=== PATIENT | male | born 1960 | race African-American/Black ===

== ENCOUNTER 2019-10-28 18:16 | Inpatient (IN) | payer OTHER ==
--- NOTE | 2019-10-28 18:24 | PDOC ---
History of Present Illness - General Stated Complaint: UNABLE TO URINATE Time Seen by Provider: 10/28/19 18:24 History Source: Patient Exam Limitations: No Limitations - History of Present Illness Initial Comments: 10/28/19 18:24 PCP: Dr. Elgin Tsai HPI: 59yo M PMH HIV, enlarged prostate presenting with 1.5 weeks reduced/ blocked aggarwal catheter. Patient found with SBP in 80s, tachycardic, meeting sepsis criteria. Patient only complains of prolonged leg bag blockage and a sensation of abdominal pressure that has cause him to reduce his fluid intake. Denies any fevers, chills, weakness, cough, nausea, vomiting, chest pain, shortness of breath, palpitations. All: Cipro --> "Fire: Meds: Per chart PMH: As above PSH: Denies Past History - Travel Traveled outside of the country in the last 30 days: No Close contact w/someone who was outside of country & ill: No - Past Medical History Allergies/Adverse Reactions: Allergies Allergy/AdvReac Type Severity Reaction Status Date / Time ciprofloxacin [From Cipro] Allergy Verified 10/28/19 19:03 Home Medications: Ambulatory Orders Bicalutamide 50 mg PO DAILY 10/28/19 Doxepin HCl 100 mg PO DAILY 10/28/19 Lactulose 10 mg PO DAILY 10/28/19 Tamsulosin HCl 0.4 mg PO DAILY 10/28/19 Review of Systems - Review of Systems Able to Perform ROS?: Yes Is the patient limited Kazakh proficient: Yes Constitutional: No: Chills, Diaphoresis, Fever, Weakness HEENTM: No: Recent change in vision, Nose Congestion, Throat Pain Respiratory: No: Cough, Shortness of Breath Cardiac (ROS): No: Chest Pain, Irregular Heart Rate, Lightheadedness, Palpitations, Chest Tightness ABD/GI: Yes: Poor Fluid Intake. No: Constipated, Diarrhea, Nausea, Vomiting : Yes: See HPI, Other (abdominal pressure) Musculoskeletal: No: Muscle Pain, Muscle Weakness Integumentary: No: Pallor, Rash Neurological: No: Headache, Numbness, Tingling, Weakness Psychiatric: No: Stressors, Change in Appetite Endocrine: No: Increased Thirst, Increased Urine, Change in Weight Hematologic/Lymphatic: No: Anemia, Blood Clots, Easy Bleeding All Other Systems: Reviewed and Negative *Physical Exam - Physical Exam 10/28/19 19:06 Vitals reviewed, Hypotensive, Tachycardic GEN: Emaciated, cachectic, smells strongly of urine, appears stated age, NAD, comfortable. AAOx3. HEENT: NCAT, EOMI, PERRL. Sclera anicteric, noninjected. No facial asymmetry. Moist mucous membranes. Normal voice. Trachea midline. CV: RRR, S1/S2, no murmurs / rubs / gallops appreciated. LUNG: CTAB, normal work of breathing. No wheezes, rales, rhonchi. No cough. Speaking full sentences. GI: Soft, non-distended, mildly tender suprapubically, no appreciable fullness, +BS, no guarding, no rebound. No masses. Neg CVAT b/l. EXTREMITIES: 2+ distal pulses. No LE edema. No obvious deformities of all extremities. SKIN: Warm, dry, no rashes appreciated, non-jaundiced. PSYCH: Normal mood and affect. Cooperative and appropriate. NEURO: CN grossly intact. Moving all extremities well. Normal strength and sensation grossly. ED Treatment Course - LABORATORY CBC & Chemistry Diagram: 10/28/19 20:31 10/28/19 20:31 Medical Decision Making - Medical Decision Making 10/28/19 19:08 59yo M PMH HIV, enlarged prostate presenting with 1.5 weeks reduced/blocked aggarwal catheter. Smells strongly of a UTI, pus in aggarwal bag, vitals meet sepsis criteria, concerning for urosepsis. - Full sepsis workup - Change Aggarwal 10/28/19 21:20 - Pt with tachycardia - Zosyn ordered - Severe pain with aggarwal change - Anemic 10/28/19 21:50 - Lactate 3.0 - EKbpm, irregularly irregular, normal axis, no ischemic changes - CXR: read per radiology Dispo: Admit Med/Surg Urosepsis Discharge - Discharge Information Problems reviewed: Yes Clinical Impression/Diagnosis: Sepsis Qualifiers: Sepsis type: sepsis due to unspecified organism Sepsis acute organ dysfunction status: unspecified Qualified Code(s): A41.9 - Sepsis, unspecified organism Condition: Guarded - Follow up/Referral - Patient Discharge Instructions - Post Discharge Activity
[2019-10-28] MEDS ORDERED: SODIUM CHLORIDE 1,796 ML IV ONE (18:55)
[2019-10-28] MEDS ORDERED: FOLIC ACID INJECTION - 1 MG, THIAMINE HCL 100 MG, MULTIVIT INJECTION ADULT 10 ML in SOD... IVPB ONE (20:11)
[2019-10-28 20:16] LABS: INR 1.28 (0.83-1.09); PROTHROMBIN TIME (PATIENT) 15.1 SEC (9.7-13.0)
[2019-10-28 20:18] LABS: ACTIVATED PTT 45.7 SECONDS (25.2-36.5)
[2019-10-28] MEDS ORDERED: ACETAMINOPHEN 1000 MG/100 ML VIAL (NON FORMULARY) IVPB ONE (20:21)
[2019-10-28 20:34] LABS: EOS % 1.2 % (0-4.5); HEMATOCRIT 24.9 % (35.4-49); HEMOGLOBIN 8.5 GM/dL (11.7-16.9); LYMPH % 27.9 % (8-40); MCH 28.7 pg (25.7-33.7); MCHC 34.1 g/dl (32.0-35.9); MEAN CELL VOLUME 84.4 fl (80-96); MEAN PLT VOLUME 8.4 fl (7.5-11.1); MONO % 7.8 % (3.8-10.2); NEUT % 62.1 % (42.8-82.8); PLATELET COUNT 326 K/MM3 (134-434); RBC 2.95 M/mm3 (4.00-5.60); RDW 16.1 % (11.9-15.9); WHITE BLOOD COUNT 5.9 K/mm3 (4.0-10.0)
[2019-10-28 20:37] LABS: EPI CELLS 11.3 /HPF (0-5/HPF); HYALINE CASTS 156 /lpf (0-8); PH,URINE 8.5 (5.0-8.0); URINE APPEARANCE TURBID; URINE BACTERIA 5681.6 /hpf (NEGATIVE); URINE BILIRUBIN NEGATIVE (NEGATIVE); URINE COLOR ORANGE; URINE GLUCOSE (UA) NEGATIVE (NEGATIVE); URINE KETONE NEGATIVE (NEGATIVE); URINE LEUK ESTERASE 3+ (NEGATIVE); URINE NITRITE POSITIVE (NEGATIVE); URINE PROTEIN 2+ (NEGATIVE); URINE WBC 2023 /hpf (0-5)
[2019-10-28 20:38] LABS: VENOUS PC02 37.2 mmHg (38-52); VENOUS PH 7.36 (7.31-7.41)
[2019-10-28 20:39] LABS: VENOUS PO2 < 49 mmHg (28-48)
[2019-10-28] MEDS ORDERED: ACETAMINOPHEN INJECTION 100 ML IVPB ONE (20:57)
[2019-10-28 21:01] LABS: ALBUMIN 2.2 g/dl (3.4-5.0); BILIRUBIN,TOTAL 0.4 mg/dL (0.2-1); BLOOD UREA NITROGEN 23.8 mg/dL (7-18); CALCIUM 7.9 mg/dL (8.5-10.1); CREATININE 0.9 mg/dL (0.55-1.3); POTASSIUM 4.9 mmol/L (3.5-5.1); TOT PROT 5.7 g/dl (6.4-8.2)
--- NOTE | 2019-10-28 21:12 | PDOC ---
Attending Attestation - Resident Resident Name: Ja Sandy - ED Attending Attestation I have performed the following: I have examined & evaluated the patient, The case was reviewed & discussed with the resident, I agree w/resident's findings & plan - HPI HPI: 10/28/19 21:12 Pt comes with pus discharge from his urinary catheter. Pt is cachectic; hypotensive and weak. - Physicial Exam PE: 10/28/19 21:51 Cachectic; afebrile Hip ulcers bilat. abd soft NT ND Pt complains of burning in the penis with the catheter. catheter placement good with US guidance Pt has clear lungs bilat. heart is S1S2 tachycardia - Medical Decision Making 10/28/19 21:51 Pt has elevated lactic acid; low BP; UTI; sepsis. He is receiving fluids; received zosyn; admitted to the hospitalist team. 10/28/19 23:03 Pt is feeling better. 10/28/19 23:03 Admitted to the hospitalist
[2019-10-28] MEDS ORDERED: PIPERACILLIN/TAZOB 3.375 GM 3.375 GM in DEXTROSE 5%-WATER - 50 ML IVPB ONE (21:15)
[2019-10-28 21:33] LABS: URINE RBC 746.6 /hpf (0-4)
[2019-10-28 21:34] LABS: URINE CRYSTALS MODERATE /hpf; YEAST NONE SEEN (NEGATIVE)
[2019-10-28 21:47] LABS: RETICULOCYTES 0.87 % (0.5-1.5)
[2019-10-28] MEDS ORDERED: PIPERACILLIN/TAZOB 3.375 GM 3.375 GM/50 ML BAG IVPB ONE (21:58)
--- NOTE | 2019-10-28 22:48 | HP ---
CHIEF COMPLAINT:urinary retention PCP:Quin HISTORY OF PRESENT ILLNESS: 59 yo M PMH HIV, Depression, BPH presents to ED for suprapubic fullness and urinary retention. pt states for the past week he noticed decreased drainage of urine from his aggarwal. he states that he started noticing drainage around his penis. he went to [facility] one month ago and they placed the aggarwal bc his enlarged prostate. he had not followed up with any physicians since then. pt states that he has not had a colonoscopy recently. he states he is unaware of any cancer hx. he denies recent illness. pt states that recently every morning he has noticed nosebleeds. denies f/c/n/v/d. ER course was notable for: (1)lactate of 3 (2)CXR (3)change aggarwal (4) zosyn, tylenol, Recent Travel: denies PAST MEDICAL HISTORY: see HPI PAST SURGICAL HISTORY: denies Social History: Smoking: smokes 1 spliff for 20 y Alcohol:denies Allergies ciprofloxacin [From Cipro] Allergy (Verified 10/28/19 19:03) HOME MEDICATIONS: Home Medications Medication Instructions Recorded Bicalutamide 50 mg PO DAILY 10/28/19 Doxepin HCl 100 mg PO DAILY 10/28/19 Lactulose 10 mg PO DAILY 10/28/19 Tamsulosin HCl 0.4 mg PO DAILY 10/28/19 REVIEW OF SYSTEMS CONSTITUTIONAL: Absent: fever, chills, diaphoresis, generalized weakness, malaise, loss of appetite, weight change HEENT: Absent: rhinorrhea, nasal congestion, throat pain, throat swelling, difficulty swallowing, mouth swelling, ear pain, eye pain, visual changes CARDIOVASCULAR: Absent: chest pain, syncope, palpitations, irregular heart rate, lightheadedness , peripheral edema RESPIRATORY: Absent: cough, shortness of breath, dyspnea with exertion, orthopnea, wheezing, stridor, hemoptysis GASTROINTESTINAL: Present: abdominal pressure Absent: abdominal pain, abdominal distension, nausea, vomiting, diarrhea, constipation, melena, hematochezia GENITOURINARY: Present: retention from catheter Absent: dysuria, frequency, urgency, hesitancy, hematuria, flank pain, genital pain MUSCULOSKELETAL: Absent: myalgia, arthralgia, joint swelling, back pain, neck pain SKIN: Absent: rash, itching, pallor HEMATOLOGIC/IMMUNOLOGIC: Present: nose bleeds Absent: easy bleeding, easy bruising, lymphadenopathy, frequent infections ENDOCRINE: Absent: unexplained weight gain, unexplained weight loss, heat intolerance, cold intolerance NEUROLOGIC: Absent: headache, focal weakness or paresthesias, dizziness, unsteady gait, seizure, mental status changes, bladder or bowel incontinence PSYCHIATRIC: Absent: anxiety, depression, suicidal or homicidal ideation, hallucinations. PHYSICAL EXAMINATION Vital Signs - 24 hr 10/28/19 10/28/19 10/28/19 18:25 21:01 21:33 Temperature 97.9 F 99.2 F Pulse Rate 104 H Pulse Rate [ 91 H Apical] Respiratory 20 20 Rate Blood Pressure 88/67 L Blood Pressure 94/61 [Right Arm] O2 Sat by Pulse 98 100 Oximetry (%) GENERAL: Awake, alert, and fully oriented, in no acute distress. Thin male HEAD: Normal with no signs of trauma. EYES: Pupils equal, round and reactive to light, extraocular movements intact EARS, NOSE, THROAT: oropharynx clear without exudates. Moist mucous membranes. NECK: No JVD LUNGS: Breath sounds equal, clear to auscultation bilaterally. No wheezes, and no crackles. No accessory muscle use. HEART: irregular rate and rhythm, + S1 and S2 without murmur, rub or gallop. ABDOMEN: Soft, nontender, not distended, normoactive bowel sounds MUSCULOSKELETAL: No CVA tenderness. UPPER EXTREMITIES: 2+ pulses, warm, well-perfused. No cyanosis. No clubbing. No peripheral edema. LOWER EXTREMITIES: 2+ pulses, warm, well-perfused. No calf tenderness. No peripheral edema. NEUROLOGICAL: Cranial nerves II-XII intact. Normal speech. SKIN: Warm, dry, normal turgor, skin scaling RECTAL: No stool in vault,good sphincter tone, external skin tags, no external hemorrhoids visualized or internal hemorrhoids palpated, no active bleeding noted, no blood on tip of glove. nodular irregularities of prostate. Laboratory Last Values WBC 5.9 K/mm3 (4.0-10.0) 10/28/19 20:31 RBC 2.95 M/mm3 (4.00-5.60) L 10/28/19 20:31 Hgb 8.5 GM/dL (11.7-16.9) L 10/28/19 20:31 Hct 24.9 % (35.4-49) L 10/28/19 20: MCV 84.4 fl (80-96) 10/28/19 20: MCH 28.7 pg (25.7-33.7) 10/28/19: MCHC 34.1 g/dl (32.0-35.9) 10/28/19: RDW 16.1 % (11.9-15.9) H 10/28/19: Plt Count 326 K/MM3 (134-434) 10/28/19: MPV 8.4 fl (7.5-11.1) 10/28/19: Absolute Neuts (auto) 3.7 K/mm3 (1.5-8.0) 10/28/19 Neutrophils % 62.1 % (42.8-82.8) 10/28/19 Lymphocytes % 27.9 % (8-40) 10/28/19: Monocytes % 7.8 % (3.8-10.2) 10/28/19: Eosinophils % 1.2 % (0-4.5) 10/28/19: Basophils % 1.0 % (0-2.0) 10/28/19: Nucleated RBC % 0 % (0-0) 10/28/19 Retic Count 0.87 % (0.5-1.5) 10/28/19: PT with INR 15.10 SEC (9.7-13.0) H 10/28/19 19: INR 1.28 (0.83-1.09) H 10/28/19: PTT (Actin FS) 45.7 SECONDS (25.2-36.5) H 10/28/19: VBG pH 7.36 (7.31-7.41) 10/28/19: POC VBG pCO2 37.2 mmHg (38-52) L 10/28/19: POC VBG pO2 < 49 mmHg (28-48) H 10/28/19: VBG HCO3 20.6 mmol/L (23-29) L 10/28/19: VBG O2 Sat (Franca) 37.1 % (70-80) L 10/28/19 20: VBG Base Excess -3.9 meq/l (-2-2) L 10/28/19 20: Sodium 139 mmol/L (136-145) 10/28/19 20: Potassium 4.9 mmol/L (3.5-5.1) 10/28/19 20: Chloride 109 mmol/L (98-107) H 10/28/19 20: Carbon Dioxide 22 mmol/L (21-32) 10/28/19 20: Anion Gap 8 MMOL/L (8-16) 10/28/19 20: BUN 23.8 mg/dL (7-18) H 10/28/19 20: Creatinine 0.9 mg/dL (0.55-1.3) 10/28/19 20: Est GFR (CKD-EPI)AfAm 108.73 10/28/19 20: Est GFR (CKD-EPI)NonAf 93.82 10/28/19 20: Random Glucose 82 mg/dL (74-106) 10/28/19 20: Lactic Acid 3.0 mmol/L (0.4-2.0) H* 10/28/19 20: Calcium 7.9 mg/dL (8.5-10.1) L 10/28/19 20: Iron 40 ug/dL (50-175) L 10/28/19 20: TIBC 77 ug/dL (250-450) L 10/28/19 20: Iron Saturation 51 % (17.5-39) H 10/28/19 20: Unsaturated IBC 37 ug/dL (200-275) L 10/28/19 20: Ferritin 1213.5 ng/ml (8-388) H 10/28/19 20: Total Bilirubin 0.4 mg/dL (0.2-1) 10/28/19 20: AST 25 U/L (15-37) 10/28/19 20: ALT 13 U/L (13-61) 10/28/19 20: Alkaline Phosphatase 464 U/L (45-117) H 10/28/19 20: Troponin I < 0.02 ng/ml (0.00-0.05) 01/12/20 19:35 Total Protein 5.7 g/dl (6.4-8.2) L 10/28/19 20: Albumin 2.2 g/dl (3.4-5.0) L 10/28/19: Urine Color [place] 10/28/19 20: Urine Appearance Turbid 10/28/19 20: Urine pH 8.5 (5.0-8.0) H 10/28/19 20: Ur Specific [place] 1.017 (1.010-1.035) 10/28/19 20: Urine Protein 2+ (NEGATIVE) H 10/28/19 20: Urine Glucose (UA) Negative (NEGATIVE) 10/28/19: Urine Ketones Negative (NEGATIVE) 10/28/19: Urine Blood 3+ (NEGATIVE) H 10/28/19: Urine Nitrite Positive (NEGATIVE) H 10/28/19: Urine Bilirubin Negative (NEGATIVE) 10/28/19: Urine Urobilinogen 1.0 mg/dL (0.2-1.0) 10/28/19: Ur Leukocyte Esterase 3+ (NEGATIVE) H 10/28/19 20: Urine WBC (Auto) 2023 /hpf (0-5) 10/28/19 20: Urine RBC (Auto) 746.6 /hpf (0-4) 10/28/19 20: Urine Casts (Auto) 156 /lpf (0-8) 10/28/19 20: U Pathogenic Cast Auto None seen /lpf (NEGATIVE) 10/28/19: U Epithel Cells (Auto) 11.3 /HPF (0-5/HPF) 10/28/19 20: Urine Crystals (Auto) Moderate /hpf 10/28/19 20: Urine Bacteria (Auto) 5681.6 /hpf (NEGATIVE) 10/28/19 20: Urine Yeast (Auto) None seen (NEGATIVE) 10/28/19: Stool Occult Blood Negative (NEGATIVE) 10/28/19 21:51 ASSESSMENT/PLAN: 59 yo M PMH HIV, Depression, BPH presents to ED for suprapubic fullness and urinary retention. Pt is admitted to medicine for sepsis 2/2 UTI Sepsis 2/2 UTI - lactate 3; + UA - aggarwal changed in ED - s/p zosyn in ED, 2 L IVF - continue zosyn and fluids - pressure responded with fluid hydration. continue to monitor to maintain BP - pending Blood, sputum and Urine culture - CT chest / abdomen/ pelvis - rpt lactate - ESR, CRP -Urology recs appreciated ( Dr. Hernan Mcdonald) - ID recs appreciated ( Dr. Lacey) Suspicion for Prostate Ca - pt never had biopsy of prostate - pending PSA - CT chest/ abdomen / pelvis - Heme / onc recs appreciated ( Dr. Qureshi ) Anemia of chronic disease - FOBT negative - Heme/ onc recs appreciated HIV - on Odefsey - ID recs appreciated Malnutrition - protein supplement BID - dietary consult requested F/E/N - monitor lytes -regular diet Dispo: Admit to medicine CODE STATUS: DNR/DNI Visit type - Emergency Visit Emergency Visit: Yes ED Registration Date: 10/28/19 Care time: The patient presented to the Emergency Department on the above date and was hospitalized for further evaluation of their emergent condition. - New Patient This patient is new to me today: Yes - Critical Care Critical Care patient: No ATTENDING PHYSICIAN STATEMENT I saw and evaluated the patient. I reviewed the resident's note and discussed the case with the resident. I agree with the resident's findings and plan as documented. SUBJECTIVE: OBJECTIVE: ASSESSMENT AND PLAN:
[2019-10-28] MEDS ORDERED: MORPHINE SULFATE 2 MG/ML VIAL IVPUSH PRN (23:22)
[2019-10-28] MEDS ORDERED: LACTATED RINGERS SOLUTION 1,000 ML/1,000 ML INFUS.BAG IV SCH (23:30)
--- NOTE | 2019-10-29 01:33 | PN ---
Teaching Attending Note Name of Resident: Svetlana Ramirez ATTENDING PHYSICIAN STATEMENT I saw and evaluated the patient. I reviewed the resident's note and discussed the case with the resident. I agree with the resident's findings and plan as documented. SUBJECTIVE: 59yo man w/ HIVOn Jfsey, enlarged prostate, Seen at [facility] about 1 month ago and had a catheter placed for urinary retention and is returning now for suspected blocked Syed catheter. Syed catheter was removed and replaced in the emergency room.Allegedly has a urologist at [facility] and is suspected to have prostate cancer. In the emergency room, patient was found to be hypotensive, tachycardic. OBJECTIVE: Last Vital Signs Temp Pulse Resp BP Pulse Ox 99.2 F 88 20 110/73 100 10/28/19 21:01 10/28/19 22:55 10/28/19 22:55 10/28/19 22:55 10/28/19 22:55 GENERAL: Awake and alert, not in acute distress, cachectic HEENT: Normocephalic, atraumatic. PERRLA, EOMI. No conjunctival pallor. Sclera are non- icteric. Moist mucous membranes. Oropharynx is clear. NECK: Supple. Full ROM. No JVD. Carotid pulses 2+ and symmetric, without bruits. No thyromegaly. No lymphadenopathy. CARDIOVASCULAR: Regular rate and rhythm. No murmurs, rubs, or gallops. Distal pulses are 2+ and symmetric. PULMONARY: No evidence of respiratory distress. Lungs clear to auscultation bilaterally. No wheezing, rales or rhonchi. ABDOMINAL: Soft. Non-tender. Non-distended. No rebound or guarding. No organomegaly. Normoactive bowel sounds. MUSCULOSKELETAL Normal range of motion at all joints. No bony deformities or tenderness. No CVA tenderness. EXTREMITIES: No cyanosis. No clubbing. No edema. No calf tenderness. SKIN: Warm and dry. Normal capillary refill. No rashes. No jaundice. PSYCHIATRIC: Cooperative. Good eye contact. Appropriate mood and affect. Syed catheter in place, noted to be draining orange tinted urine Abnormal Lab Results 10/28/19 10/28/19 10/28/19 19:35 20:31 20:31 RBC 2.95 L Hgb 8.5 L Hct 24.9 L RDW 16.1 H PT with INR 15.10 H INR 1.28 H PTT (Actin FS) 45.7 H POC VBG pCO2 POC VBG pO2 VBG HCO3 VBG O2 Sat (Franca) VBG Base Excess Chloride 109 H BUN 23.8 H Lactic Acid Calcium 7.9 L Iron 40 L TIBC 77 L Iron Saturation 51 H Unsaturated IBC 37 L Ferritin 1213.5 H Alkaline Phosphatase 464 H Total Protein 5.7 L Albumin 2.2 L Urine pH Urine Protein Urine Blood Urine Nitrite Ur Leukocyte Esterase 10/28/19 10/28/19 10/28/19 20:31 20:31 20:31 RBC Hgb Hct RDW PT with INR INR PTT (Actin FS) POC VBG pCO2 37.2 L POC VBG pO2 < 49 H VBG HCO3 20.6 L VBG O2 Sat (Franca) 37.1 L VBG Base Excess -3.9 L Chloride BUN Lactic Acid 3.0 H* Calcium Iron TIBC Iron Saturation Unsaturated IBC Ferritin Alkaline Phosphatase Total Protein Albumin Urine pH 8.5 H Urine Protein 2+ H Urine Blood 3+ H Urine Nitrite Positive H Ur Leukocyte Esterase 3+ H Imaging studies reviewed ASSESSMENT AND PLAN: 51-year-old male, immunocompromised With HIV with unknown CD4 count or viral load, with suspected underlying malignancy with possible mets to chest presenting with severe sepsis likely secondary to complicated urinary tract infection. UA was grossly positive with pyuria, positive leukocyte esterase and urine nitrates. Cannot rule out pulmonary source as opacities were found on chest x-ray although these might represent metastasis from underlying malignancy. Lactic acidosis was found. Treated initially with Zosyn and IV fluid resuscitation. Blood pressure is noted to have improved. Patient is noted to be DNR/DNI and would be appropriate for admission to [facility] at this time. Admit to [facility] Continue Zosyn 3.375 every 6 hours Trend lactate Blood cultures x2 Sputum culture and urine Legionella antigen Pneumococcal urine antigen Urine culture IV fluid hydration Infectious disease consultation Contact [facility] for medical records and work-up for suspected malignancy Heme-onc consult Urology consult CT scan of chest, abdomen, pelvis with contrast to evaluate for mets PSA ESR and CRP #HIVunknown CD4 count and viral load, [facility]atitis B and C serology Send CD4 count and viral load ID [facility] #Normocytic anemiasuspect anemia of chronic disease, may be secondary to underlying HIV versus malignancy Ferritin Iron studies Vitamin B12 TSH #Cachexiawasted appearance, BMI is under 18may be secondary to HIV wasting syndrome versus underlying malignancy Protein supplement to twice daily Dietary consult and calorie count High-protein diet Advanced directivesDNR/DNI, confirm documentation in chart #DVT prophylaxisheparin subcutaneously
[2019-10-29] MEDS: PIPERACILLIN/TAZOB 3.375 GM 3.375 GM in DEXTROSE 5%-WATER - 50 ML IVPB SCH ×2 (02:47→10:25)
[2019-10-29] MEDS ORDERED: PIPERACILLIN/TAZOB 3.375 GM 3.375 GM in DEXTROSE 5%-WATER - 50 ML IVPB SCH ×2 (03:00→05:00)
[2019-10-29 05:53] VITALS: BMI 17.0
[2019-10-29] MEDS ORDERED: DEXTROSE 5%-WATER - 50 ML IVPB ONE ×3 (06:38→14:26)
[2019-10-29] MEDS ORDERED: PIPERACILLIN/TAZOBACTAM 3.375 GM VIAL IVPB ONE ×2 (06:38→10:16)
[2019-10-29 08:59] LABS: HEMATOCRIT 20.8 % (35.4-49); HEMOGLOBIN 7.6 GM/dL (11.7-16.9); MCHC 36.4 g/dl (32.0-35.9); MEAN CELL VOLUME 87.8 fl (80-96); PLATELET COUNT 279 K/MM3 (134-434); RBC 2.37 M/mm3 (4.00-5.60); WHITE BLOOD COUNT 5.1 K/mm3 (4.0-10.0)
--- NOTE | 2019-10-29 09:43 | EKG ---
Test Reason : Blood Pressure : / mmHG Vent. Rate : 094 BPM Atrial Rate : 094 BPM P-R Int : 132 ms QRS Dur : 090 ms QT Int : 340 ms P-R-T Axes : 079 072 087 degrees QTc Int : 425 ms SINUS RHYTHM WITH MARKED SINUS ARRHYTHMIA OTHERWISE NORMAL ECG WHEN COMPARED WITH ECG OF 20-MAY-2010 12:20, NO SIGNIFICANT CHANGE WAS FOUND Confirmed by JEWEL AGEE MD ([id number]) on 10/29/2019 9:42:39 AM Referred By: Confirmed By:JEWEL AGEE MD
[2019-10-29] MEDS ORDERED: FLU VACCINE QUAD 60 MCG/0.5 ML (MDV 19-20) IM ONE (10:00)
[2019-10-29] MEDS ORDERED: PT OWN MED DRAWER 7, Y5N ONE (10:15)
[2019-10-29] MEDS: DOXEPIN HCL 25 MG CAPSULE PO SCH ×2 (10:26→10:36)
[2019-10-29] MEDS: EMTRICITAB/RILPIVIRI/TENOF ALA (ODEFSEY) TABLET PO SCH ×2 (10:26→10:28)
[2019-10-29 10:28] LABS: ALBUMIN 1.9 g/dl (3.4-5.0); BILIRUBIN,TOTAL 0.5 mg/dL (0.2-1); BLOOD UREA NITROGEN 16.3 mg/dL (7-18); CALCIUM 7.3 mg/dL (8.5-10.1); CREATININE 0.7 mg/dL (0.55-1.3); PHOSPHOROUS 2.8 mg/dL (2.5-4.9); POTASSIUM 4.8 mmol/L (3.5-5.1); TOT PROT 5.1 g/dl (6.4-8.2)
[2019-10-29 10:45] LABS: ANISOCYTOSIS 0; MACROCYTOSIS 0; OVALOCYTE 1+; PLATELET ESTIMATE NORMAL; TARGET CELLS 1+; TEAR DROP CELLS 1+
--- NOTE | 2019-10-29 11:14 | CONSULT ---
Consultation: REQUESTING PROVIDER:Primary team Dr Ramirez resident CONSULT REQUEST: We have been asked to medically evaluate this patient for ( anemia R.O prostate cancer ). HISTORY OF PRESENT ILLNESS: 59yo man w/ HIVOn Neha, enlarged prostate, Seen at [facility] about 1 month ago and had a catheter placed for urinary retention and is returning now for suspected blocked Aggarwal catheter. Aggarwal catheter was removed and replaced in the emergency room.Allegedly has a urologist at [facility] and is suspected to have prostate cancer. In the emergency room, patient was found to be hypotensive, tachycardic. PHYSICAL EXAMINATION Vital Signs - 24 hr 10/28/19 10/28/19 10/28/19 18:25 21:01 21:25 Temperature 97.9 F 99.2 F Pulse Rate 104 H Pulse Rate [ Apical] Respiratory 20 Rate Blood Pressure 88/67 L Blood Pressure [Right Arm] O2 Sat by Pulse 98 99 Oximetry (%) 10/28/19 10/28/19 10/29/19 21:33 22:55 01:38 Temperature 98.0 F Pulse Rate 87 Pulse Rate [ 91 H 88 Apical] Respiratory 20 20 20 Rate Blood Pressure 97/67 Blood Pressure 94/61 110/73 [Right Arm] O2 Sat by Pulse 100 100 Oximetry (%) GENERAL: Awake, alert, and fully oriented, in no acute distress. HEAD: Normal with no signs of trauma. EYES: Pupils equal, round and reactive to light, extraocular movements intact, sclera anicteric, conjunctiva clear. No lid lag. EARS, NOSE, THROAT: Ears normal, nares patent, oropharynx clear without exudates. Moist mucous membranes.no thrush noted NECK: , supple without lymphadenopathy LUNGS: Breath sounds equal, clear to auscultation bilaterally. No wheezes, and no crackles. No accessory muscle use. HEART: Regular rate and rhythm, normal S1 and S2 without murmur, rub or gallop. ABDOMEN: Soft, nontender, not distended, normoactive bowel sounds, no guarding, no rebound, LOWER EXTREMITIES: 2+ pulses, warm, well-perfused. No calf tenderness. No peripheral edema. catchetic , loos of body fat NEUROLOGICAL: no focal deicit, Normal speech. PSYCHIATRIC: Cooperative. SKIN: Warm, dry, no lyph node palpated No breast mass palpated aggarwal in place with clear urine Laboratory Results - last 24 hr 10/28/19 10/28/19 10/28/19 08:15 19:35 19:35 WBC RBC Hgb Hct MCV MCH MCHC RDW Plt Count MPV Absolute Neuts (auto) Neutrophils % Neutrophils % (Manual) Band Neutrophils % Lymphocytes % Lymphocytes % (Manual) Monocytes % Monocytes % (Manual) Eosinophils % Eosinophils % (Manual) Basophils % Basophils % (Manual) Myelocytes % (Man) Promyelocytes % (Man) Blast Cells % (Manual) Nucleated RBC % Metamyelocytes Hypochromia Platelet Estimate Polychromasia Poikilocytosis Anisocytosis Microcytosis Macrocytosis Target Cells Tear Drop Cells Ovalocytes ESR 53 H Retic Count PT with INR 15.10 H INR 1.28 H PTT (Actin FS) 45.7 H VBG pH POC VBG pCO2 POC VBG pO2 VBG HCO3 VBG O2 Sat (Franca) VBG Base Excess Sodium Potassium Chloride Carbon Dioxide Anion Gap BUN Creatinine Est GFR (CKD-EPI)AfAm Est GFR (CKD-EPI)NonAf Random Glucose Lactic Acid Calcium Phosphorus Magnesium Iron TIBC Iron Saturation Unsaturated IBC Ferritin Total Bilirubin AST ALT Alkaline Phosphatase Troponin I < 0.02 C-Reactive Protein 2.2 H Total Protein Albumin TSH Urine Color Urine Appearance Urine pH Ur Specific [place] Urine Protein Urine Glucose (UA) Urine Ketones Urine Blood Urine Nitrite Urine Bilirubin Urine Urobilinogen Ur Leukocyte Esterase Urine WBC (Auto) Urine RBC (Auto) Urine Casts (Auto) U Pathogenic Cast Auto U Epithel Cells (Auto) Urine Crystals (Auto) Urine Bacteria (Auto) Urine Yeast (Auto) Stool Occult Blood 10/28/19 10/28/19 10/28/19 20:31 20:31 20:31 WBC 5.9 RBC 2.95 L Hgb 8.5 L Hct 24.9 L MCV 84.4 MCH 28.7 MCHC 34.1 RDW 16.1 H Plt Count 326 MPV 8.4 Absolute Neuts (auto) 3.7 Neutrophils % 62.1 Neutrophils % (Manual) Band Neutrophils % Lymphocytes % 27.9 Lymphocytes % (Manual) Monocytes % 7.8 Monocytes % (Manual) Eosinophils % 1.2 Eosinophils % (Manual) Basophils % 1.0 Basophils % (Manual) Myelocytes % (Man) Promyelocytes % (Man) Blast Cells % (Manual) Nucleated RBC % 0 Metamyelocytes Hypochromia Platelet Estimate Polychromasia Poikilocytosis Anisocytosis Microcytosis Macrocytosis Target Cells Tear Drop Cells Ovalocytes ESR Retic Count 0.87 PT with INR INR PTT (Actin FS) VBG pH POC VBG pCO2 POC VBG pO2 VBG HCO3 VBG O2 Sat (Franca) VBG Base Excess Sodium 139 Potassium 4.9 Chloride 109 H Carbon Dioxide 22 Anion Gap 8 BUN 23.8 H Creatinine 0.9 Est GFR (CKD-EPI)AfAm 108.73 Est GFR (CKD-EPI)NonAf 93.82 Random Glucose 82 Lactic Acid 3.0 H* Calcium 7.9 L Phosphorus Magnesium Iron 40 L TIBC 77 L Iron Saturation 51 H Unsaturated IBC 37 L Ferritin 1213.5 H Total Bilirubin 0.4 AST 25 ALT 13 Alkaline Phosphatase 464 H Troponin I C-Reactive Protein Total Protein 5.7 L Albumin 2.2 L TSH Urine Color Urine Appearance Urine pH Ur Specific [place] Urine Protein Urine Glucose (UA) Urine Ketones Urine Blood Urine Nitrite Urine Bilirubin Urine Urobilinogen Ur Leukocyte Esterase Urine WBC (Auto) Urine RBC (Auto) Urine Casts (Auto) U Pathogenic Cast Auto U Epithel Cells (Auto) Urine Crystals (Auto) Urine Bacteria (Auto) Urine Yeast (Auto) Stool Occult Blood 10/28/19 10/28/19 10/28/19 20:31 20:31 21:51 WBC RBC Hgb Hct MCV MCH MCHC RDW Plt Count MPV Absolute Neuts (auto) Neutrophils % Neutrophils % (Manual) Band Neutrophils % Lymphocytes % Lymphocytes % (Manual) Monocytes % Monocytes % (Manual) Eosinophils % Eosinophils % (Manual) Basophils % Basophils % (Manual) Myelocytes % (Man) Promyelocytes % (Man) Blast Cells % (Manual) Nucleated RBC % Metamyelocytes Hypochromia Platelet Estimate Polychromasia Poikilocytosis Anisocytosis Microcytosis Macrocytosis Target Cells Tear Drop Cells Ovalocytes ESR Retic Count PT with INR INR PTT (Actin FS) VBG pH 7.36 POC VBG pCO2 37.2 L POC VBG pO2 < 49 H VBG HCO3 20.6 L VBG O2 Sat (Franca) 37.1 L VBG Base Excess -3.9 L Sodium Potassium Chloride Carbon Dioxide Anion Gap BUN Creatinine Est GFR (CKD-EPI)AfAm Est GFR (CKD-EPI)NonAf Random Glucose Lactic Acid Calcium Phosphorus Magnesium Iron TIBC Iron Saturation Unsaturated IBC Ferritin Total Bilirubin AST ALT Alkaline Phosphatase Troponin I C-Reactive Protein Total Protein Albumin TSH Urine Color Todd Urine Appearance Turbid Urine pH 8.5 H Ur Specific [place] 1.017 Urine Protein 2+ H Urine Glucose (UA) Negative Urine Ketones Negative Urine Blood 3+ H Urine Nitrite Positive H Urine Bilirubin Negative Urine Urobilinogen 1.0 Ur Leukocyte Esterase 3+ H Urine WBC (Auto) 2023 Urine RBC (Auto) 746.6 Urine Casts (Auto) 156 U Pathogenic Cast Auto None seen U Epithel Cells (Auto) 11.3 Urine Crystals (Auto) Moderate Urine Bacteria (Auto) 5681.6 Urine Yeast (Auto) None seen Stool Occult Blood Negative 10/28/19 10/29/19 10/29/19 23:35 08:15 08:15 WBC 5.1 RBC 2.37 L Hgb 7.6 L Hct 20.8 L D MCV 87.8 MCH 32.0 D MCHC 36.4 H RDW 16.0 H Plt Count 279 MPV 8.0 Absolute Neuts (auto) Neutrophils % R D Intern Neutrophils % (Manual) 70.3 Band Neutrophils % 0.0 Lymphocytes % R D Intern Lymphocytes % (Manual) 17.8 Monocytes % R D Intern Monocytes % (Manual) 4 Eosinophils % R D Intern Eosinophils % (Manual) 1.0 Basophils % R D Intern Basophils % (Manual) 0.0 Myelocytes % (Man) 1 Promyelocytes % (Man) 0 Blast Cells % (Manual) 0 Nucleated RBC % 0 Metamyelocytes 1 Hypochromia 1+ Platelet Estimate Normal Polychromasia 1+ Poikilocytosis 1+ Anisocytosis 0 Microcytosis 0 Macrocytosis 0 Target Cells 1+ Tear Drop Cells 1+ Ovalocytes 1+ ESR Retic Count PT with INR INR PTT (Actin FS) VBG pH POC VBG pCO2 POC VBG pO2 VBG HCO3 VBG O2 Sat (Franca) VBG Base Excess Sodium 141 Potassium 4.8 Chloride 113 H Carbon Dioxide 22 Anion Gap 6 L BUN 16.3 Creatinine 0.7 Est GFR (CKD-EPI)AfAm 120.56 Est GFR (CKD-EPI)NonAf 104.02 Random Glucose 77 Lactic Acid 1.5 Calcium 7.3 L Phosphorus 2.8 Magnesium 2.0 Iron TIBC Iron Saturation Unsaturated IBC Ferritin Total Bilirubin 0.5 AST 21 ALT 12 L Alkaline Phosphatase 414 H Troponin I C-Reactive Protein Total Protein 5.1 L Albumin 1.9 L TSH 2.63 Urine Color Urine Appearance Urine pH Ur Specific [place] Urine Protein Urine Glucose (UA) Urine Ketones Urine Blood Urine Nitrite Urine Bilirubin Urine Urobilinogen Ur Leukocyte Esterase Urine WBC (Auto) Urine RBC (Auto) Urine Casts (Auto) U Pathogenic Cast Auto U Epithel Cells (Auto) Urine Crystals (Auto) Urine Bacteria (Auto) Urine Yeast (Auto) Stool Occult Blood Active Medications Generic Name Dose Route Start Last Admin Trade Name Freq PRN Reason Stop Dose Admin Doxepin HCl 100 mg 10/29/19 10:00 10/29/19 10:36 Sinequan - PO Not Given DAILY JESSICA Piperacillin Sod/Tazobactam 50 mls @ 100 mls/hr 10/29/19 03:00 Sod 3.375 gm/ Dextrose IVPB Q6H-IV JESSICA Protocol Lactated Ringer's 1,000 ml in 1,000 mls @ 83 mls/hr 10/28/19 23:30 10/28/19 23:40 Lactated Ringers Solution IV 83 mls/hr ASDIR JESSICA Administration Morphine Sulfate 2 mg 10/28/19 23:22 Morphine Sulfate IVPUSH Q6H PRN PAIN LEVEL 6-10 CBC, BMP 10/29/19 08:15 10/29/19 08:15 IMPRESSION: 1. 9 mm right upper lobe nodule. A metastatic lesion cannot be excluded. 2. Mild mediastinal lymphadenopathy. 3. No acute pathology within the chest. 4. Marked thickening of the urinary bladder and rectum that may be related to radiation changes. 5. Prostatic enlargement with mild pelvic lymphadenopathy. 6. Extensive, diffuse blastic bone metastases lateral chest, abdomen and pelvis. ASSESSMENT/PLAN: # Normocytic normochromic anemia likely due to anemia of chronic disease HIV , can not R.O malignancy # R.O prostate cancer * H/H 7.6/20.8 , mcv 87, mchd 36 , * monitor H/H daily , repeat around 6 pm today * maintain hgb > 7 * dominguez cx * CT A/P to R.o malignancy * TSH normal 2.6 * follow b12 , FA * PSA * Bone scan out pt , pt would like to [facility] upon discharged # Right upper lobe nodule # Mediastinal lyphadenopathy # diffuse blastic bone lesions will do bone scan # Sepsis 2/2 UTI cont abx zosyn , consult ID # HIV , obtain viral load , cont Odefsey # sever malnutrition BMI below 18 , nutrition consult # Urinary retention # DNR/DNI #follow up with Dr. Jaime Mcclelland and urologist at [facility] and primary care ID at discharge Dispo: We will continue to follow the patient. Thank you for this consultative opportunity. Visit type - Emergency Visit Emergency Visit: Yes ED Registration Date: 10/28/19 Care time: The patient presented to the Emergency Department on the above date and was hospitalized for further evaluation of their emergent condition. - New Patient This patient is new to me today: No - Critical Care Critical Care patient: No ATTENDING PHYSICIAN STATEMENT I saw and evaluated the patient. I reviewed the resident's note and discussed the case with the resident. I agree with the resident's findings and plan as documented. SUBJECTIVE: OBJECTIVE: ASSESSMENT AND PLAN:
--- NOTE | 2019-10-29 11:17 | PN ---
Teaching Attending Note Name of Resident: Kurt Chou ATTENDING PHYSICIAN STATEMENT I saw and evaluated the patient. I reviewed the resident's note and discussed the case with the resident. I agree with the resident's findings and plan as documented. Seen and examined; please see resident note for further historical information. I personally verified all alvarado historical information and exam findings. Personally interpreted all imaging and diagnostics and reviewed appropriate consults. I reviewed all labs and vital signs as per resident note and EMR as documented. I agree with the above assessment and plan unless supplemented by myself in the following. Patient is a 59-year-old man with a longstanding diagnosis of HIV with nonfunctioning Syed and unaware this that he has prostate cancer. Tells me he has a Syed for about 6 months. Pending Syed exchange, potential nonadherence to HIV medications, weight loss, and no fevers. Can likely de-escalate antibiotics but will discuss with infectious disease. 10 item review of systems completed and is negative aside from as discussed in the subjective data in my own/the resident documentation. VS, labs, imaging reviewed NAD, AAO, resting comfortably in bed. RRR s1/2 no mgr Normal muscle tone, moves all 5 extremities with normal apparent strength Neck is supple, trachea midline, no esme LN Lungs CTAB with sym expansion NT ND +BS no esme organomegaly CN2-12 wnl; no FND NC AT EOMI PERRLA Normal mood, appropriate behavior, euthymic affect No skin breakdown or rashes noted Micro pending ASSESSMENT AND PLAN: Patient presents with urosepsis with a longstanding history of HIV and prostate cancer. He is apparently unaware he has prostate cancer and we will require close urological follow-up consultation, we will check a PSA, discussed with urology and potentially hematology and oncology. Sepsis has improved, we will be able to continue him on isotonic fluids for maintenance until he is able to tolerate a diet. He has no further issues and all of his questions were answered. Agree with overnight assessment and plan as documented.
--- NOTE | 2019-10-29 11:32 | PN ---
Progress Note (short form) - Note Progress Note: ID consult dictated imp/reccd 59 yo man with HIV longstanding - diagnosis 05/2000 history of prostate cancer- has not been following up for care follows with Dr Sanchez at [facility] HIV clinic now admitted because his aggarwal was not functoning properly reports he takes odefsey and his viral load is suppressed does not appear to be aware he has prostate cancer! reports he has had the aggarwal catheter since summer 2018 no fevers +weight loss aggarwal obstruction relieved presumed metastatic prostate cancer no fevers continue odefsey for hiv- check markers- ?adherence- reports to missing doses switch to ceftriaxone for UTI can f/u with dr sanchez at discharge Problem List - Problems (1) UTI (urinary tract infection) Code(s): N39.0 - URINARY TRACT INFECTION, SITE NOT SPECIFIED (2) HIV (human immunodeficiency virus infection) Code(s): B20 - HUMAN IMMUNODEFICIENCY VIRUS [HIV] DISEASE (3) Prostate cancer Code(s): C61 - MALIGNANT NEOPLASM OF PROSTATE
[2019-10-29 13:33] LABS: BASO % 0.5 % (0-2.0); EOS % 2.8 % (0-4.5); HEMOGLOBIN 7.7 GM/dL (11.7-16.9); LYMPH % 19.7 % (8-40); MCH 29.3 pg (25.7-33.7); MCHC 34.7 g/dl (32.0-35.9); MEAN CELL VOLUME 84.3 fl (80-96); MEAN PLT VOLUME 8.1 fl (7.5-11.1); PLATELET COUNT 286 K/MM3 (134-434); RBC 2.61 M/mm3 (4.00-5.60); RDW 15.7 % (11.9-15.9); WHITE BLOOD COUNT 5.3 K/mm3 (4.0-10.0)
[2019-10-29] MEDS ORDERED: cefTRIAXone SODIUM 1 GM VIAL ONE (14:26)
[2019-10-29] MEDS: CEFTRIAXONE 1 GM in DEXTROSE 5%-WATER - 50 ML IVPB SCH (14:29)
--- NOTE | 2019-10-29 18:05 | PN ---
Physical Exam: SUBJECTIVE: Patient seen and examined OBJECTIVE: Vital Signs Period Temp Pulse Resp BP Sys/Reardon Pulse Ox Last 24 Hr 97.9 F-99.2 F 87-104 20-20 87-110/50-73 98-100 GENERAL: AOx3, thin male HEAD: AC/AT EYES: EOMI, SLY EARS, NOSE, THROAT: oropharynx clear without exudates. Moist mucous membranes. NECK: No JVD LUNGS: Breath sounds equal, clear to auscultation bilaterally. No wheezes, and no crackles. No accessory muscle use. HEART: irregular rate and rhythm, + S1 and S2 without murmur, rub or gallop. ABDOMEN: Soft, nontender, not distended, normoactive bowel sounds NEUROLOGICAL: Normal speech. SKIN: Warm, dry, normal turgor, skin scaling Laboratory Results - last 24 hr CBC,CMP WBC 5.3 K/mm3 (4.0-10.0) 10/29/19 12:40 RBC 2.61 M/mm3 (4.00-5.60) L 10/29/19 12:40 Hgb 7.7 GM/dL (11.7-16.9) L 10/29/19 12:40 Hct 22.0 % (35.4-49) L 10/29/19 12:40 MCV 84.3 fl (80-96) 10/29/19 12:40 MCH 29.3 pg (25.7-33.7) 10/29/19 12:40 MCHC 34.7 g/dl (32.0-35.9) 10/29/19 12:40 RDW 15.7 % (11.9-15.9) 10/29/19 12:40 Plt Count 286 K/MM3 (134-434) 10/29/19 12:40 MPV 8.1 fl (7.5-11.1) 10/29/19 12:40 Absolute Neuts (auto) 3.8 K/mm3 (1.5-8.0) 10/29/19 12:40 Neutrophils % 71.0 % (42.8-82.8) 10/29/19 12:40 Neutrophils % (Manual) 70.3 % (42.8-82.8) 10/29/19 08:15 Band Neutrophils % 0.0 % 10/29/19 08:15 Lymphocytes % 19.7 % (8-40) D 10/29/19 12:40 Lymphocytes % (Manual) 17.8 % (8-40) 10/29/19 08:15 Monocytes % 6.0 % (3.8-10.2) 10/29/19 12:40 Monocytes % (Manual) 4 % (3.8-10.2) 10/29/19 08:15 Eosinophils % 2.8 % (0-4.5) D 10/29/19 12:40 Eosinophils % (Manual) 1.0 % (0-4.5) 10/29/19 08:15 Basophils % 0.5 % (0-2.0) 10/29/19 12:40 Basophils % (Manual) 0.0 % (0-2.0) 10/29/19 08:15 Myelocytes % (Man) 1 % (0-2) 10/29/19 08:15 Promyelocytes % (Man) 0 % (0-2) 10/29/19 08:15 Blast Cells % (Manual) 0 % (0-0) 10/29/19 08:15 Nucleated RBC % 0 % (0-0) 10/29/19 12:40 Metamyelocytes 1 % (0-2) 10/29/19 08:15 Hypochromia 1+ 10/29/19 08:15 Platelet Estimate Normal 10/29/19 08:15 Polychromasia 1+ 10/29/19 08:15 Poikilocytosis 1+ 10/29/19 08:15 Anisocytosis 0 10/29/19 08:15 Microcytosis 0 10/29/19 08:15 Macrocytosis 0 10/29/19 08:15 Target Cells 1+ 10/29/19 08:15 Tear Drop Cells 1+ 10/29/19 08:15 Ovalocytes 1+ 10/29/19 08:15 ESR 53 mm/hr (0-20) H 10/28/19 08:15 Retic Count 0.87 % (0.5-1.5) 10/28/19 20:31 Sodium 141 mmol/L (136-145) 10/29/19 08:15 Potassium 4.8 mmol/L (3.5-5.1) 10/29/19 08:15 Chloride 113 mmol/L (98-107) H 10/29/19 08:15 Carbon Dioxide 22 mmol/L (21-32) 10/29/19 08:15 Anion Gap 6 MMOL/L (8-16) L 10/29/19 08:15 BUN 16.3 mg/dL (7-18) 10/29/19 08:15 Creatinine 0.7 mg/dL (0.55-1.3) 10/29/19 08:15 Est GFR (CKD-EPI)AfAm 120.56 10/29/19 08:15 Est GFR (CKD-EPI)NonAf 104.02 10/29/19 08:15 Random Glucose 77 mg/dL (74-106) 10/29/19 08:15 Lactic Acid 1.5 mmol/L (0.4-2.0) 10/28/19 23:35 Calcium 7.3 mg/dL (8.5-10.1) L 10/29/19 08:15 Phosphorus 2.8 mg/dL (2.5-4.9) 10/29/19 08:15 Magnesium 2.0 mg/dL (1.8-2.4) 10/29/19 08:15 Iron 40 ug/dL (50-175) L 10/28/19 20:31 TIBC 77 ug/dL (250-450) L 10/28/19 20:31 Iron Saturation 51 % (17.5-39) H 10/28/19 20:31 Unsaturated IBC 37 ug/dL (200-275) L 10/28/19 20:31 Ferritin 1213.5 ng/ml (8-388) H 10/28/19 20:31 Total Bilirubin 0.5 mg/dL (0.2-1) 10/29/19 08:15 AST 21 U/L (15-37) 10/29/19 08:15 ALT 12 U/L (13-61) L 10/29/19 08:15 Alkaline Phosphatase 414 U/L (45-117) H 10/29/19 08:15 Troponin I < 0.02 ng/ml (0.00-0.05) 10/28/19 19:35 C-Reactive Protein 2.2 MG/DL (0.00-0.3) H 10/28/19 19:35 Total Protein 5.1 g/dl (6.4-8.2) L 10/29/19 08:15 Albumin 1.9 g/dl (3.4-5.0) L 10/29/19 08:15 Vitamin B12 655 pg/ml (193-986) 10/29/19 08:15 Serum Folate 18 ng/mL (3.1-17.5) H 10/29/19 08:15 TSH 2.63 uIU/ml (0.358-3.74) 10/29/19 08:15 Active Medications Current Medications Doxepin HCl (Sinequan -) 100 mg PO DAILY JESSICA Last Admin: 10/29/19 10:36 Dose: Not Given Lactated Ringer's (Lactated Ringers Solution) 1,000 ml in 1,000 mls @ 83 mls/ hr IV ASDIR JESSICA Last Admin: 10/28/19 23:40 Dose: 83 mls/hr Ceftriaxone Sodium 1 gm/ (Dextrose) 50 mls @ 100 mls/hr IVPB DAILY JESSICA; Protocol Last Admin: 10/29/19 14:29 Dose: 100 mls/hr Morphine Sulfate (Morphine Sulfate) 2 mg IVPUSH Q6H PRN PRN Reason: PAIN LEVEL 6-10 ASSESSMENT/PLAN: 59 yo M PMH HIV, Depression, BPH, likely prostate cancer w/ mets is admitted to medicine for sepsis 2/2 UTI. #UTI sepsis now resolved Lactate normalized UA+ Zosyn switched to rocephin f/u BCx and UCx Syed placed- urine appears to be clear, no clots or pyuria ID consult appreciate recom f/u with Dr. Tsai at [facility] clinic #Prostate cancer w/ Mets Attempting to get records from [facility]- in progress CT Chest: 9mm RUL nodule,, metastatic lesion cannot be excluded, mild mediastinal LAD, no acute patology in chest, marked thickening of the urinary bladder and rectum- may be due to radiation, prostatic enlargement with mild pelvic LAD, extensive diffuse blastic bone metastases later chest, abdomen, pelvis. Pt will need urological follow-up consultation, F/u PSA discuss with urology and potentially hematology and oncology. #HIV cont home meds Odefsey #Cachexiawasted appearance, BMI is under 18may be secondary to HIV wasting syndrome versus underlying malignancy Protein supplement to twice daily Dietary consult and calorie count High-protein diet FEN LR at 83 monitor lytes regular diet [id number] Dispo: f/u psa, f/u records, discuss with consultants DNR/DNI Visit type - Emergency Visit Emergency Visit: Yes ED Registration Date: 10/28/19 Care time: The patient presented to the Emergency Department on the above date and was hospitalized for further evaluation of their emergent condition. - New Patient This patient is new to me today: Yes Date on this admission: 10/30/19 - Critical Care Critical Care patient: No - Discharge Referral Referred to [facility] Med P.C.: No ATTENDING PHYSICIAN STATEMENT I saw and evaluated the patient. I reviewed the resident's note and discussed the case with the resident. I agree with the resident's findings and plan as documented. SUBJECTIVE: OBJECTIVE: ASSESSMENT AND PLAN:
--- NOTE | 2019-10-29 19:51 | CON.GU ---
Consult Consult Specialty:: urology Reason for Consultation:: metastatic CAP with bladder outlet obstruction - History of Present Illness Chief Complaint: bladder outlet obstruction and metastatic CAP History of Present Illness: Patient is a 59 year old male with history of an occluded catheter with uti. Patient is not fully aware of his CAP diagnosis and has had a aggarwal catheter since the summer. The patient denies fever, chills, gross hematuria, nausea, or vomiting The patient with multiple areas of metastatic disease. He is being followed at [facility]. - History Source History Provided By: Patient - Alcohol/Substance Use Hx Alcohol Use: No - Smoking History Smoking history: Current some day smoker Have you smoked in the past 12 months: Yes Home Medications - Allergies Allergies/Adverse Reactions: Allergies Allergy/AdvReac Type Severity Reaction Status Date / Time ciprofloxacin [From Cipro] Allergy Verified 10/28/19 19:03 - Home Medications Home Medications: Ambulatory Orders Doxepin HCl 100 mg PO BID 10/28/19 Emtricitab/Rilpiviri/Tenof Ala [Odefsey Tablet] 1 each PO DAILY 10/29/19 Physical Exam- Vital Signs: Vital Signs Temperature 97.9 F 10/29/19 17:30 Pulse Rate 94 H 10/29/19 17:30 Respiratory Rate 20 10/29/19 17:30 Blood Pressure 90/50 L 10/29/19 17:30 O2 Sat by Pulse Oximetry (%) 100 10/29/19 09:00 Constitutional: Yes: No Distress, Calm Eyes: Yes: WNL, Conjunctiva Clear, EOM Intact HENT: Yes: WNL, Atraumatic, Normocephalic Neck: Yes: WNL, Supple, Trachea Midline Cardiovascular: Yes: Regular Rate and Rhythm Respiratory: Yes: WNL, Regular Gastrointestinal: Yes: WNL, Normal Bowel Sounds, Soft Renal/: Yes: WNL Kidneys: Yes: WNL Testicles: Yes: WNL Scrotum: Yes: WNL Penis: Yes: WNL Prostate Exam: Yes: Asymmetrical, Hard, Swollen Musculoskeletal: Yes: WNL Extremities: Yes: WNL Labs: CBC, BMP 10/29/19 12:40 10/29/19 08:15 Imaging - Results Cat Scan: Report Reviewed Assessment/Plan impression bph metastatic CAP bladder outlet obstruction managed with aggarwal uti plan continue with antibiotics as per ID patient will follow up with his [facility] urologist
--- NOTE | 2019-10-29 19:55 | PN ---
Teaching Attending Note Name of Resident: Gustavo Ragsdale ATTENDING PHYSICIAN STATEMENT I saw and evaluated the patient. I reviewed the resident's note and discussed the case with the resident. I agree with the resident's findings and plan as documented. ASSESSMENT AND PLAN: 58 yo M with HIV ( followed by Dr. Tsai at [facility]), anemia of chronic disease, G6PD def, and sickle trait, presented with significant symptomatic anemia. Anemia likely from chronic disease, no current evidence of iron deficiency or hemolysis. Has significant wt loss and markedlyelevated PSA> 2000 ( 03/04). B/L leg pains , no other focal bone pains. Remote h/o benign prostate bx. Bone scan and CT c /w bone mets most likely assoc with prostate ca. Imaging -- 03/04 at [facility] Enlarged prostate with nodular soft tissue invading and obstructing the distal right ureter favored to represent extension of prostate malignancy. 2 small nodular papillary projections in the right bladder base may represent extension of prostate malignancy but cannot be distinguished from primary urothelial tumor.Aggarwal catheter in the bladder. Moderate diffuse bladder wall thickening is likely secondary to chronic outlet obstruction. Mild right hydroureteronephrosis due to malignant obstruction of the distal right ureter. Mild left hydroureter is likely secondary to thick-walled bladder. Emphysema with no gross evidence of pulmonary metastases. 1.9 cm cystic lesion of the uncinate process with adjacent parenchymal calcifications possibly representing a pseudocyst with changes of chronic pancreatitis or possible side branch intraductal papillary mucinous tumor. When clinically able, MRI with MRCP can be obtained for further characterization. 2.3 cm lobulated low attenuation apparent polypoid cecal mass (versus less likely a pseudo-lesion due to contrast mixing) that may represent colonic malignancy/mucinous tumor. Correlation with colonoscopy is recommended. Diffuse sclerotic bony metastases Bone scan with extensive mets in 03/04 biopsy deferred by the patient Has not followed up with oncologist -- Dr. Mcclelland or with urologist comes in with supected blocked aggarwal which was replaced also anemic -- transfuse for HGb < 8. prior to discharge follow up with Dr. Jaime Mcclelland and urologist at [facility] and primary care ID at discharge
--- NOTE | 2019-10-29 20:14 | CONS ---
INFECTIOUS DISEASE CONSULTATION DATE OF CONSULTATION: 10/29/2019 This is a 59-year-old man who presented to the emergency room on October 28, with complaints of decreased urinary output from his Syed catheter as well as suprapubic discomfort. He had recently gone to [facility] with similar complaints a month earlier, and they had replaced his Syed catheter. He denies any fevers and chills, but in the ER, was noted to have a lactate of 3, and his Syed was changed. He was given Zosyn and Tylenol. PAST MEDICAL HISTORY: Notable for HIV. He is followed by Dr. Elgin Hidalgo. He knows he has a large prostate. He is not aware of any other diagnoses. He reports to me that he has had trouble with his prostate since the summer, and he has had a Syed since that time. He has seen an urologist at [facility], but has not followed up. ALLERGIES: he is allergic to CIPROFLOXACIN. MEDICATIONS AT HOME: Include Odefsey, bicalutamide, doxepin, lactulose, and tamsulosin. REVIEW OF SYSTEMS: He denies any fevers or chills. He notes that he has had weight loss. PHYSICAL EXAMINATION: General: He is in no acute distress. He is a thin man, resting comfortably. Vital Signs: His temperature is 98.4, pulse of 90, blood pressure is 87/57, respiratory rate is 20. HEENT: He is normocephalic. His eyes are anicteric. Neck: Supple. Lungs: Clear to auscultation. Heart: Regular rate and rhythm. Abdomen: Soft. Genitourinary: He has a Syed in place, draining clear urine. Extremities: Without edema. LABORATORY DATA: White count is 5.3, hemoglobin is 7.6, platelets are 279. His BUN is 23 and creatinine 0.9. His liver function tests are notable for elevated alkaline phosphatase of 464. He had multiple imaging tests since admission including a CAT scan of the abdomen and pelvis that shows bladder thickening and enlarged prostate, wall thickening of the rectum, pelvic adenopathy, and scattered pulmonary nodules. Chest x-ray read as diffuse blastic bony changes. His urine and blood cultures have been sent. In summary, this is a 59-year-old man with longstanding HIV, he says since 1999, history of prostate cancer, has not been following up for care either for his HIV or his malignancy. He is now admitted because his Syed was not functioning properly. He has had no fevers and has had weight loss. His Syed obstruction was apparently relieved by change. He has presumed metastatic prostate cancer. Further details need to be acquired from [facility]. He has no fevers. Would continue Odefsey for his HIV, check his viral markers. Issue of adherence is noted as he reports to missing doses. I would switch him to ceftriaxone to cover for a UTI. Further records need to be obtained from [facility]. He can follow up with Dr. Hidalgo at the [facility] upon discharge. JOSE MARTIN WATKINS M.D. [id number]
[2019-10-30] MEDS ORDERED: PT OWN MED DRAWER 7, Y5N ONE (06:43)
[2019-10-30 06:56] VITALS: BP 85/51
[2019-10-30 07:33] LABS: COCAINE, UR NEGATIVE ng/ml (CUTOFF=300); METHADONE, UR NEGATIVE ng/ml (CUTOFF=300); OPIATES, URI NEGATIVE ng/ml (CUTOFF=300); PHENCYCLIDINE,URINE NEGATIVE ng/ml (CUTOFF=25); URINE AMPHETAMINES NEGATIVE ng/ml (CUTOFF=500); URINE BARBITURATES NEGATIVE ng/ml (CUTOFF=200); URINE BENZODIAZEPINES NEGATIVE ng/ml (CUTOFF=200)
[2019-10-30] MEDS ORDERED: DEXTROSE 5%-WATER - 50 ML IVPB ONE (10:37)
[2019-10-30] MEDS ORDERED: cefTRIAXone SODIUM 1 GM VIAL ONE (10:37)
[2019-10-30] MEDS: CEFTRIAXONE 1 GM in DEXTROSE 5%-WATER - 50 ML IVPB SCH (10:41)
[2019-10-30] MEDS: EMTRICITAB/RILPIVIRI/TENOF ALA (ODEFSEY) TABLET PO SCH (10:45)
[2019-10-30] MEDS: DOXEPIN HCL 25 MG CAPSULE PO SCH (10:45)
[2019-10-30 11:51] VITALS: PULSE 98; TEMP 98.2
--- NOTE | 2019-10-30 14:18 | PN ---
Physical Exam: SUBJECTIVE: Patient seen and examined OBJECTIVE: Vital Signs Period Temp Pulse Resp BP Sys/Erardon Pulse Ox Last 24 Hr 97.9 F-98.2 F 90-98 18-20 85-100/50-52 100-100 GENERAL: AOx3, thin male HEAD: AC/AT EYES: EOMI, SLY EARS, NOSE, THROAT: oropharynx clear without exudates. Moist mucous membranes. NECK: No JVD LUNGS: Breath sounds equal, clear to auscultation bilaterally. No wheezes, and no crackles. No accessory muscle use. HEART: irregular rate and rhythm, + S1 and S2 without murmur, rub or gallop. ABDOMEN: Soft, nontender, not distended, normoactive bowel sounds NEUROLOGICAL: Normal speech. SKIN: Warm, dry, normal turgor, skin scaling Laboratory Results - last 24 hr 10/30/19 05:30 Opiates Screen Negative Methadone Screen Negative Barbiturate Screen Negative Phencyclidine Screen Negative Ur Amphetamines Screen Negative MDMA (Ecstasy) Screen Negative Benzodiazepines Screen Negative Cocaine Screen Negative U Marijuana (THC) Screen Positive A* Active Medications Generic Name Dose Route Start Last Admin Trade Name Freq PRN Reason Stop Dose Admin Doxepin HCl 100 mg 10/29/19 10:00 10/30/19 10:45 Sinequan - PO Not Given DAILY JESSICA Lactated Ringer's 1,000 ml in 1,000 mls @ 83 mls/hr 10/28/19 23:30 10/28/19 23:40 Lactated Ringers Solution IV 83 mls/hr ASDIR JESSICA Administration Ceftriaxone Sodium 1 gm/ 50 mls @ 100 mls/hr 10/29/19 13:00 10/30/19 10:41 Dextrose IVPB 100 mls/hr DAILY JESSICA Administration Protocol Morphine Sulfate 2 mg 10/28/19 23:22 Morphine Sulfate IVPUSH Q6H PRN PAIN LEVEL 6-10 ASSESSMENT/PLAN: 59 yo M PMH HIV, Depression, BPH, likely prostate cancer w/ mets is admitted to medicine for sepsis 2/2 UTI. #UTI sepsis now resolved Lactate normalized UA+ Zosyn switched to rocephin recom f/u with Dr. Tsai at [facility] #Prostate cancer w/ Mets Attempting to get records from [facility]- in progress #HIV cont home meds Eddieefsey FEN LR at 84 monitor lytes regular diet DVTppx Dispo: Patient LEFT AMA DNR/DNI Visit type - Emergency Visit Emergency Visit: Yes ED Registration Date: 10/28/19 Care time: The patient presented to the Emergency Department on the above date and was hospitalized for further evaluation of their emergent condition. - New Patient This patient is new to me today: Yes Date on this admission: 11/02/19 - Critical Care Critical Care patient: No - Discharge Referral Referred to [facility] No ATTENDING PHYSICIAN STATEMENT I saw and evaluated the patient. I reviewed the resident's note and discussed the case with the resident. I agree with the resident's findings and plan as documented. SUBJECTIVE: OBJECTIVE: ASSESSMENT AND PLAN:
[2019-10-30 16:08] LABS: % CD 4 POS. LYMPH. 19.1 % (30.8-58.5); % CD 8 POS. LYMPH. 54.6 % (12.0-35.5); %CD3 POS. LYMPH. 75.8 % (57.5-86.2); ABS. CD8 SUPPRESSOR 764 /uL (109-897); ABS.CD19+ LYMPH 129 /uL (12-645); ABSOLUTE CD 4 HELPER 267 /uL (359-1519); ABSOLUTE CD3 1061 /uL (622-2402); EOSINOPHIL(ABSOLUTE) 0.1 x10E3/uL (0.0-0.4); HEMATOCRIT 25.2 % (37.5-51.0); HEMOGLOBIN 7.7 g/dL (13.0-17.7); LYMPHS (ABSOLUTE) 1.4 x10E3/uL (0.7-3.1); MCH 23.1 pg (26.6-33.0); MCHC 30.6 g/dL (31.5-35.7); PLATELET COUNT 285 x10E3/uL (150-450); RBC 3.34 x10E6/uL (4.14-5.80); RDW 16.6 % (11.6-15.4); WHITE BLOOD COUNT 5.6 x10E3/uL (3.4-10.8)
--- NOTE | 2019-10-30 18:22 | PN ---
Teaching Attending Note Name of Resident: Juarez Gilliam ATTENDING PHYSICIAN STATEMENT I saw and evaluated the patient. I reviewed the resident's note and discussed the case with the resident. I agree with the resident's findings and plan as documented. SUBJECTIVE: Wants to be discharged immediately. Refuses further hospitalization. OBJECTIVE: Afebrile, Borderline BP. Last Vital Signs Temp Pulse Resp BP Pulse Ox 98.2 F 98 H 18 85/51 L 100 10/30/19 09:00 10/30/19 09:00 10/30/19 09:00 10/30/19 06:52 10/30/19 09:00 HEENT - Atraumatic, Normocephalic. Heart - S1, S2, RRR Lungs - clear to auscultation Abdomen - soft non-tender. Bowel Sounds normal. Extremities - No calf tenderness. Laboratory Results - last 24 hr 10/29/19 10/30/19 08:15 05:30 WBC 5.6 RBC 3.34 L Hgb 7.7 L Hct 25.2 L MCV 75.0 L MCH 23.1 L MCHC 30.6 L RDW 16.6 H Plt Count 285 Absolute Neuts (auto) 3.40 Absolute Monos (auto) 0.6 Absolute Eos (auto) 0.1 Absolute Basos (auto) 0.0 Immature Gran % 1 Neutrophils % 61.0 Lymphocytes % 25.0 Monocytes % 10.0 Eosinophils % 3.0 Basophils % 0.0 Immature Granulocytes 0 Absolute Lymphocytes 1.4 Nucleated RBCs TNP Immature Blood Cells TNP Hematology Comments Note: Opiates Screen Negative Methadone Screen Negative Barbiturate Screen Negative Phencyclidine Screen Negative Ur Amphetamines Screen Negative MDMA (Ecstasy) Screen Negative Benzodiazepines Screen Negative Cocaine Screen Negative U Marijuana (THC) Screen Positive A* T-Lymphocyte CD4 19.1 L CD3+ Gated Lymphocytes 75.8 Absolute CD3 Count 1061 Absolute CD4 [place] 267 L T-Lymph CD4/CD8 Ratio 0.35 L Absolute CD8 Count 764 % CD19+ Lymphocyte 9.2 Absolute CD19+ Lymph 129 Discharge Medications Medication Instructions Recorded Doxepin HCl 100 mg PO BID 10/28/19 Emtricitab/Rilpiviri/Tenof Ala 1 each PO DAILY 10/29/19 [Odefsey Tablet] Cefpodoxime Proxetil [Vantin -] 200 mg PO BID 7 Days #14 tablet 10/30/19 ASSESSMENT AND PLAN: 59 year old male with history of HIV, Metastatic Prostate Ca, s.p aggarwal placement for urinary retention, now admitted with poor urine output from aggarwal due to catheter blockage. 1. Bladder Outlet Obstruction/Blocked Aggarwal catheter - replaced with good urinary outflow. UA positive. Urine Cx contaminated. Initially treated with Zosyn, transitioned to Ceftriaxone pending repeat Urine Cx. Patient left AMA prior to obtaining repeat Urine Cx or completing Rx. 2. Sepsis, etiology unclear Was treated empirically for UTI, but Urine Cx was contaminated. Treated broadly with IV Zosyn, subsequently Ceftriaxone pending repeat Urine Cx. Prescription sent for empiric Abx Vantin as patient insisted on leaving AMA. 3. Hx Prostate Ca with extensive bone and lung mets. Records requested from [facility]. CT C/A/P pending. 4. HIV - on HAART. ID consulted. 5. Chronic Anemia ? related to HIV +/- disseminated malignancy/marrow invasion. 6. Severe protein calorie malnutrition sec to underlying chronic disease. Dietary consulted. Protein supplementation as recommended. Code Status - DNR/DNI Patient insisted on leaving against medical advice - he was of sound mind and has capacity to accept responsibility for his decisions. He was advised of all risks of leaving including worsening sepsis, septic shock, disability, .
--- NOTE | 2019-11-01 19:55 | DS ---
Physical Exam: SUBJECTIVE: Patient seen and examined. Afebrile and asymptomatic. No further c/ o or issues over night. Insists on leaving AMA. Denies f/c/n,v,d,sob,chest pain. OBJECTIVE: Last Vital Signs Temp Pulse Resp BP Pulse Ox 98.2 F 98 H 18 85/51 L 100 10/30/19 09:00 10/30/19 09:00 10/30/19 09:00 10/30/19 06:52 10/30/19 09:00 CBC,CMP WBC 5.3 K/mm3 (4.0-10.0) 10/29/19 12:40 RBC 2.61 M/mm3 (4.00-5.60) L 10/29/19 12:40 Hgb 7.7 GM/dL (11.7-16.9) L 10/29/19 12:40 Hct 22.0 % (35.4-49) L 10/29/19 12:40 MCV 84.3 fl (80-96) 10/29/19 12:40 MCH 29.3 pg (25.7-33.7) 10/29/19 12:40 MCHC 34.7 g/dl (32.0-35.9) 10/29/19 12:40 RDW 15.7 % (11.9-15.9) 10/29/19 12:40 Plt Count 286 K/MM3 (134-434) 10/29/19 12:40 MPV 8.1 fl (7.5-11.1) 10/29/19 12:40 Absolute Neuts (auto) 3.8 K/mm3 (1.5-8.0) 10/29/19 12:40 Absolute Monos (auto) 0.6 x10E3/uL (0.1-0.9) 10/29/19 08:15 Absolute Eos (auto) 0.1 x10E3/uL (0.0-0.4) 10/29/19 08:15 Absolute Basos (auto) 0.0 x10E3/uL (0.0-0.2) 10/29/19 08:15 Immature Gran % 1 % (Not Estab.) 10/29/19 08:15 Neutrophils % 71.0 % (42.8-82.8) 10/29/19 12:40 Neutrophils % (Manual) 70.3 % (42.8-82.8) 10/29/19 08:15 Band Neutrophils % 0.0 % 10/29/19 08:15 Lymphocytes % 19.7 % (8-40) D 10/29/19 12:40 Lymphocytes % (Manual) 17.8 % (8-40) 10/29/19 08:15 Monocytes % 6.0 % (3.8-10.2) 10/29/19 12:40 Monocytes % (Manual) 4 % (3.8-10.2) 10/29/19 08:15 Eosinophils % 2.8 % (0-4.5) D 10/29/19 12:40 Eosinophils % (Manual) 1.0 % (0-4.5) 10/29/19 08:15 Basophils % 0.5 % (0-2.0) 10/29/19 12:40 Basophils % (Manual) 0.0 % (0-2.0) 10/29/19 08:15 Myelocytes % (Man) 1 % (0-2) 10/29/19 08:15 Promyelocytes % (Man) 0 % (0-2) 10/29/19 08:15 Blast Cells % (Manual) 0 % (0-0) 10/29/19 08:15 Nucleated RBC % 0 % (0-0) 10/29/19 12:40 Immature Granulocytes 0 x10E3/uL (0.0-0.1) 10/29/19 08:15 Absolute Lymphocytes 1.4 x10E3/uL (0.7-3.1) 10/29/19 08:15 Metamyelocytes 1 % (0-2) 10/29/19 08:15 Nucleated RBCs TNP 10/29/19 08:15 Immature Blood Cells TNP 10/29/19 08:15 Hypochromia 1+ 10/29/19 08:15 Platelet Estimate Normal 10/29/19 08:15 Polychromasia 1+ 10/29/19 08:15 Poikilocytosis 1+ 10/29/19 08:15 Anisocytosis 0 10/29/19 08:15 Microcytosis 0 10/29/19 08:15 Macrocytosis 0 10/29/19 08:15 Target Cells 1+ 10/29/19 08:15 Tear Drop Cells 1+ 10/29/19 08:15 Ovalocytes 1+ 10/29/19 08:15 ESR 53 mm/hr (0-20) H 10/28/19 08:15 Retic Count 0.87 % (0.5-1.5) 10/28/19 20:31 Hematology Comments Note: (.) 10/29/19 08:15 Sodium 141 mmol/L (136-145) 10/29/19 08:15 Potassium 4.8 mmol/L (3.5-5.1) 10/29/19 08:15 Chloride 113 mmol/L (98-107) H 10/29/19 08:15 Carbon Dioxide 22 mmol/L (21-32) 10/29/19 08:15 Anion Gap 6 MMOL/L (8-16) L 10/29/19 08:15 BUN 16.3 mg/dL (7-18) 10/29/19 08:15 Creatinine 0.7 mg/dL (0.55-1.3) 10/29/19 08:15 Est GFR (CKD-EPI)AfAm 120.56 10/29/19 08:15 Est GFR (CKD-EPI)NonAf 104.02 10/29/19 08:15 Random Glucose 77 mg/dL (74-106) 10/29/19 08:15 Lactic Acid 1.5 mmol/L (0.4-2.0) 10/28/19 23:35 Calcium 7.3 mg/dL (8.5-10.1) L 10/29/19 08:15 Phosphorus 2.8 mg/dL (2.5-4.9) 10/29/19 08:15 Magnesium 2.0 mg/dL (1.8-2.4) 10/29/19 08:15 Iron 40 ug/dL (50-175) L 10/28/19 20:31 TIBC 77 ug/dL (250-450) L 10/28/19 20:31 Iron Saturation 51 % (17.5-39) H 10/28/19 20:31 Unsaturated IBC 37 ug/dL (200-275) L 10/28/19 20:31 Ferritin 1213.5 ng/ml (8-388) H 10/28/19 20:31 Total Bilirubin 0.5 mg/dL (0.2-1) 10/29/19 08:15 AST 21 U/L (15-37) 10/29/19 08:15 ALT 12 U/L (13-61) L 10/29/19 08:15 Alkaline Phosphatase 414 U/L (45-117) H 10/29/19 08:15 Troponin I < 0.02 ng/ml (0.00-0.05) 10/28/19 19:35 C-Reactive Protein 2.2 MG/DL (0.00-0.3) H 10/28/19 19:35 Total Protein 5.1 g/dl (6.4-8.2) L 10/29/19 08:15 Albumin 1.9 g/dl (3.4-5.0) L 10/29/19 08:15 Prostate Specific Ag 6483.00 ng/ml (0.0-4.0) H 10/28/19 08:15 Vitamin B12 655 pg/ml (193-986) 10/29/19 08:15 Serum Folate 18 ng/mL (3.1-17.5) H 10/29/19 08:15 TSH 2.63 uIU/ml (0.358-3.74) 10/29/19 08:15 Home Medications Medication Instructions Recorded Doxepin HCl 100 mg PO BID 10/28/19 Emtricitab/Rilpiviri/Tenof Ala 1 each PO DAILY 10/29/19 [Odefsey Tablet] Cefpodoxime Proxetil [Vantin -] 200 mg PO BID 7 Days #14 tablet 10/30/19 Microbiology 10/29/19 08:15 Blood - Peripheral Venous Blood Culture - Preliminary NO GROWTH OBTAINED AFTER 96 HOURS, INCUBATION TO CONTINUE FOR 1 DAYS. 10/29/19 08:25 Blood - Peripheral Venous Blood Culture - Preliminary NO GROWTH OBTAINED AFTER 96 HOURS, INCUBATION TO CONTINUE FOR 1 DAYS. 10/28/19 20:14 Blood - Peripheral Venous Blood Culture - Preliminary NO GROWTH OBTAINED AFTER 96 HOURS, INCUBATION TO CONTINUE FOR 1 DAYS. 10/28/19 20:31 Blood - Peripheral Venous Blood Culture - Preliminary NO GROWTH OBTAINED AFTER 96 HOURS, INCUBATION TO CONTINUE FOR 1 DAYS. 10/28/19 20:31 Urine - Urine Aggarwal Urine Culture - Final Contaminated: Please Repeat PHYSICAL EXAM GENERAL: AOx3, thin male HEAD: AC/AT EYES: EOMI, SLY EARS, NOSE, THROAT: oropharynx clear without exudates. Moist mucous membranes. NECK: No JVD LUNGS: Breath sounds equal, clear to auscultation bilaterally. No wheezes, and no crackles. No accessory muscle use. HEART: irregular rate and rhythm, + S1 and S2 without murmur, rub or gallop. ABDOMEN: Soft, nontender, not distended, normoactive bowel sounds NEUROLOGICAL: Normal speech. SKIN: Warm, dry, normal turgor, skin scaling LABS Laboratory Results - last 24 hr 10/28/19 08:15 Prostate Specific Ag 6483.00 H HOSPITAL COURSE: Date of Admission:10/28/19 59 yo M PMH HIV, Depression, BPH, likely prostate cancer w/ mets is admitted to medicine for sepsis 2/2 UTI. In the ED he was tachycardiac, hypotensive 94/61 and had lactic acidosis. Pt was seen at [facility] a month ago for urinary retention during which they inserted an indwelling catheter and sent him home. He never had any biopsies or treatments done at [facility] or anywhere else. In the past week he noticed decreased drainage of urine from his aggarwal. He states that he started noticing drainage around his penis. On admission, UA was grossly positive with pyuria, positive leukocyte esterase and urine nitrates. CXR showed blastic changes but no signs of infiltrates or failure and CAT scan of the chest showed 9mm RUL nodule,, metastatic lesion cannot be excluded, mild mediastinal LAD, no acute pathology in chest, marked thickening of the urinary bladder and rectum- may be due to radiation, prostatic enlargement with mild pelvic LAD, extensive diffuse blastic bone metastases later chest, abdomen, pelvis. Pt was started on Zosyn and IV resuscitation. Blood pressure improved and pt was stabilized. Pt began to improve and his Abx was switched to rocephin and we attempted to obtain his records from [facility]. However, pt did not want any further treatments or procedures done at [facility]. He agreed to follow up with his physicians at [facility] but wanted to leave AMA. Prescription was sent for empiric Abx Vantin as patient insisted on leaving AMA. Patient appeared to have capacity to accept responsibility for his decisions. We discussed the risks of leaving AMA including worsening condition, infection, sepsis, septic shock, disability, . Pt left AMA. EKbpm, irregularly irregular, normal axis, no ischemic changes CXR: Blastic changes 2/2 to metastatic disease such as prostate cancer. Possible right lung mass. Old rib trauma. No signs of infiltrates or failure. CT Chest: 9mm RUL nodule,, metastatic lesion cannot be excluded, mild mediastinal LAD, no acute patology in chest, marked thickening of the urinary bladder and rectum- may be due to radiation, prostatic enlargement with mild pelvic LAD, extensive diffuse blastic bone metastases later chest, abdomen, pelvis. His code Status was documented DNR/DNI. Date of Discharge: 11/01/19 Minutes to complete discharge: 40 Discharge Summary Problems reviewed: Yes Reason For Visit: URINARY TRACT INFECTION, HIV INFECTION, SEPSIS Condition: Stable - Instructions Diet, Activity, Other Instructions: You were admitted to the hospital for a urinary tract infection. While in the hospital, we evaluated you with lab work, blood work and imaging including CAT scan of your chest and abdomen. We found that your symptoms were caused by a urinary tract infection. We also found that you have prostate cancer which has spread to your bones. It is important that you follow up with your oncologist for management of your cancer. Medication Changes: 1. Follow up with the following physicians: 1. Please follow up with your primary care provider, Dr. Tsai within 3-5 days of discharge for further management of your medical conditions and to discuss the medications you were started on while in the hospital. 2. Recommended to follow up with your oncologist Jaime Ho within 1 week of discharge for further workup of your cancer. We have also provided a referral for our oncologist for you. Referrals: Thang Hernandez MD [Staff Physician] - Jaime Mcclelland MD [Staff Physician] - Chichi Miller MD [Staff Physician] - ON STAFF,NOT [Primary Care Provider] - Disposition: AGAINST MEDICAL ADVICE - Home Medications Comprehensive Discharge Medication List: Ambulatory Orders Doxepin HCl 100 mg PO BID 10/28/19 Emtricitab/Rilpiviri/Tenof Ala [Odefsey Tablet] 1 each PO DAILY 10/29/19 Cefpodoxime Proxetil [Vantin -] 200 mg PO BID 7 Days #14 tablet 10/30/19 This patient is new to me today: Yes Date on this admission: 11/02/19 Emergency Visit: Yes ED Registration Date: 10/28/19 Care time: The patient presented to the Emergency Department on the above date and was hospitalized for further evaluation of their emergent condition. Critical Care patient: No - Discharge Referral Referred to [facility] No ATTENDING PHYSICIAN STATEMENT I saw and evaluated the patient. I reviewed the resident's note and discussed the case with the resident. I agree with the resident's findings and plan as documented. SUBJECTIVE: OBJECTIVE: ASSESSMENT AND PLAN:
== END 2019-10-30 13:00 | disposition left against medical advice (07) | DRG 720 ==
LOC: JER 18:16 → JERBED 21:38 → J8W 10-29 02:01
PROVIDERS: ADMIT Internal Medicine
DX: A41.9 Sepsis, unspecified organism (principal); E43 Unspecified severe protein-calorie malnutrition; Z22.1 Carrier of other intestinal infectious diseases; T85.79XA Infection and inflammatory reaction due to other internal prosthetic devices, implants and grafts, initial encounter; Y83.9 Surgical procedure, unspecified as the cause of abnormal reaction of the patient, or of later complication, without mention of misadventure at the time of the procedure; D63.8 Anemia in other chronic diseases classified elsewhere; N39.0 Urinary tract infection, site not specified; C61 Malignant neoplasm of prostate; C79.51 Secondary malignant neoplasm of bone; C78.00 Secondary malignant neoplasm of unspecified lung; N40.0 Benign prostatic hyperplasia without lower urinary tract symptoms; R33.9 Retention of urine, unspecified; R64 Cachexia; I95.9 Hypotension, unspecified; R00.0 Tachycardia, unspecified
CPT/HCPCS: 36415; 71045-TC-FY; 71260-TC; 74177-TC; 80053; 80307; 81003; 82272; 82607; 82728; 82746; 82803; 83540; 83550; 83605; 83735; 84100; 84153; 84443; 84484; 85025; 85044; 85610; 85651; 85730; 86140; 86355; 86359; 86360; 87040; 87086; 87389; 87536; 93005; 93010; 97116-GP; 97161-GP; 99285-25; G0008; J0131; J7030; Q2036; Q9967

== ENCOUNTER 2019-11-25 16:36 | Inpatient (IN) | payer OTHER ==
--- NOTE | 2019-11-25 17:29 | PDOC ---
History of Present Illness - General Chief Complaint: Urinary Catheter Problem Stated Complaint: POSSIBLE UTI Time Seen by Provider: 11/25/19 17:19 History Source: Patient Exam Limitations: No Limitations - History of Present Illness Initial Comments: Marquis Meyers is a 59 yo M w a hx of HIV, depression, likely prostate cancer w/ mets who presents to the [facility] er stating he believe he vilchis a urinary tract infection and needs antibiotics. He states he knows he has an infection because he had one a month ago and this is exactly what it felt like. He states it coburn when he pees - even though he has a chronic indwelling Aggarwal - his lower abdomen hurts, he feels fullness in the bottom of his stomach, he occassionally gets the chills, and sometimes starts sweating at night. He states he has a chronic aggarwal in because his prostate is too large and he has had a aggarwal in for the past year. When he was discharged from the hospital one month ago he was supposed to follow up with his doctors at [facility] but he didn't have a chance to because he has been feeling too weak. Patient states he thinks he has been getting thinner and has been consistently losing weight. Denies back pain, flank pain, chest pain, SOB, difficulty breathing, rashes, headaches, nausea, vomiting, or diarrhea. PCP: Dr. Tsai PS: None reported Social Hx: Lives by himself, has no help, and states he can no longer take care of himself. He is not well kept Allergies: Ciprofloxacin Past History - Past Medical History Allergies/Adverse Reactions: Allergies Allergy/AdvReac Type Severity Reaction Status Date / Time ciprofloxacin [From Cipro] Allergy Verified 10/28/19 19:03 Home Medications: Ambulatory Orders Doxepin HCl 100 mg PO BID 10/28/19 Emtricitab/Rilpiviri/Tenof Ala [Odefsey Tablet] 1 each PO DAILY 10/29/19 Cefpodoxime Proxetil [Vantin -] 200 mg PO BID 7 Days #14 tablet 10/30/19 COPD: No Disorders: Yes (retension - Aggarwal cath) - Immunization History Immunization Up to Date: No - Psycho Social/Smoking Cessation Hx Smoking History: Former smoker Have you smoked in the past 12 months: No If you are a former smoker, when did you quit?: 1989 Information on smoking cessation initiated: No 'Breaking Loose' booklet given: 10/29/19 Hx Alcohol Use: No Drug/Substance Use Hx: Yes (pako,) Review of Systems - Review of Systems Able to Perform ROS?: Yes Comments:: CONSTITUTIONAL: Present: Fatigue, chills, fever EYES: Absent: visual changes ENT: Absent: ear pain, no sore throat CARDIOVASCULAR: Absent: chest pain, no palpitations RESPIRATORY: Absent: cough, no SOB GI: Present: lower abdominal pain Absent: no nausea, no vomiting, no constipation, no diarrhea GENITOURINARY: Present: dysuria Absent: no frequency, no hematuria MUSKULOSKELETAL: Absent: back pain, no arthralgia, no myalgia SKIN: Absent: rash NEURO: Absent: headache *Physical Exam - Vital Signs Last Vital Signs Temp Pulse Resp BP Pulse Ox 97.7 F 106 H 20 112/68 100 11/25/19 16:40 11/25/19 16:40 11/25/19 16:40 11/25/19 16:40 11/25/19 16:40 - Physical Exam General Appearance: Yes: Apparent Distress, Disheveled, Mild Distress, Cachetic , Thin. No: Nourished, Appropriately Dressed HEENT: positive: Normal Voice Neck: positive: Supple Respiratory/Chest: positive: Lungs Clear, Normal Breath Sounds. negative: Respiratory Distress Cardiovascular: positive: S1, S2, Tachycardia Vascular Pulses: Dorsalis-Pedis (R): 2+, Doralis-Pedis (L): 2+ Gastrointestinal/Abdominal: positive: Soft, Tenderness (suprapubic) Male Genitalia: positive: other (Aggarwal in place urine looks dark - White candidal discharge around penis and scrotum). negative: testicular tenderness, epididymus tender, inguinal hernia Rectal Exam: positive: deferred Musculoskeletal: positive: Decreased Range of Motion Extremity: positive: Normal Capillary Refill. negative: Normal Inspection ( patient looks cachectic), Normal Range of Motion Integumentary: positive: Normal Color, Dry, Warm Neurologic: positive: parts and service manager II-XII NML intact, Fully Oriented, Alert, Normal Mood/ Affect, Normal Response ED Treatment Course - LABORATORY CBC & Chemistry Diagram: 11/25/19 17:35 11/25/19 17:35 Medical Decision Making - Medical Decision Making Marquis Meyers is a 59 yo M w a hx of HIV, depression, likely prostate cancer w/ mets who presents to the [facility] er stating he believe he vilchis a urinary tract infection and needs antibiotics. He states he knows he has an infection because he had one a month ago and this is exactly what it felt like. He states it coburn when he pees - even though he has a chronic indwelling Aggarwal - his lower abdomen hurts, he feels fullness in the bottom of his stomach, he occassionally gets the chills, and sometimes starts sweating at night. He states he has a chronic aggarwal in because his prostate is too large and he has had a aggarwal in for the past year. When he was discharged from the hospital one month ago he was supposed to follow up with his doctors at [facility] but he didn't have a chance to because he has been feeling too weak. Patient states he thinks he has been getting thinner and has been consistently losing weight. Vital Signs Temp Pulse Resp BP Pulse Ox 97.7 F 106 H 20 112/68 100 11/25/19 16:40 11/25/19 16:40 11/25/19 16:40 11/25/19 16:40 11/25/19 16:40 - Tachycardic DDx IBNLT: UTI vs Pylo, sepsis, malignancy, cachexia Plan: Labs, Urine, IV hydration, CXR, EKG, likely admission to hospital EKG: Sinus rate of 97, marked sinus arrhythmia, narrow complexes, normal axis, no hypertrophy, no ST elevations or depressions, QTc 452, NE 126 CXR: Trachea midline, normal heart size with infiltrate, no effusion or congestive changes in the lungs Diffuse increased density throughout the bones consistent with patient's history of prostate cancer and extensive blastic bony metastasis in the visualized skeleton. Impression: Normal heart size with no infiltrate or effusion in the lungs. Diffuse increased density in the bones consistent with extensive blastic bony metastasis in patient with known history of prostate cancer. Urine: Looks infected - Vanc/Zosyn - Fluconazole Labs: CBC,CMP WBC 7.5 K/mm3 (4.0-10.0) 11/25/19 17:35 RBC 3.41 M/mm3 (4.00-5.60) L 11/25/19 17:35 Hgb 8.4 GM/dL (11.7-16.9) L 11/25/19 17:35 Hct 26.0 % (35.4-49) L D 11/25/19 17:35 MCV 76.2 fl (80-96) L 11/25/19 17:35 MCH 24.7 pg (25.7-33.7) L D 11/25/19 17:35 MCHC 32.4 g/dl (32.0-35.9) 11/25/19 17:35 RDW 19.5 % (11.9-15.9) H 11/25/19 17:35 Plt Count 429 K/MM3 (134-434) D 11/25/19 17:35 MPV 8.5 fl (7.5-11.1) 11/25/19 17:35 Absolute Neuts (auto) 3.2 K/mm3 (1.5-8.0) 11/25/19 17:35 Neutrophils % 42.8 % (42.8-82.8) D 11/25/19 17:35 Lymphocytes % 47.5 % (8-40) H D 11/25/19 17:35 Monocytes % 7.5 % (3.8-10.2) 11/25/19 17:35 Eosinophils % 1.1 % (0-4.5) 11/25/19 17:35 Basophils % 1.1 % (0-2.0) 11/25/19 17:35 Nucleated RBC % 0 % (0-0) 11/25/19 17:35 Sodium 138 mmol/L (136-145) 11/25/19 17:35 Potassium 5.7 mmol/L (3.5-5.1) H 11/25/19 17:35 Chloride 109 mmol/L (98-107) H 11/25/19 17:35 Carbon Dioxide 23 mmol/L (21-32) 11/25/19 17:35 Anion Gap 6 MMOL/L (8-16) L 11/25/19 17:35 BUN 22.4 mg/dL (7-18) H 11/25/19 17:35 Creatinine 0.7 mg/dL (0.55-1.3) 11/25/19 17:35 Est GFR (CKD-EPI)AfAm 120.56 11/25/19 17:35 Est GFR (CKD-EPI)NonAf 104.02 11/25/19 17:35 Random Glucose 70 mg/dL (74-106) L 11/25/19 17:35 Calcium 7.5 mg/dL (8.5-10.1) L 11/25/19 17:35 Total Bilirubin 0.5 mg/dL (0.2-1) 11/25/19 17:35 AST 39 U/L (15-37) H 11/25/19 17:35 ALT 11 U/L (13-61) L 11/25/19 17:35 Alkaline Phosphatase 416 U/L (45-117) H 11/25/19 17:35 Total Protein 5.9 g/dl (6.4-8.2) L 11/25/19 17:35 Albumin 1.8 g/dl (3.4-5.0) L 11/25/19 17:35 Disposition: Med/surg 11/25/19 19:29 Discharge - Discharge Information Problems reviewed: Yes Clinical Impression/Diagnosis: UTI (urinary tract infection) Qualifiers: Urinary tract infection type: site unspecified Hematuria presence: without hematuria Qualified Code(s): N39.0 - Urinary tract infection, site not specified HIV (human immunodeficiency virus infection) Qualifiers: HIV symptom status: symptomatic Qualified Code(s): B20 - Human immunodeficiency virus [HIV] disease Condition: Stable - Admission Yes - Follow up/Referral - Patient Discharge Instructions - Post Discharge Activity
[2019-11-25] MEDS ORDERED: SODIUM CHLORIDE 0.9% 500 ML INFUS.BAG IV ONE (17:30)
[2019-11-25 18:18] LABS: BASO % 1.1 % (0-2.0); EOS % 1.1 % (0-4.5); HEMOGLOBIN 8.4 GM/dL (11.7-16.9); LYMPH % 47.5 % (8-40); MCH 24.7 pg (25.7-33.7); MCHC 32.4 g/dl (32.0-35.9); MEAN CELL VOLUME 76.2 fl (80-96); MEAN PLT VOLUME 8.5 fl (7.5-11.1); MONO % 7.5 % (3.8-10.2); NEUT % 42.8 % (42.8-82.8); PLATELET COUNT 429 K/MM3 (134-434); RBC 3.41 M/mm3 (4.00-5.60); RDW 19.5 % (11.9-15.9); WHITE BLOOD COUNT 7.5 K/mm3 (4.0-10.0)
[2019-11-25 18:24] LABS: EPI CELLS 5.6 /HPF (0-5/HPF); HYALINE CASTS 17 /lpf (0-8); PH,URINE 7.5 (5.0-8.0); URINE APPEARANCE TURBID; URINE BACTERIA 3595.1 /hpf (NEGATIVE); URINE BILIRUBIN NEGATIVE (NEGATIVE); URINE COLOR YELLOW; URINE GLUCOSE (UA) NEGATIVE (NEGATIVE); URINE KETONE NEGATIVE (NEGATIVE); URINE LEUK ESTERASE 3+ (NEGATIVE); URINE NITRITE NEGATIVE (NEGATIVE); URINE PROTEIN 1+ (NEGATIVE); URINE RBC 16 /hpf (0-4); URINE WBC 521 /hpf (0-5)
[2019-11-25 19:09] LABS: ALBUMIN 1.8 g/dl (3.4-5.0); BILIRUBIN,TOTAL 0.5 mg/dL (0.2-1); BLOOD UREA NITROGEN 22.4 mg/dL (7-18); CALCIUM 7.5 mg/dL (8.5-10.1); CREATININE 0.7 mg/dL (0.55-1.3); POTASSIUM 5.7 mmol/L (3.5-5.1); TOT PROT 5.9 g/dl (6.4-8.2)
[2019-11-25] MEDS ORDERED: VANCOMYCIN 1,000 MG in DEXTROSE 5%-WATER - 250 ML IVPB ONE (19:21)
[2019-11-25] MEDS ORDERED: PIPERACILLIN/TAZOB 4.5 GM 4.5 GM in DEXTROSE 5%-WATER 100 ML IVPB ONE (19:22)
[2019-11-25] MEDS ORDERED: FLUCONAZOLE 150 MG TABLET PO ONE ×2 (19:22→19:26)
[2019-11-25] MEDS ORDERED: VANCOMYCIN 1 GRAM (PRE-DOCKED) 1,000 MG/250 ML BAG IVPB ONE (19:26)
[2019-11-25] MEDS ORDERED: PIPERACILLIN/TAZOB 4.5 GM 4.5 GM/100 ML BAG IVPB ONE (19:26)
--- NOTE | 2019-11-25 19:32 | PDOC ---
Documentation entered by Janiya Tatum SCRIBE, acting as scribe for Padma Georges MD. Padma Georges MD: This documentation has been prepared by the yevgeniyibe, Janiya Tatum SCRIBE, under my direction and personally reviewed by me in its entirety. I confirm that the documentation accurately reflects all work, treatment, procedures, and medical decision making performed by me. Attending Attestation - Resident Resident Name: Kemar Berman - ED Attending Attestation I have performed the following: I have examined & evaluated the patient, The case was reviewed & discussed with the resident, I agree w/resident's findings & plan, Exceptions are as noted - HPI HPI: 11/25/19 18:52 The patient is a 59-year-old male with a past medical history significant for HIV, depression, and BPH (with chronic indwelling aggarwal in place) who presents to the emergency department with penile/urinary catheter pain. Denies fever. - Physicial Exam PE: 11/25/19 18:52 NAD. RRR CTABL soft NTND neuro nonfocal. Skin: irritation to the skin of the penile and scrotum, looks candidiasis in nature, with white cottage cheesy discharge. - Medical Decision Making 11/25/19 19:29 59yoM HIV (CD4 260, VL > 100K), chronic indwelling aggarwal for BPH presnets c/o penile pain around cateter and foul smell. Pt appears discheveled, cachectic, dirty, he does not understand medical problems and lists his HIV status as "undetectable". Significant concern for inability to care for self at home, concern for UTI and for blanitis/candidal infection of genetalia. - labs - ua - abx, ivf - admit for further evauation and possible placement.
--- NOTE | 2019-11-25 20:43 | HP ---
CHIEF COMPLAINT: Dysuria and suprapubic abdominal pain for the past 4-5 days, as well as diarrhea for the past 3-4 days PCP: [facility] HISTORY OF PRESENT ILLNESS: This is a 59 year old male with PMH of HIV (Currently on Odefsey), and Prostate CA. He presented to the ER with complaints of dysuria and suprapubic abdominal pain for the past 4-5 days, as well as diarrhea for the past 3-4 days. He had a permanent indwelling urinary catheter placed for an enlarged prostate in early 2018, was admitted at [facility] from May to Sep 04 for a UTI, and was admitted at [facility] from 10/28-11/01 2019. The abdominal pain is limited to the suprapubic region. It was gradual in onset , intermittent in nature, 8/10 in intensity, burning in quality, non-radiating, with no aggravating or alleviating factors. The diarrhea began 3-4 days ago, and he has had around 5 episodes per day. He describes the stool as liquid, brown, not excessively foul smelling, and without any blood or mucus. He endorses a dry intermittent cough for the past several weeks, as well as dried blood around his nostrils when he wakes up in the morning. He also has a wound on his left hip, which developed during his stay at [facility] in May- Sep 04. He endorses rapid, unintentional weight loss of several pounds over the past 1 year. He denies fevers, dizziness, nausea, vomiting, melena, constipation , chest pain, wheezing, palpitations, visual changes, confusion, or hematuria. He was diagnosed with HIV in 1999, and is currently on Odefsey. He receives follow up care at [facility]. He states that he had a prostate biopsy done 10 years ago. Since then he has been diagnosed with prostate CA with bone mets, although the patient seems to believe the diagnosis is uncertain. Last colonoscopy was over 10 years ago. He was admitted at [facility] from May to Aug 2019 for a UTI. He states that during his stay, he had a procedure done to his left hip, after which he developed a wound at the area. He is not sure what the procedure was, but states that a cylindrical object was placed on is left hip, and the next dday he developed a progressively worsening wound with discharge. He was admitted at [facility] between 10/28 - 11/01 2020 again for a UTI. He was treated with Van/Zosyn, and was sent home with Cefedoxine after he requested leave AMA. During his stay, he had a CT AP which showed bladder/rectum thickening likely 2/2 radiation, prostate enlargement and diffuse bone mets. CT Chest showed a RUL nodule. Blood cultures were negative and urine cultures were contaminated. FOBT was negative at the time, and his Hg was low, between 7-9. ER course was notable for: (1) CXR: blastic bony mets (2) Vac/Zosyn started (3) H&H 8.4/26.0 Recent Travel: denies PAST MEDICAL HISTORY: See HPI PAST SURGICAL HISTORY: None Social History: Smoking: Alcohol: Drugs: Allergies ciprofloxacin [From Cipro] Allergy (Verified 10/28/19 19:03) HOME MEDICATIONS: Home Medications Medication Instructions Recorded Doxepin HCl 100 mg PO BID 10/28/19 Emtricitab/Rilpiviri/Tenof Ala 1 each PO DAILY 10/29/19 [Odefsey Tablet] Cefpodoxime Proxetil [Vantin -] 200 mg PO BID 7 Days #14 tablet 10/30/19 REVIEW OF SYSTEMS CONSTITUTIONAL: weight change Absent: fever, chills, diaphoresis, generalized weakness, malaise, loss of appetite, weight change HEENT: Absent: rhinorrhea, nasal congestion, throat pain, throat swelling, difficulty swallowing, mouth swelling, ear pain, eye pain, visual changes CARDIOVASCULAR: Absent: chest pain, syncope, palpitations, irregular heart rate, lightheadedness , peripheral edema RESPIRATORY: cough Absent: cough, shortness of breath, dyspnea with exertion, orthopnea, wheezing, stridor, hemoptysis GASTROINTESTINAL: Absent: abdominal pain, abdominal distension, nausea, vomiting, diarrhea, constipation, melena, hematochezia GENITOURINARY: dysuria Absent: dysuria, frequency, urgency, hesitancy, hematuria, flank pain, genital pain MUSCULOSKELETAL: Absent: myalgia, arthralgia, joint swelling, back pain, neck pain SKIN: Absent: rash, itching, pallor HEMATOLOGIC/IMMUNOLOGIC: Absent: easy bleeding, easy bruising, lymphadenopathy, frequent infections ENDOCRINE: Absent: unexplained weight gain, unexplained weight loss, heat intolerance, cold intolerance NEUROLOGIC: Absent: headache, focal weakness or paresthesias, dizziness, unsteady gait, seizure, mental status changes, bladder or bowel incontinence PSYCHIATRIC: Absent: anxiety, depression, suicidal or homicidal ideation, hallucinations. PHYSICAL EXAMINATION Vital Signs - 24 hr 11/25/19 16:40 Temperature 97.7 F Pulse Rate 106 H Respiratory 20 Rate Blood Pressure 112/68 O2 Sat by Pulse 100 Oximetry (%) GENERAL: AOx3, emaciated in appearance HEAD: Normal with no signs of trauma. EYES: Pupils equal, round and reactive to light, extraocular movements intact, sclera anicteric, conjunctiva clear. No lid lag. EARS, NOSE, THROAT: Ears normal, nares patent, dry oropharynx NECK: Normal range of motion, supple without lymphadenopathy, JVD, or masses. LUNGS: Breath sounds equal, clear to auscultation bilaterally. No wheezes, and no crackles. No accessory muscle use. HEART: Regular rate and rhythm, normal S1 and S2 without murmur, rub or gallop. ABDOMEN: Soft, suprapubic tenderness, no CVA tenderness. Syed in place, no active discharge noticed UPPER EXTREMITIES: 2+ pulses, warm, well-perfused. No cyanosis. No clubbing. No peripheral edema. LOWER EXTREMITIES: 2+ pulses, warm, well-perfused. No calf tenderness. No peripheral edema. NEUROLOGICAL: Cranial nerves II-XII intact. Normal speech PSYCHIATRIC: Cooperative. Good eye contact. Appropriate mood and affect. SKIN: Grade I pressure ulcer on left trochanter, tender to palpation, no discharge or surrounding erythema Laboratory Results - last 24 hr 11/25/19 11/25/19 11/25/19 17:35 17:35 17:35 WBC 7.5 RBC 3.41 L Hgb 8.4 L Hct 26.0 L D MCV 76.2 L MCH 24.7 L D MCHC 32.4 RDW 19.5 H Plt Count 429 D MPV 8.5 Absolute Neuts (auto) 3.2 Neutrophils % 42.8 D Lymphocytes % 47.5 H D Monocytes % 7.5 Eosinophils % 1.1 Basophils % 1.1 Nucleated RBC % 0 Sodium 138 Potassium 5.7 H Chloride 109 H Carbon Dioxide 23 Anion Gap 6 L BUN 22.4 H Creatinine 0.7 Est GFR (CKD-EPI)AfAm 120.56 Est GFR (CKD-EPI)NonAf 104.02 Random Glucose 70 L Calcium 7.5 L Total Bilirubin 0.5 AST 39 H ALT 11 L Alkaline Phosphatase 416 H Total Protein 5.9 L Albumin 1.8 L Urine Color Yellow Urine Appearance Turbid Urine pH 7.5 Ur Specific [place] 1.020 Urine Protein 1+ H Urine Glucose (UA) Negative Urine Ketones Negative Urine Blood 1+ H Urine Nitrite Negative Urine Bilirubin Negative Urine Urobilinogen 1.0 Ur Leukocyte Esterase 3+ H Urine WBC (Auto) 521 Urine RBC (Auto) 16 Urine Casts (Auto) 17 U Pathogenic Cast Auto None U Epithel Cells (Auto) 5.6 Urine Bacteria (Auto) 3595.1 ASSESSMENT/PLAN: 59M with PMH of HIV (Currently on Odefsey), and Prostate CA. He presented to the ER with complaints of dysuria and suprapubic abdominal pain for the past 4- 5 days, as well as diarrhea for the past 3-4 days. He had a permanent indwelling urinary catheter placed for an enlarged prostate in early 2018, was admitted at [facility] from May to Sep 04 for a UTI, and was admitted at [facility] from 10/28-11/01 2019. #UTI - UA: 3+ LE with 3.6k bacteria, WBC 7.5, afebrile - Will continue on Zosyn 3.375 Q6H, Vanc/Zosyn given in ER - Ucx ordered - U Tox: Positive only for marijuana - Urology consulted for catheter change #Hx of Prostate CA with bony mets - Biopsy 10 years ago, no recent workup, no rx - CXR today showed evidence of bone mets - Heme/Onc consulted - Palliative care consulted for goals of care discussion - IV Morphine 4mg Q6H for pain #Diarrhea - May be infective, must r/o C Diff in light of recent hospitalizations - Stool cx, O&P, C Diff ordered #Anemia - Microcytic, low Fe with low TIBC, and elevated ferritin as per Iron studies on previous visit - May be 2/2 anemia of chronic disease - FOBT ordered to r/o bleeding - Would transfuse if Hg under 7 - Will order Type and screen for AM in case transfusion required #Wound left hip - Likely pressure ulcer, grade I with no discharge - Zinc Oxide topical started #Hx of HIV - continue anti-retrovirals - ID consult placed #Hypoglycemia - May be 2/2 malnutrition - D50 25gm given #FEN - Started on IV N/S - K 5.7, n signs of cardiac or muscular abnormalities, will hydrate and reassess in AM, if no improvement would give Lokelma 10mg - Severe malnutrition, BMI of 14 - Protein supplement ordered 2x daily - Dietary consult placed #DVT - Lovenox 30mg SQ started Visit type - Emergency Visit Emergency Visit: Yes ED Registration Date: 11/25/19 Care time: The patient presented to the Emergency Department on the above date and was hospitalized for further evaluation of their emergent condition. - New Patient This patient is new to me today: Yes Date on this admission: 11/27/19 - Critical Care Critical Care patient: No ATTENDING PHYSICIAN STATEMENT I saw and evaluated the patient. I reviewed the resident's note and discussed the case with the resident. I agree with the resident's findings and plan as documented. SUBJECTIVE: OBJECTIVE: ASSESSMENT AND PLAN:
--- NOTE | 2019-11-26 00:47 | PN ---
Teaching Attending Note Name of Resident: Robbin Prather ATTENDING PHYSICIAN STATEMENT I saw and evaluated the patient. I reviewed the resident's note and discussed the case with the resident. I agree with the resident's findings and plan as documented. SUBJECTIVE: 59-year-old male with uncontrolled HIV, followed by Dr. Tsai at [facility] with high viral load of 108,000, CD4 count of 267 in October 29, 2019, metastatic lesions seen on bone scan from 03/04, severe cachexia, chronic Syed catheter for suspected of prostate obstruction, G6PD deficiency, sickle cell trait, significant anemia presenting with burning around Syed catheter site and suspicion for UTI. Patient denied any fevers, chills, general malaise. The last time Syed catheter was changed was during hospitalization in October 2019. Patient has refused biopsy of metastatic lesions previously and is not currently following actively with an oncologist. He is also not compliant with his HIV medications and forgets to take them. OBJECTIVE: Last Vital Signs Temp Pulse Resp BP Pulse Ox 97.7 F 106 H 20 112/68 100 11/25/19 16:40 11/25/19 16:40 11/25/19 16:40 11/25/19 16:40 11/25/19 16:40 GENERAL: Severely cachectic, not in acute distress HEENT: Normocephalic, atraumatic. PERRLA, EOMI. No conjunctival pallor. Sclera are non- icteric. NECK: Supple. Full ROM. No JVD. Carotid pulses 2+ and symmetric, without bruits. No thyromegaly. No lymphadenopathy. CARDIOVASCULAR: Regular rate and rhythm. No murmurs, rubs, or gallops. Distal pulses are 2+ and symmetric. PULMONARY: No evidence of respiratory distress. Lungs clear to auscultation bilaterally. No wheezing, rales or rhonchi. ABDOMINAL: Soft. Non-tender. Non-distended. No rebound or guarding. No organomegaly. Normoactive bowel sounds. MUSCULOSKELETAL Normal range of motion at all joints. No bony deformities or tenderness. No CVA tenderness. EXTREMITIES: No cyanosis. No clubbing. No edema. No calf tenderness. SKIN: Warm and dry. Normal capillary refill. No rashes. No jaundice. Syed catheter in place, stool around Syed catheter Abnormal Lab Results 11/25/19 11/25/19 11/25/19 17:35 17:35 17:35 RBC 3.41 L Hgb 8.4 L Hct 26.0 L D MCV 76.2 L MCH 24.7 L D RDW 19.5 H Lymphocytes % 47.5 H D Potassium 5.7 H Chloride 109 H Anion Gap 6 L BUN 22.4 H Random Glucose 70 L Calcium 7.5 L AST 39 H ALT 11 L Alkaline Phosphatase 416 H Total Protein 5.9 L Albumin 1.8 L Urine Protein 1+ H Urine Blood 1+ H Ur Leukocyte Esterase 3+ H Imaging studies reviewed ASSESSMENT AND PLAN: #Possible urinary tract infectioncomplicated with Syed catheter. Patient noted to have defecated in his diaper upon examination and high likelihood of contamination with stool and Syed catheter. It is doubtful that patient is able to care for himself at home as he is found to be defecating on Syed catheter and is very prone to infections. At this time would treat preemptively with Zosyn as well as replace Syed catheter by urology service. Admit to [facility] Zosyn 3.375 g IV every 6 Follow-up urine culture Urology consult for Syed catheter exchange #Metastatic lesions found on February 2019 bone scansuspected to have underlying prostate malignancy however was never confirmed as patient was refusing biopsy previously. Palliative care consult to establish goals of care If pain would treat with morphine IV as needed #Severe malnutrition, cachexiaBMI of 14, severe hypoalbuminemia Nutrition consult Protein supplement twice daily Calorie count #Severe anemiamicrocytic, Suspect anemia of chronic disease as ferritin was very high and TIBC low Monitor CBC, transfuse if less than 7 g/dL #Hypoglycemia Attempt regular diet D50 IV push #Uncontrolled HIVrefusing to take medications Infectious disease consultation for HIV medication reinstitution DVT prophylaxisLovenox 40 mg subcutaneously
[2019-11-26] MEDS: ZINC OXIDE 20% TOPICAL OINTMENT 30 GM TUBE TP SCH ×2 (00:55→10:16)
[2019-11-26] MEDS: DOXEPIN HCL 50 MG CAPSULE PO SCH ×3 (00:55→11:18)
[2019-11-26 01:27] LABS: COCAINE, UR NEGATIVE ng/ml (CUTOFF=300); METHADONE, UR NEGATIVE ng/ml (CUTOFF=300); OPIATES, URI NEGATIVE ng/ml (CUTOFF=300); PHENCYCLIDINE,URINE NEGATIVE ng/ml (CUTOFF=25); URINE AMPHETAMINES NEGATIVE ng/ml (CUTOFF=500); URINE BARBITURATES NEGATIVE ng/ml (CUTOFF=200); URINE BENZODIAZEPINES NEGATIVE ng/ml (CUTOFF=200)
[2019-11-26] MEDS ORDERED: morphine SULFATE 4 MG/ML VIAL IVPUSH PRN (01:52)
[2019-11-26] MEDS ORDERED: PIPERACILLIN/TAZOB 3.375 GM 3.375 GM in DEXTROSE 5%-WATER - 50 ML IVPB SCH ×5 (02:00→21:00)
[2019-11-26] MEDS ORDERED: PIPERACILLIN/TAZOB 3.375 GM 3.375 GM/50 ML BAG IVPB ONE (02:37)
[2019-11-26] MEDS ORDERED: DEXTROSE 50%-WATER - 25 GM/50 ML VIAL IVPUSH ONE (03:19)
[2019-11-26] MEDS ORDERED: DEXTROSE 50%-WATER - 25 GM/50 ML VIAL ONE (04:03)
[2019-11-26] MEDS ORDERED: SODIUM CHLORIDE 0.9% 500 ML INFUS.BAG IV ONE (06:28)
[2019-11-26 08:07] LABS: HEMATOCRIT 22.1 % (35.4-49); HEMOGLOBIN 7.5 GM/dL (11.7-16.9); MCH 27.5 pg (25.7-33.7); MCHC 33.7 g/dl (32.0-35.9); MEAN CELL VOLUME 81.6 fl (80-96); MEAN PLT VOLUME 8.5 fl (7.5-11.1); PLATELET COUNT 354 K/MM3 (134-434); RBC 2.71 M/mm3 (4.00-5.60); RDW 18.9 % (11.9-15.9)
[2019-11-26 08:18] LABS: ALBUMIN 1.6 g/dl (3.4-5.0); BILIRUBIN,TOTAL 0.5 mg/dL (0.2-1); BLOOD UREA NITROGEN 22.5 mg/dL (7-18); CALCIUM 7.1 mg/dL (8.5-10.1); CREATININE 0.9 mg/dL (0.55-1.3); POTASSIUM 4.5 mmol/L (3.5-5.1)
[2019-11-26] MEDS: AMINO ACIDS/PROTEIN HYDROLYS 30 ML LIQUID.PKT PO SCH ×2 (08:34→17:55)
--- NOTE | 2019-11-26 09:19 | PN ---
Physical Exam: SUBJECTIVE: Patient seen and examined. He says he is still having diarrhea. OBJECTIVE: Vital Signs Period Temp Pulse Resp BP Sys/Reardon Pulse Ox Last 24 Hr 97.7 F-97.9 F 92-106 16-20 75-112/43-68 100-100 GENERAL: The patient is awake, alert, and fully oriented, in no acute distress. LUNGS: Breath sounds equal, clear to auscultation bilaterally, no wheezes, no crackles, no accessory muscle use. HEART: Regular rhythm, tachycardic, S1, S2 without murmur, rub or gallop. ABDOMEN: Soft, nontender, nondistended, normoactive bowel sounds, no guarding, no rebound, no hepatosplenomegaly, no masses. EXTREMITIES: 2+ pulses, warm, well-perfused, no edema. Laboratory Results - last 24 hr 11/25/19 11/25/19 11/25/19 17:35 17:35 17:35 WBC 7.5 RBC 3.41 L Hgb 8.4 L Hct 26.0 L D MCV 76.2 L MCH 24.7 L D MCHC 32.4 RDW 19.5 H Plt Count 429 D MPV 8.5 Absolute Neuts (auto) 3.2 Neutrophils % 42.8 D Lymphocytes % 47.5 H D Monocytes % 7.5 Eosinophils % 1.1 Basophils % 1.1 Nucleated RBC % 0 Sodium 138 Potassium 5.7 H Chloride 109 H Carbon Dioxide 23 Anion Gap 6 L BUN 22.4 H Creatinine 0.7 Est GFR (CKD-EPI)AfAm 120.56 Est GFR (CKD-EPI)NonAf 104.02 Random Glucose 70 L Calcium 7.5 L Total Bilirubin 0.5 AST 39 H ALT 11 L Alkaline Phosphatase 416 H Total Protein 5.9 L Albumin 1.8 L Urine Color Yellow Urine Appearance Turbid Urine pH 7.5 Ur Specific [place] 1.020 Urine Protein 1+ H Urine Glucose (UA) Negative Urine Ketones Negative Urine Blood 1+ H Urine Nitrite Negative Urine Bilirubin Negative Urine Urobilinogen 1.0 Ur Leukocyte Esterase 3+ H Urine WBC (Auto) 521 Urine RBC (Auto) 16 Urine Casts (Auto) 17 U Pathogenic Cast Auto None U Epithel Cells (Auto) 5.6 Urine Bacteria (Auto) 3595.1 Opiates Screen Methadone Screen Barbiturate Screen Phencyclidine Screen Ur Amphetamines Screen MDMA (Ecstasy) Screen Benzodiazepines Screen Cocaine Screen U Marijuana (THC) Screen Blood Type Antibody Screen 11/26/19 11/26/19 11/26/19 00:10 05:50 05:50 WBC 8.0 RBC 2.71 L Hgb 7.5 L Hct 22.1 L MCV 81.6 MCH 27.5 D MCHC 33.7 RDW 18.9 H Plt Count 354 MPV 8.5 Absolute Neuts (auto) 7.0 Neutrophils % No Result Required. Lymphocytes % No Result Required. Monocytes % Eosinophils % Basophils % Nucleated RBC % 0 Sodium 136 Potassium 4.5 Chloride 107 Carbon Dioxide 21 Anion Gap 8 BUN 22.5 H Creatinine 0.9 Est GFR (CKD-EPI)AfAm 108.73 Est GFR (CKD-EPI)NonAf 93.82 Random Glucose 99 Calcium 7.1 L Total Bilirubin 0.5 AST 21 ALT 9 L Alkaline Phosphatase 372 H Total Protein 5.0 L Albumin 1.6 L Urine Color Urine Appearance Urine pH Ur Specific [place] Urine Protein Urine Glucose (UA) Urine Ketones Urine Blood Urine Nitrite Urine Bilirubin Urine Urobilinogen Ur Leukocyte Esterase Urine WBC (Auto) Urine RBC (Auto) Urine Casts (Auto) U Pathogenic Cast Auto U Epithel Cells (Auto) Urine Bacteria (Auto) Opiates Screen Negative Methadone Screen Negative Barbiturate Screen Negative Phencyclidine Screen Negative Ur Amphetamines Screen Negative MDMA (Ecstasy) Screen Negative Benzodiazepines Screen Negative Cocaine Screen Negative U Marijuana (THC) Screen Positive A* Blood Type Antibody Screen 11/26/19 05:50 WBC RBC Hgb Hct MCV MCH MCHC RDW Plt Count MPV Absolute Neuts (auto) Neutrophils % Lymphocytes % Monocytes % Eosinophils % Basophils % Nucleated RBC % Sodium Potassium Chloride Carbon Dioxide Anion Gap BUN Creatinine Est GFR (CKD-EPI)AfAm Est GFR (CKD-EPI)NonAf Random Glucose Calcium Total Bilirubin AST ALT Alkaline Phosphatase Total Protein Albumin Urine Color Urine Appearance Urine pH Ur Specific [place] Urine Protein Urine Glucose (UA) Urine Ketones Urine Blood Urine Nitrite Urine Bilirubin Urine Urobilinogen Ur Leukocyte Esterase Urine WBC (Auto) Urine RBC (Auto) Urine Casts (Auto) U Pathogenic Cast Auto U Epithel Cells (Auto) Urine Bacteria (Auto) Opiates Screen Methadone Screen Barbiturate Screen Phencyclidine Screen Ur Amphetamines Screen MDMA (Ecstasy) Screen Benzodiazepines Screen Cocaine Screen U Marijuana (THC) Screen Blood Type AB POSITIVE Antibody Screen Negative Active Medications Generic Name Dose Route Start Last Admin Trade Name Freq PRN Reason Stop Dose Admin Amino Acids 30 ml 11/26/19 08:00 11/26/19 08:34 Prosource No Carb Liquid Pkt PO Not Given BID@0800,1730 [facility] Doxepin HCl 100 mg 11/25/19 22:00 11/26/19 00:55 Sinequan - PO Not Given BID JESSICA Enoxaparin Sodium 40 mg 11/26/19 10:00 Lovenox - SQ DAILY JESSICA Piperacillin Sod/Tazobactam 50 mls @ 100 mls/hr 11/26/19 09:00 Sod 3.375 gm/ Dextrose IVPB 11/26/19 15:29 Q6H-IV JESSICA Protocol Piperacillin Sod/Tazobactam 50 mls @ 100 mls/hr 11/26/19 21:00 Sod 3.375 gm/ Dextrose IVPB Q6H-IV JESSICA Protocol Morphine Sulfate 4 mg 11/26/19 01:52 Morphine Sulfate IVPUSH Q6H PRN PAIN LEVEL 7 - 10 Multi-Ingredient Ointment 1 applic 11/25/19 22:00 11/26/19 00:55 Zinc Oxide TP 1 applic BID JESSICA Administration ASSESSMENT/PLAN: This is a 59 year old man with a history of HIV, indwelling Syed catheter, prostate cancer who presented to the ED with diarrhea and suprapubic pain. 1. Indwelling Syed catheter infection - Continue Zosyn - Follow up urine culture - ID consult 2. Diarrhea - Stool culture, O&P, C. difficile ordered 3. Anemia secondary to chronic illness - Hgb 7.5 today - Continue to monitor hgb - Check stool occult blood 4. Prostate cancer with lung and bone metastases 5. Hyperkalemia - Improved 6. HIV - On Odefsey - ID consult 7. Stage I pressure ulcer left hip - Wound care 8. Severe protein calorie malnutrition - Ensure, ProSource - Nutrition evaluation Visit type - Emergency Visit Emergency Visit: Yes ED Registration Date: 11/25/19 Care time: The patient presented to the Emergency Department on the above date and was hospitalized for further evaluation of their emergent condition. - New Patient This patient is new to me today: Yes Date on this admission: 11/26/19 - Critical Care Critical Care patient: No - Discharge Referral Referred to [facility] No
--- NOTE | 2019-11-26 09:32 | EKG ---
Test Reason : Blood Pressure : / mmHG Vent. Rate : 097 BPM Atrial Rate : 097 BPM P-R Int : 126 ms QRS Dur : 078 ms QT Int : 356 ms P-R-T Axes : 077 077 088 degrees QTc Int : 452 ms SINUS RHYTHM WITH MARKED SINUS ARRHYTHMIA OTHERWISE NORMAL ECG WHEN COMPARED WITH ECG OF 28-OCT-2019 19:16, NO SIGNIFICANT CHANGE WAS FOUND Confirmed by Ambika Gotti ([id number]) on 11/26/2019 9:32:14 AM Referred By: Confirmed By:Ambika Gotti
[2019-11-26] MEDS: ENOXAPARIN NA (PORCINE) 40 MG/0.4 ML DISP.SYRIN SQ SCH (10:16)
[2019-11-26] MEDS: EMTRICITAB/RILPIVIRI/TENOF ALA (ODEFSEY) TABLET PO SCH (10:16)
--- NOTE | 2019-11-26 10:41 | PN ---
Progress Note (short form) - Note Progress Note: ID consult dictated 59 yo man last admitted here in October 17 to 10/30 known HIV positive - does not f/u with his doc at [facility] known prostate cancer - no f/u as well left AMA has been home no medical f/u not taking his odefsey no fevers notes diarrhea over the last 3 to 4 days unable to quantitate nonbloody notes aggarwal pain no fevers started on zosyn last night after urine from present aggarwal was sent! doubt UTI suspect aggarwal needs to be changed evaluate diarrhea with stool studies HIV-cd4 was 267 in october- can resume odefsey if patient wishes to take meds prostate cancer overall seems to need placement he appears to have poor insight regarding his medical issues and doesnot appear to be able to care for himself Problem List - Problems (1) HIV (human immunodeficiency virus infection) Code(s): B20 - HUMAN IMMUNODEFICIENCY VIRUS [HIV] DISEASE Qualifiers: HIV symptom status: symptomatic Qualified Code(s): B20 - Human immunodeficiency virus [HIV] disease (2) Prostate cancer Code(s): C61 - MALIGNANT NEOPLASM OF PROSTATE (3) Chronic indwelling Aggarwal catheter Code(s): Z96.0 - PRESENCE OF UROGENITAL IMPLANTS
[2019-11-26 10:47] LABS: ANISOCYTOSIS 3+; PLATELET ESTIMATE NORMAL; TARGET CELLS 2+; TEAR DROP CELLS 1+
--- NOTE | 2019-11-26 11:00 | CONSULT ---
Consultation: CONSULT SERVICE: Hematology/Oncology Resident HISTORY OF PRESENT ILLNESS: 59yo M with HIV (following Dr. Tsai at [facility]), anemia of chronic disease, G6PD deficiency, sickle cell trait, and prostate Ca with suspected metastatic disease who originally presented to this facility to due burning around his aggarwal and admitted for failure to thrive and suspected UTI. Pt has been seen by our services prior due to notable weight loss, markedly elevated PSA and anemia where it was discussed that he would need a bone scan +/- biopsy at that time. Pt during previous visit deferred the biopsy and was supposed to follow-up with [facility] practices (Dr. Mcclelland) however he did not. Pt reports continued burning at site of aggarwal. He endorses about a 10-15 lb weight loss from prior month alongside a nonproductive cough. PMHx: As oer HPI PSHX: Denies SoHx: Tobacco - 1 tobacco +/- marijuana cigarette per day (past 20 years) Alcohol - Denies Drugs: Marijuana REVIEW OF SYSTEMS: As per HPI PHYSICAL EXAMINATION Vital Signs - 24 hr 11/25/19 11/26/19 11/26/19 16:40 06:18 07:42 Temperature 97.7 F 97.9 F Pulse Rate 106 H Pulse Rate [ 100 H 92 H Apical] Respiratory 20 18 16 Rate Blood Pressure 112/68 Blood Pressure 75/43 L 92/55 L [Left Arm] O2 Sat by Pulse 100 100 100 Oximetry (%) GENERAL: NAD, alert, oriented x3, cachectic HEENT: NC/AT, bitemporal wasting apparent, dry mucosa, no thrush or mucositis appreciated NECK: No JVD, no lymphadenopathy. LUNGS: CTA bilaterally. No wheezes, and no crackles. No accessory muscle use. HEART: RRR, normal S1 and S2 without murmur ABDOMEN: Soft, nondistendend, slight tenderness to suprapubic region, normoactive BS, no guarding, no hepatomegaly appreciated : Aggarwal in place, no discharge noticed EXTREMITIES: 2+ pulses, warm, well-perfused. No calf tenderness. No peripheral edema. PSYCHIATRIC: Cooperative. Good eye contact. Appropriate mood and affect. SKIN: Pressure wound stage I to sacrum without any purulence or surrounding erythema Laboratory Results - last 24 hr 11/25/19 11/25/19 11/25/19 17:35 17:35 17:35 WBC 7.5 RBC 3.41 L Hgb 8.4 L Hct 26.0 L D MCV 76.2 L MCH 24.7 L D MCHC 32.4 RDW 19.5 H Plt Count 429 D MPV 8.5 Absolute Neuts (auto) 3.2 Neutrophils % 42.8 D Lymphocytes % 47.5 H D Monocytes % 7.5 Eosinophils % 1.1 Basophils % 1.1 Nucleated RBC % 0 Sodium 138 Potassium 5.7 H Chloride 109 H Carbon Dioxide 23 Anion Gap 6 L BUN 22.4 H Creatinine 0.7 Est GFR (CKD-EPI)AfAm 120.56 Est GFR (CKD-EPI)NonAf 104.02 Random Glucose 70 L Calcium 7.5 L Total Bilirubin 0.5 AST 39 H ALT 11 L Alkaline Phosphatase 416 H Total Protein 5.9 L Albumin 1.8 L Urine Color Yellow Urine Appearance Turbid Urine pH 7.5 Ur Specific [place] 1.020 Urine Protein 1+ H Urine Glucose (UA) Negative Urine Ketones Negative Urine Blood 1+ H Urine Nitrite Negative Urine Bilirubin Negative Urine Urobilinogen 1.0 Ur Leukocyte Esterase 3+ H Urine WBC (Auto) 521 Urine RBC (Auto) 16 Urine Casts (Auto) 17 U Pathogenic Cast Auto None U Epithel Cells (Auto) 5.6 Urine Bacteria (Auto) 3595.1 Opiates Screen Methadone Screen Barbiturate Screen Phencyclidine Screen Ur Amphetamines Screen MDMA (Ecstasy) Screen Benzodiazepines Screen Cocaine Screen U Marijuana (THC) Screen Blood Type Antibody Screen 11/26/19 11/26/19 11/26/19 00:10 05:50 05:50 WBC 8.0 RBC 2.71 L Hgb 7.5 L Hct 22.1 L MCV 81.6 MCH 27.5 D MCHC 33.7 RDW 18.9 H Plt Count 354 MPV 8.5 Absolute Neuts (auto) 7.0 Neutrophils % No Result Required. Lymphocytes % No Result Required. Monocytes % Eosinophils % Basophils % Nucleated RBC % 0 Sodium 136 Potassium 4.5 Chloride 107 Carbon Dioxide 21 Anion Gap 8 BUN 22.5 H Creatinine 0.9 Est GFR (CKD-EPI)AfAm 108.73 Est GFR (CKD-EPI)NonAf 93.82 Random Glucose 99 Calcium 7.1 L Total Bilirubin 0.5 AST 21 ALT 9 L Alkaline Phosphatase 372 H Total Protein 5.0 L Albumin 1.6 L Urine Color Urine Appearance Urine pH Ur Specific [place] Urine Protein Urine Glucose (UA) Urine Ketones Urine Blood Urine Nitrite Urine Bilirubin Urine Urobilinogen Ur Leukocyte Esterase Urine WBC (Auto) Urine RBC (Auto) Urine Casts (Auto) U Pathogenic Cast Auto U Epithel Cells (Auto) Urine Bacteria (Auto) Opiates Screen Negative Methadone Screen Negative Barbiturate Screen Negative Phencyclidine Screen Negative Ur Amphetamines Screen Negative MDMA (Ecstasy) Screen Negative Benzodiazepines Screen Negative Cocaine Screen Negative U Marijuana (THC) Screen Positive A* Blood Type Antibody Screen 11/26/19 05:50 WBC RBC Hgb Hct MCV MCH MCHC RDW Plt Count MPV Absolute Neuts (auto) Neutrophils % Lymphocytes % Monocytes % Eosinophils % Basophils % Nucleated RBC % Sodium Potassium Chloride Carbon Dioxide Anion Gap BUN Creatinine Est GFR (CKD-EPI)AfAm Est GFR (CKD-EPI)NonAf Random Glucose Calcium Total Bilirubin AST ALT Alkaline Phosphatase Total Protein Albumin Urine Color Urine Appearance Urine pH Ur Specific [place] Urine Protein Urine Glucose (UA) Urine Ketones Urine Blood Urine Nitrite Urine Bilirubin Urine Urobilinogen Ur Leukocyte Esterase Urine WBC (Auto) Urine RBC (Auto) Urine Casts (Auto) U Pathogenic Cast Auto U Epithel Cells (Auto) Urine Bacteria (Auto) Opiates Screen Methadone Screen Barbiturate Screen Phencyclidine Screen Ur Amphetamines Screen MDMA (Ecstasy) Screen Benzodiazepines Screen Cocaine Screen U Marijuana (THC) Screen Blood Type AB POSITIVE Antibody Screen Negative Active Medications Generic Name Dose Route Start Last Admin Trade Name Freq PRN Reason Stop Dose Admin Amino Acids 30 ml 11/26/19 08:00 11/26/19 08:34 Prosource No Carb Liquid Pkt PO Not Given BID@0800,1730 JESSICA Doxepin HCl 100 mg 11/25/19 22:00 11/26/19 10:15 Sinequan - PO 100 mg BID JESSICA Administration Enoxaparin Sodium 40 mg 11/26/19 10:00 11/26/19 10:16 Lovenox - SQ 40 mg DAILY JESSICA Administration Piperacillin Sod/Tazobactam 50 mls @ 100 mls/hr 11/26/19 09:00 11/26/19 10:08 Sod 3.375 gm/ Dextrose IVPB 11/26/19 15:29 100 mls/hr Q6H-IV JESSICA Administration Protocol Piperacillin Sod/Tazobactam 50 mls @ 100 mls/hr 11/26/19 21:00 Sod 3.375 gm/ Dextrose IVPB Q6H-IV JESSICA Protocol Morphine Sulfate 4 mg 11/26/19 01:52 Morphine Sulfate IVPUSH Q6H PRN PAIN LEVEL 7 - 10 Multi-Ingredient Ointment 1 applic 11/25/19 22:00 11/26/19 10:16 Zinc Oxide TP Not Given BID [facility] ASSESSMENT/PLAN: Suspected Stage IV Prostate Ca Anemia of chronic disease Sickle cell trait G6PD deficiency UTI with chronic aggarwal use 2/2 to obstructive mass History of HIV --Transfusion threshold >7gm --Patient will ultimately need a bone biopsy for confirmation of metastatic disease however continually defers/refuses --Casodex may be of benefit, however pt refused --GI and urology eval due to cecal mass and prostate involvement respectively Case discussed with Dr. Chichi Tran, DO - IM PGY-3 Visit type - Emergency Visit Emergency Visit: Yes ED Registration Date: 11/25/19 Care time: The patient presented to the Emergency Department on the above date and was hospitalized for further evaluation of their emergent condition. - New Patient This patient is new to me today: No - Critical Care Critical Care patient: No ATTENDING PHYSICIAN STATEMENT I saw and evaluated the patient. I reviewed the resident's note and discussed the case with the resident. I agree with the resident's findings and plan as documented. SUBJECTIVE: OBJECTIVE: ASSESSMENT AND PLAN:
[2019-11-26] MEDS ORDERED: SODIUM CHLORIDE 1,000 ML IV STA ×2 (13:11→14:54)
[2019-11-26] MEDS: SODIUM CHLORIDE 1,000 ML IV SCH (13:30)
--- NOTE | 2019-11-26 17:58 | CONS ---
INFECTIOUS DISEASE CONSULTATION DATE OF CONSULTATION: DATE OF DICTATION: 11/26/2019 REQUESTED BY: Hospitalist service. HISTORY: This is a 59-year-old man past medical history of HIV disease. He is not adherent with his medications or with his follow up. PCP is Dr. Tsai at [facility]. He has a history of prostate cancer as well for which he is not in treatment. He was hospitalized in October from the to the when he left [place]. He reports since that time he has not been in any medical care. He has been at home, and he has been feeling too weak to go anywhere. He does note that he developed diarrhea over the last several days, nonbloody without any fevers, which has been making him weak. He notes Syed pain and was concerned about this as well. He reports he needs help at home and is unable to manage. PAST MEDICAL HISTORY: Notable for history of HIV. He has a history of prostate cancer. He has a history of a chronic Syed catheter, which he reports was last changed when he was at [facility] in October. ALLERGIES: He is allergic to CIPRO. MEDICATIONS: He reports his medications include Odefsey and doxepin. He has not taken the Odefsey recently because he says he is not eating well. His T cells were checked when he was here in October, and his CD4 count was 267 in October with a measurable viral load of 108,990. SOCIAL HISTORY: He lives alone. He is originally from [place]. He does not have any home services. He is a former smoker and uses marijuana. REVIEW OF SYSTEMS: As per HPI. Notable for weight loss, diarrhea, and Syed discomfort. PHYSICAL EXAMINATION: General: He is awake and alert. He is resting comfortably. He is a thin man in no acute distress. Vital Signs: Temperature is 98.5, pulse is 92, blood pressure 84/56. HEENT: He is normocephalic. He has no thrush. Lungs: Clear to auscultation. Heart: Regular rate and rhythm. Abdomen: Soft. He has some suprapubic mild discomfort. Extremities: Without edema. Genitourinary: He has a Syed catheter. DIAGNOSTIC DATA: White count is 8000, hemoglobin 7.5, platelets are 354, BUN 22 , creatinine 0.9 with an alkaline phosphatase of 372. Urinalysis has 3+ leukocytes with 521 white cells. Urine toxicology is positive for marijuana. A urine culture was sent from the ER, which is pending. He had a chest x-ray done in the ER that showed no infiltrate. In summary, this is a 59-year-old man who I doubt has UTI. Suspect the Syed needs to be changed, which is what causing him the discomfort. Would evaluate his diarrhea with stool studies and watch him off antibiotics at this time. Would check an influenza swab as well. Regarding his HIV, his CD4 was 267 in October. Can resume the Odefsey if he wishes. Lastly, prostate cancer. Patient has not been following up with anyone regarding this. Overall, seems to have poor insight into his medical issues and does not appear to be able to care for himself at home. Will need to get social worker aide involved. JOSE MARTIN WATKINS M.D. [id number] MTDD
--- NOTE | 2019-11-26 18:27 | PN ---
Teaching Attending Note Name of Resident: Douglas Tran ATTENDING PHYSICIAN STATEMENT I saw and evaluated the patient. I reviewed the resident's note and discussed the case with the resident. I agree with the resident's findings and plan as documented. ASSESSMENT AND PLAN: 58 yo M with HIV ( followed by Dr. Tsai at [facility], CD4 --267 in 11/05), anemia of chronic disease, G6PD def, and sickle trait, presented with significant symptomatic anemia. Anemia likely from chronic disease, no current evidence of iron deficiency or hemolysis. Has significant wt loss and markedlyelevated PSA> 2000 ( 03/04). B/L leg pains , no other focal bone pains. Remote h/o benign prostate bx. Bone scan and CT c /w bone mets most likely assoc with prostate ca. Imaging -- 03/04 at [facility] Enlarged prostate with nodular soft tissue invading and obstructing the distal right ureter favored to represent extension of prostate malignancy. 2 small nodular papillary projections in the right bladder base may represent extension of prostate malignancy but cannot be distinguished from primary urothelial tumor.Syed catheter in the bladder. Moderate diffuse bladder wall thickening is likely secondary to chronic outlet obstruction. Mild right hydroureteronephrosis due to malignant obstruction of the distal right ureter. Mild left hydroureter is likely secondary to thick-walled bladder. Emphysema with no gross evidence of pulmonary metastases. 1.9 cm cystic lesion of the uncinate process with adjacent parenchymal calcifications possibly representing a pseudocyst with changes of chronic pancreatitis or possible side branch intraductal papillary mucinous tumor. When clinically able, MRI with MRCP can be obtained for further characterization. 2.3 cm lobulated low attenuation apparent polypoid cecal mass (versus less likely a pseudo-lesion due to contrast mixing) that may represent colonic malignancy/mucinous tumor. Correlation with colonoscopy is recommended. Diffuse sclerotic bony metastases Bone scan with extensive mets in 03/04 PSA very elevated Will need biopsy to confirm Has not followed up with oncologist -- Dr. Mcclelland or with urologist would consider biopsy pf bone mets and casodex atleast---- discussed with patient , refusing it. REdiscuss bone bx cecal mass on prior CT --will need gi eval clinical social work therapist consult comes in with diarrhea/ anemia / ? UTI supportive caRE
[2019-11-27] MEDS: DOXEPIN HCL 50 MG CAPSULE PO SCH ×3 (01:20→21:01)
[2019-11-27] MEDS: ZINC OXIDE 20% TOPICAL OINTMENT 30 GM TUBE TP SCH ×3 (01:20→21:01)
[2019-11-27] MEDS: SODIUM CHLORIDE 1,000 ML IV SCH ×2 (02:25→18:49)
--- NOTE | 2019-11-27 07:39 | PN ---
Physical Exam: SUBJECTIVE: Patient seen and examined at bed side complain of some irritation from urinary catheter but denies any fever or chills , feels hungry and asking for warm food. aggarwal in place with clear urine , no hematuria was noted Hgb today 6.5 will transfuse one unit of blood OBJECTIVE: Vital Signs Period Temp Pulse Resp BP Sys/Reardon Pulse Ox Last 24 Hr 97.9 F-99.5 F 90-97 14-20 76-92/46-61 96-100 GENERAL: AAOx3 in NAD , poor hygiene , catchetic HEAD: NC/AT EYES: EOMI, Conjunctiva clear, sclera anicteric ENT: moist mucous membrane NECK: Supple, no JVD LUNGS: CTA B/L, no crackles no wheezing no accessory muscle use. HEART: RRR, NSR, normal s1, s2, murmur no M/R/G ABDOMEN: Soft, ND, NT, +BS 4 Q, no CVA Tenderness LOWER EXTREMITIES: no edema, +2DP pulse, NEUROLOGICAL: No focal deficit. Normal speech. gait not observed. PSYCHIATRIC: Cooperative. Good eye contact. Appropriate mood and affect. SKIN: Warm, dry,left hip pressure ulcer 5x5 cm stage I with no signs of infection Aggarwal in place with clear urine Laboratory Results - last 24 hr 11/26/19 11/26/19 11/26/19 05:50 05:50 05:50 WBC 8.0 RBC 2.71 L Hgb 7.5 L Hct 22.1 L MCV 81.6 MCH 27.5 D MCHC 33.7 RDW 18.9 H Plt Count 354 MPV 8.5 Absolute Neuts (auto) 7.0 Neutrophils % No Result Required. Neutrophils % (Manual) 91.7 H D Band Neutrophils % 0.0 Lymphocytes % No Result Required. Lymphocytes % (Manual) 5.0 L D Monocytes % (Manual) 0 L D Eosinophils % (Manual) 1.6 Basophils % (Manual) 0.0 Myelocytes % (Man) 2 D Promyelocytes % (Man) 0 Blast Cells % (Manual) 0 Nucleated RBC % 0 Metamyelocytes 0 D Hypochromia 3+ Platelet Estimate Normal Polychromasia 1+ Poikilocytosis 3+ Anisocytosis 3+ Microcytosis 3+ Spherocytes 1+ Target Cells 2+ Tear Drop Cells 1+ Sodium 136 Potassium 4.5 Chloride 107 Carbon Dioxide 21 Anion Gap 8 BUN 22.5 H Creatinine 0.9 Est GFR (CKD-EPI)AfAm 108.73 Est GFR (CKD-EPI)NonAf 93.82 Random Glucose 99 Calcium 7.1 L Total Bilirubin 0.5 AST 21 ALT 9 L Alkaline Phosphatase 372 H Total Protein 5.0 L Albumin 1.6 L Blood Type AB POSITIVE Antibody Screen Negative Active Medications Generic Name Dose Route Start Last Admin Trade Name Freq PRN Reason Stop Dose Admin Amino Acids 30 ml 11/26/19 08:00 11/26/19 17:55 Prosource No Carb Liquid Pkt PO Not Given BID@0800,1730 JESSICA Doxepin HCl 100 mg 11/25/19 22:00 11/27/19 01:20 Sinequan - PO Not Given BID JESSICA Enoxaparin Sodium 40 mg 11/26/19 10:00 11/26/19 10:16 Lovenox - SQ 40 mg DAILY JESSICA Administration Sodium Chloride 1,000 mls @ 100 mls/hr 11/26/19 13:15 11/27/19 02:25 Normal Saline - IV 100 mls/hr ASDIR JESSICA Administration Morphine Sulfate 4 mg 11/26/19 01:52 Morphine Sulfate IVPUSH Q6H PRN PAIN LEVEL 7 - 10 Multi-Ingredient Ointment 1 applic 11/25/19 22:00 11/27/19 01:20 Zinc Oxide TP 1 applic BID JESSICA Administration CBC, BMP 11/27/19 06:35 11/27/19 06:35 ASSESSMENT/PLAN: 59M with PMH of HIV (Currently on Odefsey), and Prostate CA. He presented to the ER with complaints of dysuria and suprapubic abdominal pain for the past 4- 5 days, as well as diarrhea for the past 3-4 days. He had a permanent indwelling urinary catheter placed for an enlarged prostate in early 2018, was admitted at [facility] from May to Sep 04 for a UTI, and was admitted at [facility] from 10/28-11/01 2019. #endwelling Aggarwal catheter infection, chronic * UA: 3+ LE with 3.6k bacteria, WBC 7.5, afebrile * S/p Zosyn 3.375 Q6H, Vanc/Zosyn given in ER, monitor off abx per Dr Lacey * Ucx ordered lactose ferminting negative bacilli and Group D strep or entrococcus * U Tox: Positive only for marijuana * Urology consulted for catheter change, [facility] Dr Pitts will be in the hospital tomorrow #Hx of Prostate CA with bony mets * Biopsy 10 years ago, no recent workup, no rx * CXR today showed evidence of bone mets blastic lesions * Heme/Onc consulted will need bone biopsy * Palliative care consulted for goals of care discussion * IV Morphine 4mg Q6H for pain #Diarrhea, improved * Stool cx, O&P, C Diff negative #Anemia likely anemia of chronic disease , microcytic normochromic * Microcytic, low Fe with low TIBC, and elevated ferritin as per Iron studies on previous visit * FOBT ordered to r/o bleeding * normal transfusion threshold below 7 #Wound left hip * Likely pressure ulcer, grade I with no discharge * Zinc Oxide topical started #Hx of HIV * continue anti-retrovirals * ID consult placed #Hypoglycemia - May be 2/2 malnutrition * D50 25gm given * D5 NS @ 42 cc /hr # cecal mass noted on prior CT scam , GI consult #FEN * D5 NS @ 42 * monitor lytes * Regular diet # Severe malnutrition, BMI of 14 * Protein supplement ordered 2x daily * Dietary consult placed #DVT * Lovenox 30mg SQ started * Dr Pitts will stop by to change aggarwal in AM Visit type - Emergency Visit Emergency Visit: Yes ED Registration Date: 11/25/19 Care time: The patient presented to the Emergency Department on the above date and was hospitalized for further evaluation of their emergent condition. - New Patient This patient is new to me today: Yes Date on this admission: 11/27/19 - Critical Care Critical Care patient: No - Discharge Referral Referred to [facility] No ATTENDING PHYSICIAN STATEMENT I saw and evaluated the patient. I reviewed the resident's note and discussed the case with the resident. I agree with the resident's findings and plan as documented. SUBJECTIVE: OBJECTIVE: ASSESSMENT AND PLAN:
[2019-11-27 08:05] LABS: BASO % 0.7 % (0-2.0); HEMATOCRIT 20.2 % (35.4-49); LYMPH % 30.8 % (8-40); MCH 25.6 pg (25.7-33.7); MCHC 32.3 g/dl (32.0-35.9); MEAN CELL VOLUME 79.1 fl (80-96); MEAN PLT VOLUME 8.6 fl (7.5-11.1); MONO % 7.5 % (3.8-10.2); PLATELET COUNT 317 K/MM3 (134-434); RBC 2.55 M/mm3 (4.00-5.60); WHITE BLOOD COUNT 5.9 K/mm3 (4.0-10.0)
[2019-11-27 08:09] LABS: HEMOGLOBIN 6.5 GM/dL (11.7-16.9)
[2019-11-27 08:31] LABS: CREATININE 0.6 mg/dL (0.55-1.3); POTASSIUM 4.1 mmol/L (3.5-5.1)
[2019-11-27] MEDS ORDERED: PT OWN MED DRAWER 7, Y5N ONE ×2 (09:07→20:38)
[2019-11-27] MEDS: EMTRICITAB/RILPIVIRI/TENOF ALA (ODEFSEY) TABLET PO SCH ×3 (09:16→18:49)
[2019-11-27] MEDS: AMINO ACIDS/PROTEIN HYDROLYS 30 ML LIQUID.PKT PO SCH ×2 (09:16→18:22)
[2019-11-27] MEDS: ENOXAPARIN NA (PORCINE) 40 MG/0.4 ML DISP.SYRIN SQ SCH (09:19)
[2019-11-27 10:32] LABS: CALCIUM 6.8 mg/dL (8.5-10.1)
[2019-11-27 11:33] LABS: ANISOCYTOSIS 3+; MACROCYTOSIS 0; PLATELET ESTIMATE NORMAL; TARGET CELLS 2+; TEAR DROP CELLS 1+
--- NOTE | 2019-11-27 13:06 | PN ---
Teaching Attending Note Name of Resident: Gustavo Ragsdale ATTENDING PHYSICIAN STATEMENT I saw and evaluated the patient. I reviewed the resident's note and discussed the case with the resident. I agree with the resident's findings and plan as documented. SUBJECTIVE: Patient complains of suprapubic pain. OBJECTIVE: Vital Signs Period Temp Pulse Resp BP Sys/Reardon Pulse Ox Last 24 Hr 98.2 F-98.5 F 90-97 14-20 84-94/50-61 96-100 GENERAL: The patient is awake, alert, and fully oriented, in no acute distress. LUNGS: Breath sounds equal, clear to auscultation bilaterally, no wheezes, no crackles, no accessory muscle use. HEART: Regular rate and rhythm, S1, S2 without murmur, rub or gallop. ABDOMEN: Soft, nontender, nondistended, normoactive bowel sounds, no guarding, no rebound, no hepatosplenomegaly, no masses. EXTREMITIES: 2+ pulses, warm, well-perfused, no edema. Laboratory Results - last 24 hr 11/26/19 11/27/19 11/27/19 05:50 06:35 06:35 WBC 5.9 RBC 2.55 L Hgb 6.5 L* Hct 20.2 L MCV 79.1 L MCH 25.6 L MCHC 32.3 RDW 19.0 H Plt Count 317 MPV 8.6 Absolute Neuts (auto) 3.3 Neutrophils % 56.0 D Neutrophils % (Manual) 57.6 D Band Neutrophils % 0.0 Lymphocytes % 30.8 D Lymphocytes % (Manual) 30.3 D Monocytes % 7.5 Monocytes % (Manual) 5 D Eosinophils % 5.0 H D Eosinophils % (Manual) 6.1 H D Basophils % 0.7 Basophils % (Manual) 0.0 Myelocytes % (Man) 0 D Promyelocytes % (Man) 0 Blast Cells % (Manual) 0 Nucleated RBC % 0 Metamyelocytes 0 Hypochromia 2+ Platelet Estimate Normal Polychromasia 2+ Poikilocytosis 2+ Anisocytosis 3+ Microcytosis 3+ Macrocytosis 0 Target Cells 2+ Tear Drop Cells 1+ Schistocytes 1+ Sodium 139 Potassium 4.1 Chloride 114 H Carbon Dioxide 18 L Anion Gap 7 L BUN 20.0 H Creatinine 0.6 Est GFR (CKD-EPI)AfAm 128.45 Est GFR (CKD-EPI)NonAf 110.83 Random Glucose 64 L Calcium 6.8 L* Crossmatch See Detail Current Medications Generic Name Dose Route Start Last Admin Trade Name Tyron PRN Reason Stop Dose Admin Amino Acids 30 ml 11/26/19 08:00 11/27/19 09:16 Prosource No Carb Liquid Pkt PO 30 ml BID@0800,1730 JESSICA Administration Doxepin HCl 100 mg 11/25/19 22:00 11/27/19 09:19 Sinequan - PO Not Given BID JESSICA Enoxaparin Sodium 40 mg 11/26/19 10:00 11/27/19 09:19 Lovenox - SQ Not Given DAILY JESSICA Sodium Chloride 1,000 mls @ 100 mls/hr 11/26/19 13:15 11/27/19 02:25 Normal Saline - IV 100 mls/hr ASDIR JESSICA Administration Morphine Sulfate 4 mg 11/26/19 01:52 Morphine Sulfate IVPUSH Q6H PRN PAIN LEVEL 7 - 10 Multi-Ingredient Ointment 1 applic 11/25/19 22:00 11/27/19 09:20 Zinc Oxide TP 1 applic BID JESSICA Administration ASSESSMENT AND PLAN: This is a 59 year old man with a history of HIV, indwelling Syed catheter, prostate cancer who presented to the ED with diarrhea and suprapubic pain. 1. Indwelling Syed catheter infection - Zosyn discontinued - Will change Syed 2. Diarrhea - Improved - Stool culture, O&P, C. difficile ordered 3. Anemia secondary to chronic illness - Hgb 6.5 today - 1 unit PRBCs ordered - Continue to monitor hgb - Check stool occult blood 4. 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 Cecal mass - GI evaluation 6. Hyperkalemia - Improved 7. HIV - On Odefsey at home but he has not been taking - ID consult 8. Stage I pressure ulcer left hip - Continue wound care 9. Severe protein calorie malnutrition - Continue ProSource - Refusing Ensure
--- NOTE | 2019-11-28 09:19 | PN ---
Physical Exam: SUBJECTIVE: Patient seen and examined at bed side refuse meds and refuse IV line or labs asking to change the aggarwal OBJECTIVE: Vital Signs Period Temp Pulse Resp BP Sys/Reardon Pulse Ox Last 24 Hr 98 F-98.7 F 70-97 16-20 92-97/58-64 GENERAL: AAOx3 in NAD , poor hygiene , catchetic HEAD: NC/AT EYES: EOMI, Conjunctiva clear, sclera anicteric ENT: moist mucous membrane NECK: Supple, no JVD LUNGS: CTA B/L, no crackles no wheezing no accessory muscle use. HEART: RRR, NSR, normal s1, s2, murmur no M/R/G ABDOMEN: Soft, ND, NT, +BS 4 Q, no CVA Tenderness LOWER EXTREMITIES: no edema, +2DP pulse, NEUROLOGICAL: No focal deficit. Normal speech. gait not observed. PSYCHIATRIC: Cooperative. Good eye contact. Appropriate mood and affect. SKIN: Warm, dry,left hip pressure ulcer 5x5 cm stage I with no signs of infection Aggarwal in place with clear urine Laboratory Results - last 24 hr 11/26/19 11/27/19 11/27/19 05:50 06:35 06:35 Neutrophils % (Manual) 57.6 D Band Neutrophils % 0.0 Lymphocytes % (Manual) 30.3 D Monocytes % (Manual) 5 D Eosinophils % (Manual) 6.1 H D Basophils % (Manual) 0.0 Myelocytes % (Man) 0 D Promyelocytes % (Man) 0 Blast Cells % (Manual) 0 Nucleated RBC % 0 Metamyelocytes 0 Hypochromia 2+ Platelet Estimate Normal Polychromasia 2+ Poikilocytosis 2+ Anisocytosis 3+ Microcytosis 3+ Macrocytosis 0 Target Cells 2+ Tear Drop Cells 1+ Schistocytes 1+ Sodium 139 Potassium 4.1 Chloride 114 H Carbon Dioxide 18 L Anion Gap 7 L BUN 20.0 H Creatinine 0.6 Est GFR (CKD-EPI)AfAm 128.45 Est GFR (CKD-EPI)NonAf 110.83 Random Glucose 64 L Calcium 6.8 L* Stool Occult Blood Blood Type AB POSITIVE Antibody Screen Negative Crossmatch See Detail 11/27/19 11/27/19 13:26 19:30 Neutrophils % (Manual) Band Neutrophils % Lymphocytes % (Manual) Monocytes % (Manual) Eosinophils % (Manual) Basophils % (Manual) Myelocytes % (Man) Promyelocytes % (Man) Blast Cells % (Manual) Nucleated RBC % Metamyelocytes Hypochromia Platelet Estimate Polychromasia Poikilocytosis Anisocytosis Microcytosis Macrocytosis Target Cells Tear Drop Cells Schistocytes Sodium Potassium Chloride Carbon Dioxide Anion Gap BUN Creatinine Est GFR (CKD-EPI)AfAm Est GFR (CKD-EPI)NonAf Random Glucose Calcium Stool Occult Blood Negative Blood Type AB POSITIVE Antibody Screen Crossmatch Active Medications Generic Name Dose Route Start Last Admin Trade Name Freq PRN Reason Stop Dose Admin Amino Acids 30 ml 11/26/19 08:00 11/27/19 18:22 Prosource No Carb Liquid Pkt PO Not Given BID@0800,1730 JESSICA Doxepin HCl 100 mg 11/25/19 22:00 11/27/19 21:01 Sinequan - PO Not Given BID JESSICA Emollient Ointment 1 applic 11/28/19 10:00 Aquaphor - TP DAILY [facility] Enoxaparin Sodium 40 mg 11/26/19 10:00 11/27/19 09:19 Lovenox - SQ Not Given DAILY [facility] Sodium Chloride 1,000 mls @ 100 mls/hr 11/26/19 13:15 11/27/19 18:49 Normal Saline - IV Not Given ASDIR JESSICA Morphine Sulfate 4 mg 11/26/19 01:52 Morphine Sulfate IVPUSH Q6H PRN PAIN LEVEL 7 - 10 ASSESSMENT/PLAN: 59M with PMH of HIV (Currently on Odefsey), and Prostate CA. He presented to the ER with complaints of dysuria and suprapubic abdominal pain for the past 4- 5 days, as well as diarrhea for the past 3-4 days. He had a permanent indwelling urinary catheter placed for an enlarged prostate in early 2018, was admitted at [facility] from May to Sep 04 for a UTI, and was admitted at [facility] from 10/28-11/01 2019. #endwelling Aggarwal catheter infection, chronic * UA: 3+ LE with 3.6k bacteria, WBC 7.5, afebrile * S/p Zosyn 3.375 Q6H, Vanc/Zosyn given in ER, monitor off abx per Dr Lacey * Ucx ordered lactose ferminting negative bacilli and Group D strep or entrococcus * U Tox: Positive only for marijuana * Urology consulted for catheter change, [facility] and said Dr Pitts will be in the hospital tomorrow #Hx of Prostate CA with bony mets * Biopsy 10 years ago, no recent workup, no rx * CXR today showed evidence of bone mets blastic lesions * Heme/Onc consulted will need bone biopsy * Palliative care consulted for goals of care discussion * IV Morphine 4mg Q6H for pain #Diarrhea, improved * Stool cx, O&P, C Diff negative #Anemia likely anemia of chronic disease , microcytic normochromic * Microcytic, low Fe with low TIBC, and elevated ferritin as per Iron studies on previous visit * FOBT ordered to r/o bleeding * normal transfusion threshold below 7 #Wound left hip * Likely pressure ulcer, grade I with no discharge * aquafore topical apply * wound care #Hx of HIV * continue anti-retrovirals * ID consult placed #Hypoglycemia * May be 2/2 malnutrition * D50 25gm given * D5 NS @ 42 cc /hr # cecal mass noted on prior CT scam , GI consult #FEN * D5 NS @ 42 * monitor lytes * Regular diet # Severe malnutrition, BMI of 14 * Protein supplement ordered 2x daily * Dietary consult placed #DVT * Lovenox 30mg SQ started Code status : DNR/DNI Visit type - Emergency Visit Emergency Visit: Yes ED Registration Date: 11/25/19 Care time: The patient presented to the Emergency Department on the above date and was hospitalized for further evaluation of their emergent condition. - New Patient This patient is new to me today: No - Critical Care Critical Care patient: No ATTENDING PHYSICIAN STATEMENT I saw and evaluated the patient. I reviewed the resident's note and discussed the case with the resident. I agree with the resident's findings and plan as documented. SUBJECTIVE: OBJECTIVE: ASSESSMENT AND PLAN:
[2019-11-28] MEDS: AMINO ACIDS/PROTEIN HYDROLYS 30 ML LIQUID.PKT PO SCH ×2 (10:04→17:33)
[2019-11-28] MEDS: DOXEPIN HCL 50 MG CAPSULE PO SCH (10:04)
[2019-11-28] MEDS: ENOXAPARIN NA (PORCINE) 40 MG/0.4 ML DISP.SYRIN SQ SCH (10:04)
[2019-11-28] MEDS: MINERAL OIL/PET HY-PHL TOPICAL OINTMENT 454 GM JAR TP SCH (10:04)
--- NOTE | 2019-11-28 12:47 | PN ---
Teaching Attending Note Name of Resident: Gustavo Ragsdale ATTENDING PHYSICIAN STATEMENT I saw and evaluated the patient. I reviewed the resident's note and discussed the case with the resident. I agree with the resident's findings and plan as documented. SUBJECTIVE: Patient has no complaints. OBJECTIVE: Vital Signs Period Temp Pulse Resp BP Sys/Reardon Pulse Ox Last 24 Hr 98 F-98.7 F 70-93 16-20 92-97/58-64 GENERAL: The patient is awake, alert, and fully oriented, in no acute distress. LUNGS: Breath sounds equal, clear to auscultation bilaterally, no wheezes, no crackles, no accessory muscle use. HEART: Regular rate and rhythm, S1, S2 without murmur, rub or gallop. ABDOMEN: Soft, nontender, nondistended, normoactive bowel sounds, no guarding, no rebound, no hepatosplenomegaly, no masses. EXTREMITIES: 2+ pulses, warm, well-perfused, no edema. Laboratory Results - last 24 hr 11/26/19 11/27/19 11/27/19 05:50 13:26 19:30 Stool Occult Blood Negative Blood Type AB POSITIVE AB POSITIVE Antibody Screen Negative Crossmatch See Detail Current Medications Generic Name Dose Route Start Last Admin Trade Name Freq PRN Reason Stop Dose Admin Amino Acids 30 ml 11/26/19 08:00 11/28/19 10:04 Prosource No Carb Liquid Pkt PO Not Given BID@0800,1730 JESSICA Doxepin HCl 100 mg 11/25/19 22:00 11/28/19 10:04 Sinequan - PO Not Given BID JESSICA Emollient Ointment 1 applic 11/28/19 10:00 11/28/19 10:04 Aquaphor - TP 1 applic DAILY JESSICA Administration Enoxaparin Sodium 40 mg 11/26/19 10:00 11/28/19 10:04 Lovenox - SQ 40 mg DAILY JESSICA Administration Sodium Chloride 1,000 mls @ 100 mls/hr 11/26/19 13:15 11/27/19 18:49 Normal Saline - IV Not Given ASDIR JESSICA Morphine Sulfate 4 mg 11/26/19 01:52 Morphine Sulfate IVPUSH Q6H PRN PAIN LEVEL 7 - 10 ASSESSMENT AND PLAN: This is a 59 year old man with a history of HIV, indwelling Syed catheter, prostate cancer who presented to the ED with diarrhea and suprapubic pain. 1. Indwelling Syed catheter infection - Zosyn discontinued - Syed catheter changed 2. Diarrhea - Improved - Stool culture, C. difficile negative - Stool O&P pending 3. Anemia secondary to chronic illness - Transfused 1 unit PRBCs - Continue to monitor hgb - Stool occult blood negative 4. 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 Cecal mass - GI evaluation 6. Hyperkalemia - Improved 7. HIV - On Odefsey at home but he has not been taking 8. Stage I pressure ulcer left hip - Continue wound care 9. Severe protein calorie malnutrition - Continue ProSource - Refusing Ensure
[2019-11-28] MEDS ORDERED: PT OWN MED DRAWER 7, Y5N ONE (17:30)
[2019-11-28] MEDS: EMTRICITAB/RILPIVIRI/TENOF ALA (ODEFSEY) TABLET PO SCH (17:33)
[2019-11-28] MEDS: DOXEPIN HCL 25 MG CAPSULE PO SCH (21:08)
--- NOTE | 2019-11-29 06:22 | PN ---
Physical Exam: SUBJECTIVE: Patient seen and examined at bed side no acute events over night aggarwal replaced by nursing seen by GI for cecal mass seen on [facility] MRCP and denies any further evaluation or prcedure for now OBJECTIVE: Vital Signs Period Temp Pulse Resp BP Sys/Reardon Pulse Ox Last 24 Hr 97.3 F-98.7 F 80-93 20-20 92-114/58-72 100 GENERAL: AAOx3 in NAD , poor hygiene , catchetic HEAD: NC/AT EYES: EOMI, Conjunctiva clear, sclera anicteric ENT: moist mucous membrane NECK: Supple, no JVD LUNGS: CTA B/L, no crackles no wheezing no accessory muscle use. HEART: RRR, NSR, normal s1, s2, murmur no M/R/G ABDOMEN: Soft, ND, NT, +BS 4 Q, no CVA Tenderness LOWER EXTREMITIES: no edema, +2DP pulse, NEUROLOGICAL: No focal deficit. Normal speech. gait not observed. PSYCHIATRIC: Cooperative. Good eye contact. Appropriate mood and affect. SKIN: Warm, dry,left hip pressure ulcer 5x5 cm stage III with surounded erythema with no signs of infection Aggarwal in place with clear urine Active Medications Generic Name Dose Route Start Last Admin Trade Name Freq PRN Reason Stop Dose Admin Amino Acids 30 ml 11/26/19 08:00 11/28/19 17:33 Prosource No Carb Liquid Pkt PO Not Given BID@0800,1730 JESSICA Doxepin HCl 200 mg 11/28/19 22:00 11/28/19 21:08 Sinequan - PO Not Given HS JESSICA Emollient Ointment 1 applic 11/28/19 10:00 11/28/19 10:04 Aquaphor - TP 1 applic DAILY JESSICA Administration Enoxaparin Sodium 40 mg 11/26/19 10:00 11/28/19 10:04 Lovenox - SQ 40 mg DAILY JESSICA Administration Sodium Chloride 1,000 mls @ 100 mls/hr 11/26/19 13:15 11/27/19 18:49 Normal Saline - IV Not Given ASDIR JESSICA Morphine Sulfate 4 mg 11/26/19 01:52 Morphine Sulfate IVPUSH Q6H PRN PAIN LEVEL 7 - 10 ASSESSMENT/PLAN: 59M with PMH of HIV (Currently on Odefsey), and Prostate CA. He presented to the ER with complaints of dysuria and suprapubic abdominal pain for the past 4- 5 days, as well as diarrhea for the past 3-4 days. He had a permanent indwelling urinary catheter placed for an enlarged prostate in early 2018, was admitted at [facility] from May to Sep 04 for a UTI, and was admitted at [facility] from 10/28-11/01 2019. #endwelling Aggarwal catheter infection, chronic * UA: 3+ LE with 3.6k bacteria, WBC 7.5, afebrile * S/p Zosyn 3.375 Q6H, Vanc/Zosyn given in ER, monitor off abx per Dr Lacey * Ucx ordered lactose ferminting negative bacilli and Group D strep or entrococcus * U Tox: Positive only for marijuana * Urology consulted for catheter change, placed a call for doctor [facility] service and said Dr Pitts will be in the hospital tomorrow #Hx of Prostate CA with bony mets * Biopsy 10 years ago, no recent workup, no rx * CXR today showed evidence of bone mets blastic lesions * Heme/Onc consulted will need bone biopsy * Palliative care consulted for goals of care discussion signs DNR/DNI * IV Morphine 4mg Q6H for pain #Diarrhea, improved * Stool cx, O&P, C Diff negative #Anemia likely anemia of chronic disease , microcytic normochromic * Microcytic, low Fe with low TIBC, and elevated ferritin as per Iron studies on previous visit * FOBT ordered to r/o bleeding * normal transfusion threshold below 7 * todah hgb 8.3 S/P one unit of BRBC ,stable * occult blood negative #Wound left hip stage III pressure ulcer * Likely pressure ulcer, grade III with no discharge * aquafore topical apply * wound care * surgery consult * change position Q 2 hr * hotel front desk clerk consult * keep area dry and clean #Hx of HIV, non compliant * continue anti-retrovirals * ID consult placed #Hypoglycemia * May be 2/2 malnutrition * D50 25gm given * D5 NS @ 42 cc /hr # cecal mass noted on prior CT scam , GI consult , pt refuse to proceed with any further procedure #FEN * D5 NS @ 42 * monitor lytes * Regular diet # Severe malnutrition, BMI of 14 * Protein supplement ordered 2x daily * Dietary consult placed * hotel front desk clerk consult #DVT * Lovenox 40mg SQ started Code status : DNR/DNI Visit type - Emergency Visit Emergency Visit: Yes ED Registration Date: 11/25/19 Care time: The patient presented to the Emergency Department on the above date and was hospitalized for further evaluation of their emergent condition. - New Patient This patient is new to me today: No - Critical Care Critical Care patient: No - Discharge Referral Referred to [facility] No ATTENDING PHYSICIAN STATEMENT I saw and evaluated the patient. I reviewed the resident's note and discussed the case with the resident. I agree with the resident's findings and plan as documented. SUBJECTIVE: OBJECTIVE: ASSESSMENT AND PLAN:
--- NOTE | 2019-11-29 08:21 | CON.GI ---
Consult Consult Specialty:: GI Referred by:: Hospitalist Service Reason for Consultation:: Question of cecal mass noted on CT scan from 03/04 - History of Present Illness Chief Complaint: Dysuria, suprapubic pain History of Present Illness: 59M admitted 11/25/18 for evaluation of suprapubic pain and dysuria. He has advanced metatstatic prostate Ca. Called to evaluate a questionable cecal mass / polypoid lesion noted on a CT scan from 03/04 that was performed at [facility]. This was not noted on a more recent CT scan performed at [facility] 11/05. He denies abdominal pain. He describes chronic constipation. He believes that he had a colonoscopy 10 years ago that was unrevealing. There is no family history of colon cancer. he denies rectal bleeding, melena. - History Source History Provided By: Patient, Medical Record Limitations to Obtaining History: No Limitations - Past Medical History Renal/: Yes: Cancer (Metastatic prostate ca) Heme/Onc: Yes: Anemia Infectious Disease: Yes: HIV - Past Surgical History Additional Surgical History: Denies - Alcohol/Substance Use Hx Alcohol Use: No History of Substance Use: reports: Marijuana - Smoking History Smoking history: Current some day smoker Have you smoked in the past 12 months: Yes If you are a former smoker, when did you quit?: 1989 - Social History Usual Living Arrangement: Alone ADL: Independent Occupation: Unemployed Place of : Other ([place]) History of Recent Travel: No Home Medications - Allergies Allergies/Adverse Reactions: Allergies Allergy/AdvReac Type Severity Reaction Status Date / Time ciprofloxacin [From Cipro] Allergy Verified 10/28/19 19:03 - Home Medications Home Medications: Ambulatory Orders Emtricitab/Rilpiviri/Tenof Ala [Odefsey Tablet] 1 each PO DAILY@1800 10/29/19 Doxepin HCl [Sinequan -] 200 mg PO HS 11/28/19 Family Medical History Other Family History: Does not know his parents' medical history. No children Review of Systems - Review of Systems Constitutional: denies: Chills Cardiovascular: denies: Chest Pain Respiratory: denies: Cough, SOB Gastrointestinal: reports: Constipation. denies: Abdominal Pain, Diarrhea, Dysphagia, Melena, Nausea, Rectal Bleeding, Vomiting, Vomiting Blood Physical Exam-GI Vital Signs: Vital Signs Temperature 97.3 F L 11/29/19 07:34 Pulse Rate 92 H 02/13/20 07:34 Respiratory Rate 11/29/19 07:34 Blood Pressure 90/60 11/29/19 07:34 O2 Sat by Pulse Oximetry (%) 100 11/28/19 09:00 Constitutional: Yes: Calm Eyes: No: Sclera Icterus Cardiovascular: Yes: Regular Rate and Rhythm. No: Murmur Gastrointestinal Inspection: Yes: Other (Exam limited as the patient would not lay on his back) ...Auscultate: Yes: Normoactive Bowel Sounds ...Palpate: Yes: Soft. No: Tenderness ...Percussion: No: Tympanitic ...Rectal Exam: Yes: Deferred (Refused by patient), Other Edema: No ( No LE edema) Neurological: Yes: Alert Imaging - Results Cat Scan: Report Reviewed Problem List - Problems (1) Abnormality of colon Assessment/Plan: Discussed prior CT scan finding with Mr. Meyers. Explained that to assess for colonic polyp / tumor, colonoscopy could be undertaken. Discussed potential risks of the procedure luike but not limited to bleeding, perforation requiring surgery to repair, infection, sedation medication effects all of which could be potentially life threatening. He explained that he does not feel up to doing this right now and would think about this option. Please recall as needed / when Mr. Meyers is agreeable to procedure. Thanks Code(s): K63.9 - DISEASE OF INTESTINE, UNSPECIFIED
[2019-11-29 08:24] LABS: BASO % 0.6 % (0-2.0); EOS % 2.6 % (0-4.5); HEMATOCRIT 25.2 % (35.4-49); HEMOGLOBIN 8.3 GM/dL (11.7-16.9); LYMPH % 32.6 % (8-40); MCH 25.1 pg (25.7-33.7); MCHC 32.9 g/dl (32.0-35.9); MEAN CELL VOLUME 76.2 fl (80-96); MEAN PLT VOLUME 8.4 fl (7.5-11.1); MONO % 6.2 % (3.8-10.2); PLATELET COUNT 282 K/MM3 (134-434); RBC 3.31 M/mm3 (4.00-5.60); RDW 20.7 % (11.9-15.9)
[2019-11-29] MEDS: SODIUM CHLORIDE 1,000 ML IV SCH ×2 (08:56→16:25)
[2019-11-29] MEDS: ENOXAPARIN NA (PORCINE) 40 MG/0.4 ML DISP.SYRIN SQ SCH (09:01)
[2019-11-29] MEDS: AMINO ACIDS/PROTEIN HYDROLYS 30 ML LIQUID.PKT PO SCH ×2 (09:01→22:45)
[2019-11-29] MEDS: MINERAL OIL/PET HY-PHL TOPICAL OINTMENT 454 GM JAR TP SCH (09:02)
[2019-11-29 09:16] LABS: ALBUMIN 1.4 g/dl (3.4-5.0); BILIRUBIN,TOTAL 0.4 mg/dL (0.2-1); BLOOD UREA NITROGEN 8.9 mg/dL (7-18); CALCIUM 7.2 mg/dL (8.5-10.1); CREATININE 0.5 mg/dL (0.55-1.3); POTASSIUM 4.7 mmol/L (3.5-5.1); TOT PROT 4.5 g/dl (6.4-8.2)
--- NOTE | 2019-11-29 09:18 | CONSULT ---
- Consultation REQUESTING PROVIDER: CONSULT REQUEST: We have been asked to surgically evaluate this patient for left hip wound PCP:Yonis Aguila MD HISTORY OF PRESENT ILLNESS: This is a 59 year old male with PMH of HIV ( Currently on Odefsey), and Prostate CA. He presented to the ER with complaints of dysuria and suprapubic abdominal pain for the past 4-5 days, as well as diarrhea for the past 3-4 days. He has a permanent indwelling urinary catheter placed for an enlarged prostate in early 2018, was admitted at [facility] from May to Sep 04 for a UTI, and was admitted at [facility] from 10/28-11/01 2019. He endorses a dry intermittent cough for the past several weeks, as well as dried blood around his nostrils when he wakes up in the morning. He also has a wound on his left hip, which developed during his stay at [facility] in May- Sep 04. He endorses rapid, unintentional weight loss of several pounds over the past 1 year. He denies fevers, dizziness, nausea, vomiting, melena, constipation , chest pain, wheezing, palpitations, visual changes, confusion, or hematuria. He was diagnosed with HIV in 1999, and is currently on Odefsey. He receives follow up care at [facility]. He states that he had a prostate biopsy done 10 years ago. Since then he has been diagnosed with prostate CA with bone mets, although the patient seems to believe the diagnosis is uncertain. Last colonoscopy was over 10 years ago. He was admitted at [facility] from May to Aug 2019 for a UTI. He states that during his stay, he had a procedure done to his left hip, after which he developed a wound at the area. He is not sure what the procedure was, but states that a cylindrical object was placed on is left hip, and the next day he developed a progressively worsening wound with discharge. Recent Travel: denies PAST MEDICAL HISTORY: as stated above PAST SURGICAL HISTORY: None Social History: Smoking: Alcohol: Drugs: Allergies ciprofloxacin [From Cipro] Allergy (Verified 10/28/19 19:03) HOME MEDICATIONS: Home Medications Medication Instructions Recorded Doxepin HCl 100 mg PO BID 10/28/19 Emtricitab/Rilpiviri/Tenof Ala 1 each PO DAILY 10/29/19 [Odefsey Tablet] Cefpodoxime Proxetil [Vantin -] 200 mg PO BID 7 Days #14 tablet 10/30/19 REVIEW OF SYSTEMS CONSTITUTIONAL: weight change Absent: + weight change, fever, chills, diaphoresis, generalized weakness, malaise, HEENT: Absent: rhinorrhea, nasal congestion, throat pain, throat swelling, CARDIOVASCULAR: Absent: chest pain, syncope, palpitations, peripheral edema RESPIRATORY: cough Absent: cough, shortness of breath, dyspnea with exertion, orthopnea, GASTROINTESTINAL: Absent: abdominal pain, abdominal distension, nausea, vomiting, + diarrhea, GENITOURINARY: dysuria Absent: dysuria, frequency, urgency, hesitancy, hematuria, + flank pain, + genital pain MUSCULOSKELETAL: Absent: myalgia, arthralgia, joint swelling, back pain, neck pain SKIN: + wound left hip Absent: rash, itching, pallor HEMATOLOGIC/IMMUNOLOGIC: Absent: easy bleeding, easy bruising, frequent infections ENDOCRINE: Absent: unexplained weight gain, heat intolerance, cold intolerance NEUROLOGIC: Absent: headache, focal weakness or paresthesias, dizziness, unsteady gait, seizure, PSYCHIATRIC: Absent: anxiety, depression, suicidal or homicidal ideation, hallucinations. PHYSICAL EXAMINATION Vital Signs Temp 97.3 F L 11/29/19 07:34 Pulse 92 H 11/29/19 07:34 Resp 20 11/29/19 07:34 BP 90/60 11/29/19 07:34 Pulse Ox 100 11/28/19 09:00 Intake & Output 11/28/19 11/28/19 11/29/19 11:59 23:59 11:59 Intake Total 2400 0 Output Total 50 2700 900 Balance -50 -300 -900 Intake: IV 2200 0 Normal Saline - 1,000 ml 2200 0 @ 100 mls/hr IV ASDIR JESSICA Rx#:[id number] Oral 200 Output: Urine 50 2700 900 Syed 50 2700 900 Other: Voiding Method Indwelling Catheter Indwelling Catheter Bowel Movement Yes: 3 Yes # Bowel Movements 2 GENERAL: A&Ox3, NAD, emaciated in appearance HEAD: Normal with no signs of trauma. EYES: sclera anicteric, conjunctiva clear. No lid lag. LUNGS: Unlabored resp on RA, No accessory muscle use. UPPER EXTREMITIES: warm, well-perfused. No peripheral edema. LOWER EXTREMITIES: 2+ pulses, warm, well-perfused. No calf tenderness. No peripheral edema. NEUROLOGICAL: Cranial nerves II-XII intact. Normal speech PSYCHIATRIC: Cooperative. Good eye contact. Appropriate mood and affect. SKIN: Left trochanter @ 2x2.5cm stage 3 pressure ulcer, well circumscribed with surrounding tissue intact with come chronic skin changes seen surrounding ulcer , tender to palpation, no discharge or surrounding erythema or foul odor. Problem List - Problems (1) Pressure ulcer Assessment/Plan: 59yo male who with stage 3 pressure ulcer with no signs of infection. -Alevyn to left hip -Reposition every two hours while in bed -Air mattress recommended -Use drawsheets and Trendelenburg when repositioning to reduce friction and shear -Manage incontinence via timely cleansing, use of appropriate incontinence disposables and use of barrier ointment to intact skin -Ensure adequate hydration/nutrition, supplementation per primary team -Ensure off-loading to all bony areas (heels, ankles, hips and tailbone) with Allevyn/Optifoam -Clean open wounds with normal saline Code(s): L89.90 - PRESSURE ULCER OF UNSPECIFIED SITE, UNSPECIFIED STAGE
[2019-11-29 11:20] LABS: ANISOCYTOSIS 3+; MACROCYTOSIS 0; OVALOCYTE 1+; PLATELET ESTIMATE NORMAL; TARGET CELLS 2+; TEAR DROP CELLS 1+
[2019-11-29] MEDS ORDERED: PT OWN MED DRAWER 7, Y5N ONE (16:23)
[2019-11-29] MEDS: EMTRICITAB/RILPIVIRI/TENOF ALA (ODEFSEY) TABLET PO SCH ×2 (18:32→18:34)
[2019-11-29] MEDS: ZINC SULFATE 220 MG CAPSULE (FP) PO SCH ×2 (18:32→18:35)
[2019-11-29] MEDS: ASCORBIC ACID 250 MG TABLET (FP) PO SCH ×2 (18:32→18:35)
--- NOTE | 2019-11-29 18:38 | PN ---
Teaching Attending Note Name of Resident: Gustavo Ragsdale ATTENDING PHYSICIAN STATEMENT I saw and evaluated the patient. I reviewed the resident's note and discussed the case with the resident. I agree with the resident's findings and plan as documented. SUBJECTIVE: Patient seen and examined bedside. Cachectic, feels weak, not participating in PT, refusing colonoscopy for cecal mass. VS otherwise stable. Objective: GENERAL: AAox3, speaking in full sentences, cachectic, temporal wasting HEAD: NC/AT EYES: EOMI, Conjunctiva clear, sclera anicteric ENT: moist mucous membrane NECK: Supple, no JVD LUNGS: CTA B/L, no crackles no wheezing no accessory muscle use. HEART: RRR, NSR, normal s1, s2, murmur no M/R/G ABDOMEN: Soft, ND, NT, +BS 4 Q, no CVA Tenderness LOWER EXTREMITIES: no edema, +2DP pulse, NEUROLOGICAL: No focal deficit. Normal speech. gait not observed. PSYCHIATRIC: Cooperative. Good eye contact. Appropriate mood and affect. SKIN: Warm, dry,left hip pressure ulcer 5x5 cm stage III w/ surrounding erythema w/o signs of acute infection Syed in place with yellowish-clear urine. Vital Signs - 24 hr 11/28/19 11/29/19 11/29/19 22:00 07:34 14:22 Temperature 98.1 F 97.3 F L 97.8 F Pulse Rate 84 92 H 87 Respiratory 20 20 20 Rate Blood Pressure 113/70 90/60 98/62 11/29/19 17:29 Temperature 98.1 F Pulse Rate 87 Respiratory 20 Rate Blood Pressure 104/59 L Microbiology 11/26/19 11:16 Stool Salmonella/Shigella Culture - Final NO GROWTH OF SALMONELLA OR SHIGELLA SPECIES OBTAINED 11/26/19 11:16 Stool Campylobacter Culture - Final NO GROWTH OF CAMPYLOBACTER SPECIES OBTAINED 11/26/19 11:16 Stool Yersinia Culture - Final NO GROWTH OF YERSINIA SPECIES OBTAINED 11/26/19 11:16 Stool Vibrio Culture - Final NO GROWTH OF VIBRIO SPECIES OBTAINED 11/26/19 11:16 Stool Escherichia coli 0157 Culture - Final NO GROWTH OF E COLI 0157 OBTAINED 11/25/19 17:35 Urine - Urine Syed Urine Culture - Final Enterobacter Cloacae Enterococcus Faecalis 11/26/19 11:16 Stool Clostridioides difficile Antigen - Final 11/26/19 11:16 Stool Clostridioides difficile Toxin Assay - Final 11/26/19 11:16 Stool Cryptosporidium Antigen - Final 11/26/19 11:16 Stool Giardia Antigen (SHAYY) - Final Laboratory Results - last 24 hr 11/29/19 11/29/19 07:07 07:07 WBC 7.0 RBC 3.31 L Hgb 8.3 L Hct 25.2 L D MCV 76.2 L MCH 25.1 L MCHC 32.9 RDW 20.7 H Plt Count 282 MPV 8.4 Absolute Neuts (auto) 4.1 Neutrophils % 58.0 Lymphocytes % 32.6 Monocytes % 6.2 Eosinophils % 2.6 Basophils % 0.6 Nucleated RBC % 0 Hypochromia 2+ Platelet Estimate Normal Platelet Comment Present Polychromasia 1+ Poikilocytosis 2+ Anisocytosis 3+ Microcytosis 1+ Macrocytosis 0 Spherocytes 1+ Target Cells 2+ Tear Drop Cells 1+ Ovalocytes 1+ Stockett Cells 1+ Acanthocytes (Spur) 1+ Schistocytes 1+ Sodium 141 Potassium 4.7 Chloride 115 H Carbon Dioxide 19 L Anion Gap 7 L BUN 8.9 Creatinine 0.5 L Est GFR (CKD-EPI)AfAm 138.44 Est GFR (CKD-EPI)NonAf 119.45 Random Glucose 63 L Calcium 7.2 L Total Bilirubin 0.4 AST 20 ALT 11 L Alkaline Phosphatase 313 H Total Protein 4.5 L Albumin 1.4 L Current Medications Generic Name Dose Route Start Last Admin Trade Name Freq PRN Reason Stop Dose Admin Amino Acids 30 ml 11/29/19 22:00 Prosource No Carb Liquid Pkt PO TID JESSICA Ascorbic Acid 250 mg 11/29/19 15:30 11/29/19 18:35 Vitamin C - PO Not Given DAILY JESSICA Doxepin HCl 200 mg 11/28/19 22:00 11/28/19 21:08 Sinequan - PO Not Given HS JESSICA Emollient Ointment 1 applic 11/28/19 10:00 11/29/19 09:02 Aquaphor - TP 1 applic DAILY JESSICA Administration Enoxaparin Sodium 40 mg 11/26/19 10:00 11/29/19 09:01 Lovenox - SQ 40 mg DAILY JESSICA Administration Sodium Chloride 1,000 mls @ 100 mls/hr 11/26/19 13:15 11/29/19 16:25 Normal Saline - IV Not Given ASDIR [facility] Morphine Sulfate 4 mg 11/26/19 01:52 Morphine Sulfate IVPUSH Q6H PRN PAIN LEVEL 7 - 10 Multivitamins/Minerals/Vitamin C 1 tab 11/30/19 10:00 Tab-A-Vit - PO DAILY [facility] Zinc Sulfate 220 mg 11/29/19 15:30 11/29/19 18:35 Orazinc - PO Not Given DAILY [facility] 59 year old man with a history of HIV, indwelling Syed catheter, prostate cancer who presented to the ED with diarrhea and suprapubic pain. Indwelling Syed catheter infection Finished course of Zosyn Syed catheter changed in appropriate position draining urine Diarrhea improved Stool culture, C. difficile negative follow stool Ova/parasites Anemia secondary to chronic Transfused 1 unit PRBCs Continue to monitor hgb Stool occult blood negative Prostate cancer with lung and bone metastases Oncology input appreciated Patient has refused biopsy of bone mets Cecal mass GI wanted colonoscopy, patient refusing, wants to think about it first despite knowing the risks and benefits Hyperkalemia Improved HIV On Odefsey at home but he has not been taking Stage I pressure ulcer left hip Continue wound care Severe protein calorie malnutrition Continue ProSource Refusing Ensure, wants SILK MILK notified nursing staff not participating in PT due to feeling weak, encouraged PO intake Med-surg PT evaluation DNR
[2019-11-29] MEDS: DOXEPIN HCL 25 MG CAPSULE PO SCH (22:45)
[2019-11-30] MEDS: AMINO ACIDS/PROTEIN HYDROLYS 30 ML LIQUID.PKT PO SCH ×3 (06:25→21:05)
--- NOTE | 2019-11-30 06:36 | PN ---
Physical Exam: SUBJECTIVE: Patient seen and examined at bed side no acute events over night aggarwal replaced by nursing seen by GI for cecal mass seen on MMF MRCP and denies any further evaluation or prcedure for now OBJECTIVE: Vital Signs Period Temp Pulse Resp BP Sys/Reardon Pulse Ox Last 24 Hr 97.3 F-98.2 F 82-92 20-20 90-106/59-69 97 GENERAL: AAOx3 in NAD , poor hygiene , catchetic HEAD: NC/AT EYES: EOMI, Conjunctiva clear, sclera anicteric ENT: moist mucous membrane NECK: Supple, no JVD LUNGS: CTA B/L, no crackles no wheezing no accessory muscle use. HEART: RRR, NSR, normal s1, s2, murmur no M/R/G ABDOMEN: Soft, ND, NT, +BS 4 Q, no CVA Tenderness LOWER EXTREMITIES: no edema, +2DP pulse, NEUROLOGICAL: No focal deficit. Normal speech. gait not observed. PSYCHIATRIC: Cooperative. Good eye contact. Appropriate mood and affect. SKIN: Warm, dry,left hip pressure ulcer 5x5 cm stage III with surounded erythema with no signs of infection Aggarwal in place with clear urine Laboratory Results - last 24 hr 11/29/19 11/29/19 07:07 07:07 WBC 7.0 RBC 3.31 L Hgb 8.3 L Hct 25.2 L D MCV 76.2 L MCH 25.1 L MCHC 32.9 RDW 20.7 H Plt Count 282 MPV 8.4 Absolute Neuts (auto) 4.1 Neutrophils % 58.0 Lymphocytes % 32.6 Monocytes % 6.2 Eosinophils % 2.6 Basophils % 0.6 Nucleated RBC % 0 Hypochromia 2+ Platelet Estimate Normal Platelet Comment Present Polychromasia 1+ Poikilocytosis 2+ Anisocytosis 3+ Microcytosis 1+ Macrocytosis 0 Spherocytes 1+ Target Cells 2+ Tear Drop Cells 1+ Ovalocytes 1+ Franklyn Cells 1+ Acanthocytes (Spur) 1+ Schistocytes 1+ Sodium 141 Potassium 4.7 Chloride 115 H Carbon Dioxide 19 L Anion Gap 7 L BUN 8.9 Creatinine 0.5 L Est GFR (CKD-EPI)AfAm 138.44 Est GFR (CKD-EPI)NonAf 119.45 Random Glucose 63 L Calcium 7.2 L Total Bilirubin 0.4 AST 20 ALT 11 L Alkaline Phosphatase 313 H Total Protein 4.5 L Albumin 1.4 L Active Medications Generic Name Dose Route Start Last Admin Trade Name Freq PRN Reason Stop Dose Admin Amino Acids 30 ml 11/29/19 22:00 11/30/19 06:25 Prosource No Carb Liquid Pkt PO Not Given TID JESSICA Ascorbic Acid 250 mg 11/29/19 15:30 11/29/19 18:35 Vitamin C - PO Not Given DAILY JESSICA Doxepin HCl 200 mg 11/28/19 22:00 11/29/19 22:45 Sinequan - PO Not Given HS [facility] Emollient Ointment 1 applic 11/28/19 10:00 11/29/19 09:02 Aquaphor - TP 1 applic DAILY JESSICA Administration Enoxaparin Sodium 40 mg 11/26/19 10:00 11/29/19 09:01 Lovenox - SQ 40 mg DAILY JESSICA Administration Sodium Chloride 1,000 mls @ 100 mls/hr 11/26/19 13:15 11/29/19 16:25 Normal Saline - IV Not Given ASDIR [facility] Morphine Sulfate 4 mg 11/26/19 01:52 Morphine Sulfate IVPUSH Q6H PRN PAIN LEVEL 7 - 10 Multivitamins/Minerals/Vitamin C 1 tab 11/30/19 10:00 Tab-A-Vit - PO DAILY [facility] Zinc Sulfate 220 mg 11/29/19 15:30 11/29/19 18:35 Orazinc - PO Not Given DAILY [facility] ASSESSMENT/PLAN: 59M with PMH of HIV (Currently on Odefsey), and Prostate CA. He presented to the ER with complaints of dysuria and suprapubic abdominal pain for the past 4- 5 days, as well as diarrhea for the past 3-4 days. He had a permanent indwelling urinary catheter placed for an enlarged prostate in early 2018, was admitted at [facility] from May to Sep 04 for a UTI, and was admitted at [facility] from 10/28-11/01 2019. #endwelling Aggarwal catheter infection, chronic * UA: 3+ LE with 3.6k bacteria, WBC 7.5, afebrile * S/p Zosyn 3.375 Q6H, Vanc/Zosyn given in ER, monitor off abx per Dr Lacey * Ucx ordered lactose ferminting negative bacilli and Group D strep or entrococcus * U Tox: Positive only for marijuana * Urology consulted for catheter change, placed a call for doctor [place] receiving hospital service and said Dr Pitts will be in the hospital tomorrow #Hx of Prostate CA with bony mets * Biopsy 10 years ago, no recent workup, no rx * CXR today showed evidence of bone mets blastic lesions * Heme/Onc consulted will need bone biopsy * Palliative care consulted for goals of care discussion signs DNR/DNI * IV Morphine 4mg Q6H for pain #Diarrhea, improved * Stool cx, O&P, C Diff negative #Anemia likely anemia of chronic disease , microcytic normochromic * Microcytic, low Fe with low TIBC, and elevated ferritin as per Iron studies on previous visit * FOBT ordered to r/o bleeding * normal transfusion threshold below 7 * todah hgb 8.3 S/P one unit of BRBC ,stable * occult blood negative #Wound left hip stage III pressure ulcer * Likely pressure ulcer, grade III with no discharge * aquafore topical apply * wound care * surgery consult * change position Q 2 hr * operater consult * keep area dry and clean #Hx of HIV, non compliant * continue anti-retrovirals * ID consult placed #Hypoglycemia * May be 2/2 malnutrition * D50 25gm given * D5 NS @ 42 cc /hr # cecal mass noted on prior CT scam , GI consult , pt refuse to proceed with any further procedure #FEN * D5 NS @ 42 * monitor lytes * Regular diet # Severe malnutrition, BMI of 14 * Protein supplement ordered 2x daily * Dietary consult placed * operater consult #DVT * Lovenox 40mg SQ started Code status : DNR/DNI Visit type - Emergency Visit Emergency Visit: Yes ED Registration Date: 11/25/19 Care time: The patient presented to the Emergency Department on the above date and was hospitalized for further evaluation of their emergent condition. - New Patient This patient is new to me today: No - Critical Care Critical Care patient: No ATTENDING PHYSICIAN STATEMENT I saw and evaluated the patient. I reviewed the resident's note and discussed the case with the resident. I agree with the resident's findings and plan as documented. SUBJECTIVE: OBJECTIVE: ASSESSMENT AND PLAN:
[2019-11-30 08:47] LABS: BASO % 0.7 % (0-2.0); EOS % 2.5 % (0-4.5); HEMATOCRIT 26.5 % (35.4-49); HEMOGLOBIN 8.7 GM/dL (11.7-16.9); LYMPH % 30.8 % (8-40); MCH 25.3 pg (25.7-33.7); MCHC 32.9 g/dl (32.0-35.9); MEAN CELL VOLUME 77.1 fl (80-96); MEAN PLT VOLUME 8.2 fl (7.5-11.1); MONO % 5.9 % (3.8-10.2); NEUT % 60.1 % (42.8-82.8); PLATELET COUNT 338 K/MM3 (134-434); RBC 3.44 M/mm3 (4.00-5.60); RDW 20.7 % (11.9-15.9); WHITE BLOOD COUNT 7.9 K/mm3 (4.0-10.0)
[2019-11-30] MEDS: ZINC SULFATE 220 MG CAPSULE (FP) PO SCH (09:00)
[2019-11-30] MEDS: MULTIVITAMINS (DAILY MVI) TABLET (FP) PO SCH (09:00)
[2019-11-30] MEDS: ASCORBIC ACID 250 MG TABLET (FP) PO SCH (09:00)
[2019-11-30 09:11] LABS: ALBUMIN 1.5 g/dl (3.4-5.0); BILIRUBIN,TOTAL 0.4 mg/dL (0.2-1); BLOOD UREA NITROGEN 8.6 mg/dL (7-18); CALCIUM 7.1 mg/dL (8.5-10.1); CREATININE 0.5 mg/dL (0.55-1.3); POTASSIUM 4.7 mmol/L (3.5-5.1); TOT PROT 4.7 g/dl (6.4-8.2)
[2019-11-30] MEDS: ENOXAPARIN NA (PORCINE) 40 MG/0.4 ML DISP.SYRIN SQ SCH (09:24)
[2019-11-30] MEDS: MINERAL OIL/PET HY-PHL TOPICAL OINTMENT 454 GM JAR TP SCH (09:24)
[2019-11-30 12:25] VITALS: BMI 13.8
[2019-11-30] MEDS: SODIUM CHLORIDE 1,000 ML IV SCH (18:02)
[2019-11-30] MEDS: EMTRICITAB/RILPIVIRI/TENOF ALA (ODEFSEY) TABLET PO SCH (18:02)
--- NOTE | 2019-11-30 18:37 | PN ---
Teaching Attending Note Name of Resident: Gustavo Ragsdale ATTENDING PHYSICIAN STATEMENT I saw and evaluated the patient. I reviewed the resident's note and discussed the case with the resident. I agree with the resident's findings and plan as documented. SUBJECTIVE: Patient seen and examined bedside. No new changes today, encouraged him to participate with PT for ambulation, refusing psych evaluation. Objective: GENERAL: AAox3, speaking in full sentences, cachectic, temporal wasting HEAD: NC/AT EYES: EOMI, Conjunctiva clear, sclera anicteric ENT: moist mucous membrane NECK: Supple, no JVD LUNGS: CTA B/L, no crackles no wheezing no accessory muscle use. HEART: RRR, NSR, normal s1, s2, murmur no M/R/G ABDOMEN: Soft, ND, NT, +BS 4 Q, no CVA Tenderness LOWER EXTREMITIES: no edema, +2DP pulse, NEUROLOGICAL: No focal deficit. Normal speech. gait not observed. PSYCHIATRIC: Cooperative. Good eye contact. Appropriate mood and affect. SKIN: Warm, dry,left hip pressure ulcer 5x5 cm stage III w/ surrounding erythema w/o signs of acute infection Syed in place with yellowish-clear urine Vital Signs - 24 hr 11/29/19 11/29/19 11/30/19 21:00 22:00 06:22 Temperature 98.2 F 97.8 F Pulse Rate 82 82 Respiratory 20 Rate Blood Pressure 106/64 98/69 O2 Sat by Pulse 97 Oximetry (%) 11/30/19 11/30/19 11/30/19 09:00 10:00 15:00 Temperature 98.7 F Pulse Rate 100 H 98 H Respiratory 20 20 20 Rate Blood Pressure 125/72 112/67 O2 Sat by Pulse 98 Oximetry (%) Microbiology 11/26/19 11:16 Stool Salmonella/Shigella Culture - Final NO GROWTH OF SALMONELLA OR SHIGELLA SPECIES OBTAINED 11/26/19 11:16 Stool Campylobacter Culture - Final NO GROWTH OF CAMPYLOBACTER SPECIES OBTAINED 11/26/19 11:16 Stool Yersinia Culture - Final NO GROWTH OF YERSINIA SPECIES OBTAINED 11/26/19 11:16 Stool Vibrio Culture - Final NO GROWTH OF VIBRIO SPECIES OBTAINED 11/26/19 11:16 Stool Escherichia coli 0157 Culture - Final NO GROWTH OF E COLI 0157 OBTAINED 11/25/19 17:35 Urine - Urine Syed Urine Culture - Final Enterobacter Cloacae Enterococcus Faecalis 11/26/19 11:16 Stool Clostridioides difficile Antigen - Final 11/26/19 11:16 Stool Clostridioides difficile Toxin Assay - Final 11/26/19 11:16 Stool Cryptosporidium Antigen - Final 11/26/19 11:16 Stool Giardia Antigen (SHAYY) - Final Laboratory Results - last 24 hr 11/26/19 11/27/19 11/30/19 05:50 11:35 08:10 WBC 7.9 RBC 3.44 L Hgb 8.7 L Hct 26.5 L MCV 77.1 L MCH 25.3 L MCHC 32.9 RDW 20.7 H Plt Count 338 MPV 8.2 Absolute Neuts (auto) 4.8 Neutrophils % 60.1 Lymphocytes % 30.8 Monocytes % 5.9 Eosinophils % 2.5 Basophils % 0.7 Nucleated RBC % 0 Sodium Potassium Chloride Carbon Dioxide Anion Gap BUN Creatinine Est GFR (CKD-EPI)AfAm Est GFR (CKD-EPI)NonAf Random Glucose Calcium Total Bilirubin AST ALT Alkaline Phosphatase Total Protein Albumin Stool O & P Wet [place] O & P Permanent Slide Final report Blood Type AB POSITIVE Antibody Screen Negative Crossmatch See Detail 11/30/19 08:10 WBC RBC Hgb Hct MCV MCH MCHC RDW Plt Count MPV Absolute Neuts (auto) Neutrophils % Lymphocytes % Monocytes % Eosinophils % Basophils % Nucleated RBC % Sodium 140 Potassium 4.7 Chloride 114 H Carbon Dioxide 19 L Anion Gap 7 L BUN 8.6 Creatinine 0.5 L Est GFR (CKD-EPI)AfAm 138.44 Est GFR (CKD-EPI)NonAf 119.45 Random Glucose 63 L Calcium 7.1 L Total Bilirubin 0.4 AST 18 ALT 11 L Alkaline Phosphatase 325 H Total Protein 4.7 L Albumin 1.5 L Stool O & P Wet [place] & P Permanent Slide Blood Type Antibody Screen Crossmatch Current Medications Generic Name Dose Route Start Last Admin Trade Name Freq PRN Reason Stop Dose Admin Amino Acids 30 ml 11/29/19 22:00 11/30/19 13:16 Prosource No Carb Liquid Pkt PO Not Given TID [facility] Ascorbic Acid 250 mg 11/29/19 15:30 11/30/19 09:00 Vitamin C - PO Not Given DAILY [facility] Doxepin HCl 200 mg 11/28/19 22:00 11/29/19 22:45 Sinequan - PO Not Given HS JESSICA Emollient Ointment 1 applic 11/28/19 10:00 11/30/19 09:24 Aquaphor - TP 1 applic DAILY JESSICA Administration Enoxaparin Sodium 40 mg 11/26/19 10:00 11/30/19 09:24 Lovenox - SQ 40 mg DAILY JESSICA Administration Sodium Chloride 1,000 mls @ 100 mls/hr 11/26/19 13:15 11/30/19 18:02 Normal Saline - IV 100 mls/hr ASDIR JESSICA Administration Morphine Sulfate 4 mg 11/26/19 01:52 Morphine Sulfate IVPUSH Q6H PRN PAIN LEVEL 7 - 10 Multivitamins/Minerals/Vitamin C 1 tab 11/30/19 10:00 11/30/19 09:00 Tab-A-Vit - PO Not Given DAILY JESSICA Zinc Sulfate 220 mg 11/29/19 15:30 11/30/19 09:00 Orazinc - PO Not Given DAILY JESSICA 59 year old man with a history of HIV, indwelling Syed catheter, prostate cancer who presented to the ED with diarrhea and suprapubic pain. Indwelling Syed catheter infection Finished course of Zosyn Syed catheter changed in appropriate position draining urine Diarrhea improved Stool culture, C. difficile negative follow stool Ova/parasites Anemia secondary to chronic Transfused 1 unit PRBCs Continue to monitor hgb Stool occult blood negative Prostate cancer with lung and bone metastases Oncology input appreciated Patient has refused biopsy of bone mets Cecal mass GI wanted colonoscopy, patient refusing further intervention Hyperkalemia Improved HIV On Odefsey at home but he has not been taking Stage I pressure ulcer left hip Continue wound care Severe protein calorie malnutrition Continue ProSource Refusing Ensure, wants SILK MILK notified nursing staff not participating in PT due to feeling weak, encouraged PO intake Med-surg PT evaluation DNR
[2019-11-30] MEDS: DOXEPIN HCL 25 MG CAPSULE PO SCH (21:06)
[2019-12-01] MEDS: AMINO ACIDS/PROTEIN HYDROLYS 30 ML LIQUID.PKT PO SCH ×3 (06:00→23:07)
[2019-12-01 09:07] LABS: BASO % 0.5 % (0-2.0); HEMATOCRIT 23.5 % (35.4-49); HEMOGLOBIN 7.9 GM/dL (11.7-16.9); LYMPH % 30.8 % (8-40); MCH 24.9 pg (25.7-33.7); MCHC 33.7 g/dl (32.0-35.9); MEAN CELL VOLUME 73.9 fl (80-96); MEAN PLT VOLUME 7.6 fl (7.5-11.1); MONO % 8.1 % (3.8-10.2); NEUT % 58.6 % (42.8-82.8); PLATELET COUNT 318 K/MM3 (134-434); RBC 3.18 M/mm3 (4.00-5.60); WHITE BLOOD COUNT 6.4 K/mm3 (4.0-10.0)
[2019-12-01 09:33] LABS: ALBUMIN 1.4 g/dl (3.4-5.0); BILIRUBIN,TOTAL 0.3 mg/dL (0.2-1); BLOOD UREA NITROGEN 8.7 mg/dL (7-18); CREATININE 0.4 mg/dL (0.55-1.3); POTASSIUM 3.7 mmol/L (3.5-5.1); TOT PROT 4.3 g/dl (6.4-8.2)
[2019-12-01 09:37] LABS: CALCIUM 6.9 mg/dL (8.5-10.1)
[2019-12-01] MEDS: MINERAL OIL/PET HY-PHL TOPICAL OINTMENT 454 GM JAR TP SCH (09:50)
[2019-12-01] MEDS: ASCORBIC ACID 250 MG TABLET (FP) PO SCH (09:51)
[2019-12-01] MEDS: ENOXAPARIN NA (PORCINE) 40 MG/0.4 ML DISP.SYRIN SQ SCH (09:51)
[2019-12-01] MEDS: ZINC SULFATE 220 MG CAPSULE (FP) PO SCH (09:51)
[2019-12-01] MEDS: MULTIVITAMINS (DAILY MVI) TABLET (FP) PO SCH (09:51)
--- NOTE | 2019-12-01 17:24 | PN ---
Teaching Attending Note Name of Resident: Laurel Chen ATTENDING PHYSICIAN STATEMENT I saw and evaluated the patient. I reviewed the resident's note and discussed the case with the resident. I agree with the resident's findings and plan as documented. SUBJECTIVE: Patient has no complaints and wants to go home. OBJECTIVE: Vital Signs Period Temp Pulse Resp BP Sys/Reardon Pulse Ox Last 24 Hr 97.5 F-98.3 F 90-96 20-20 95-112/56-68 98-98 GENERAL: The patient is awake, alert, and fully oriented, in no acute distress. LUNGS: Breath sounds equal, clear to auscultation bilaterally, no wheezes, no crackles, no accessory muscle use. HEART: Regular rate and rhythm, S1, S2 without murmur, rub or gallop. ABDOMEN: Soft, nontender, nondistended, normoactive bowel sounds, no guarding, no rebound, no hepatosplenomegaly, no masses. EXTREMITIES: 2+ pulses, warm, well-perfused, no edema. Laboratory Results - last 24 hr 12/01/19 12/01/19 08:45 08:45 WBC 6.4 RBC 3.18 L Hgb 7.9 L Hct 23.5 L MCV 73.9 L MCH 24.9 L MCHC 33.7 RDW 21.0 H Plt Count 318 MPV 7.6 Absolute Neuts (auto) 3.8 Neutrophils % 58.6 Lymphocytes % 30.8 Monocytes % 8.1 Eosinophils % 2.0 Basophils % 0.5 Nucleated RBC % 0 Sodium 142 Potassium 3.7 Chloride 117 H Carbon Dioxide 20 L Anion Gap 6 L BUN 8.7 Creatinine 0.4 L Est GFR (CKD-EPI)AfAm 151.74 Est GFR (CKD-EPI)NonAf 130.93 Random Glucose 69 L Calcium 6.9 L* Total Bilirubin 0.3 AST 19 ALT 8 L Alkaline Phosphatase 298 H Total Protein 4.3 L Albumin 1.4 L Current Medications Generic Name Dose Route Start Last Admin Trade Name Freq PRN Reason Stop Dose Admin Amino Acids 30 ml 11/29/19 22:00 12/01/19 13:26 Prosource No Carb Liquid Pkt PO Not Given TID JESSICA Ascorbic Acid 250 mg 11/29/19 15:30 12/01/19 09:51 Vitamin C - PO Not Given DAILY JESSICA Doxepin HCl 200 mg 11/28/19 22:00 11/30/19 21:06 Sinequan - PO Not Given HS JESSICA Emollient Ointment 1 applic 11/28/19 10:00 12/01/19 09:50 Aquaphor - TP Not Given DAILY [facility] Enoxaparin Sodium 40 mg 11/26/19 10:00 12/01/19 09:51 Lovenox - SQ Not Given DAILY JESSICA Morphine Sulfate 4 mg 11/26/19 01:52 Morphine Sulfate IVPUSH Q6H PRN PAIN LEVEL 7 - 10 Multivitamins/Minerals/Vitamin C 1 tab 11/30/19 10:00 12/01/19 09:51 Tab-A-Vit - PO Not Given DAILY JESSICA Zinc Sulfate 220 mg 11/29/19 15:30 12/01/19 09:51 Orazinc - PO Not Given DAILY JESSICA ASSESSMENT AND PLAN: This is a 59 year old man with a history of HIV, indwelling Syed catheter, prostate cancer who presented to the ED with diarrhea and suprapubic pain. 1. Indwelling Syed catheter infection - Zosyn discontinued - Syed catheter changed 2. Diarrhea - Improved - Stool culture, O&P, C. difficile negative 3. Anemia secondary to chronic illness - Transfused 1 unit PRBCs - Continue to monitor hgb - Stool occult blood negative 4. 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 Cecal mass - Refusing colonoscopy at this time 6. Hyperkalemia - Improved 7. HIV - On Odefsey at home but he has not been taking 8. Stage I pressure ulcer left hip - Continue wound care 9. Severe protein calorie malnutrition - Continue ProSource - Refusing Ensure 10. Disposition - Ok for discharge home once home services arranged
[2019-12-01] MEDS: EMTRICITAB/RILPIVIRI/TENOF ALA (ODEFSEY) TABLET PO SCH (17:49)
--- NOTE | 2019-12-01 19:28 | DS ---
Physical Exam: SUBJECTIVE: Patient seen and examined at bedside this morning. No acute events overnight. Patient has no complaints, but states that he wants to go home. He reports some weakness while walking but he is able to walk around. OBJECTIVE: Vital Signs Temperature 97.5 F L 12/01/19 16:04 Pulse Rate 93 H 12/01/19 16:04 Respiratory Rate 20 12/01/19 16:04 Blood Pressure 112/66 12/01/19 16:04 O2 Sat by Pulse Oximetry (%) 98 12/01/19 09:00 PHYSICAL EXAM GENERAL: The patient is awake, alert, and fully oriented, in no acute distress. HEAD: Normal with no signs of trauma. EYES:PERRLA, EOMI, sclera anicteric, conjunctiva clear. ENT: Ears normal, nares patent, oropharynx clear without exudates, moist mucous membranes. NECK: Trachea midline, full range of motion, supple. LUNGS: Breath sounds equal, clear to auscultation bilaterally, no wheezes, no crackles, no accessory muscle use. HEART: Regular rate and rhythm, S1, S2 without murmur, rub or gallop. ABDOMEN: Soft, nontender, nondistended, normoactive bowel sounds, no guarding, no rebound, no hepatosplenomegaly, no masses. EXTREMITIES: 2+ pulses, warm, well-perfused, no edema. NEUROLOGICAL: Cranial nerves II through XII grossly intact. Normal speech, gait not observed. PSYCH: Normal mood, normal affect. SKIN: Warm, dry, normal turgor, no rashes or lesions noted. LABS Laboratory Results - last 24 hr 12/01/19 12/01/19 08:45 08:45 WBC 6.4 RBC 3.18 L Hgb 7.9 L Hct 23.5 L MCV 73.9 L MCH 24.9 L MCHC 33.7 RDW 21.0 H Plt Count 318 MPV 7.6 Absolute Neuts (auto) 3.8 Neutrophils % 58.6 Lymphocytes % 30.8 Monocytes % 8.1 Eosinophils % 2.0 Basophils % 0.5 Nucleated RBC % 0 Sodium 142 Potassium 3.7 Chloride 117 H Carbon Dioxide 20 L Anion Gap 6 L BUN 8.7 Creatinine 0.4 L Est GFR (CKD-EPI)AfAm 151.74 Est GFR (CKD-EPI)NonAf 130.93 Random Glucose 69 L Calcium 6.9 L* Total Bilirubin 0.3 AST 19 ALT 8 L Alkaline Phosphatase 298 H Total Protein 4.3 L Albumin 1.4 L HOSPITAL COURSE: Date of Admission:11/25/19 Date of Discharge: 12/01/19 Patient is a 59 year old man with past medical history of HIV, indwelling Aggarwal catheter, prostate cancer who presented to the ED with diarrhea and suprapubic pain. Patient was found to have an indwelling aggarwal cath infection and completed a course of Zosyn. Aggarwal catheter changed in appropriate position draining urine. Stool cultures/ cdiff/ova and parasite studies were done to evaluate his diarrhea and were negative. He was seen by GI and was offered colonoscopy, but patient refused any further intervention at this time. Patient was also evaluated by surgery for wound care of his pressure ulcers. Minutes to complete discharge: 35 Discharge Summary Problems reviewed: Yes Reason For Visit: URINARY TRACT INFECTION, HIV INFECTION Current Active Problems Abnormality of colon (Acute) Chronic indwelling Aggarwal catheter (Acute) HIV (human immunodeficiency virus infection) (Acute) Pressure ulcer (Acute) UTI (urinary tract infection) (Acute) Condition: Stable - Instructions Diet, Activity, Other Instructions: Your visit You were admitted to the hospital because your had diarrhea and belly pain. You had an infection in your urine. Your catheter was changed and you were treated with IV antibiotics. You were also found to have a mass on your colon on CAT scan. You were seen by the hazardous material technician (Dr. Schumacher) and offered colonoscopy for further evaluation. You may call his office to schedule an appointment if you do decide to undergo with the procedure. You were evaluated by senior payroll specialist for the wound on your hip. Please take note of the following instructions for management of your wound: -Keep wound clean and dry at all times -apply ointment daily to the left hip wound -Drink plenty of water. Medications Please continue your medications as prescribed. Follow up Please follow up with your primary care doctor within 1 week. Please follow up with the oncologist(Dr. Roberto) within 2 weeks. Please call the office to schedule an appointment. Please follow up with the urologist (Dr. Byrd) within 2 weeks. Please follow up with the hazardous material technician (Dr. Schumacher). Additional info Please call 911 or go to the ED if with any worsening fever, chills, headache, chest pain, shortness of breath, belly pain, or any new concerns noted. Referrals: [facility] [place] [Provider Group] Jerrod Schumacher DO [Staff Physician] - Mane Byrd MD [Staff Physician] - Ajit Roberto MD [Staff Physician] - Disposition: HOME - Home Medications Comprehensive Discharge Medication List: Ambulatory Orders Emtricitab/Rilpiviri/Tenof Ala [Odefsey Tablet] 1 each PO DAILY@1800 10/29/19 Doxepin HCl [Sinequan -] 200 mg PO HS 11/28/19 Mineral Oil/Pet Hy-Phl [Aquaphor -] 1 applic TP DAILY #1 jar 12/01/19 Multivitamins [Multivit ([facility] Formulary)] 1 tab PO DAILY #30 tab 12/01/19 Zinc Sulfate [Orazinc -] 220 mg PO DAILY #1 capsule 12/01/19 This patient is new to me today: Yes Date on this admission: 12/01/19 Emergency Visit: Yes ED Registration Date: 11/25/19 Care time: The patient presented to the Emergency Department on the above date and was hospitalized for further evaluation of their emergent condition. Critical Care patient: No - Discharge Referral Referred to [facility] No ATTENDING PHYSICIAN STATEMENT I saw and evaluated the patient. I reviewed the resident's note and discussed the case with the resident. I agree with the resident's findings and plan as documented. SUBJECTIVE: OBJECTIVE: ASSESSMENT AND PLAN:
[2019-12-01] MEDS ORDERED: PT OWN MED DRAWER 7, Y5N ONE (21:34)
[2019-12-01] MEDS: DOXEPIN HCL 25 MG CAPSULE PO SCH (23:07)
[2019-12-02] MEDS: AMINO ACIDS/PROTEIN HYDROLYS 30 ML LIQUID.PKT PO SCH ×3 (05:29→23:00)
[2019-12-02] MEDS ORDERED: PT OWN MED DRAWER 7, Y5N ONE ×2 (05:47→09:55)
--- NOTE | 2019-12-02 09:58 | PN ---
Physical Exam: SUBJECTIVE: Patient seen. He does not want to talk or be examined. He is refusing medications, vitals, blood draws. He doesn't want to stay in the hospital but doesn't want to go home because his home services won't be reinstated until Dec 04. OBJECTIVE: Vital Signs Period Temp Pulse Resp BP Sys/Reardon Pulse Ox Last 24 Hr 97.5 F-98.1 F 91-96 18-20 102-112/55-72 96 Examination refused Active Medications Generic Name Dose Route Start Last Admin Trade Name Freq PRN Reason Stop Dose Admin Amino Acids 30 ml 11/29/19 22:00 12/02/19 05:29 Prosource No Carb Liquid Pkt PO Not Given TID JESSICA Ascorbic Acid 250 mg 11/29/19 15:30 12/01/19 09:51 Vitamin C - PO Not Given DAILY JESSICA Doxepin HCl 200 mg 11/28/19 22:00 12/01/19 23:07 Sinequan - PO Not Given HS [facility] Emollient Ointment 1 applic 11/28/19 10:00 12/01/19 09:50 Aquaphor - TP Not Given DAILY [facility] Enoxaparin Sodium 40 mg 11/26/19 10:00 12/01/19 09:51 Lovenox - SQ Not Given DAILY [facility] Morphine Sulfate 4 mg 11/26/19 01:52 Morphine Sulfate IVPUSH Q6H PRN PAIN LEVEL 7 - 10 Multivitamins/Minerals/Vitamin C 1 tab 11/30/19 10:00 12/01/19 09:51 Tab-A-Vit - PO Not Given DAILY [facility] Zinc Sulfate 220 mg 11/29/19 15:30 12/01/19 09:51 Orazinc - PO Not Given DAILY [facility] ASSESSMENT/PLAN: This is a 59 year old man with a history of HIV, indwelling Syed catheter, prostate cancer who presented to the ED with diarrhea and suprapubic pain. 1. Indwelling Syed catheter infection - Zosyn discontinued - Syed catheter changed 2. Diarrhea - Improved - Stool culture, O&P, C. difficile negative 3. Anemia secondary to chronic illness - Transfused 1 unit PRBCs - Continue to monitor hgb - Stool occult blood negative 4. Prostate cancer with lung and bone metastases - Patient has refused biopsy of bone mets 5. Cecal mass 6. Hyperkalemia - Improved 7. HIV - On Odefsey at home but he has not been taking 8. Stage I pressure ulcer left hip - Continue wound care 9. Severe protein calorie malnutrition - Continue ProSource - Refusing Ensure 10. Disposition - As it is unsafe for the patient to be home alone, he will be discharged to home when home services available Visit type - Emergency Visit Emergency Visit: Yes ED Registration Date: 11/25/19 Care time: The patient presented to the Emergency Department on the above date and was hospitalized for further evaluation of their emergent condition. - New Patient This patient is new to me today: No - Critical Care Critical Care patient: No - Discharge Referral Referred to [facility] No
[2019-12-02] MEDS: MINERAL OIL/PET HY-PHL TOPICAL OINTMENT 454 GM JAR TP SCH (10:30)
[2019-12-02] MEDS: MULTIVITAMINS (DAILY MVI) TABLET (FP) PO SCH (10:30)
[2019-12-02] MEDS: ZINC SULFATE 220 MG CAPSULE (FP) PO SCH (10:30)
[2019-12-02] MEDS: ENOXAPARIN NA (PORCINE) 40 MG/0.4 ML DISP.SYRIN SQ SCH (10:30)
[2019-12-02] MEDS: ASCORBIC ACID 250 MG TABLET (FP) PO SCH (10:31)
[2019-12-02] MEDS: EMTRICITAB/RILPIVIRI/TENOF ALA (ODEFSEY) TABLET PO SCH (18:01)
[2019-12-02] MEDS: DOXEPIN HCL 25 MG CAPSULE PO SCH (23:00)
[2019-12-03] MEDS: AMINO ACIDS/PROTEIN HYDROLYS 30 ML LIQUID.PKT PO SCH ×3 (05:29→22:52)
--- NOTE | 2019-12-03 07:24 | PN ---
Physical Exam: SUBJECTIVE: Patient seen and examined at bed side no acute events over night aggarwal replaced by nursing seen by GI for cecal mass seen on [facility] MRCP and denies any further evaluation or prcedure for now refuse IV and medication sugar low this am , will feed him refuse rehab , dc home pending some equipment working on it by transition social worker OBJECTIVE: Vital Signs Period Temp Pulse Resp BP Sys/Reardon Pulse Ox Last 24 Hr 98.0 F-98.2 F 94-95 18-20 104-122/66-77 96-97 GENERAL: AAOx3 in NAD , poor hygiene , catchetic HEAD: NC/AT EYES: EOMI, Conjunctiva clear, sclera anicteric ENT: moist mucous membrane NECK: Supple, no JVD LUNGS: CTA B/L, no crackles no wheezing no accessory muscle use. HEART: RRR, NSR, normal s1, s2, murmur no M/R/G ABDOMEN: Soft, ND, NT, +BS 4 Q, no CVA Tenderness LOWER EXTREMITIES: no edema, +2DP pulse, NEUROLOGICAL: No focal deficit. Normal speech. gait not observed. PSYCHIATRIC: Cooperative. Good eye contact. Appropriate mood and affect. SKIN: Warm, dry,left hip pressure ulcer 5x5 cm stage III with surounded erythema with no signs of infection Aggarwal in place with clear urine Active Medications Generic Name Dose Route Start Last Admin Trade Name Freq PRN Reason Stop Dose Admin Amino Acids 30 ml 11/29/19 22:00 12/03/19 05:29 Prosource No Carb Liquid Pkt PO Not Given TID JESSICA Ascorbic Acid 250 mg 11/29/19 15:30 12/02/19 10:31 Vitamin C - PO Not Given DAILY JESSICA Doxepin HCl 200 mg 11/28/19 22:00 12/02/19 23:00 Sinequan - PO Not Given HS JESSICA Emollient Ointment 1 applic 11/28/19 10:00 12/02/19 10:30 Aquaphor - TP Not Given DAILY JESSICA Enoxaparin Sodium 40 mg 11/26/19 10:00 12/02/19 10:30 Lovenox - SQ Not Given DAILY JESSICA Multivitamins/Minerals/Vitamin C 1 tab 11/30/19 10:00 12/02/19 10:30 Tab-A-Vit - PO Not Given DAILY JESSICA Zinc Sulfate 220 mg 11/29/19 15:30 12/02/19 10:30 Orazinc - PO Not Given DAILY JESSICA ASSESSMENT/PLAN: 59M with PMH of HIV (Currently on Odefsey), and Prostate CA. He presented to the ER with complaints of dysuria and suprapubic abdominal pain for the past 4- 5 days, as well as diarrhea for the past 3-4 days. He had a permanent indwelling urinary catheter placed for an enlarged prostate in early 2018, was admitted at [facility] from May to Sep 04 for a UTI, and was admitted at [facility] from 10/28-11/01 2019. #endwelling Aggarwal catheter infection, chronic * UA: 3+ LE with 3.6k bacteria, WBC 7.5, afebrile * S/p Zosyn 3.375 Q6H, Vanc/Zosyn given in ER, monitor off abx per Dr aLcey * Ucx ordered lactose ferminting negative bacilli and Group D strep or entrococcus * U Tox: Positive only for marijuana * Urology consulted for catheter change, placed a call for doctor [facility] service and said Dr Pitts will be in the hospital tomorrow #Hx of Prostate CA with bony mets * Biopsy 10 years ago, no recent workup, no rx * CXR today showed evidence of bone mets blastic lesions * Heme/Onc consulted will need bone biopsy * Palliative care consulted for goals of care discussion signs DNR/DNI * IV Morphine 4mg Q6H for pain #Diarrhea, improved * Stool cx, O&P, C Diff negative #Anemia likely anemia of chronic disease , microcytic normochromic * Microcytic, low Fe with low TIBC, and elevated ferritin as per Iron studies on previous visit * FOBT ordered to r/o bleeding * normal transfusion threshold below 7 * todah hgb 8.3 S/P one unit of BRBC ,stable * occult blood negative #Wound left hip stage III pressure ulcer * Likely pressure ulcer, grade III with no discharge * aquafore topical apply * wound care * surgery consult * change position Q 2 hr * map clerk consult * keep area dry and clean #Hx of HIV, non compliant * continue anti-retrovirals * ID consult placed #Hypoglycemia * May be 2/2 malnutrition * D50 25gm given * D5 NS @ 42 cc /hr # cecal mass noted on prior CT scam , GI consult , pt refuse to proceed with any further procedure #FEN * D5 NS @ 42 * monitor lytes * Regular diet # Severe malnutrition, BMI of 14 * Protein supplement ordered 2x daily * Dietary consult placed * map clerk consult #DVT * Lovenox 40mg SQ started Code status : DNR/DNI Visit type - Emergency Visit Emergency Visit: Yes ED Registration Date: 11/25/19 Care time: The patient presented to the Emergency Department on the above date and was hospitalized for further evaluation of their emergent condition. - New Patient This patient is new to me today: No - Critical Care Critical Care patient: No - Discharge Referral Referred to [facility] No ATTENDING PHYSICIAN STATEMENT I saw and evaluated the patient. I reviewed the resident's note and discussed the case with the resident. I agree with the resident's findings and plan as documented. SUBJECTIVE: OBJECTIVE: ASSESSMENT AND PLAN:
[2019-12-03] MEDS ORDERED: PT OWN MED DRAWER 7, Y5N ONE ×3 (10:24→19:07)
[2019-12-03] MEDS: ENOXAPARIN NA (PORCINE) 40 MG/0.4 ML DISP.SYRIN SQ SCH (10:26)
[2019-12-03] MEDS: ZINC SULFATE 220 MG CAPSULE (FP) PO SCH (10:26)
[2019-12-03] MEDS: ASCORBIC ACID 250 MG TABLET (FP) PO SCH (10:26)
[2019-12-03] MEDS: MULTIVITAMINS (DAILY MVI) TABLET (FP) PO SCH (10:26)
[2019-12-03] MEDS: MINERAL OIL/PET HY-PHL TOPICAL OINTMENT 454 GM JAR TP SCH (10:27)
[2019-12-03] MEDS: DEXTROSE 5%-LACTATED RINGERS 1,000 ML IV SCH (13:27)
--- NOTE | 2019-12-03 14:33 | PN ---
Teaching Attending Note Name of Resident: Gustavo Ragsdale ATTENDING PHYSICIAN STATEMENT I saw and evaluated the patient. I reviewed the resident's note and discussed the case with the resident. I agree with the resident's findings and plan as documented. SUBJECTIVE: Patient seen and examined bedside. No new changes today, encouraged PO intake, awaiting discharge home VNS requesting home is handicap accessible to take better care of patient. Objective: GENERAL: AAox3, speaking in full sentences, cachectic, temporal wasting HEAD: NC/AT EYES: EOMI, Conjunctiva clear, sclera anicteric ENT: moist mucous membrane NECK: Supple, no JVD LUNGS: CTA B/L, no crackles no wheezing no accessory muscle use. HEART: RRR, NSR, normal s1, s2, murmur no M/R/G ABDOMEN: Soft, ND, NT, +BS 4 Q, no CVA Tenderness LOWER EXTREMITIES: no edema, +2DP pulse, NEUROLOGICAL: No focal deficit. Normal speech. gait not observed. PSYCHIATRIC: Cooperative. Good eye contact. Appropriate mood and affect. SKIN: Warm, dry,left hip pressure ulcer 5x5 cm stage III w/ surrounding erythema w/o signs of acute infection Aggarwal in place with yellowish-clear urine Vital Signs - 24 hr 12/02/19 12/02/19 12/02/19 14:59 20:39 20:40 Temperature 98.2 F 98.0 F Pulse Rate 94 H 94 H Respiratory 20 18 Rate Blood Pressure 122/77 119/66 O2 Sat by Pulse 97 Oximetry (%) 12/03/19 08:25 Temperature 97.9 F Pulse Rate 94 H Respiratory 20 Rate Blood Pressure 116/72 O2 Sat by Pulse Oximetry (%) Microbiology 11/26/19 11:16 Stool Salmonella/Shigella Culture - Final NO GROWTH OF SALMONELLA OR SHIGELLA SPECIES OBTAINED 11/26/19 11:16 Stool Campylobacter Culture - Final NO GROWTH OF CAMPYLOBACTER SPECIES OBTAINED 11/26/19 11:16 Stool Yersinia Culture - Final NO GROWTH OF YERSINIA SPECIES OBTAINED 11/26/19 11:16 Stool Vibrio Culture - Final NO GROWTH OF VIBRIO SPECIES OBTAINED 11/26/19 11:16 Stool Escherichia coli 0157 Culture - Final NO GROWTH OF E COLI 0157 OBTAINED 11/25/19 17:35 Urine - Urine Aggarwal Urine Culture - Final Enterobacter Cloacae Enterococcus Faecalis 11/26/19 11:16 Stool Clostridioides difficile Antigen - Final 11/26/19 11:16 Stool Clostridioides difficile Toxin Assay - Final 11/26/19 11:16 Stool Cryptosporidium Antigen - Final 11/26/19 11:16 Stool Giardia Antigen (SHAYY) - Final Current Medications Generic Name Dose Route Start Last Admin Trade Name Freq PRN Reason Stop Dose Admin Amino Acids 30 ml 11/29/19 22:00 12/03/19 13:27 Prosource No Carb Liquid Pkt PO Not Given TID [facility] Ascorbic Acid 250 mg 11/29/19 15:30 12/03/19 10:26 Vitamin C - PO Not Given DAILY [facility] Doxepin HCl 200 mg 11/28/19 22:00 12/02/19 23:00 Sinequan - PO Not Given HS [facility] Emollient Ointment 1 applic 11/28/19 10:00 12/03/19 10:27 Aquaphor - TP Not Given DAILY [facility] Enoxaparin Sodium 40 mg 11/26/19 10:00 12/03/19 10:26 Lovenox - SQ Not Given DAILY [facility] Dextrose/Lactated Ringer's 1,000 mls @ 75 mls/hr 12/03/19 12:45 12/03/19 13: 27 D5-Lr - IV Not Given ASDIR [facility] Multivitamins/Minerals/Vitamin C 1 tab 11/30/19 10:00 12/03/19 10:26 Tab-A-Vit - PO Not Given DAILY [facility] Zinc Sulfate 220 mg 11/29/19 15:30 12/03/19 10:26 Orazinc - PO Not Given DAILY [facility] 59 year old man with a history of HIV, indwelling Aggarwal catheter, prostate cancer who presented to the ED with diarrhea and suprapubic pain. Indwelling Aggarwal catheter infection Finished course of Zosyn Aggarwal catheter changed in appropriate position draining urine, keep aggarwal in outpatient follow up with urology Diarrhea improved Stool culture, C. difficile negative, stool ova/parasite - Anemia secondary to chronic Transfused 1 unit PRBCs Continue to monitor hgb Stool occult blood negative Prostate cancer with lung and bone metastases Oncology input appreciated Patient has refused biopsy of bone mets encourage PO intake Cecal mass GI wanted colonoscopy, patient refusing further intervention Hyperkalemia Improved HIV On Odefsey at home but he has not been taking Stage I pressure ulcer left hip Continue wound care Severe protein calorie malnutrition Continue ProSource Refusing Ensure, wants SILK MILK notified nursing staff not participating in PT due to feeling weak, encouraged PO intake Med-surg DC home with cleared by social work (home needs to be more handicap accessible as per VNS request) DNR
[2019-12-03] MEDS: EMTRICITAB/RILPIVIRI/TENOF ALA (ODEFSEY) TABLET PO SCH (17:44)
--- NOTE | 2019-12-03 18:34 | PN ---
Progress Note (short form) - Note Progress Note: PAtient seen and examined Denies any specific complaints. Wants to be left alone. Discussed with him again the concern for metaastatic prostate cancer, elevated PSA, need for biopsy and consider atleast casodex and lupron which may be life saving and prevent complications like cord compression, paralysis, renal failure etc, from prostate cancer He adamantly refuses this. He understands potentially life thtreatening complications from nit pursuing above w/u and being treated with casodex/lupron Last Vital Signs Temp Pulse Resp BP Pulse Ox 97.9 F 97 H 20 117/77 97 12/03/19 08:25 12/03/19 16:20 12/03/19 16:20 12/03/19 16:20 12/02/19 20:40 Cor: RSR, No murmurs, No gallops Lungs: Clear to P&A Abd: Soft, Normal bowel sounds, No organomegaly Ext:No significant edema Labs/MEds reviewed A/P 59 yo M with HIV ( followed by Dr. Tsai at [facility], CD4 --267 in 11/05), anemia of chronic disease, G6PD def, and sickle trait, presented with significant symptomatic anemia. Anemia likely from chronic disease, no current evidence of iron deficiency or hemolysis. Has significant wt loss and markedlyelevated PSA> 2000 ( 03/04). B/L leg pains , no other focal bone pains. Remote h/o benign prostate bx. Bone scan and CT c /w bone mets most likely assoc with prostate ca. Imaging -- 03/04 at [facility] Enlarged prostate with nodular soft tissue invading and obstructing the distal right ureter favored to represent extension of prostate malignancy. 2 small nodular papillary projections in the right bladder base may represent extension of prostate malignancy but cannot be distinguished from primary urothelial tumor.Syed catheter in the bladder. Moderate diffuse bladder wall thickening is likely secondary to chronic outlet obstruction. Mild right hydroureteronephrosis due to malignant obstruction of the distal right ureter. Mild left hydroureter is likely secondary to thick-walled bladder. Emphysema with no gross evidence of pulmonary metastases. 1.9 cm cystic lesion of the uncinate process with adjacent parenchymal calcifications possibly representing a pseudocyst with changes of chronic pancreatitis or possible side branch intraductal papillary mucinous tumor. When clinically able, MRI with MRCP can be obtained for further characterization. 2.3 cm lobulated low attenuation apparent polypoid cecal mass (versus less likely a pseudo-lesion due to contrast mixing) that may represent colonic malignancy/mucinous tumor. Correlation with colonoscopy is recommended. Diffuse sclerotic bony metastases Bone scan with extensive mets in 03/04 PSA very elevated Discussed with him again the concern for metaastatic prostate cancer, elevated PSA, need for biopsy and consider atleast casodex and lupron which may be life saving and prevent complications like cord compression, paralysis, renal failure etc, from prostate cancer He adamantly refuses this. He understands potentially life thtreatening complications from not pursuing above w/u and being treated with casodex/lupron cecal mass on prior CT - refusing gi eval palliative care
[2019-12-03] MEDS: DOXEPIN HCL 25 MG CAPSULE PO SCH (22:52)
[2019-12-04] MEDS: AMINO ACIDS/PROTEIN HYDROLYS 30 ML LIQUID.PKT PO SCH ×2 (05:00→14:06)
--- NOTE | 2019-12-04 07:35 | PN ---
Physical Exam: SUBJECTIVE: Patient seen and examined at bed side no acute events over night aggarwal replaced by nursing seen by GI for cecal mass seen on MMF MRCP and denies any further evaluation or prcedure for now refuse IV and medication sugar low this am , will feed him refuse rehab , dc home with vns OBJECTIVE: Vital Signs Period Temp Pulse Resp BP Sys/Reardon Pulse Ox Last 24 Hr 97.5 F-97.9 F 94-117 20-20 98-121/65-84 98 GENERAL: AAOx3 in NAD , poor hygiene , catchetic HEAD: NC/AT EYES: EOMI, Conjunctiva clear, sclera anicteric ENT: moist mucous membrane NECK: Supple, no JVD LUNGS: CTA B/L, no crackles no wheezing no accessory muscle use. HEART: RRR, NSR, normal s1, s2, murmur no M/R/G ABDOMEN: Soft, ND, NT, +BS 4 Q, no CVA Tenderness LOWER EXTREMITIES: no edema, +2DP pulse, NEUROLOGICAL: No focal deficit. Normal speech. gait not observed. PSYCHIATRIC: Cooperative. Good eye contact. Appropriate mood and affect. SKIN: Warm, dry,left hip pressure ulcer 5x5 cm stage III with surounded erythema with no signs of infection Aggarwal in place with clear urine Active Medications Generic Name Dose Route Start Last Admin Trade Name Tyron PRN Reason Stop Dose Admin Amino Acids 30 ml 11/29/19 22:00 12/04/19 05:00 Prosource No Carb Liquid Pkt PO Not Given TID [facility] Ascorbic Acid 250 mg 11/29/19 15:30 12/03/19 10:26 Vitamin C - PO Not Given DAILY [facility] Doxepin HCl 200 mg 11/28/19 22:00 12/03/19 22:52 Sinequan - PO Not Given HS [facility] Emollient Ointment 1 applic 11/28/19 10:00 12/03/19 10:27 Aquaphor - TP Not Given DAILY [facility] Enoxaparin Sodium 40 mg 11/26/19 10:00 12/03/19 10:26 Lovenox - SQ Not Given DAILY [facility] Dextrose/Lactated Ringer's 1,000 mls @ 75 mls/hr 12/03/19 12:45 12/03/19 13: 27 D5-Lr - IV Not Given ASDIR [facility] Multivitamins/Minerals/Vitamin C 1 tab 11/30/19 10:00 12/03/19 10:26 Tab-A-Vit - PO Not Given DAILY [facility] Zinc Sulfate 220 mg 11/29/19 15:30 12/03/19 10:26 Orazinc - PO Not Given DAILY [facility] ASSESSMENT/PLAN: 59M with PMH of HIV (Currently on Odefsey), and Prostate CA. He presented to the ER with complaints of dysuria and suprapubic abdominal pain for the past 4- 5 days, as well as diarrhea for the past 3-4 days. He had a permanent indwelling urinary catheter placed for an enlarged prostate in early 2018, was admitted at [facility] from May to Sep 04 for a UTI, and was admitted at [facility] from 10/28-11/01 2019. #endwelling Aggarwal catheter infection, chronic * UA: 3+ LE with 3.6k bacteria, WBC 7.5, afebrile * S/p Zosyn 3.375 Q6H, Vanc/Zosyn given in ER, monitor off abx per Dr Lacey * Ucx ordered lactose ferminting negative bacilli and Group D strep or entrococcus * U Tox: Positive only for marijuana * Urology consulted for catheter change, placed a call for doctor [facility] service and said Dr Pitts will be in the hospital tomorrow #Hx of Prostate CA with bony mets * Biopsy 10 years ago, no recent workup, no rx * CXR today showed evidence of bone mets blastic lesions * Heme/Onc consulted will need bone biopsy * Palliative care consulted for goals of care discussion signs DNR/DNI * IV Morphine 4mg Q6H for pain #Diarrhea, improved * Stool cx, O&P, C Diff negative #Anemia likely anemia of chronic disease , microcytic normochromic * Microcytic, low Fe with low TIBC, and elevated ferritin as per Iron studies on previous visit * FOBT ordered to r/o bleeding * normal transfusion threshold below 7 * todah hgb 8.3 S/P one unit of BRBC ,stable * occult blood negative #Wound left hip stage III pressure ulcer * Likely pressure ulcer, grade III with no discharge * aquafore topical apply * wound care * surgery consult * change position Q 2 hr * direct marketing specialist consult * keep area dry and clean #Hx of HIV, non compliant * continue anti-retrovirals * ID consult placed #Hypoglycemia * May be 2/2 malnutrition * D50 25gm given * D5 NS @ 42 cc /hr # cecal mass noted on prior CT scam , GI consult , pt refuse to proceed with any further procedure #FEN * D5 NS @ 42 * monitor lytes * Regular diet # Severe malnutrition, BMI of 14 * Protein supplement ordered 2x daily * Dietary consult placed * direct marketing specialist consult #DVT * Lovenox 40mg SQ started Code status : DNR/DNI dc home Visit type - Emergency Visit Emergency Visit: Yes ED Registration Date: 11/25/19 Care time: The patient presented to the Emergency Department on the above date and was hospitalized for further evaluation of their emergent condition. - New Patient This patient is new to me today: No - Critical Care Critical Care patient: No - Discharge Referral Referred to [facility] Med P.C.: No ATTENDING PHYSICIAN STATEMENT I saw and evaluated the patient. I reviewed the resident's note and discussed the case with the resident. I agree with the resident's findings and plan as documented. SUBJECTIVE: OBJECTIVE: ASSESSMENT AND PLAN:
--- NOTE | 2019-12-04 09:15 | PN ---
Teaching Attending Note Name of Resident: Gustavo Ragsdale ATTENDING PHYSICIAN STATEMENT I saw and evaluated the patient. I reviewed the resident's note and discussed the case with the resident. I agree with the resident's findings and plan as documented. SUBJECTIVE: OBJECTIVE: Vital Signs Temperature 97.5 F L 12/04/19 06:00 Pulse Rate 101 H 12/04/19 06:00 Respiratory Rate 20 12/04/19 06:00 Blood Pressure 98/65 12/04/19 06:00 O2 Sat by Pulse Oximetry (%) 98 12/03/19 21:00 General: Middle-aged cachectic man not in distress HEENT; mucous membranes moist, no anemia, no jaundice, PERRLA, no nystagmus Neck: No JVD, supple, no bruit, thyroid palpably normal, normal carotid pulsations. Chest: Nontender, clear to auscultation bilaterally CVS: S1-S2 regular/tachycardic no murmur/gallop/rub Abdomen:s/p suprapubic catheter nondistended, soft, bowel sounds present. 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 , no gross motor sensory deficit CBC, BMP 12/01/19 08:45 12/01/19 08:45 Active Medications Amino Acids (Prosource No Carb Liquid Pkt) 30 ml PO TID [facility] Last Admin: 12/04/19 05:00 Dose: Not Given Ascorbic Acid (Vitamin C -) 250 mg PO DAILY [facility] Last Admin: 12/04/19 10:38 Dose: Not Given Doxepin HCl (Sinequan -) 200 mg PO HS [facility] Last Admin: 12/03/19 22:52 Dose: Not Given Emollient Ointment (Aquaphor -) 1 applic TP DAILY [facility] Last Admin: 12/04/19 10:39 Dose: Not Given Enoxaparin Sodium (Lovenox -) 40 mg SQ DAILY [facility] Last Admin: 12/04/19 10:38 Dose: Not Given Dextrose/Lactated Ringer's (D5-Lr -) 1,000 mls @ 75 mls/hr IV ASDIR [facility] Last Admin: 12/03/19 13:27 Dose: Not Given Multivitamins/Minerals/Vitamin C (Tab-A-Vit -) 1 tab PO DAILY [facility] Last Admin: 12/04/19 10:38 Dose: Not Given Zinc Sulfate (Orazinc -) 220 mg PO DAILY [facility] Last Admin: 12/04/19 10:38 Dose: Not Given ASSESSMENT AND PLAN:59-year-old male with uncontrolled HIV, followed by Dr. Tsai at [facility] with high viral load of 108,000, CD4 count of 267 in October 29, 2019, metastatic lesions seen on bone scan from 03/04, severe cachexia, chronic Syed catheter for suspected of prostate obstruction, G6PD deficiency, sickle cell trait, significant anemia presenting with burning around Syed catheter site and suspicion for UTI. During the course of hospitalization evaluated by hemato-oncology, infectious disease, palliative care, patient is supervision any further evaluation for cecal mass or prostate cancer now on DNR/DNI awaiting disposition to home. Plan patient is evaluated by oncologist and palliative care , patient is alert oriented opted for palliative care does not want any active management wants to go home with services, respecting patient wishes we will continue current management and discharge him home with all equipment and social service support.
[2019-12-04] MEDS: ENOXAPARIN NA (PORCINE) 40 MG/0.4 ML DISP.SYRIN SQ SCH (10:38)
[2019-12-04] MEDS: ASCORBIC ACID 250 MG TABLET (FP) PO SCH (10:38)
[2019-12-04] MEDS: MULTIVITAMINS (DAILY MVI) TABLET (FP) PO SCH (10:38)
[2019-12-04] MEDS: ZINC SULFATE 220 MG CAPSULE (FP) PO SCH (10:38)
[2019-12-04] MEDS: MINERAL OIL/PET HY-PHL TOPICAL OINTMENT 454 GM JAR TP SCH (10:39)
[2019-12-04 11:35] VITALS: BP 97/67; PULSE 100; TEMP 97.4
[2019-12-04] MEDS: DEXTROSE 5%-LACTATED RINGERS 1,000 ML IV SCH (14:07)
== END 2019-12-04 15:52 | disposition home or self-care (01) | DRG 466 ==
LOC: JER 16:36 → JERBED 19:32 → J8W 11-27 02:06
PROVIDERS: ADMIT Internal Medicine; ATTEND Internal Medicine
PROC: 30233N1 Transfusion of Nonautologous Red Blood Cells into Peripheral Vein, Percutaneous Approach (ICD-10-PCS; principal; 2019-11-27)
DX: T83.511A Infection and inflammatory reaction due to indwelling urethral catheter, initial encounter (principal); Y83.8 Other surgical procedures as the cause of abnormal reaction of the patient, or of later complication, without mention of misadventure at the time of the procedure; C61 Malignant neoplasm of prostate; C79.51 Secondary malignant neoplasm of bone; C78.00 Secondary malignant neoplasm of unspecified lung; E16.2 Hypoglycemia, unspecified; E88.09 Other disorders of plasma-protein metabolism, not elsewhere classified; D63.0 Anemia in neoplastic disease; J43.9 Emphysema, unspecified; N13.6 Pyonephrosis; E43 Unspecified severe protein-calorie malnutrition; Z68.1 Body mass index [BMI] 19.9 or less, adult; R64 Cachexia; N40.0 Benign prostatic hyperplasia without lower urinary tract symptoms; Z51.5 Encounter for palliative care; E87.5 Hyperkalemia; R19.7 Diarrhea, unspecified; D57.3 Sickle-cell trait; D75.A Glucose-6-phosphate dehydrogenase (G6PD) deficiency without anemia; K63.9 Disease of intestine, unspecified; Z21 Asymptomatic human immunodeficiency virus [HIV] infection status; D63.8 Anemia in other chronic diseases classified elsewhere; L89.221 Pressure ulcer of left hip, stage 1
CPT/HCPCS: 36415; 36430; 36511; 71045-TC-FY; 80048; 80053; 80307; 81003; 82272; 85025; 86850; 86900; 86901; 86922; 87045; 87046; 87086; 87177; 87186; 87209; 87324; 87328; 87329; 87449; 93005; 93010; 97116-GP; 97161-GP; 99285-25; J7030; P9038; P9058

== ENCOUNTER 2020-05-12 14:36 | Inpatient (IN) | payer OTHER ==
--- NOTE | 2020-05-12 14:54 | PDOC ---
History of Present Illness - General Stated Complaint: LEFT HIP PAIN ULCER Time Seen by Provider: 05/12/20 14:54 - History of Present Illness Initial Comments: 05/12/20 15:56 59 yo male pmh metastatic Prostate CA, HIV (last CD4 272, non-compliant with HIV medications), anemia BIBA by nurse aid for wound care. There was no paper work from ambulance. Nurse aid phone number couldn't be obtain. Patient won't give extra information and kept saying he doesn't want to be here. He denies chest pain, fever, N/V/D, abdominal pain, dysuria, discharge, headaches. Patient won't answer his last CD4 count or his last hospitalization. He understand the month, and year, and his birthday. He is not hallucinating or disoriented. Updated from [facility] nurse aid. Nurse aid wants to send him over here because of persistent diarrhea, and pain in the lower abdomen. Last week, He has diarrhea, abdominal pain, cloudy urine, and his wound has got worse. Today, they wanted to send him over here because he is getting more combative , and has persistent diarrhea, and pain in the abdomen. The continuous pillowcase cutter name is Nedra bhat ( [phone]). [facility] ([phone]) . PMH: stated above PSH: n/a Med: n/a SS: n/a Allergy: ciprofloxacin. GENERAL/CONSTITUTIONAL: No fever or chills. No weakness. HEAD, EYES, EARS, NOSE AND THROAT: No change in vision. No ear pain or discharge. No sore throat. CARDIOVASCULAR: No chest pain or shortness of breath RESPIRATORY: No cough, wheezing, or hemoptysis. GASTROINTESTINAL: No nausea, vomiting,or constipation. +diarrhea GENITOURINARY: No dysuria, frequency, or change in urination. +cloudy urine MUSCULOSKELETAL: No joint or muscle swelling or pain. No neck or back pain. SKIN: wound on the hip and coccyx NEUROLOGIC: No headache, vertigo, loss of consciousness, or change in strength/sensation. ENDOCRINE: No increased thirst. No abnormal weight change HEMATOLOGIC/LYMPHATIC: No anemia, easy bleeding, or history of blood clots. ALLERGIC/IMMUNOLOGIC: No hives or skin allergy. 05/12/20 16:03 General Appearance: Yes: Appropriately Dressed, Cachetic, in a diapaer No: Apparent Distress HEENT: positive: EOMI Neck: positive: Supple. negative: Carotid bruit Respiratory/Chest: positive: Lungs Clear, Normal Breath Sounds. negative: Respiratory Distress, Rapid RR, Crackles, Rales, Rhonchi, Stridor, Wheezing Cardiovascular: positive: Regular Rhythm, Regular Rate, S1, S2. negative: Edema, JVD, Murmur Vascular Pulses: Dorsalis-Pedis (R): 4+, Doralis-Pedis (L): 4+ Gastrointestinal/Abdominal: positive: Flat, Soft. negative: Pulsatile Mass, Distended, Guarding, Rebound, Tenderness : aggarwal in place, urine is cloudy, no sign of blood. didn't notice any lesion on the penis Musculoskeletal: negative: CVA Tenderness Extremity: positive: Normal Capillary Refill, Normal Inspection, Pressure ulcer wound stage 2 on left hip ,no wound on the right and a coccyx ulcer ( couldn't assess/ patient resisted to rotate fully). Integumentary: positive: Normal Color, Dry, Warm Neurologic: positive: Fully Oriented, Alert, Normal Mood/Affect, Normal Response, depressed mood. 05/12/20 16:07 05/12/20 17:48 05/12/20 18:44 Past History - Medical History Allergies/Adverse Reactions: Allergies Allergy/AdvReac Type Severity Reaction Status Date / Time ciprofloxacin [From Cipro] Allergy Verified 01/09/20 13:32 Home Medications: Ambulatory Orders Doxepin HCl 200 mg PO DAILY 01/10/20 Emtricitab/Rilpiviri/Tenof Ala [Odefsey Tablet] 1 each PO DAILY 01/10/20 Amox-Tr/K Cl [Augmentin - 500Mg Tablet] 1 tab PO BID #14 tab 01/14/20 Ferrous Sulfate [Feosol] 325 mg PO BIDWM ud 01/14/20 Magnesium Hydrox 2400MG/30Ml [Milk of Magnesia -] 30 ml PO DAILY PRN cup 01/14/20 Anemia: Yes Cancer: (Yes; Prostate CA) Cardiac Disorders: No CVA: No COPD: No CHF: No Dementia: No Diabetes: No GI Disorders: No Disorders: Yes (retension - Aggarwal cath) HTN: No Hypercholesterolemia: No Liver Disease: No Seizures: No - Surgical History Abdominal Surgery: No Appendectomy: No Cardiac Surgery: No Cholecystectomy: No Lung Surgery: No Neurologic Surgery: No Orthopedic Surgery: No - Immunization History Immunization Up to Date: No - Psycho-Social/Smoking History Smoking History: Unknown if ever smoked Have you smoked in the past 12 months: No If you are a former smoker, when did you quit?: 1989 'Breaking Loose' booklet given: 10/29/19 ED Treatment Course - LABORATORY CBC & Chemistry Diagram: 05/12/20 16:34 05/12/20 16:34 Medical Decision Making - Medical Decision Making 59 yo male pmh metastatic Prostate CA, HIV (last CD4 272, non-compliant with HIV medications), anemia BIBA by nurse aid for persistent diarrhea and wound care. Sepsis work up since patient is not fully cooporative/ poor historian. CBC, CMP revealed low glucose of 46. After given vanco, and zoysin , BS came back to 130s. MBMD sent. plan to admit. Admitted under Dr. Fernandez. They want Inflammatory marker: CK, Ddimer , Lactate, ferritin. 05/12/20 21:40 05/12/20 21:40 Discharge - Discharge Information Problems reviewed: Yes Clinical Impression/Diagnosis: Anemia, Sepsis, UTI (urinary tract infection), HIV (human immunodeficiency virus infection) Condition: Fair - Admission Yes - Follow up/Referral - Patient Discharge Instructions - Post Discharge Activity
[2020-05-12] MEDS ORDERED: LACTATED RINGERS SOLUTION 1,000 ML/1,000 ML INFUS.BAG IV SCH (15:15)
[2020-05-12] MEDS ORDERED: PIPERACILLIN/TAZOB 3.375 GM 3.375 GM in DEXTROSE 5%-WATER - 50 ML IVPB ONE (16:22)
[2020-05-12] MEDS ORDERED: VANCOMYCIN 1,000 MG in DEXTROSE 5%-WATER - 250 ML IVPB ONE (16:22)
[2020-05-12 16:57] LABS: BASO % 0.1 % (0-2.0); EOS % 0.3 % (0-4.5); HEMATOCRIT 24.9 % (35.4-49); HEMOGLOBIN 8.3 GM/dL (11.7-16.9); LYMPH % 12.3 % (8-40); MCH 27.3 pg (25.7-33.7); MCHC 33.2 g/dl (32.0-35.9); MEAN CELL VOLUME 82.2 fl (80-96); MEAN PLT VOLUME 9.1 fl (7.5-11.1); MONO % 7.9 % (3.8-10.2); NEUT % 79.4 % (42.8-82.8); PLATELET COUNT 323 K/MM3 (134-434); RBC 3.03 M/mm3 (4.00-5.60); RDW 13.7 % (11.9-15.9); WHITE BLOOD COUNT 7.2 K/mm3 (4.0-10.0)
[2020-05-12] MEDS ORDERED: PIPERACILLIN/TAZOB 3.375 GM 3.375 GM/50 ML BAG IVPB ONE (17:04)
[2020-05-12] MEDS ORDERED: VANCOMYCIN 1 GRAM (PRE-DOCKED) 1,000 MG/250 ML BAG IVPB ONE (17:04)
[2020-05-12 17:14] LABS: VENOUS BASE EXCESS -2.1 mmol/L (-2-2); VENOUS O2 SATURATION 40.8 % (70-80); VENOUS PCO2 45.3 mmHg (38-52); VENOUS PH 7.336 (7.310-7.410)
[2020-05-12 17:20] LABS: INR 1.23 (0.83-1.09); PROTHROMBIN TIME (PATIENT) 14.6 SEC (9.7-13.0)
[2020-05-12 17:23] LABS: ACTIVATED PTT 33.9 SECONDS (25.2-36.5); ALBUMIN 1.6 g/dl (3.4-5.0); BILIRUBIN,TOTAL 0.6 mg/dL (0.2-1); BLOOD UREA NITROGEN 19.4 mg/dL (7-18); CALCIUM 7.6 mg/dL (8.5-10.1); CREATININE 0.5 mg/dL (0.55-1.3); TOT PROT 5.6 g/dl (6.4-8.2)
[2020-05-12] MEDS ORDERED: DEXTROSE 50%-WATER - 25 GM/50 ML VIAL IVPUSH ONE (17:37)
[2020-05-12 18:31] LABS: EPI CELLS 24 /uL (0-25.1); HYALINE CASTS 13 /uL (0-3.1); PH,URINE 6.5 (5.0-8.0); URINE APPEARANCE TURBID; URINE BILIRUBIN NEGATIVE (NEGATIVE); URINE COLOR DK YELLOW; URINE GLUCOSE (UA) NEGATIVE (NEGATIVE); URINE KETONE TRACE (NEGATIVE); URINE LEUK ESTERASE 3+ (NEGATIVE); URINE NITRITE NEGATIVE (NEGATIVE); URINE PROTEIN 1+ (NEGATIVE); URINE RBC 43 /uL (0-23.9); URINE WBC 2888 /uL (0-25.8)
--- NOTE | 2020-05-12 18:41 | PDOC ---
Documentation entered by Ochoa Salas SCRIBE, acting as scribe for Marco Antonio Leonardo MD. Marco Antonio Leonardo MD: This documentation has been prepared by the Josue roblero Xhesika, SCRIBE, under my direction and personally reviewed by me in its entirety. I confirm that the documentation accurately reflects all work, treatment, procedures, and medical decision making performed by me. Attending Attestation - Resident Resident Name: Miguelangel Kan - ED Attending Attestation I have performed the following: I have examined & evaluated the patient, The case was reviewed & discussed with the resident, I agree w/resident's findings & plan, Exceptions are as noted - HPI HPI: 05/12/20 17:20 The patient is a 59y/o M with a PMH of metastatic Prostate CA, HIV (last CD4 272, non-compliant with HIV medications), anemia who presents to the ED BIBA for infected wound. Pt is a poor historian and is frustrated that he is here in the ED. He denies chest pain, fever, N/V/D, abdominal pain, dysuria, discharge, headaches. Per pt's home nurse, she was concerned for infected L hip wound, ongoing diarrhea, cloudy urine and failure to thrive. Of note, pt stated he "wanted to " to resident physician Dr. Kan, however on further clarification states that he wants to leave the ED and has no suicidal ideation, thoughts of hurting self of others. Denies AH/VH. Allergy: ciprofloxacin. - Physicial Exam PE: 05/12/20 18:25 Agree with resident exam - Medical Decision Making 05/12/20 18:25 59yo M hx HIV, non compliant with meds, very cachetic appearing presents to the ED 2/2 home nurse concern for FTT, infected L hip wound, poor appetite, and cloudy urine. Pt is hypotensive on arrival concerning for sepsis, however he is fluid responsive with BP 100/78 currently Possible report of abd pain, but patient denies and abdominal exam is benign by myself and Dr. Kan. Thus far, hip wound appears granulated with mild surrounding erythema and warmth and UA+ for UTI FS 43, on recheck by nurse is 123 after getting abx suspended in D5 Pt has been covered empirically with Vanc/Zosyn, anticipate admission Discharge - Discharge Information Clinical Impression/Diagnosis: Anemia, Sepsis, UTI (urinary tract infection), HIV (human immunodeficiency virus infection) - Follow up/Referral - Patient Discharge Instructions - Post Discharge Activity
[2020-05-12] MEDS ORDERED: DEXTROSE 5%-NORMAL SALINE 1,000 ML IV SCH (21:30)
--- NOTE | 2020-05-12 21:36 | PN ---
Teaching Attending Note Name of Resident: Randell Melendez ATTENDING PHYSICIAN STATEMENT I saw and evaluated the patient. I reviewed the resident's note and discussed the case with the resident. I agree with the resident's findings and plan as documented. SUBJECTIVE: 59 years old M with PMH of Prostate CA, HIV, non compliant with medications presented to ED with diarrhea, lower abd pain cloudy urine and evaluation for L infected hip wound. patient is very poor historian and states that he wants to go home. He denies chest pain ,SOB,nausea, vomiting, fever. After coming to ED he was found to have hypotensive, tachycardic. FS was 43 OBJECTIVE: Last Vital Signs Temp Pulse Resp BP Pulse Ox 97 F L 104 H 18 79/56 L 99 05/12/20 20:15 05/12/20 20:15 05/12/20 20:15 05/12/20 20:15 05/12/20 20:15 GENERAL:Very Cachectic, severe malnourished Awake, alert, and fully oriented,fatigued HEAD: Normal with no signs of trauma. EYES: Pupils equal, round and reactive to light, conjuctival pallor EARS, NOSE, THROAT: Oropharynx clear without exudates. Moist mucous membranes. NECK: No JVD, or masses. LUNGS: CTAB. HEART: RRR normal S1 and S2 ABDOMEN: Soft, not distended, NT UPPER EXTREMITIES: 2+ pulses No peripheral edema. LOWER EXTREMITIES: 2+ pulses, warm, well-perfused. No calf tenderness. No peripheral edema. NEUROLOGICAL: Cranial nerves II-XII intact. Normal speech, no focal neurologic deficit PSYCHIATRIC: depressed mood, not cooperative SKIN: wound on the hip and coccyx- stage [address] - cloudy urine ASSESSMENT AND PLAN: Severe sepsis likely due to complicated UTI vs infected hip wound failure to thrive Severe protein caloric malnutrition metastatic Prostate CA, HIV (last CD4 272, non-compliant with HIV medications), anemia Hypoglycemia likely from poor intake Dehydration Indwelling aggarwal Medication non compliance Admit to telemetry s/p 2 bolus fluid patient is hypotensive can give 1 more bolus NS after that D5NS 150 ml/hour Activate sepsis protocol Ct abd with contrast IV antibiotics Vanco, Zosyn blood culture, urine culture, pro jaimie, LA trend, mg, phos CPK COVID test Stool studies pus, ova, parasites, C diff IF hypotensive after fluid challenge place central line and start Levophed - Will cosnult ICU if remains hypotensive PRo stat nutrition consult Wound care repeat UA in AM after changing aggarwal if not changed in ED DVT ppx ID eval iN AM Discussed with resident in details
--- NOTE | 2020-05-12 21:36 | HP ---
CHIEF COMPLAINT: Cloudy urine, LEFT hip lesion PCP: Dr. Tsai HISTORY OF PRESENT ILLNESS: 59 y/o male PMH of metastatic Prostate CA, HIV (last CD4 272, non-adherent with HIV medications), anemia BIBEMS for cloudy urine, LEFT hip lesion, diarrhea, and report from home nurse that he has become increasingly combative. The patient did not participate in medical interview, stating that he wants to go home. Agency contacts listed in chart for further information were unavailable. ER course was notable for: (1) vanc/zosyn x1 (2) UA positive for LE (3) Asymptomatic episode of hypoglycemia (46 on chem) that resolved with d50 Family history: DM in relatives but no known medical illness in parents or siblings Surgical history: denies Social history: Smoked 1 ppd for 10 years, thirty years ago. Social etoh. Daily marijuana use. On SSI. Lives alone in [place] with no pets at home. Allergies ciprofloxacin [From Cipro] Allergy (Verified 01/09/20 13:32) HOME MEDICATIONS: Medication Instructions Recorded Doxepin HCl 200 mg PO DAILY 01/10/20 Emtricitab/Rilpiviri/Tenof Ala 1 each PO DAILY 01/10/20 [Odefsey Tablet] Amox-Tr/K Cl [Augmentin - 500Mg 1 tab PO BID #14 tab 01/14/20 Tablet] Ferrous Sulfate [Feosol] 325 mg PO BIDWM ud 01/14/20 Magnesium Hydrox 2400MG/30Ml [Milk 30 ml PO DAILY PRN cup 01/14/20 of Magnesia -] REVIEW OF SYSTEMS CONSTITUTIONAL: Absent: fever, chills, diaphoresis, generalized weakness, malaise, loss of appetite, weight change HEENT: Absent: rhinorrhea, nasal congestion, throat pain, throat swelling, difficulty swallowing, mouth swelling, ear pain, eye pain, visual changes CARDIOVASCULAR: Absent: chest pain, syncope, palpitations, irregular heart rate, lightheadedness, peripheral edema RESPIRATORY: Absent: cough, shortness of breath, dyspnea with exertion, orthopnea, wheezing, stridor, hemoptysis GASTROINTESTINAL: Absent: abdominal pain, abdominal distension, nausea, vomiting, diarrhea, constipation, melena, hematochezia GENITOURINARY: Absent: dysuria, frequency, urgency, hesitancy, hematuria, flank pain, genital pain MUSCULOSKELETAL: Absent: myalgia, arthralgia, joint swelling, back pain, neck pain SKIN: Absent: rash, itching, pallor HEMATOLOGIC/IMMUNOLOGIC: Absent: easy bleeding, easy bruising, lymphadenopathy, frequent infections ENDOCRINE: Absent: unexplained weight gain, unexplained weight loss, heat intolerance, cold intolerance NEUROLOGIC: Absent: headache, focal weakness or paresthesias, dizziness, unsteady gait, seizure, mental status changes, bladder or bowel incontinence PSYCHIATRIC: Absent: anxiety, depression, suicidal or homicidal ideation, hallucinations. PHYSICAL EXAMINATION 05/12/20 05/12/20 05/13/20 14:50 14:57 00:12 Temperature 97.1 F L 97.1 F L Pulse Rate 105 H 95 H Pulse Rate [ Apical] Respiratory 20 Rate Blood Pressure 80/50 L 84/62 MAP 68 Blood Pressure [Left Arm] O2 Sat by Pulse 95 Oximetry (%) 05/12/20 05/12/20 05/12/20 16:38 17:57 20:15 Temperature 97 F L Pulse Rate Pulse Rate [ 95 H 104 H Apical] Respiratory 16 18 Rate Blood Pressure Blood Pressure 93/73 79/56 L [Left Arm] O2 Sat by Pulse 98 95 99 Oximetry (%) GENERAL: Frail, cachectic, a&o x3 awake, alert, and fully oriented, in no acute distress. HEAD: Normal with no signs of trauma. EYES: Pupils equal, round and reactive to light, extraocular movements intact, sclera anicteric, conjunctiva clear EARS, NOSE, THROAT: Ears normal, nares patent, oropharynx clear without exudates or thrush, though exam limited. Dry mucous membranes. LUNGS: Breath sounds equal, clear to auscultation bilaterally. No wheezes, and no crackles. No accessory muscle use. HEART: Regular rate and rhythm, normal S1 and S2 without murmur, rub or gallop. ABDOMEN: Scaphoid, soft, nontender, not distended, normoactive bowel sounds, no guarding, no rebound, no masses. No hepatomegaly or splenomegaly. MUSCULOSKELETAL: Contracted LE BL. UPPER EXTREMITIES: 2+ pulses, warm, well-perfused. No cyanosis. LOWER EXTREMITIES: 2+ pulses, warm, well-perfused. No calf tenderness. No peripheral edema. NEUROLOGICAL: Cranial nerves II-XII intact. Normal speech. PSYCHIATRIC: Upset SKIN: 8 cm circular stage 2 ulceration over LEFT hip with no discharge, mild redness, equal warmth. Sacral decubitus ulcer. Laboratory Results - last 24 hr 05/12/20 05/12/20 05/12/20 16:34 16:34 16:34 WBC 7.2 RBC 3.03 L Hgb 8.3 L Hct 24.9 L MCV 82.2 MCH 27.3 D MCHC 33.2 RDW 13.7 D Plt Count 323 D MPV 9.1 Absolute Neuts (auto) 5.7 Neutrophils % 79.4 D Lymphocytes % 12.3 D Monocytes % 7.9 Eosinophils % 0.3 Basophils % 0.1 Nucleated RBC % 0 PT with INR 14.60 H INR 1.23 H PTT (Actin FS) 33.9 VBG pH POC VBG pCO2 POC VBG pO2 VBG HCO3 VBG O2 Sat (Franca) VBG Base Excess Sodium Potassium Chloride Carbon Dioxide Anion Gap BUN Creatinine Est GFR (CKD-EPI)AfAm Est GFR (CKD-EPI)NonAf POC Glucometer Random Glucose Lactic Acid Calcium Total Bilirubin AST ALT Alkaline Phosphatase Troponin I < 0.02 Total Protein Albumin Urine Color Urine Appearance Urine pH Ur Specific [place] Urine Protein Urine Glucose (UA) Urine Ketones Urine Blood Urine Nitrite Urine Bilirubin Urine Urobilinogen Ur Leukocyte Esterase Urine WBC (Auto) Urine RBC (Auto) Urine Casts (Auto) U Pathogenic Cast Auto U Epithel Cells (Auto) Urine Bacteria (Auto) 05/12/20 05/12/20 05/12/20 16:34 16:34 16:34 WBC RBC Hgb Hct MCV MCH MCHC RDW Plt Count MPV Absolute Neuts (auto) Neutrophils % Lymphocytes % Monocytes % Eosinophils % Basophils % Nucleated RBC % PT with INR INR PTT (Actin FS) VBG pH 7.336 POC VBG pCO2 45.3 POC VBG pO2 24.8 L VBG HCO3 23.7 VBG O2 Sat (Franca) 40.8 L VBG Base Excess -2.1 L Sodium 137 Potassium 4.0 Chloride 105 Carbon Dioxide 24 Anion Gap 8 BUN 19.4 H Creatinine 0.5 L Est GFR (CKD-EPI)AfAm 138.44 Est GFR (CKD-EPI)NonAf 119.45 POC Glucometer Random Glucose 46 L* Lactic Acid 0.9 Calcium 7.6 L Total Bilirubin 0.6 AST 26 ALT 16 Alkaline Phosphatase 160 H Troponin I Total Protein 5.6 L Albumin 1.6 L Urine Color Urine Appearance Urine pH Ur Specific [place] Urine Protein Urine Glucose (UA) Urine Ketones Urine Blood Urine Nitrite Urine Bilirubin Urine Urobilinogen Ur Leukocyte Esterase Urine WBC (Auto) Urine RBC (Auto) Urine Casts (Auto) U Pathogenic Cast Auto U Epithel Cells (Auto) Urine Bacteria (Auto) 05/12/20 05/12/20 17:20 17:35 WBC RBC Hgb Hct MCV MCH MCHC RDW Plt Count MPV Absolute Neuts (auto) Neutrophils % Lymphocytes % Monocytes % Eosinophils % Basophils % Nucleated RBC % PT with INR INR PTT (Actin FS) VBG pH POC VBG pCO2 POC VBG pO2 VBG HCO3 VBG O2 Sat (Franca) VBG Base Excess Sodium Potassium Chloride Carbon Dioxide Anion Gap BUN Creatinine Est GFR (CKD-EPI)AfAm Est GFR (CKD-EPI)NonAf POC Glucometer 113 Random Glucose Lactic Acid Calcium Total Bilirubin AST ALT Alkaline Phosphatase Troponin I Total Protein Albumin Urine Color Dk yellow Urine Appearance Turbid Urine pH 6.5 D Ur Specific [place] 1.021 Urine Protein 1+ H Urine Glucose (UA) Negative Urine Ketones Trace H Urine Blood Trace Urine Nitrite Negative Urine Bilirubin Negative Urine Urobilinogen 1.0 Ur Leukocyte Esterase 3+ H Urine WBC (Auto) 2888 Urine RBC (Auto) 43 Urine Casts (Auto) 13 U Pathogenic Cast Auto None seen U Epithel Cells (Auto) 24 Urine Bacteria (Auto) >10,000 ASSESSMENT/PLAN: 59 y/o male PMH of metastatic Prostate CA, HIV (last CD4 272, non-adherent with HIV medications), anemia BIBEMS for cloudy urine, LEFT hip lesion, diarrhea, and recent reported combativeness. # UTI/urosepsis - Prev. treated with Ceftriaxone but cannot r/o other source of hypotension (see below) so maintain broad spectrum abx coverage - F/u cultures - d5NS at 125 - Change Syed in AM and before replacing, get new UA # Diarrhea - CT a/p ordered but pt unable to participate given leg contracture - Stool cx, test of ova/parasites, c diff # LEFT hip wound/sacral decub - Broad spectrum abx coverage; cont. vanc/zosyn - Wound Care consults # FTT/Severe protein calorie malnutrition - d5NS - Liquid diet with protein source - Consult RD - Cont. to monitor chem # HIV - Cont. home med, once confirmed with [facility] when open # DVT ppx - Lovenox # FEN - d5 NS at 125 - Monitor and replete - F/u rd consult # Disposition - Admit to med/surg Randell Melendez MD Visit type - Emergency Visit Emergency Visit: Yes ED Registration Date: 05/12/20 Care time: The patient presented to the Emergency Department on the above date and was hospitalized for further evaluation of their emergent condition. - New Patient This patient is new to me today: Yes Date on this admission: 05/13/20 - Critical Care Critical Care patient: No ATTENDING PHYSICIAN STATEMENT I saw and evaluated the patient. I reviewed the resident's note and discussed the case with the resident. I agree with the resident's findings and plan as documented. SUBJECTIVE: OBJECTIVE: ASSESSMENT AND PLAN:
[2020-05-13] MEDS ORDERED: DEXTROSE 5%-WATER - 50 ML IVPB ONE ×4 (02:35→20:51)
[2020-05-13] MEDS ORDERED: PIPERACILLIN/TAZOBACTAM 3.375 GM VIAL IVPB ONE ×4 (02:35→20:51)
[2020-05-13] MEDS: PIPERACILLIN/TAZOB 3.375 GM 3.375 GM in DEXTROSE 5%-WATER - 50 ML IVPB SCH ×4 (02:48→20:59)
[2020-05-13] MEDS ORDERED: diphenhydrAMINE HCL 25 MG CAPSULE (FP) PO ONE (06:05)
[2020-05-13] MEDS: AMINO ACIDS/PROTEIN HYDROLYS 30 ML LIQUID.PKT PO SCH ×2 (08:45→16:53)
[2020-05-13] MEDS ORDERED: SODIUM CHLORIDE 1,000 ML IV STA (08:59)
--- NOTE | 2020-05-13 09:16 | EKG ---
Test Reason : Blood Pressure : / mmHG Vent. Rate : 109 BPM Atrial Rate : 109 BPM P-R Int : 136 ms QRS Dur : 086 ms QT Int : 306 ms P-R-T Axes : 076 065 089 degrees QTc Int : 412 ms SINUS TACHYCARDIA NONSPECIFIC T WAVE ABNORMALITY ABNORMAL ECG WHEN COMPARED WITH ECG OF 09-JAN-2020 15:45, CRITERIA FOR SEPTAL INFARCT ARE NO LONGER PRESENT NONSPECIFIC T WAVE ABNORMALITY, WORSE IN LATERAL LEADS QT HAS SHORTENED Confirmed by MD MICHAEL, LONA ([id number]) on 05/13/2020 9:16:25 AM Referred By: Confirmed By:LONA RODRIGUEZ MD
[2020-05-13] MEDS: ENOXAPARIN NA (PORCINE) 40 MG/0.4 ML DISP.SYRIN SQ SCH (10:39)
--- NOTE | 2020-05-13 11:37 | CONSULT ---
- Consultation REQUESTING PROVIDER: CONSULT REQUEST: We have been asked to surgically evaluate this patient for left chronic hip wound. PCP:Ricky Sharp MD HISTORY OF PRESENT ILLNESS: 59 yo male pmh metastatic Prostate CA, HIV (last CD4 272?, non-compliant with HIV medications), anemia BIBA by nurse aid for persistent diarrhea, and pain in the lower abdomen. Last week, He has diarrhea, abdominal pain, cloudy urine, and his wound has got worse. Today, they wanted to send him over here because he is getting more combative , and has persistent diarrhea, and pain in the abdomen. Patient states it hurts everywhere and won't give extra information and kept saying he doesn't want to be here. He denies chest pain, fever, N/V/D, abdominal pain, discharge, headaches. He is asking to have his aggarwal changed today as it is normally done by his VNS service and is now overdue- the medicine note states plan to chane aggarwal this morning. Anemia: Yes Cancer: (Yes; Prostate CA) Cardiac Disorders: No CVA: No COPD: No CHF: No Dementia: No Diabetes: No GI Disorders: No Disorders: Yes (retension - Aggarwal cath) HTN: No Hypercholesterolemia: No Liver Disease: No Seizures: No - Surgical History Abdominal Surgery: No Appendectomy: No Cardiac Surgery: No Cholecystectomy: No Lung Surgery: No Neurologic Surgery: No Orthopedic Surgery: No - Immunization History Immunization Up to Date: No - Psycho-Social/Smoking History Smoking History: Unknown if ever smoked Have you smoked in the past 12 months: No If you are a former smoker, when did you quit?: 1989 'Breaking Loose' booklet given: 10/29/19 Home Medications Medication Instructions Recorded Doxepin HCl 200 mg PO DAILY 01/10/20 Emtricitab/Rilpiviri/Tenof Ala 1 each PO DAILY 01/10/20 [Odefsey Tablet] Amox-Tr/K Cl [Augmentin - 500Mg 1 tab PO BID #14 tab 01/14/20 Tablet] Ferrous Sulfate [Feosol] 325 mg PO BIDWM ud 01/14/20 Magnesium Hydrox 2400MG/30Ml [Milk 30 ml PO DAILY PRN cup 01/14/20 of Magnesia -] Allergies Allergy/AdvReac Type Severity Reaction Status Date / Time ciprofloxacin [From Cipro] Allergy Verified 01/09/20 13:32 GENERAL/CONSTITUTIONAL: No fever or chills. No weakness. HEAD, EYES, EARS, NOSE AND THROAT: No change in vision. No ear pain or discharge. No sore throat. CARDIOVASCULAR: No chest pain or shortness of breath RESPIRATORY: No cough, wheezing, or hemoptysis. GASTROINTESTINAL: No nausea, vomiting,or constipation. +diarrhea GENITOURINARY: No dysuria, frequency, or change in urination. +cloudy urine MUSCULOSKELETAL: No joint or muscle swelling or pain. No neck or back pain. SKIN: wound on the hip and coccyx NEUROLOGIC: No headache, vertigo, loss of consciousness, or change in strength/sensation. ENDOCRINE: No increased thirst. HEMATOLOGIC/LYMPHATIC: No anemia, easy bleeding, or history of blood clots. ALLERGIC/IMMUNOLOGIC: No hives or skin allergy. PE General Appearance: extremely emaciated with diffuse wasting throughout, in a diapaer, No Apparent Distress-lethargic but cooperative HEENT: sclera clear, with no d/c Neck: positive: Supple. negative: Carotid bruit Respiratory/Chest: Unlabored resp on RA, no accessory muscle use Gastrointestinal/Abdominal: ND, NT : aggarwal in place, urine is cloudy, no sign of blood. Musculoskeletal: moving all extremities with limitation 2/2 pain Extremity: chronic stage 2 pressure ulcer over left hip greater trochanter @ 4x3cm -no exposed bone but very little tissue left over bone, with some desq umation circumferentially, no sinus tract, d/c or foul odor. Sacrum with stage 1 pressure ulcer @ 5x6cm- stable with no fluctuance, smaller .5x.5cm stage 2 ulcer noted at the posterior iliac crest with surrounding tissue intact and no tracking erythema or edema, no foul odor Integumentary: positive: Normal Color, Dry, Warm Neurologic: positive: Fully Oriented, Alert, flat affect with depressed mood. Problem List - Problems (1) Pressure ulcer Assessment/Plan: Left acute on chronic hip pressure ulcer with smaller stage 2 and larger stage 1 pressure ulcers over sacrum and iliac crest. -Clean left hip wound with NS and apply santyl daily-apply clean dry dressing -Reposition every two hours while in bed -Air mattress -Use drawsheets and Trendelenburg when repositioning to reduce friction and shear -Manage incontinence via timely cleansing, use of appropriate incontinence disposables and use of barrier ointment to intact skin -Ensure adequate hydration/nutrition, supplementation per primary team -Ensure off-loading to all bony areas (heels, ankles, hips and tailbone) with Allevyn/Optifoam -Re-consult vascular surgery as noted Code(s): L89.90 - PRESSURE ULCER OF UNSPECIFIED SITE, UNSPECIFIED STAGE
[2020-05-13 11:41] LABS: BASO % 0.3 % (0-2.0); EOS % 2.1 % (0-4.5); HEMATOCRIT 21.8 % (35.4-49); LYMPH % 6.5 % (8-40); MCH 26.4 pg (25.7-33.7); MCHC 32.1 g/dl (32.0-35.9); MEAN CELL VOLUME 82.2 fl (80-96); MONO % 3.8 % (3.8-10.2); NEUT % 87.3 % (42.8-82.8); PLATELET COUNT 263 K/MM3 (134-434); RBC 2.65 M/mm3 (4.00-5.60); RDW 13.6 % (11.9-15.9); WHITE BLOOD COUNT 5.5 K/mm3 (4.0-10.0)
--- NOTE | 2020-05-13 11:45 | CONSULT ---
Consult - text type - Consultation Consultation Note: 59 yo male w met CAP s/p XRTw recent diffuse mets psa lfts Bone scan Replace 18 fr aggarwal Pt previously seen by Dr Slaughter Will follow
[2020-05-13 12:12] LABS: ALBUMIN 1.3 g/dl (3.4-5.0); BILIRUBIN,TOTAL 0.6 mg/dL (0.2-1); BLOOD UREA NITROGEN 15.4 mg/dL (7-18); CREATININE 0.4 mg/dL (0.55-1.3); MAGNESIUM 1.8 mg/dL (1.8-2.4); PHOSPHOROUS 2.6 mg/dL (2.5-4.9); POTASSIUM 3.5 mmol/L (3.5-5.1); TOT PROT 4.6 g/dl (6.4-8.2)
[2020-05-13] MEDS ORDERED: LIDOCAINE HCL 2% JELLY (30 ML/TUBE) TP ONE (13:40)
--- NOTE | 2020-05-13 13:54 | CONSULT ---
Consultation: REQUESTING PROVIDER: Dr. Sharp CONSULT REQUEST: We have been asked to medically evaluate this patient for Metastatic Prostate CA. HISTORY OF PRESENT ILLNESS: Pt. is a 59 y.o. M w/ PMHx. of Prostate CA(s/p RT?), HIV(last CD4 Mystic cells 246 in December,), and anemia presents to the ED with cloudy urine, dehydration, left lateral hip lesion and increased combativeness?. We are called to assess for metastatic Prostate CA. Pt. was seen by Dr. Miller in Februrary to initate Pt. on Lupron and Casodex but at that time refused interview and refused continuing workup. Pt. referred to Palliative. Pt. on this admission refused my interview. Pt. states that he is only here to change his Syed which he had changed 2 weeks ago(usually has it changed once a month) and to get some hydration before going back home. Pt. did not tough his breakfast and had only opened juice cartons. Pt. did endorse di arrhea once prompted. Discussed with RN that Pt. has a sacral and Left-sided Stage III? decubitus ulcer. REVIEW OF SYSTEMS: As above PHYSICAL EXAMINATION Vital Signs - 24 hr 05/12/20 05/12/20 05/12/20 14:50 14:57 15:56 Temperature 97.1 F L 97.1 F L Pulse Rate 105 H 95 H Pulse Rate [ 110 H Apical] Respiratory 20 Rate Blood Pressure 80/50 L Blood Pressure [Left Arm] O2 Sat by Pulse 95 Oximetry (%) 05/12/20 05/12/20 05/12/20 16:38 17:57 20:15 Temperature 97 F L Pulse Rate Pulse Rate [ 95 H 104 H Apical] Respiratory 16 18 Rate Blood Pressure Blood Pressure 93/73 79/56 L [Left Arm] O2 Sat by Pulse 98 95 99 Oximetry (%) 05/12/20 05/13/20 05/13/20 23:45 02:24 05:54 Temperature 97.1 F L 98.4 F Pulse Rate 103 H 100 H Pulse Rate [ Apical] Respiratory 18 18 18 Rate Blood Pressure 84/62 L 84/54 L Blood Pressure [Left Arm] O2 Sat by Pulse 95 95 100 Oximetry (%) 05/13/20 05/13/20 09:00 09:42 Temperature Pulse Rate 88 Pulse Rate [ Apical] Respiratory 18 Rate Blood Pressure 95/66 Blood Pressure [Left Arm] O2 Sat by Pulse 97 98 Oximetry (%) Pt. permitted me to listen to the heart and anterior lungs as well as listen to the abdomen but not press. CAchetic, Emaciated S1,S2 present with systolic murmur? Lungs CTAB anteriorly Abdomen had positive bowel sounds and was not tender to my pressing of the steth oscope Upper Extremity extremely frail Laboratory Results - last 24 hr 05/12/20 05/12/20 05/12/20 16:34 16:34 16:34 WBC 7.2 RBC 3.03 L Hgb 8.3 L Hct 24.9 L MCV 82.2 MCH 27.3 D MCHC 33.2 RDW 13.7 D Plt Count 323 D MPV 9.1 Absolute Neuts (auto) 5.7 Neutrophils % 79.4 D Lymphocytes % 12.3 D Monocytes % 7.9 Eosinophils % 0.3 Basophils % 0.1 Nucleated RBC % 0 PT with INR 14.60 H INR 1.23 H PTT (Actin FS) 33.9 VBG pH POC VBG pCO2 POC VBG pO2 VBG HCO3 VBG O2 Sat (Franca) VBG Base Excess Sodium Potassium Chloride Carbon Dioxide Anion Gap BUN Creatinine Est GFR (CKD-EPI)AfAm Est GFR (CKD-EPI)NonAf POC Glucometer Random Glucose Lactic Acid Calcium Phosphorus Magnesium Total Bilirubin AST ALT Alkaline Phosphatase Troponin I < 0.02 Total Protein Albumin Urine Color Urine Appearance Urine pH Ur Specific [place] Urine Protein Urine Glucose (UA) Urine Ketones Urine Blood Urine Nitrite Urine Bilirubin Urine Urobilinogen Ur Leukocyte Esterase Urine WBC (Auto) Urine RBC (Auto) Urine Casts (Auto) U Pathogenic Cast Auto U Epithel Cells (Auto) Urine Bacteria (Auto) 05/12/20 05/12/20 05/12/20 16:34 16:34 16:34 WBC RBC Hgb Hct MCV MCH MCHC RDW Plt Count MPV Absolute Neuts (auto) Neutrophils % Lymphocytes % Monocytes % Eosinophils % Basophils % Nucleated RBC % PT with INR INR PTT (Actin FS) VBG pH 7.336 POC VBG pCO2 45.3 POC VBG pO2 24.8 L VBG HCO3 23.7 VBG O2 Sat (Franca) 40.8 L VBG Base Excess -2.1 L Sodium 137 Potassium 4.0 Chloride 105 Carbon Dioxide 24 Anion Gap 8 BUN 19.4 H Creatinine 0.5 L Est GFR (CKD-EPI)AfAm 138.44 Est GFR (CKD-EPI)NonAf 119.45 POC Glucometer Random Glucose 46 L* Lactic Acid 0.9 Calcium 7.6 L Phosphorus Magnesium Total Bilirubin 0.6 AST 26 ALT 16 Alkaline Phosphatase 160 H Troponin I Total Protein 5.6 L Albumin 1.6 L Urine Color Urine Appearance Urine pH Ur Specific [place] Urine Protein Urine Glucose (UA) Urine Ketones Urine Blood Urine Nitrite Urine Bilirubin Urine Urobilinogen Ur Leukocyte Esterase Urine WBC (Auto) Urine RBC (Auto) Urine Casts (Auto) U Pathogenic Cast Auto U Epithel Cells (Auto) Urine Bacteria (Auto) 05/12/20 05/12/20 05/12/20 17:20 17:35 20:35 WBC RBC Hgb Hct MCV MCH MCHC RDW Plt Count MPV Absolute Neuts (auto) Neutrophils % Lymphocytes % Monocytes % Eosinophils % Basophils % Nucleated RBC % PT with INR INR PTT (Actin FS) VBG pH POC VBG pCO2 POC VBG pO2 VBG HCO3 VBG O2 Sat (Franca) VBG Base Excess Sodium Potassium Chloride Carbon Dioxide Anion Gap BUN Creatinine Est GFR (CKD-EPI)AfAm Est GFR (CKD-EPI)NonAf POC Glucometer 113 Random Glucose Lactic Acid 1.0 Calcium Phosphorus Magnesium Total Bilirubin AST ALT Alkaline Phosphatase Troponin I Total Protein Albumin Urine Color Dk yellow Urine Appearance Turbid Urine pH 6.5 D Ur Specific [place] 1.021 Urine Protein 1+ H Urine Glucose (UA) Negative Urine Ketones Trace H Urine Blood Trace Urine Nitrite Negative Urine Bilirubin Negative Urine Urobilinogen 1.0 Ur Leukocyte Esterase 3+ H Urine WBC (Auto) 2888 Urine RBC (Auto) 43 Urine Casts (Auto) 13 U Pathogenic Cast Auto None seen U Epithel Cells (Auto) 24 Urine Bacteria (Auto) >10,000 05/13/20 05/13/20 10:00 10:00 WBC 5.5 RBC 2.65 L Hgb 7.0 L Hct 21.8 L MCV 82.2 MCH 26.4 MCHC 32.1 RDW 13.6 Plt Count 263 MPV 9.0 Absolute Neuts (auto) 4.8 Neutrophils % 87.3 H Lymphocytes % 6.5 L D Monocytes % 3.8 Eosinophils % 2.1 D Basophils % 0.3 Nucleated RBC % 0 PT with INR INR PTT (Actin FS) VBG pH POC VBG pCO2 POC VBG pO2 VBG HCO3 VBG O2 Sat (Franca) VBG Base Excess Sodium 140 Potassium 3.5 Chloride 110 H Carbon Dioxide 23 Anion Gap 6 L BUN 15.4 Creatinine 0.4 L Est GFR (CKD-EPI)AfAm 151.74 Est GFR (CKD-EPI)NonAf 130.93 POC Glucometer Random Glucose 112 H Lactic Acid Calcium 7.0 L Phosphorus 2.6 Magnesium 1.8 Total Bilirubin 0.6 AST 19 ALT 12 L Alkaline Phosphatase 130 H Troponin I Total Protein 4.6 L Albumin 1.3 L Urine Color Urine Appearance Urine pH Ur Specific [place] Urine Protein Urine Glucose (UA) Urine Ketones Urine Blood Urine Nitrite Urine Bilirubin Urine Urobilinogen Ur Leukocyte Esterase Urine WBC (Auto) Urine RBC (Auto) Urine Casts (Auto) U Pathogenic Cast Auto U Epithel Cells (Auto) Urine Bacteria (Auto) Active Medications Generic Name Dose Route Start Last Admin Trade Name Freq PRN Reason Stop Dose Admin Amino Acids 30 ml 05/13/20 08:00 05/13/20 08:45 Prosource No Carb Liquid Pkt PO 30 ml BID@0800,1730 JESSICA Administration Collagenase 1 applic 05/13/20 11:45 Santyl - TP DAILY JESSICA Protocol Enoxaparin Sodium 40 mg 05/13/20 10:00 05/13/20 10:39 Lovenox - SQ 40 mg DAILY JESSICA Administration Dextrose/Sodium Chloride 1,000 mls @ 125 mls/hr 05/12/20 21:30 05/12/20 23:28 D5-Ns - IV 125 mls/hr ASDIR JESSICA Administration Piperacillin Sod/Tazobactam 50 mls @ 100 mls/hr 05/13/20 03:00 Sod 3.375 gm/ Dextrose IVPB Q6H-IV JESSICA Protocol Piperacillin Sod/Tazobactam 50 mls @ 100 mls/hr 05/13/20 03:00 05/13/20 08:45 Sod 3.375 gm/ Dextrose IVPB 05/13/20 21:29 100 mls/hr Q6H-IV JESSICA Administration Protocol Vancomycin HCl 1,000 mg 05/13/20 10:00 Vancomycin (Pre-Docked) IVPB DAILY JESSICA Protocol Vancomycin HCl 1,000 mg 05/13/20 17:00 Vancomycin (Pre-Docked) IVPB 05/13/20 17:01 DAILY JESSICA Protocol ASSESSMENT/PLAN: Pt. is a 59 y.o. M w/ PMHx. of Prostate CA(s/p RT?), HIV(last CD4 Mystic cells 246 in December,), and anemia presents to the ED with cloudy urine, dehydration, left lateral hip lesion and increased combativeness?. We are called to assess for metastatic Prostate CA. #Metastatic Prostate CA Pt. has refused Casodex and Lupron in the past [address] C/A/P (10/29/19)with IV contrast showed extensive diffuse blastic bone metastases, rectal thickening and bladder wall thickening suggestive of previous RT, RUL 9mm nodule f/u Rpt. if Pt. allows f/u Bone Scan if Pt. allows Urology consult appreciated Wound Care consult appreciated Pt. refusing workup and treatment, Palliateve consult appreciated. Treatment at this time would be aimed at ameliorating pain. Dispo: We will continue to follow the patient. Thank you for this consultative opportunity. Visit type - Emergency Visit Emergency Visit: Yes ED Registration Date: 05/12/20 Care time: The patient presented to the Emergency Department on the above date and was hospitalized for further evaluation of their emergent condition. - New Patient This patient is new to me today: Yes Date on this admission: 05/13/20 - Critical Care Critical Care patient: No ATTENDING PHYSICIAN STATEMENT I saw and evaluated the patient. I reviewed the resident's note and discussed the case with the resident. I agree with the resident's findings and plan as documented. SUBJECTIVE: OBJECTIVE: ASSESSMENT AND PLAN:
[2020-05-13] MEDS: COLLAGENASE CLOSTRIDIUM HIST. 30 GRAMS TUBE TP SCH (15:25)
--- NOTE | 2020-05-13 15:57 | PN ---
Physical Exam: SUBJECTIVE: Patient seen and examined at bedside. Patient is mildly agitated and appears extremely cachectic and endorses feeling very thirsty. Patient agrees to blood draws. No acute events overnight. OBJECTIVE: Vital Signs Period Temp Pulse Resp BP Sys/Reardon Pulse Ox Last 24 Hr 97 F-98.5 F 88-104 16-18 79-95/50-73 95-100 GENERAL: The patient is awake, alert, and fully oriented, in no acute distress. HEAD: Normal with no signs of trauma. LUNGS: Breath sounds equal, clear to auscultation bilaterally, no wheezes, no crackles, no accessory muscle use. HEART: Regular rate and rhythm, S1, S2 without murmur, rub or gallop. ABDOMEN: Soft, nontender, nondistended, normoactive bowel sounds, no guarding, no rebound, no hepatosplenomegaly, no masses. Musculoskeletal: GLOBAL cachexia, with L sided hip ulcer stage 2 Laboratory Results - last 24 hr 05/12/20 05/12/20 05/12/20 16:34 16:34 16:34 WBC 7.2 RBC 3.03 L Hgb 8.3 L Hct 24.9 L MCV 82.2 MCH 27.3 D MCHC 33.2 RDW 13.7 D Plt Count 323 D MPV 9.1 Absolute Neuts (auto) 5.7 Neutrophils % 79.4 D Lymphocytes % 12.3 D Monocytes % 7.9 Eosinophils % 0.3 Basophils % 0.1 Nucleated RBC % 0 PT with INR 14.60 H INR 1.23 H PTT (Actin FS) 33.9 VBG pH POC VBG pCO2 POC VBG pO2 VBG HCO3 VBG O2 Sat (Franca) VBG Base Excess Sodium Potassium Chloride Carbon Dioxide Anion Gap BUN Creatinine Est GFR (CKD-EPI)AfAm Est GFR (CKD-EPI)NonAf POC Glucometer Random Glucose Lactic Acid Calcium Phosphorus Magnesium Total Bilirubin AST ALT Alkaline Phosphatase Creatine Kinase Troponin I < 0.02 Total Protein Albumin Urine Color Urine Appearance Urine pH Ur Specific [place] Urine Protein Urine Glucose (UA) Urine Ketones Urine Blood Urine Nitrite Urine Bilirubin Urine Urobilinogen Ur Leukocyte Esterase Urine WBC (Auto) Urine RBC (Auto) Urine Casts (Auto) U Pathogenic Cast Auto U Epithel Cells (Auto) Urine Bacteria (Auto) 05/12/20 05/12/20 05/12/20 16:34 16:34 16:34 WBC RBC Hgb Hct MCV MCH MCHC RDW Plt Count MPV Absolute Neuts (auto) Neutrophils % Lymphocytes % Monocytes % Eosinophils % Basophils % Nucleated RBC % PT with INR INR PTT (Actin FS) VBG pH 7.336 POC VBG pCO2 45.3 POC VBG pO2 24.8 L VBG HCO3 23.7 VBG O2 Sat (Franca) 40.8 L VBG Base Excess -2.1 L Sodium 137 Potassium 4.0 Chloride 105 Carbon Dioxide 24 Anion Gap 8 BUN 19.4 H Creatinine 0.5 L Est GFR (CKD-EPI)AfAm 138.44 Est GFR (CKD-EPI)NonAf 119.45 POC Glucometer Random Glucose 46 L* Lactic Acid 0.9 Calcium 7.6 L Phosphorus Magnesium Total Bilirubin 0.6 AST 26 ALT 16 Alkaline Phosphatase 160 H Creatine Kinase Troponin I Total Protein 5.6 L Albumin 1.6 L Urine Color Urine Appearance Urine pH Ur Specific [place] Urine Protein Urine Glucose (UA) Urine Ketones Urine Blood Urine Nitrite Urine Bilirubin Urine Urobilinogen Ur Leukocyte Esterase Urine WBC (Auto) Urine RBC (Auto) Urine Casts (Auto) U Pathogenic Cast Auto U Epithel Cells (Auto) Urine Bacteria (Auto) 05/12/20 05/12/20 05/12/20 17:20 17:35 20:35 WBC RBC Hgb Hct MCV MCH MCHC RDW Plt Count MPV Absolute Neuts (auto) Neutrophils % Lymphocytes % Monocytes % Eosinophils % Basophils % Nucleated RBC % PT with INR INR PTT (Actin FS) VBG pH POC VBG pCO2 POC VBG pO2 VBG HCO3 VBG O2 Sat (Franca) VBG Base Excess Sodium Potassium Chloride Carbon Dioxide Anion Gap BUN Creatinine Est GFR (CKD-EPI)AfAm Est GFR (CKD-EPI)NonAf POC Glucometer 113 Random Glucose Lactic Acid 1.0 Calcium Phosphorus Magnesium Total Bilirubin AST ALT Alkaline Phosphatase Creatine Kinase Troponin I Total Protein Albumin Urine Color Dk yellow Urine Appearance Turbid Urine pH 6.5 D Ur Specific [place] 1.021 Urine Protein 1+ H Urine Glucose (UA) Negative Urine Ketones Trace H Urine Blood Trace Urine Nitrite Negative Urine Bilirubin Negative Urine Urobilinogen 1.0 Ur Leukocyte Esterase 3+ H Urine WBC (Auto) 2888 Urine RBC (Auto) 43 Urine Casts (Auto) 13 U Pathogenic Cast Auto None seen U Epithel Cells (Auto) 24 Urine Bacteria (Auto) >10,000 05/13/20 05/13/20 10:00 10:00 WBC 5.5 RBC 2.65 L Hgb 7.0 L Hct 21.8 L MCV 82.2 MCH 26.4 MCHC 32.1 RDW 13.6 Plt Count 263 MPV 9.0 Absolute Neuts (auto) 4.8 Neutrophils % 87.3 H Lymphocytes % 6.5 L D Monocytes % 3.8 Eosinophils % 2.1 D Basophils % 0.3 Nucleated RBC % 0 PT with INR INR PTT (Actin FS) VBG pH POC VBG pCO2 POC VBG pO2 VBG HCO3 VBG O2 Sat (Franca) VBG Base Excess Sodium 140 Potassium 3.5 Chloride 110 H Carbon Dioxide 23 Anion Gap 6 L BUN 15.4 Creatinine 0.4 L Est GFR (CKD-EPI)AfAm 151.74 Est GFR (CKD-EPI)NonAf 130.93 POC Glucometer Random Glucose 112 H Lactic Acid Calcium 7.0 L Phosphorus 2.6 Magnesium 1.8 Total Bilirubin 0.6 AST 19 ALT 12 L Alkaline Phosphatase 130 H Creatine Kinase 42 Troponin I Total Protein 4.6 L Albumin 1.3 L Urine Color Urine Appearance Urine pH Ur Specific [place] Urine Protein Urine Glucose (UA) Urine Ketones Urine Blood Urine Nitrite Urine Bilirubin Urine Urobilinogen Ur Leukocyte Esterase Urine WBC (Auto) Urine RBC (Auto) Urine Casts (Auto) U Pathogenic Cast Auto U Epithel Cells (Auto) Urine Bacteria (Auto) Active Medications Generic Name Dose Route Start Last Admin Trade Name Ramsesq PRN Reason Stop Dose Admin Amino Acids 30 ml 05/13/20 08:00 05/13/20 08:45 Prosource No Carb Liquid Pkt PO 30 ml BID@0800,1730 JESSICA Administration Collagenase 1 applic 05/13/20 11:45 05/13/20 15:25 Santyl - TP 1 applic DAILY JESSICA Administration Protocol Enoxaparin Sodium 40 mg 05/13/20 10:00 05/13/20 10:39 Lovenox - SQ 40 mg DAILY JESSICA Administration Dextrose/Sodium Chloride 1,000 mls @ 125 mls/hr 05/12/20 21:30 05/12/20 23:28 D5-Ns - IV 125 mls/hr ASDIR JESSICA Administration Piperacillin Sod/Tazobactam 50 mls @ 100 mls/hr 05/13/20 03:00 Sod 3.375 gm/ Dextrose IVPB Q6H-IV JESSICA Protocol Piperacillin Sod/Tazobactam 50 mls @ 100 mls/hr 05/13/20 03:00 05/13/20 15:26 Sod 3.375 gm/ Dextrose IVPB 05/13/20 21:29 100 mls/hr Q6H-IV JESSICA Administration Protocol Vancomycin HCl 1,000 mg 05/13/20 10:00 Vancomycin (Pre-Docked) IVPB DAILY JESSICA Protocol Vancomycin HCl 1,000 mg 05/13/20 17:00 Vancomycin (Pre-Docked) IVPB 05/13/20 17:01 DAILY JESSICA Protocol ASSESSMENT/PLAN: Mr. Hood is a 59M with H/O Prostate CA with mets to bone s/p XRT, Indwelling Aggarwal, HIV (last CD4 272, non-compliant with HAART), and anemia. The patient was admitted to the hospital for increased agitation, cachecia, L sided hip pain, diarrhea, and turbid urine. #UTI secondary to indwelling aggarwal - UA reveals 3+ protein, and 3+ LE - Secondary UA reveals >36 epithelial cells suggesting contaminated specimen - rpt UA ordered - Urine Cultures ordered - patient on empiric abx for UTI treatment - zosyn - IVF - D5 Ns 1000mls @100mls/hr # Diarrhea - patient denies further episodes of diarrhea - will monitor for bowel movements #L hip/Sacral Decubitus Ulcer stage 2 - will continue to monitor, visual observation does not raise suspicion for infection - Consult placed for wound care - appreciate further recommendations - repositioning to prevent worsening of ulcers, and frequent dressings per wound care #Cachexia secondary to malnutrition/HIV - poor nutritional intake - nutrition consulted - i/o ordered - albumin monitor - ID consulted for recs on HAART therapy #Metastatic prostate cancer - spoken to primary care - [facility] visit for PET scan february 2019 revealed diffuse metastasis to bone - patient non-compliant with physician follow up - Repeat bone scan outpatient - PSA ordered # DVT Px - Lovenox SQ Visit type - Emergency Visit Emergency Visit: Yes ED Registration Date: 05/12/20 Care time: The patient presented to the Emergency Department on the above date and was hospitalized for further evaluation of their emergent condition. - New Patient This patient is new to me today: Yes Date on this admission: 05/13/20 - Critical Care Critical Care patient: No - Discharge Referral Referred to [facility] No ATTENDING PHYSICIAN STATEMENT I saw and evaluated the patient. I reviewed the resident's note and discussed the case with the resident. I agree with the resident's findings and plan as documented. SUBJECTIVE: OBJECTIVE: ASSESSMENT AND PLAN:
[2020-05-13] MEDS ORDERED: VANCOMYCIN 1 GM in D5W (PRE-DOCKED) 1,000 MG/250 ML IVPB SCH (17:00)
--- NOTE | 2020-05-13 18:22 | PN ---
Teaching Attending Note Name of Resident: Juan Scanlon ATTENDING PHYSICIAN STATEMENT I saw and evaluated the patient. I reviewed the resident's note and discussed the case with the resident. I agree with the resident's findings and plan as documented. SUBJECTIVE: Complains of L Hip pain and poor appetite/nausea. No vomiting. No abdominal pain. No diarrhea. OBJECTIVE: Afebrile, hemodynamically stable. Cachexia, temporal wasting. Last Vital Signs Temp Pulse Resp BP Pulse Ox 98.5 F 107 H 18 95/62 97 05/13/20 14:40 05/13/20 17:11 05/13/20 17:11 05/13/20 17:11 05/13/20 17:11 HEENT - Atraumatic, Normocephalic. Heart - S1, S2, RRR Lungs -clear to auscultation Abdomen - soft, non-tender. Bowel Sounds normal. Extremities - no edema, no calf tenderness. Wasting ++ MS - Generlaized wasting, bony prominences, L hip ulcer - stage 2, sacral decubitus ulcer. Neuro - AAO x 3. Tone/Power normal. Laboratory Results - last 24 hr 05/12/20 05/12/20 05/13/20 17:20 20:35 10:00 WBC 5.5 RBC 2.65 L Hgb 7.0 L Hct 21.8 L MCV 82.2 MCH 26.4 MCHC 32.1 RDW 13.6 Plt Count 263 MPV 9.0 Absolute Neuts (auto) 4.8 Neutrophils % 87.3 H Lymphocytes % 6.5 L D Monocytes % 3.8 Eosinophils % 2.1 D Basophils % 0.3 Nucleated RBC % 0 Sodium Potassium Chloride Carbon Dioxide Anion Gap BUN Creatinine Est GFR (CKD-EPI)AfAm Est GFR (CKD-EPI)NonAf Random Glucose Lactic Acid 1.0 Calcium Phosphorus Magnesium Total Bilirubin AST ALT Alkaline Phosphatase Creatine Kinase Total Protein Albumin Urine Color Dk yellow Urine Appearance Turbid Urine pH 6.5 D Ur Specific [place] 1.021 Urine Protein 1+ H Urine Glucose (UA) Negative Urine Ketones Trace H Urine Blood Trace Urine Nitrite Negative Urine Bilirubin Negative Urine Urobilinogen 1.0 Ur Leukocyte Esterase 3+ H Urine WBC (Auto) 2888 Urine RBC (Auto) 43 Urine Casts (Auto) 13 U Pathogenic Cast Auto None seen U Epithel Cells (Auto) 24 Urine Bacteria (Auto) >10,000 07/28/20 10:00 WBC RBC Hgb Hct MCV MCH MCHC RDW Plt Count MPV Absolute Neuts (auto) Neutrophils % Lymphocytes % Monocytes % Eosinophils % Basophils % Nucleated RBC % Sodium 140 Potassium 3.5 Chloride 110 H Carbon Dioxide 23 Anion Gap 6 L BUN 15.4 Creatinine 0.4 L Est GFR (CKD-EPI)AfAm 151.74 Est GFR (CKD-EPI)NonAf 130.93 Random Glucose 112 H Lactic Acid Calcium 7.0 L Phosphorus 2.6 Magnesium 1.8 Total Bilirubin 0.6 AST 19 ALT 12 L Alkaline Phosphatase 130 H Creatine Kinase 42 Total Protein 4.6 L Albumin 1.3 L Urine Color Urine Appearance Urine pH Ur Specific [place] Urine Protein Urine Glucose (UA) Urine Ketones Urine Blood Urine Nitrite Urine Bilirubin Urine Urobilinogen Ur Leukocyte Esterase Urine WBC (Auto) Urine RBC (Auto) Urine Casts (Auto) U Pathogenic Cast Auto U Epithel Cells (Auto) Urine Bacteria (Auto) Current Medications Generic Name Dose Route Start Last Admin Trade Name Freq PRN Reason Stop Dose Admin Amino Acids 30 ml 05/13/20 08:00 05/13/20 16:53 Prosource No Carb Liquid Pkt PO Not Given BID@0800,1730 JESSICA Collagenase 1 applic 05/13/20 11:45 05/13/20 15:25 Santyl - TP 1 applic DAILY JESSICA Administration Protocol Enoxaparin Sodium 40 mg 05/13/20 10:00 05/13/20 10:39 Lovenox - SQ 40 mg DAILY JESSICA Administration Dextrose/Sodium Chloride 1,000 mls @ 125 mls/hr 05/12/20 21:30 05/12/20 23:28 D5-Ns - IV 125 mls/hr ASDIR JESSICA Administration Piperacillin Sod/Tazobactam 50 mls @ 100 mls/hr 05/13/20 03:00 Sod 3.375 gm/ Dextrose IVPB Q6H-IV JESSICA Protocol Piperacillin Sod/Tazobactam 50 mls @ 100 mls/hr 05/13/20 03:00 05/13/20 15:26 Sod 3.375 gm/ Dextrose IVPB 05/13/20 21:29 100 mls/hr Q6H-IV JESSICA Administration Protocol Vancomycin HCl 1,000 mg 05/13/20 10:00 Vancomycin (Pre-Docked) IVPB DAILY JESSICA Protocol Home Medications Medication Instructions Recorded Doxepin HCl 200 mg PO DAILY 01/10/20 Emtricitab/Rilpiviri/Tenof Ala 1 each PO DAILY 01/10/20 [Odefsey Tablet] Amox-Tr/K Cl [Augmentin - 500Mg 1 tab PO BID #14 tab 01/14/20 Tablet] Ferrous Sulfate [Feosol] 325 mg PO BIDWM ud 01/14/20 Magnesium Hydrox 2400MG/30Ml [Milk 30 ml PO DAILY PRN cup 01/14/20 of Magnesia -] ASSESSMENT AND PLAN: 59 yea rold male with history of Metastatic Prostate CA s/p XRT, Indwelling Aggarwal, HIV (last CD4 272, non-compliant with HAART), Chronic Anemia, brought in due to cloudy urine, L hip pain, diarrhea, and reported combativeness. No evidence of AMS or agitation on my interview. 1. UTI associated with Indwelling aggarwal catheter. Urine Cx pending Aggarwal changed BP borderline, will monitor. Empiric Zosyn pending Urine Cx result. IV hydration. 2. Diarrhea - resolved as per patient Cdiff and Stool Cx including Crypto/Isospora if any further diarrhea. 3. L hip/Sacral Decubitus Ulcers - present on admission, no evidence of superimposed infection. Wound Care to evaluate for further management Frequent repositioning, air mattress, dressing as per wound care. 4. Severe Protein Calorie Malnutrition/failure to thrive Poor oral intake Nutrition consult. Protein supplementation. Albumin 1.3 (corrected Calcium 9.2) 5. HIV - noncompliant with HAART ID to be consulted. 6. Metastatic Prostate CA s/p XRT Further work-up with Bone Scan etc as out-patient. PSA pending. DVT Px - Lovenox SQ
[2020-05-13 18:33] LABS: EPI CELLS >36 /uL (0-25.1); HYALINE CASTS 89 /uL (0-3.1); URINE APPEARANCE TURBID; URINE BACTERIA 3449 /uL (0-1359); URINE BILIRUBIN NEGATIVE (NEGATIVE); URINE COLOR YELLOW; URINE GLUCOSE (UA) NEGATIVE (NEGATIVE); URINE KETONE NEGATIVE (NEGATIVE); URINE LEUK ESTERASE 3+ (NEGATIVE); URINE NITRITE POSITIVE (NEGATIVE); URINE PROTEIN 3+ (NEGATIVE); URINE WBC 6895 /uL (0-25.8)
[2020-05-13 19:48] LABS: URINE RBC 451.2 /uL (0-23.9)
[2020-05-13 20:45] VITALS: BMI 12.1
[2020-05-14] MEDS ORDERED: DEXTROSE 5%-WATER - 50 ML IVPB ONE ×3 (01:56→17:07)
[2020-05-14] MEDS ORDERED: PIPERACILLIN/TAZOBACTAM 3.375 GM VIAL IVPB ONE ×3 (01:56→17:06)
[2020-05-14] MEDS: PIPERACILLIN/TAZOB 3.375 GM 3.375 GM in DEXTROSE 5%-WATER - 50 ML IVPB SCH ×5 (01:59→18:30)
[2020-05-14] MEDS: DEXTROSE 5%-NORMAL SALINE 1,000 ML IV SCH ×2 (02:09→12:01)
[2020-05-14] MEDS: AMINO ACIDS/PROTEIN HYDROLYS 30 ML LIQUID.PKT PO SCH ×2 (08:41→17:18)
[2020-05-14] MEDS: COLLAGENASE CLOSTRIDIUM HIST. 30 GRAMS TUBE TP SCH (10:31)
[2020-05-14] MEDS: ENOXAPARIN NA (PORCINE) 40 MG/0.4 ML DISP.SYRIN SQ SCH (10:41)
[2020-05-14 11:37] LABS: HEMATOCRIT 21.7 % (35.4-49); MCH 27.4 pg (25.7-33.7); MCHC 32.2 g/dl (32.0-35.9); MEAN CELL VOLUME 85.3 fl (80-96); MEAN PLT VOLUME 8.5 fl (7.5-11.1); PLATELET COUNT 217 K/MM3 (134-434); RBC 2.54 M/mm3 (4.00-5.60); RDW 13.8 % (11.9-15.9); WHITE BLOOD COUNT 5.1 K/mm3 (4.0-10.0)
[2020-05-14] MEDS ORDERED: traMADol HCL 50 MG TABLET PO ONE (11:43)
[2020-05-14 12:20] LABS: ALBUMIN 1.2 g/dl (3.4-5.0); BILIRUBIN,TOTAL 0.4 mg/dL (0.2-1); BLOOD UREA NITROGEN 11.8 mg/dL (7-18); CREATININE 0.4 mg/dL (0.55-1.3); MAGNESIUM 1.8 mg/dL (1.8-2.4); PHOSPHOROUS 2.3 mg/dL (2.5-4.9); POTASSIUM 3.8 mmol/L (3.5-5.1); TOT PROT 4.4 g/dl (6.4-8.2)
--- NOTE | 2020-05-14 12:43 | CON.ID ---
Consult Consult Specialty:: infectious disease Referred by:: hospitalist Reason for Consultation:: hiv, possible uti, diarrhea - History of Present Illness Chief Complaint: diarrhea History of Present Illness: 59 yo man lives at home sent to ED by aide for peristent diarrhea and weakness he has history of prostate cancer and chronic aggarwal he reports he came for aggarwal change denies fevers, chills quite alert now doesnot take hsi odefsey regularly- followed by dr sanchez at [facility]-cd4 01/09 246 aggarwal catheter changed yesterday he is cachectic denies abdominal pain - History Source History Provided By: Patient, Medical Record Limitations to Obtaining History: Poor Historian - Past Medical History Renal/: Yes: Cancer (Metastatic prostate ca) Infectious Disease: Yes: HIV - Alcohol/Substance Use Hx Alcohol Use: No History of Substance Use: reports: Marijuana - Smoking History Smoking history: Never smoked Have you smoked in the past 12 months: No If you are a former smoker, when did you quit?: 1989 - Social History Usual Living Arrangement: Alone ADL: Support Services Occupation: Unemployed History of Recent Travel: No Home Medications - Allergies Allergies/Adverse Reactions: Allergies Allergy/AdvReac Type Severity Reaction Status Date / Time ciprofloxacin [From Cipro] Allergy Verified 01/09/20 13:32 - Home Medications Home Medications: Ambulatory Orders Doxepin HCl 200 mg PO DAILY 01/10/20 Emtricitab/Rilpiviri/Tenof Ala [Odefsey Tablet] 1 each PO DAILY 01/10/20 Amox-Tr/K Cl [Augmentin - 500Mg Tablet] 1 tab PO BID #14 tab 01/14/20 Ferrous Sulfate [Feosol] 325 mg PO BIDWM ud 01/14/20 Magnesium Hydrox 2400MG/30Ml [Milk of Magnesia -] 30 ml PO DAILY PRN cup 01/14/20 Family Medical History Family History: Unable to Obtain Review of Systems - Review of Systems Constitutional: reports: No Symptoms. denies: Chills, Fever, Night Sweats Eyes: reports: No Symptoms HENT: reports: No Symptoms Neck: reports: No Symptoms Cardiovascular: reports: No Symptoms. denies: Chest Pain Respiratory: reports: No Symptoms. denies: Cough, SOB Gastrointestinal: reports: Diarrhea. denies: Indigestion, Vomiting Genitourinary: reports: No Symptoms Physical Exam Vital Signs: Vital Signs Temperature 98.5 F 05/14/20 10:00 Pulse Rate 99 H 05/14/20 10:00 Respiratory Rate 18 05/14/20 10:00 Blood Pressure 89/60 L 05/14/20 10:00 O2 Sat by Pulse Oximetry (%) 97 05/14/20 10:00 Constitutional: Yes: Cachectic, Thin Eyes: Yes: Conjunctiva Clear HENT: Yes: Atraumatic, Normocephalic. No: Thrush Neck: Yes: Supple Cardiovascular: Yes: Regular Rate and Rhythm Respiratory: Yes: Regular, CTA Bilaterally Gastrointestinal: Yes: Normal Bowel Sounds, Soft. No: Tenderness, Epigastrium ...Rectal Exam: Yes: Deferred Renal/: Yes: WNL Musculoskeletal: Yes: WNL Extremities: Yes: WNL Neurological: Yes: Alert, Oriented Labs: CBC, BMP 05/14/20 10:30 05/14/20 10:30 Microbiology 05/12/20 16:34 Blood - Peripheral Venous Blood Culture - Preliminary NO GROWTH OBTAINED AFTER 48 HOURS, INCUBATION TO CONTINUE FOR 3 DAYS. 05/12/20 16:34 Blood - Peripheral Venous Blood Culture - Preliminary NO GROWTH OBTAINED AFTER 48 HOURS, INCUBATION TO CONTINUE FOR 3 DAYS. 05/14/20 10:45 Stool Isospora Smear - Preliminary 05/14/20 10:45 Stool Cryptosporidium Antigen - Final 05/12/20 17:20 Urine - Urine Clean Catch Urine Culture - Final Contaminated: Please Repeat Imaging - Results Chest X-ray: Report Reviewed, Image Reviewed (bony lesions, bilateral lung masses) Problem List - Problems (1) Diarrhea Code(s): R19.7 - DIARRHEA, UNSPECIFIED (2) HIV (human immunodeficiency virus infection) Code(s): B20 - HUMAN IMMUNODEFICIENCY VIRUS [HIV] DISEASE (3) Chronic indwelling Aggarwal catheter Code(s): Z96.0 - PRESENCE OF UROGENITAL IMPLANTS (4) Prostate cancer, primary, with metastasis from prostate to other site Code(s): C61 - MALIGNANT NEOPLASM OF PROSTATE (5) Anemia Code(s): D64.9 - ANEMIA, UNSPECIFIED Qualifiers: Assessment/Plan would work up his diarrhea he currently doesnot want to take his odefsey- can check cd4 count would d/c antiibotics no signs symptomatic uti-he has chronic aggarwal catheter his BP was the same on his prior two admissions and is perhaps due to his anemia no signs of sepsis anemia workup per primary service if not done in the past pain management for his prostate cancer severely malnourished- albumin is 1.2
[2020-05-14 12:44] LABS: CALCIUM 6.7 mg/dL (8.5-10.1)
--- NOTE | 2020-05-14 14:01 | PN ---
Physical Exam: SUBJECTIVE: Patient seen and examined at bedside. The patient endorses 2 episodes of loose watery diarrhea, and left sided severe temporal pain with swelling OBJECTIVE: Vital Signs Period Temp Pulse Resp BP Sys/Reardon Pulse Ox Last 24 Hr 98.4 F-98.5 F 86-107 18-18 85-110/50-62 97-97 GENERAL: The patient is awake, alert, and fully oriented, in mild distress LUNGS: Breath sounds equal, clear to auscultation bilaterally, no wheezes, no crackles, no accessory muscle use. HEART: Regular rate and rhythm, S1, S2 without murmur, rub or gallop. ABDOMEN: Soft, nontender, nondistended, HYPERACTIVE bowel sounds, no guarding, no rebound, no hepatosplenomegaly, no masses. PSYCH: Normal mood, normal affect. MSK: Patients L hip ulcer is stage 2 Laboratory Results - last 24 hr 05/12/20 05/13/20 05/13/20 18:00 10:00 15:00 WBC RBC Hgb Hct MCV MCH MCHC RDW Plt Count MPV Absolute Neuts (auto) Total Counted Neutrophils % Neutrophils % (Manual) Band Neutrophils % Lymphocytes % Lymphocytes % (Manual) Monocytes % Monocytes % (Manual) Eosinophils % Eosinophils % (Manual) Basophils % Basophils % (Manual) Myelocytes % (Man) Promyelocytes % (Man) Blast Cells % (Manual) Nucleated RBC % Metamyelocytes Differential Comment Hypersegmented Neuts Plasma Cells Smudge Cells Other Cell Type Hypochromia Toxic Granulation Dohle Bodies Ian Rods Platelet Estimate Platelet Comment Polychromasia Poikilocytosis Basophilic Stippling Anisocytosis Microcytosis Macrocytosis Spherocytes Siderocytes Sickle Cells Target Cells Tear Drop Cells Ovalocytes Stomatocytes Helmet Cells [place] Bodies [place] Rings [place] Cells Acanthocytes (Spur) Rouleaux Fragmented RBCs Schistocytes Sodium Potassium Chloride Carbon Dioxide Anion Gap BUN Creatinine Est GFR (CKD-EPI)AfAm Est GFR (CKD-EPI)NonAf Random Glucose Calcium Phosphorus Magnesium Iron TIBC Iron Saturation Unsaturated IBC Ferritin Total Bilirubin AST ALT Alkaline Phosphatase Creatine Kinase 42 Total Protein Albumin Serum Folate Urine Color Yellow Urine Appearance Turbid Urine pH 6.0 Ur Specific [place] 1.026 Urine Protein 3+ H Urine Glucose (UA) Negative Urine Ketones Negative Urine Blood 3+ H Urine Nitrite Positive H Urine Bilirubin Negative Urine Urobilinogen 1.0 Ur Leukocyte Esterase 3+ H Urine WBC (Auto) 6895 Urine RBC (Auto) 451.2 Urine Casts (Auto) 89 U Pathogenic Cast Auto None U Epithel Cells (Auto) >36 Urine Bacteria (Auto) 3449 Urine Yeast (Auto) None COVID-19 (EDE) Not detected 05/14/20 05/14/20 05/14/20 10:30 10:30 10:30 WBC 5.1 RBC 2.54 L Hgb 7.0 L Hct 21.7 L MCV 85.3 MCH 27.4 MCHC 32.2 RDW 13.8 Plt Count 217 MPV 8.5 Absolute Neuts (auto) Die Attacher Total Counted Cancelled Neutrophils % Die Attacher Neutrophils % (Manual) Cancelled Band Neutrophils % Cancelled Lymphocytes % Die Attacher Lymphocytes % (Manual) Cancelled Monocytes % Die Attacher Monocytes % (Manual) Cancelled Eosinophils % Die Attacher Eosinophils % (Manual) Cancelled Basophils % Die Attacher Basophils % (Manual) Cancelled Myelocytes % (Man) Cancelled Promyelocytes % (Man) Cancelled Blast Cells % (Manual) Cancelled Nucleated RBC % 0 Cancelled Metamyelocytes Cancelled Differential Comment Cancelled Hypersegmented Neuts Cancelled Plasma Cells Cancelled Smudge Cells Cancelled Other Cell Type Cancelled Hypochromia Cancelled Toxic Granulation Cancelled Dohle Bodies Cancelled Ian Rods Cancelled Platelet Estimate Cancelled Platelet Comment Cancelled Polychromasia Cancelled Poikilocytosis Cancelled Basophilic Stippling Cancelled Anisocytosis Cancelled Microcytosis Cancelled Macrocytosis Cancelled Spherocytes Cancelled Siderocytes Cancelled Sickle Cells Cancelled Target Cells Cancelled Tear Drop Cells Cancelled Ovalocytes Cancelled Stomatocytes Cancelled Helmet Cells Cancelled [place] Bodies Cancelled [place] Rings Cancelled [place] Cells Cancelled Acanthocytes (Spur) Cancelled Rouleaux Cancelled Fragmented RBCs Cancelled Schistocytes Cancelled Sodium 141 Potassium 3.8 Chloride 113 H Carbon Dioxide 19 L Anion Gap 9 BUN 11.8 Creatinine 0.4 L Est GFR (CKD-EPI)AfAm 151.74 Est GFR (CKD-EPI)NonAf 130.93 Random Glucose 74 Calcium 6.7 L* Phosphorus 2.3 L Magnesium 1.8 Iron 36 L TIBC 32 L Iron Saturation 112 H Unsaturated IBC -4 L Ferritin 868.1 H Total Bilirubin 0.4 AST 20 ALT 13 Alkaline Phosphatase 127 H Creatine Kinase Total Protein 4.4 L Albumin 1.2 L Serum Folate 4 Urine Color Urine Appearance Urine pH Ur Specific [place] Urine Protein Urine Glucose (UA) Urine Ketones Urine Blood Urine Nitrite Urine Bilirubin Urine Urobilinogen Ur Leukocyte Esterase Urine WBC (Auto) Urine RBC (Auto) Urine Casts (Auto) U Pathogenic Cast Auto U Epithel Cells (Auto) Urine Bacteria (Auto) Urine Yeast (Auto) COVID-19 (EDE) Active Medications Generic Name Dose Route Start Last Admin Trade Name Freq PRN Reason Stop Dose Admin Amino Acids 30 ml 05/13/20 08:00 05/14/20 08:41 Prosource No Carb Liquid Pkt PO 30 ml BID@0800,1730 JESSICA Administration Collagenase 1 applic 05/13/20 11:45 05/13/20 15:25 Santyl - TP 1 applic DAILY JESSICA Administration Protocol Enoxaparin Sodium 40 mg 05/13/20 10:00 05/14/20 10:41 Lovenox - SQ 40 mg DAILY JESSICA Administration Piperacillin Sod/Tazobactam 50 mls @ 100 mls/hr 05/13/20 03:00 Sod 3.375 gm/ Dextrose IVPB Q6H-IV JESSICA Protocol Dextrose/Sodium Chloride 1,000 mls @ 100 mls/hr 05/13/20 18:22 05/14/20 12:01 D5-Ns - IV 100 mls/hr ASDIR JESSICA Administration Piperacillin Sod/Tazobactam 50 mls @ 100 mls/hr 05/13/20 21:00 05/14/20 10:41 Sod 3.375 gm/ Dextrose IVPB 05/14/20 15:29 100 mls/hr Q6H-IV JESSICA Administration Protocol Potassium Phos/Sodium Phos 1 packet 05/14/20 14:00 Phos-Nak Packet - PO DAILY JESSICA Vancomycin HCl 1,000 mg 05/13/20 10:00 Vancomycin (Pre-Docked) IVPB DAILY JESSICA Protocol Vancomycin HCl 1,000 mg 05/14/20 17:00 Vancomycin (Pre-Docked) IVPB 05/14/20 17:01 DAILY JESSICA Protocol ASSESSMENT/PLAN: Mr. Hood is a 59M with H/O Prostate CA with mets to bone s/p radio therapy, Indwelling Aggarwal, HIV (last CD4 272, non-compliant with HAART), and anemia. The patient was admitted to the hospital for increased agitation, cachecia, L sided hip pain, diarrhea, and turbid urine. #UTI secondary to indwelling aggarwal - UA reveals 3+ protein, and 3+ LE - Secondary UA reveals >36 epithelial cells suggesting contaminated specimen - rpt UA ordered - Urine Cultures CONTAMINATED WILL RECHECK - patient on empiric abx for UTI treatment - zosyn - IVF - D5 Ns 1000mls @100mls/hr # Diarrhea - patient endorses 2 episodes of watery diarrhea overnight - Isospora/cryptosporidium/CDiff cultures ordered #L hip/Sacral Decubitus Ulcer stage 2 - will continue to monitor, visual observation does not raise suspicion for i nfection - Consult placed for wound care - appreciate further recommendations - repositioning to prevent worsening of ulcers, and frequent dressings per wound care - specialty air bed ordered - turn and position every 2 hours - accumax pump routine #Cachexia secondary to malnutrition/HIV - poor nutritional intake - nutrition consulted - i/o ordered - albumin monitor - ID consulted for recs on HAART therapy #Metastatic prostate cancer - spoken to primary care - [facility] visit for PET scan february 2019 revealed diffuse metastasis to bone - patient non-compliant with physician follow up - Repeat bone scan outpatient - PSA ordered # DVT Px - Lovenox SQ Visit type - Emergency Visit Emergency Visit: Yes ED Registration Date: 05/12/20 Care time: The patient presented to the Emergency Department on the above date and was hospitalized for further evaluation of their emergent condition. - New Patient This patient is new to me today: No - Critical Care Critical Care patient: No - Discharge Referral Referred to [facility] Med [facility] No ATTENDING PHYSICIAN STATEMENT I saw and evaluated the patient. I reviewed the resident's note and discussed the case with the resident. I agree with the resident's findings and plan as documented. SUBJECTIVE: OBJECTIVE: ASSESSMENT AND PLAN:
[2020-05-14 14:26] LABS: ANISOCYTOSIS 1+; MACROCYTOSIS 0; PLATELET ESTIMATE NORMAL; TARGET CELLS 1+
[2020-05-14] MEDS: NAPH,MB-DB/K PH,MBDB POWDER PACKET PO SCH (15:20)
--- NOTE | 2020-05-14 16:07 | PN ---
Teaching Attending Note Name of Resident: Juan Scanlon ATTENDING PHYSICIAN STATEMENT I saw and evaluated the patient. I reviewed the resident's note and discussed the case with the resident. I agree with the resident's findings and plan as documented. SUBJECTIVE: Complains of L Hip pain and poor appetite/nausea. Diarrhea overnight. No vomiting. No abdominal pain. OBJECTIVE: Afebrile, hemodynamically stable. Cachexia, temporal wasting. Last Vital Signs Temp Pulse Resp BP Pulse Ox 98.5 F 102 H 18 98/69 97 05/14/20 14:36 05/14/20 14:36 05/14/20 14:36 05/14/20 14:36 05/14/20 10:00 Heart - S1, S2, RRR Lungs -clear to auscultation Abdomen - soft, non-tender. Bowel Sounds normal. Extremities - no edema, no calf tenderness. Wasting ++ MS - Generalized wasting, bony prominences, L hip ulcer - stage 3 with some bloody discharge, sacral decubitus ulcer. Neuro - AAO x 3. Tone/Power normal. Laboratory Results - last 24 hr 05/12/20 05/13/20 05/14/20 18:00 15:00 10:30 WBC 5.1 RBC 2.54 L Hgb 7.0 L Hct 21.7 L MCV 85.3 MCH 27.4 MCHC 32.2 RDW 13.8 Plt Count 217 MPV 8.5 Absolute Neuts (auto) Electronic Prepress Operator Total Counted Neutrophils % Electronic Prepress Operator Neutrophils % (Manual) 66.7 Band Neutrophils % 0.0 Lymphocytes % Electronic Prepress Operator Lymphocytes % (Manual) 27.4 Monocytes % Electronic Prepress Operator Monocytes % (Manual) 6 Eosinophils % Electronic Prepress Operator Eosinophils % (Manual) 0.0 D Basophils % Electronic Prepress Operator Basophils % (Manual) 0.0 Myelocytes % (Man) 0 Promyelocytes % (Man) 0 Blast Cells % (Manual) 0 Nucleated RBC % 0 Metamyelocytes 0 Differential Comment Hypersegmented Neuts Plasma Cells Smudge Cells Other Cell Type Hypochromia 1+ Toxic Granulation Dohle Bodies Ian Rods Platelet Estimate Normal Platelet Comment Polychromasia 1+ Poikilocytosis Basophilic Stippling Anisocytosis 1+ Microcytosis 1+ Macrocytosis 0 Spherocytes Siderocytes Sickle Cells Target Cells 1+ Tear Drop Cells Ovalocytes Stomatocytes Helmet Cells [place] Bodies [place] Rings [place] Cells Acanthocytes (Spur) Rouleaux Fragmented RBCs Schistocytes Sodium Potassium Chloride Carbon Dioxide Anion Gap BUN Creatinine Est GFR (CKD-EPI)AfAm Est GFR (CKD-EPI)NonAf Random Glucose Calcium Phosphorus Magnesium Iron TIBC Iron Saturation Unsaturated IBC Ferritin Total Bilirubin AST ALT Alkaline Phosphatase Total Protein Albumin Serum Folate Urine Color Yellow Urine Appearance Turbid Urine pH 6.0 Ur Specific [place] 1.026 Urine Protein 3+ H Urine Glucose (UA) Negative Urine Ketones Negative Urine Blood 3+ H Urine Nitrite Positive H Urine Bilirubin Negative Urine Urobilinogen 1.0 Ur Leukocyte Esterase 3+ H Urine WBC (Auto) 6895 Urine RBC (Auto) 451.2 Urine Casts (Auto) 89 U Pathogenic Cast Auto None U Epithel Cells (Auto) >36 Urine Bacteria (Auto) 3449 Urine Yeast (Auto) None COVID-19 (EDE) Not detected 05/14/20 05/14/20 10:30 10:30 WBC RBC Hgb Hct MCV MCH MCHC RDW Plt Count MPV Absolute Neuts (auto) Total Counted Cancelled Neutrophils % Neutrophils % (Manual) Cancelled Band Neutrophils % Cancelled Lymphocytes % Lymphocytes % (Manual) Cancelled Monocytes % Monocytes % (Manual) Cancelled Eosinophils % Eosinophils % (Manual) Cancelled Basophils % Basophils % (Manual) Cancelled Myelocytes % (Man) Cancelled Promyelocytes % (Man) Cancelled Blast Cells % (Manual) Cancelled Nucleated RBC % Cancelled Metamyelocytes Cancelled Differential Comment Cancelled Hypersegmented Neuts Cancelled Plasma Cells Cancelled Smudge Cells Cancelled Other Cell Type Cancelled Hypochromia Cancelled Toxic Granulation Cancelled Dohle Bodies Cancelled Ian Rods Cancelled Platelet Estimate Cancelled Platelet Comment Cancelled Polychromasia Cancelled Poikilocytosis Cancelled Basophilic Stippling Cancelled Anisocytosis Cancelled Microcytosis Cancelled Macrocytosis Cancelled Spherocytes Cancelled Siderocytes Cancelled Sickle Cells Cancelled Target Cells Cancelled Tear Drop Cells Cancelled Ovalocytes Cancelled Stomatocytes Cancelled Helmet Cells Cancelled [place] Bodies Cancelled [place] Rings Cancelled [place] Cells Cancelled Acanthocytes (Spur) Cancelled Rouleaux Cancelled Fragmented RBCs Cancelled Schistocytes Cancelled Sodium 141 Potassium 3.8 Chloride 113 H Carbon Dioxide 19 L Anion Gap 9 BUN 11.8 Creatinine 0.4 L Est GFR (CKD-EPI)AfAm 151.74 Est GFR (CKD-EPI)NonAf 130.93 Random Glucose 74 Calcium 6.7 L* Phosphorus 2.3 L Magnesium 1.8 Iron 36 L TIBC 32 L Iron Saturation 112 H Unsaturated IBC -4 L Ferritin 868.1 H Total Bilirubin 0.4 AST 20 ALT 13 Alkaline Phosphatase 127 H Total Protein 4.4 L Albumin 1.2 L Serum Folate 4 Urine Color Urine Appearance Urine pH Ur Specific [place] Urine Protein Urine Glucose (UA) Urine Ketones Urine Blood Urine Nitrite Urine Bilirubin Urine Urobilinogen Ur Leukocyte Esterase Urine WBC (Auto) Urine RBC (Auto) Urine Casts (Auto) U Pathogenic Cast Auto U Epithel Cells (Auto) Urine Bacteria (Auto) Urine Yeast (Auto) COVID-19 (EDE) Current Medications Generic Name Dose Route Start Last Admin Trade Name Freq PRN Reason Stop Dose Admin Amino Acids 30 ml 05/13/20 08:00 05/14/20 08:41 Prosource No Carb Liquid Pkt PO 30 ml BID@0800,1730 JESSICA Administration Collagenase 1 applic 05/13/20 11:45 05/14/20 10:31 Santyl - TP 1 applic DAILY JESSICA Administration Protocol Enoxaparin Sodium 40 mg 05/13/20 10:00 05/14/20 10:41 Lovenox - SQ 40 mg DAILY JESSICA Administration Piperacillin Sod/Tazobactam 50 mls @ 100 mls/hr 05/13/20 03:00 Sod 3.375 gm/ Dextrose IVPB Q6H-IV JESSICA Protocol Dextrose/Sodium Chloride 1,000 mls @ 100 mls/hr 05/13/20 18:22 05/14/20 12:01 D5-Ns - IV 100 mls/hr ASDIR JESSICA Administration Potassium Phos/Sodium Phos 1 packet 05/14/20 14:00 05/14/20 15:20 Phos-Nak Packet - PO 1 packet DAILY JESSICA Administration Vancomycin HCl 1,000 mg 05/13/20 10:00 Vancomycin (Pre-Docked) IVPB DAILY JESSICA Protocol Vancomycin HCl 1,000 mg 05/14/20 17:00 Vancomycin (Pre-Docked) IVPB 05/14/20 17:01 DAILY JESSICA Protocol Home Medications Medication Instructions Recorded Doxepin HCl 200 mg PO DAILY 01/10/20 Emtricitab/Rilpiviri/Tenof Ala 1 each PO DAILY 01/10/20 [Odefsey Tablet] Amox-Tr/K Cl [Augmentin - 500Mg 1 tab PO BID #14 tab 01/14/20 Tablet] Ferrous Sulfate [Feosol] 325 mg PO BIDWM ud 01/14/20 Magnesium Hydrox 2400MG/30Ml [Milk 30 ml PO DAILY PRN cup 01/14/20 of Magnesia -] ASSESSMENT AND PLAN: 59 yea rold male with history of Metastatic Prostate CA s/p XRT, Indwelling Aggarwal, HIV (last CD4 272, non-compliant with HAART), Chronic Anemia, brought in due to cloudy urine, L hip pain, diarrhea, and reported combativeness. No evidence of AMS or agitation on my interview. 1. UTI associated with Indwelling aggarwal catheter. Urine Cx contaminated. Aggarwal changed BP borderline, will monitor. Empiric Zosyn pending repeat Urine Cx result. IV hydration. 2. Diarrhea - recurred Cdiff and Stool Cx including Crypto/Isospora requested. 3. L hip/Sacral Decubitus Ulcers - present on admission, some sloughing and bloody discharge from L hip wound. Wound Care to evaluate for further management Frequent repositioning, air mattress, dressing as per wound care. 4. Severe Protein Calorie Malnutrition/failure to thrive Poor oral intake Nutrition consulted. Protein supplementation. Albumin 1.2 (corrected Calcium 8.9) 5. HIV - noncompliant with HAART ID consulted. 6. Metastatic Prostate CA s/p XRT Blastic Bone lesions on CXR. Further work-up with Bone Scan etc as out-patient. PSA pending. As per PCP, patient not compliant with Urology follow up/Ca treatment. 7. Normocytic anemia ?sec to disseminated malignancy/chronic disease/HIV Anemia work-up requested including Iron studies, B12 levels, Folate levels. No active blood loss. H/H 7.0/21.7 Will transfuse 1 unit PRBCs. 8. On Doxepin - reason unclear. Will verify with patient and PCP DVT Px - Lovenox SQ
[2020-05-14] MEDS ORDERED: DEXTROSE 5%-NORMAL SALINE 1,000 ML IV SCH (16:25)
[2020-05-14] MEDS: VANCOMYCIN 1 GM in D5W (PRE-DOCKED) 1,000 MG/250 ML IVPB SCH ×3 (17:18→19:29)
[2020-05-14] MEDS ORDERED: POTASSIUM PHOSPHATE 15 MM in DEXTROSE 5%-WATER - 250 ML IVPB ONE (18:00)
[2020-05-14] MEDS ORDERED: diphenhydrAMINE HCL 12.5 MG/5 ML UNIT-DOSE CUPS PO PRN (18:02)
[2020-05-14] MEDS ORDERED: traMADol HCL 50 MG TABLET PO PRN (18:03)
--- NOTE | 2020-05-14 22:59 | PN ---
Teaching Attending Note Name of Resident: Morgan Escoto ATTENDING PHYSICIAN STATEMENT I saw and evaluated the patient. I reviewed the resident's note and discussed the case with the resident. I agree with the resident's findings and plan as documented. ASSESSMENT AND PLAN: 59 yo M with HIV ( followed by Dr. Tsai at [facility], CD4 --246 in 01/03), anemia of chronic disease, G6PD def, and sickle trait, presented with significant symptomatic anemia. Anemia likely from chronic disease, no current evidence of iron deficiency or hemolysis. Has significant wt loss and markedlyelevated [id number] in 01/[address] c/w bone mets most likely assoc with prostate ca. comes in with failure to thrive/ worsening sacral decubitus/ cloudy urine/ diarrhea/unable to take care o fhimself Imaging -- 03/04 at [facility] Enlarged prostate with nodular soft tissue invading and obstructing the distal right ureter favored to represent extension of prostate malignancy. 2 small nodular papillary projections in the right bladder base may represent extension of prostate malignancy but cannot be distinguished from primary urothelial tumor.Syde catheter in the bladder. Moderate diffuse bladder wall thickening is likely secondary to chronic outlet obstruction. Mild right hydroureteronephrosis due to malignant obstruction of the distal right ureter. Mild left hydroureter is likely secondary to thick-walled bladder. Emphysema with no gross evidence of pulmonary metastases. 1.9 cm cystic lesion of the uncinate process with adjacent parenchymal calcifications possibly representing a pseudocyst with changes of chronic pancreatitis or possible side branch intraductal papillary mucinous tumor. When clinically able, MRI with MRCP can be obtained for further characterization. 2.3 cm lobulated low attenuation apparent polypoid cecal mass (versus less likely a pseudo-lesion due to contrast mixing) that may represent colonic malignancy/mucinous tumor. Correlation with colonoscopy is recommended. Diffuse sclerotic bony metastases Bone scan with extensive mets in 03/04 PSA very elevated Discussed with him again the concern for metastatic prostate cancer, elevated PSA, need for biopsy . He is adamantly refusing biopsy Given his strong wishes not to pursue biopsy, clinical scenario, including PSA suggestive of advanced prostate cancer and very favorable side effect profile of casodex--- will start casodex. He understands that this is not the ideal recommendation but he would like to pursue casodex without the biopsy. Will start casodex cecal mass on prior CT - refusing gi eval Anemia of chronic disease from inflammatory state of malignancy palliative care
[2020-05-15] MEDS: AMINO ACIDS/PROTEIN HYDROLYS 30 ML LIQUID.PKT PO SCH ×2 (09:43→17:09)
[2020-05-15 11:22] LABS: BASO % 1.2 % (0-2.0); EOS % 0.6 % (0-4.5); HEMATOCRIT 25.7 % (35.4-49); HEMOGLOBIN 8.3 GM/dL (11.7-16.9); LYMPH % 18.2 % (8-40); MCH 25.4 pg (25.7-33.7); MCHC 32.4 g/dl (32.0-35.9); MEAN CELL VOLUME 78.4 fl (80-96); MEAN PLT VOLUME 8.2 fl (7.5-11.1); PLATELET COUNT 294 K/MM3 (134-434); RBC 3.27 M/mm3 (4.00-5.60); RDW 14.5 % (11.9-15.9); WHITE BLOOD COUNT 5.5 K/mm3 (4.0-10.0)
[2020-05-15] MEDS: ENOXAPARIN NA (PORCINE) 40 MG/0.4 ML DISP.SYRIN SQ SCH (11:43)
[2020-05-15 11:48] LABS: ALBUMIN 1.3 g/dl (3.4-5.0); BILIRUBIN,TOTAL 0.6 mg/dL (0.2-1); BLOOD UREA NITROGEN 10.7 mg/dL (7-18); CREATININE 0.3 mg/dL (0.55-1.3); MAGNESIUM 1.8 mg/dL (1.8-2.4); POTASSIUM 3.9 mmol/L (3.5-5.1); TOT PROT 4.6 g/dl (6.4-8.2)
[2020-05-15 12:40] LABS: CALCIUM 6.7 mg/dL (8.5-10.1)
[2020-05-15] MEDS: NAPH,MB-DB/K PH,MBDB POWDER PACKET PO SCH (12:43)
[2020-05-15] MEDS: COLLAGENASE CLOSTRIDIUM HIST. 30 GRAMS TUBE TP SCH (13:09)
--- NOTE | 2020-05-15 14:43 | PN ---
Physical Exam: SUBJECTIVE: Patient seen and examined at bedside. The patient endorses no further episodes of diabetes. Patient explains he would like to go home. Patient does not want further treatment for his prostate cancer. patient has no further complaints overnight and denies any facial pain. OBJECTIVE: Vital Signs Period Temp Pulse Resp BP Sys/Reardon Pulse Ox Last 24 Hr 98.3 F-98.6 F 90-103 18-18 93-105/64-69 94-98 GENERAL: The patient is awake, alert, and fully oriented, in no acute distress. EYES: PERRL, extraocular movements intact, sclera anicteric, conjunctiva clear. No ptosis. ENT: Ears normal, nares patent, oropharynx clear without exudates, moist mucous membranes. LUNGS: Breath sounds equal, clear to auscultation bilaterally, no wheezes, no crackles, no accessory muscle use. HEART: Regular rate and rhythm, S1, S2 without murmur, rub or gallop. ABDOMEN: Soft, nontender, nondistended, normoactive bowel sounds, no guarding, no rebound, no hepatosplenomegaly, no masses. MSK: Patients L hip ulcer is stage 2 Laboratory Results - last 24 hr 05/14/20 05/15/20 05/15/20 10:30 00:49 10:46 WBC 5.5 RBC 3.27 L Hgb 8.3 L Hct 25.7 L D MCV 78.4 L MCH 25.4 L MCHC 32.4 RDW 14.5 Plt Count 294 D MPV 8.2 Absolute Neuts (auto) 4.1 Neutrophils % 74.0 Neutrophils % (Manual) 66.7 Band Neutrophils % 0.0 Lymphocytes % 18.2 D Lymphocytes % (Manual) 27.4 Monocytes % 6.0 Monocytes % (Manual) 6 Eosinophils % 0.6 Eosinophils % (Manual) 0.0 D Basophils % 1.2 D Basophils % (Manual) 0.0 Myelocytes % (Man) 0 Promyelocytes % (Man) 0 Blast Cells % (Manual) 0 Nucleated RBC % 0 0 Metamyelocytes 0 Hypochromia 1+ Platelet Estimate Normal Polychromasia 1+ Anisocytosis 1+ Microcytosis 1+ Macrocytosis 0 Target Cells 1+ Sodium Potassium Chloride Carbon Dioxide Anion Gap BUN Creatinine Est GFR (CKD-EPI)AfAm Est GFR (CKD-EPI)NonAf Random Glucose Calcium Phosphorus Magnesium Total Bilirubin AST ALT Alkaline Phosphatase Total Protein Albumin Vitamin B12 Blood Type AB POSITIVE Antibody Screen Negative Crossmatch See Detail 05/15/20 10:46 WBC RBC Hgb Hct MCV MCH MCHC RDW Plt Count MPV Absolute Neuts (auto) Neutrophils % Neutrophils % (Manual) Band Neutrophils % Lymphocytes % Lymphocytes % (Manual) Monocytes % Monocytes % (Manual) Eosinophils % Eosinophils % (Manual) Basophils % Basophils % (Manual) Myelocytes % (Man) Promyelocytes % (Man) Blast Cells % (Manual) Nucleated RBC % Metamyelocytes Hypochromia Platelet Estimate Polychromasia Anisocytosis Microcytosis Macrocytosis Target Cells Sodium 138 Potassium 3.9 Chloride 112 H Carbon Dioxide 23 Anion Gap 3 L BUN 10.7 Creatinine 0.3 L Est GFR (CKD-EPI)AfAm 170.79 Est GFR (CKD-EPI)NonAf 147.36 Random Glucose 80 Calcium 6.7 L* Phosphorus 3.0 Magnesium 1.8 Total Bilirubin 0.6 AST 22 ALT 13 Alkaline Phosphatase 129 H Total Protein 4.6 L Albumin 1.3 L Vitamin B12 1162 H Blood Type Antibody Screen Crossmatch Active Medications Generic Name Dose Route Start Last Admin Trade Name Freq PRN Reason Stop Dose Admin Amino Acids 30 ml 05/13/20 08:00 05/15/20 09:43 Prosource No Carb Liquid Pkt PO 30 ml BID@0800,1730 JESSICA Administration Bicalutamide 50 mg 05/16/20 10:00 Casodex - PO DAILY JESSICA Collagenase 1 applic 05/13/20 11:45 05/14/20 10:31 Santyl - TP 1 applic DAILY JESSICA Administration Protocol Diphenhydramine HCl 12.5 mg 05/14/20 18:02 Benadryl Oral Solution - PO HS PRN FOR ITCHING Enoxaparin Sodium 40 mg 05/13/20 10:00 05/15/20 11:43 Lovenox - SQ 40 mg DAILY JESSICA Administration Dextrose/Sodium Chloride 1,000 mls @ 42 mls/hr 05/14/20 16:25 05/14/20 17:18 D5-Ns - IV 42 mls/hr ASDIR JESSICA Administration Potassium Phos/Sodium Phos 1 packet 05/14/20 14:00 05/15/20 12:43 Phos-Nak Packet - PO 1 packet DAILY JESSICA Administration Tramadol HCl 50 mg 05/14/20 18:03 05/14/20 18:25 Ultram - PO 50 mg Q8H PRN Administration PAIN LEVEL 6-10 ASSESSMENT/PLAN: Mr. Hood is a 59M with H/O Prostate CA with mets to bone s/p radio therapy, Indwelling Aggarwal, HIV (last CD4 272, non-compliant with HAART), and anemia. The patient was admitted to the hospital for increased agitation, cachecia, L sided hip pain, diarrhea, and turbid urine. #UTI secondary to indwelling aggarwal - Urine Cultures still pending - Patient refuses further treatment with antibiotics per ID. ABX discontinued # Diarrhea - patient denies further episodes of diarrhea - CDiff cultures not acceptable for culture - will resend cultures #L hip/Sacral Decubitus Ulcer stage 2 - Consult placed for wound care - appreciate further recommendations - repositioning to prevent worsening of ulcers, and frequent dressings per wound care - specialty air bed ordered - turn and position every 2 hours - accumax pump routine #Cachexia secondary to malnutrition/HIV - poor nutritional intake - nutrition consulted - ID consulted for recs on HAART therapy #Metastatic prostate cancer - followed by dr sanchez at [facility] - spoken to primary care - [facility] visit for PET scan february 2019 revealed diffuse metastasis to bone - patient non-compliant with physician follow up - Repeat bone scan outpatient - PSA ordered #DISPO - patient reports he would not like to further treat his prostate CA - patient endorses he wants physical therapy and visiting nursing services at home # DVT Px - Lovenox SQ Visit type - Emergency Visit Emergency Visit: Yes ED Registration Date: 05/12/20 Care time: The patient presented to the Emergency Department on the above date and was hospitalized for further evaluation of their emergent condition. - New Patient This patient is new to me today: No - Critical Care Critical Care patient: No - Discharge Referral Referred to [facility] Med P.C.: No ATTENDING PHYSICIAN STATEMENT I saw and evaluated the patient. I reviewed the resident's note and discussed the case with the resident. I agree with the resident's findings and plan as documented. SUBJECTIVE: OBJECTIVE: ASSESSMENT AND PLAN:
--- NOTE | 2020-05-15 15:48 | PN ---
Progress Note (short form) - Note Progress Note: s/p blood transfusion no complaints denies abdominal pain denies diarrhea altho aide reports 2 loose stools this am Vital Signs Period Temp Pulse Resp BP Sys/Reardon Pulse Ox Last 24 Hr 98.3 F-98.6 F 90-103 18-18 93-105/64-68 94-98 cor-rrr lungs clear abd soft,nt +aggarwal ext no edema CBC, BMP 05/15/20 10:46 05/15/20 10:46 Microbiology 05/12/20 16:34 Blood - Peripheral Venous Blood Culture - Preliminary NO GROWTH OBTAINED AFTER 48 HOURS, INCUBATION TO CONTINUE FOR 3 DAYS. 05/12/20 16:34 Blood - Peripheral Venous Blood Culture - Preliminary NO GROWTH OBTAINED AFTER 48 HOURS, INCUBATION TO CONTINUE FOR 3 DAYS. 05/14/20 10:45 Stool Isospora Smear - Preliminary 05/14/20 10:45 Stool Cryptosporidium Antigen - Final 05/12/20 17:20 Urine - Urine Clean Catch Urine Culture - Final Contaminated: Please Repeat a/p 59 yo man with HIV- noncompliant with meds, metastatic prostate cancer, c achexia, diarrhea, chronic aggarwal no signs or symptoms to suggest UTI- antibiotics d/jackson stool w/u in progress, no culture or cdiff sent yet check cd4 count can resume odefsey if he is agreeable anemia s/p transfusion metastatic prostate cancer- per oncology Problem List - Problems (1) Diarrhea Code(s): R19.7 - DIARRHEA, UNSPECIFIED (2) HIV (human immunodeficiency virus infection) Code(s): B20 - HUMAN IMMUNODEFICIENCY VIRUS [HIV] DISEASE (3) Chronic indwelling Aggarwal catheter Code(s): Z96.0 - PRESENCE OF UROGENITAL IMPLANTS (4) Prostate cancer, primary, with metastasis from prostate to other site Code(s): C61 - MALIGNANT NEOPLASM OF PROSTATE (5) Anemia Code(s): D64.9 - ANEMIA, UNSPECIFIED Qualifiers:
--- NOTE | 2020-05-15 16:26 | PN ---
Teaching Attending Note Name of Resident: Juan Scanlon ATTENDING PHYSICIAN STATEMENT I saw and evaluated the patient. I reviewed the resident's note and discussed the case with the resident. I agree with the resident's findings and plan as documented. SUBJECTIVE: Appetite slightly improved. Feels tired. No nausea/vomiting. Diarrhea yesterday, no further BM today. No abdominal pain. OBJECTIVE: Afebrile, hemodynamically stable. Cachexia, temporal wasting. Last Vital Signs Temp Pulse Resp BP Pulse Ox 98.6 F 103 H 18 105/68 94 L 05/15/20 13:47 05/15/20 13:47 05/15/20 13:47 05/15/20 13:47 05/15/20 06:00 Heart - S1, S2, RRR Lungs -clear to auscultation Abdomen - soft, non-tender. Bowel Sounds normal. Extremities - no edema, no calf tenderness. Wasting ++ MS - Generalized wasting, bony prominences, L hip ulcer - stage 3 with some bloody discharge, sacral decubitus ulcer. Neuro - AAO x 3. Tone/Power normal. Laboratory Results - last 24 hr 05/15/20 05/15/20 05/15/20 00:49 10:46 10:46 WBC 5.5 RBC 3.27 L Hgb 8.3 L Hct 25.7 L D MCV 78.4 L MCH 25.4 L MCHC 32.4 RDW 14.5 Plt Count 294 D MPV 8.2 Absolute Neuts (auto) 4.1 Neutrophils % 74.0 Lymphocytes % 18.2 D Monocytes % 6.0 Eosinophils % 0.6 Basophils % 1.2 D Nucleated RBC % 0 Sodium 138 Potassium 3.9 Chloride 112 H Carbon Dioxide 23 Anion Gap 3 L BUN 10.7 Creatinine 0.3 L Est GFR (CKD-EPI)AfAm 170.79 Est GFR (CKD-EPI)NonAf 147.36 Random Glucose 80 Calcium 6.7 L* Phosphorus 3.0 Magnesium 1.8 Total Bilirubin 0.6 AST 22 ALT 13 Alkaline Phosphatase 129 H Total Protein 4.6 L Albumin 1.3 L Vitamin B12 1162 H Blood Type AB POSITIVE Antibody Screen Negative Crossmatch See Detail Current Medications Generic Name Dose Route Start Last Admin Trade Name Freq PRN Reason Stop Dose Admin Amino Acids 30 ml 05/13/20 08:00 07/30/20 09:43 Prosource No Carb Liquid Pkt PO 30 ml BID@0800,1730 JESSICA Administration Bicalutamide 50 mg 05/16/20 10:00 Casodex - PO DAILY JESSICA Collagenase 1 applic 05/13/20 11:45 05/14/20 10:31 Santyl - TP 1 applic DAILY JESSICA Administration Protocol Diphenhydramine HCl 12.5 mg 05/14/20 18:02 Benadryl Oral Solution - PO HS PRN FOR ITCHING Enoxaparin Sodium 40 mg 05/13/20 10:00 05/15/20 11:43 Lovenox - SQ 40 mg DAILY JESSICA Administration Dextrose/Sodium Chloride 1,000 mls @ 42 mls/hr 05/14/20 16:25 05/14/20 17:18 D5-Ns - IV 42 mls/hr ASDIR JESSICA Administration Potassium Phos/Sodium Phos 1 packet 05/14/20 14:00 05/15/20 12:43 Phos-Nak Packet - PO 1 packet DAILY JESSICA Administration Tramadol HCl 50 mg 05/14/20 18:03 05/14/20 18:25 Ultram - PO 50 mg Q8H PRN Administration PAIN LEVEL 6-10 Home Medications Medication Instructions Recorded Doxepin HCl 200 mg PO DAILY 01/10/20 Emtricitab/Rilpiviri/Tenof Ala 1 each PO DAILY 01/10/20 [Odefsey Tablet] Amox-Tr/K Cl [Augmentin - 500Mg 1 tab PO BID #14 tab 01/14/20 Tablet] Ferrous Sulfate [Feosol] 325 mg PO BIDWM ud 01/14/20 Magnesium Hydrox 2400MG/30Ml [Milk 30 ml PO DAILY PRN cup 01/14/20 of Magnesia -] ASSESSMENT AND PLAN: 59 yea rold male with history of Metastatic Prostate CA s/p XRT, Indwelling Aggarwal, HIV (last CD4 272, non-compliant with HAART), Chronic Anemia, brought in due to cloudy urine, L hip pain, diarrhea, and reported combativeness. No evidence of AMS or agitation on my interview. 1. UTI associated with Indwelling aggarwal catheter ruled out Urine Cx contaminated, repeat Urine Cx pending. Aggarwal changed BP borderline, will monitor. Empiric Zosyn discontinued by ID 2. Diarrhea - recurrent Cdiff and Stool Cx not sent yesterday - nursing asked again to send if any further loose stool. 3. L hip/Sacral Decubitus Ulcers - present on admission, some sloughing and bl oody discharge from L hip wound. Wound Care to re-evaluate for further management Frequent repositioning, air mattress, dressing as per wound care. 4. Severe Protein Calorie Malnutrition/failure to thrive Poor oral intake Nutrition consulted. Protein supplementation. Albumin 1.2 (corrected Calcium 8.9) 5. HIV - noncompliant with HAART ID consulted - unclear plan for HIV Rx as patient intermittently refuses treatment. 6. Metastatic Prostate CA s/p XRT Blastic Bone lesions on CXR. Further work-up with Bone Scan etc as out-patient. PSA pending. As per PCP, patient not compliant with Urology follow up for Ca treatment. Casodex started by Oncology - further management as per Onc. 7. Normocytic anemia ?sec to disseminated malignancy/chronic disease/HIV Anemia work-up requested including Iron studies, B12 levels, Folate levels normal. No active blood loss. H/H 8.3/25.7 s/p 1 unit PRBCs. 8. On Doxepin - reason unclear. Will verify with patient and PCP 9. Hypophosphatemia - repleted. DVT Px - Lovenox SQ
[2020-05-16] MEDS: NAPH,MB-DB/K PH,MBDB POWDER PACKET PO SCH (10:44)
[2020-05-16] MEDS: ENOXAPARIN NA (PORCINE) 40 MG/0.4 ML DISP.SYRIN SQ SCH (10:45)
[2020-05-16] MEDS: AMINO ACIDS/PROTEIN HYDROLYS 30 ML LIQUID.PKT PO SCH ×2 (10:45→17:22)
[2020-05-16] MEDS ORDERED: PT OWN MED DRAWER 7, Y5N ONE (10:46)
[2020-05-16] MEDS: BICALUTAMIDE 50 MG TABLET (FP) PO SCH (10:54)
[2020-05-16] MEDS: COLLAGENASE CLOSTRIDIUM HIST. 30 GRAMS TUBE TP SCH (14:45)
[2020-05-16 14:47] LABS: HEMATOCRIT 29.6 % (35.4-49); HEMOGLOBIN 9.6 GM/dL (11.7-16.9); MCH 25.5 pg (25.7-33.7); MCHC 32.4 g/dl (32.0-35.9); MEAN CELL VOLUME 78.6 fl (80-96); MEAN PLT VOLUME 8.2 fl (7.5-11.1); PLATELET COUNT 324 K/MM3 (134-434); RBC 3.76 M/mm3 (4.00-5.60); RDW 14.7 % (11.9-15.9); WHITE BLOOD COUNT 5.9 K/mm3 (4.0-10.0)
[2020-05-16 15:15] LABS: BLOOD UREA NITROGEN 10.2 mg/dL (7-18); CREATININE 0.3 mg/dL (0.55-1.3); MAGNESIUM 1.8 mg/dL (1.8-2.4); POTASSIUM 3.9 mmol/L (3.5-5.1)
--- NOTE | 2020-05-16 16:28 | PN ---
Teaching Attending Note Name of Resident: Juan Scanlon ATTENDING PHYSICIAN STATEMENT I saw and evaluated the patient. I reviewed the resident's note and discussed the case with the resident. I agree with the resident's findings and plan as documented. SUBJECTIVE: Appetite slightly improved. Feeling better. No nausea/vomiting. Loose stool overnight, no further BM today. No abdominal pain. Reports L temporal swelling/mild discomfort. no visual disturbance. OBJECTIVE: Afebrile, hemodynamically stable. Cachexia. Last Vital Signs Temp Pulse Resp BP Pulse Ox 98.3 F 99 H 18 111/68 100 05/16/20 14:52 05/16/20 14:52 05/16/20 14:52 05/16/20 14:52 05/16/20 05:44 Heart - S1, S2, RRR Lungs -clear to auscultation Abdomen - soft, non-tender. Bowel Sounds normal. Extremities - no edema, no calf tenderness. Wasting ++ MS - Generalized wasting, bony prominences, L hip ulcer - stage 3 with some bloody discharge, sacral decubitus ulcer. Neuro - AAO x 3. Tone/Power normal. Laboratory Results - last 24 hr 05/13/20 05/15/20 05/16/20 10:00 10:46 14:32 WBC 5.3 5.9 RBC 3.76 L Hgb 9.6 L Hct 29.6 L D MCV 78.6 L MCH 25.5 L MCHC 32.4 RDW 14.7 Plt Count 324 MPV 8.2 Absolute Lymphs (auto) 1.1 Lymphocytes 21 Nucleated RBCs TNP Sodium Potassium Chloride Carbon Dioxide Anion Gap BUN Creatinine Est GFR (CKD-EPI)AfAm Est GFR (CKD-EPI)NonAf Random Glucose Calcium Phosphorus Magnesium Procalcitonin 0.51 H Absolute CD3 Count 776 % CD3+ Lymphocytes 70.5 Absolute CD4 [place] 211 L % CD4+ Lymphocyte 19.2 L CD4/CD8 Ratio 0.39 L % CD8+ Lymphocyte 49.2 H Absolute CD8 Count 541 05/16/20 14:32 WBC RBC Hgb Hct MCV MCH MCHC RDW Plt Count MPV Absolute Lymphs (auto) Lymphocytes Nucleated RBCs Sodium 140 Potassium 3.9 Chloride 111 H Carbon Dioxide 21 Anion Gap 8 BUN 10.2 Creatinine 0.3 L Est GFR (CKD-EPI)AfAm 170.79 Est GFR (CKD-EPI)NonAf 147.36 Random Glucose 64 L Calcium 7.0 L Phosphorus 3.0 Magnesium 1.8 Procalcitonin Absolute CD3 Count % CD3+ Lymphocytes Absolute CD4 [place] % CD4+ Lymphocyte CD4/CD8 Ratio % CD8+ Lymphocyte Absolute CD8 Count Current Medications Generic Name Dose Route Start Last Admin Trade Name Ramsesq PRN Reason Stop Dose Admin Amino Acids 30 ml 05/13/20 08:00 05/16/20 10:45 Prosource No Carb Liquid Pkt PO 30 ml BID@0800,1730 JESSICA Administration Bicalutamide 50 mg 05/16/20 10:00 05/16/20 10:54 Casodex - PO Not Given DAILY JESSICA Collagenase 1 applic 05/13/20 11:45 05/15/20 13:09 Santyl - TP 1 applic DAILY JESSICA Administration Protocol Diphenhydramine HCl 12.5 mg 05/14/20 18:02 Benadryl Oral Solution - PO HS PRN FOR ITCHING Potassium Phos/Sodium Phos 1 packet 05/14/20 14:00 05/16/20 10:44 Phos-Nak Packet - PO 1 packet DAILY JESSICA Administration Tramadol HCl 50 mg 05/14/20 18:03 05/14/20 18:25 Ultram - PO 50 mg Q8H PRN Administration PAIN LEVEL 6-10 Home Medications Medication Instructions Recorded Doxepin HCl 200 mg PO DAILY 01/10/20 Emtricitab/Rilpiviri/Tenof Ala 1 each PO DAILY 01/10/20 [Odefsey Tablet] ASSESSMENT AND PLAN: 59 yea rold male with history of Metastatic Prostate CA s/p XRT, Indwelling Aggarwal, HIV (last CD4 272, non-compliant with HAART), Chronic Anemia, brought in due to cloudy urine, L hip pain, diarrhea, and reported combativeness. No evidence of AMS or agitation on my interview. 1. Possible Small Subdural Hematoma/Soft tissue swelling L temporal fossa on CT Facial Bones Neurologically intact. Neurosurgery consulted. CT head ordered. Lovenox stopped. 2. Diarrhea - intermittent/recurrent Cdiff negative. 3. L hip/Sacral Decubitus Ulcers - present on admission, some sloughing and bloody discharge from L hip wound. Wound Care to re-evaluate for further management Frequent repositioning, air mattress, dressing as per wound care. 4. Severe Protein Calorie Malnutrition/failure to thrive Poor oral intake Nutrition consulted. Protein supplementation. Albumin 1.2 (corrected Calcium 8.9) 5. HIV - noncompliant with HAART ID consulted - unclear plan for HIV Rx as patient intermittently refuses treatment. 6. Metastatic Prostate CA s/p XRT Blastic Bone lesions on CXR. Further work-up with Bone Scan etc as out-patient. PSA pending. As per PCP, patient not compliant with Urology follow up for Ca treatment. Casodex started by Oncology - further management as per Onc. 7. Normocytic anemia ?sec to disseminated malignancy/chronic disease/HIV Anemia work-up requested including Iron studies, B12 levels normal. Folate levels borderline - will supplement. No active blood loss. H/H 9.6/29.6 s/p 1 unit PRBCs. 8. Home med lists Doxepin - reason unclear. Will need verification before discharge. 9. Hypophosphatemia - repleted. 10. UTI associated with Indwelling aggarwal catheter ruled out Urine Cx contaminated, repeat Urine Cx pending. Aggarwal changed BP improving, will monitor. Empiric Zosyn discontinued by ID DVT Px - Lovenox SQ held due to questionable subdural hematoma.
[2020-05-16] MEDS: FOLIC ACID 1 MG TABLET (FP) PO SCH (17:22)
--- NOTE | 2020-05-16 17:48 | PN ---
Physical Exam: SUBJECTIVE: Patient seen and examined at bedside. The patient endorses 2 episodes of loose stools overnight. Nurses still HAVE NOT collected stool for CDiff sample. Explicitly stated to collect stool for today. Patient's left temporal area seen to be swollen. CT of the facial bones ordered. OBJECTIVE: Vital Signs Period Temp Pulse Resp BP Sys/Reardon Pulse Ox Last 24 Hr 97.4 F-98.5 F 91-99 18-18 85-111/63-68 98-100 GENERAL: The patient is awake, alert, and fully oriented, in no acute distress. HEAD: LEFT SIDED TEMPORAL SWELLING LUNGS: Breath sounds equal, clear to auscultation bilaterally, no wheezes, no crackles, no accessory muscle use. HEART: Regular rate and rhythm, S1, S2 without murmur, rub or gallop. ABDOMEN: Soft, nontender, nondistended, normoactive bowel sounds, no guarding, no rebound, no hepatosplenomegaly, no masses. Laboratory Results - last 24 hr 05/13/20 05/15/20 05/16/20 10:00 10:46 14:32 WBC 5.3 5.9 RBC 3.76 L Hgb 9.6 L Hct 29.6 L D MCV 78.6 L MCH 25.5 L MCHC 32.4 RDW 14.7 Plt Count 324 MPV 8.2 Absolute Lymphs (auto) 1.1 Lymphocytes 21 Nucleated RBCs TNP Sodium Potassium Chloride Carbon Dioxide Anion Gap BUN Creatinine Est GFR (CKD-EPI)AfAm Est GFR (CKD-EPI)NonAf Random Glucose Calcium Phosphorus Magnesium Procalcitonin 0.51 H Absolute CD3 Count 776 % CD3+ Lymphocytes 70.5 Absolute CD4 [place] 211 L % CD4+ Lymphocyte 19.2 L CD4/CD8 Ratio 0.39 L % CD8+ Lymphocyte 49.2 H Absolute CD8 Count 541 05/16/20 14:32 WBC RBC Hgb Hct MCV MCH MCHC RDW Plt Count MPV Absolute Lymphs (auto) Lymphocytes Nucleated RBCs Sodium 140 Potassium 3.9 Chloride 111 H Carbon Dioxide 21 Anion Gap 8 BUN 10.2 Creatinine 0.3 L Est GFR (CKD-EPI)AfAm 170.79 Est GFR (CKD-EPI)NonAf 147.36 Random Glucose 64 L Calcium 7.0 L Phosphorus 3.0 Magnesium 1.8 Procalcitonin Absolute CD3 Count % CD3+ Lymphocytes Absolute CD4 [place] % CD4+ Lymphocyte CD4/CD8 Ratio % CD8+ Lymphocyte Absolute CD8 Count Active Medications Generic Name Dose Route Start Last Admin Trade Name Freq PRN Reason Stop Dose Admin Amino Acids 30 ml 05/13/20 08:00 05/16/20 17:22 Prosource No Carb Liquid Pkt PO Not Given BID@0800,1730 JESSICA Bicalutamide 50 mg 05/16/20 10:00 05/16/20 10:54 Casodex - PO Not Given DAILY JESSICA Collagenase 1 applic 05/13/20 11:45 05/15/20 13:09 Santyl - TP 1 applic DAILY JESSICA Administration Protocol Diphenhydramine HCl 12.5 mg 05/14/20 18:02 Benadryl Oral Solution - PO HS PRN FOR ITCHING Doxepin HCl 200 mg 05/16/20 22:00 [place] - PO HS JESSICA Folic Acid 1 mg 05/16/20 16:45 05/16/20 17:22 Folic Acid - PO Not Given DAILY JESSICA Tramadol HCl 50 mg 05/14/20 18:03 05/14/20 18:25 Ultram - PO 50 mg Q8H PRN Administration PAIN LEVEL 6-10 ASSESSMENT/PLAN: 59 yea ushad male with history of Metastatic Prostate CA s/p XRT, Indwelling Syed, HIV (last CD4 272, non-compliant with HAART), Chronic Anemia, brought in due to cloudy urine, L hip pain, diarrhea, and reported combativeness. No evidence of AMS or agitation on my interview. # Small swelling of L temporal fossa - CT Facial Bones - denies any associated pain - Dr. Mane Lucero consulted - NO neurosurgical intervention recommended - CT head stat order - DC lovenox #Diarrhea - 2 episodes of intermittent/recurrent - Cdiff cultures pending #L hip/Sacral Decubitus Ulcers - L hip ulcer on presentation reveals friability and bleeding - Wound care consulted - Frequent repositioning, air mattress, dressing as per wound care. #Severe Protein Calorie Malnutrition/failure to thrive - patient is severely underweight and malnourished - Severely low nutritional intake - Fertilizer Applicator consulted. #HIV noncompliant on antiviral medication - ID consulted - Patient adamantly refuses HAART therapy - further tx pending #Metastatic Prostate CA s/p XRT - Bone metastasis on bonescan ~february - Patient non-compliant with urology/pcp follow up appt - PSA pending - Heme/onc consulted - patient to be started on CASODEX #DVT Px - Lovenox SQ held due to questionable subdural hematoma Visit type - Emergency Visit Emergency Visit: Yes ED Registration Date: 05/12/20 Care time: The patient presented to the Emergency Department on the above date and was hospitalized for further evaluation of their emergent condition. - New Patient This patient is new to me today: No - Critical Care Critical Care patient: No - Discharge Referral Referred to [facility] Med P.C.: No ATTENDING PHYSICIAN STATEMENT I saw and evaluated the patient. I reviewed the resident's note and discussed the case with the resident. I agree with the resident's findings and plan as documented. SUBJECTIVE: OBJECTIVE: ASSESSMENT AND PLAN:
--- NOTE | 2020-05-16 18:49 | PN ---
Progress Note (short form) - Note Progress Note: NEUROSURGERY CONSULT DICTATED Chart reviewed Pt examined History obtained Pt denies recent or remote trauma to L temporal/head region h/o metastatic Prostate CA, HIV non-compliant with HIV medications, anemia has cloudy urine, LEFT hip lesion, diarrhea, and personality changes. No H/V, N/V, Sz. One episode of severe L upper jaw area pain. No fever/chill or recent infection. PE: General- unremarkable CN- intact; Motor- 5/5 without drift; Sensation- intact LT; DTR- 2+; Cerebellar- intact B FTN WBC 5.9, Hgb 9.6, INR 1.[address]- Small L hemispheric subdural hygroma vs chronic SDH; L lateral temporal small subacute SDH with no significant mass effect or shift; L temporal soft tissue swelling L hemispheric small subacute on chronic SDH with no significant mass effect c/w trauma- though pt denies any trauma/fall Dedicated head CT to fully image SDH No neurosurgical intervention indicated for small SDH without significant mass effect Pt advised to follow up outpatient with PMD
--- NOTE | 2020-05-16 20:10 | CONS ---
DATE OF CONSULTATION: 05/16/2020 CHIEF COMPLAINT: Left hemispheric subdural hematoma. HISTORY OF PRESENT ILLNESS: The patient is a 59-year-old right-hand male with a history of metastatic prostate CA, HIV disease, anemia, who was brought in with cloudy urine, diarrhea, and personality changes. He denies any headache, nausea or vomiting, seizure activity, or increasing weakness/numbness to the extremities. He was initially diagnosed with urinary tract infection and was covered with IV antibiotic. His symptoms subsequently improved. However, yesterday he developed reported severe left-sided jaw area pain, and a CT scan was obtained of the facial bones. He was found to have incidental finding of subdural hematoma, and neurosurgical consult was obtained. The patient presently denies any headache and has no nausea or vomiting. He states that he adamantly denies any trauma to his face or neck. He did not fall. He has no fever or chills or recent infection, by his report. PAST MEDICAL HISTORY: Significant for metastatic prostate CA, HIV disease, anemia. CURRENT MEDICATIONS: Include: 1. Doxepin. 2. Odefsey. 3. Augmentin. 4. Ferrous sulfate. 5. Magnesium hydroxide. ALLERGIES: CIPRO and LACTOSE. SOCIAL HISTORY: He does smoke about a pack a day for the past 10 years and also drinks alcohol socially, he uses marijuana, he lives at home alone. REVIEW OF SYSTEMS: Otherwise negative for other major constitutional, head/neck, cardiovascular, pulmonary, gastrointestinal, genitourinary, endocrinologic, neurologic, or psychological problems except for the above. PHYSICAL EXAMINATION: Vital signs: Temperature is 98.3, blood pressure is 111/68 with pulse rate of 99, O2 saturation is 100% on room air. HEENT: Shows him to have fullness of the left temporal region which is minimally tender. There is no drainage. Neck: Supple with no nuchal rigidity. Coronary: Regular rhythm. Lungs: Clear bilaterally. Abdomen: Benign. Extremities: No obvious signs DVT. Neurologic: He is awake, alert, oriented x3. Cranial nerves examination intact 2-12. Motor examination shows 5/5 strength without drift. Sensory examination is intact to light touch. Deep tendon reflexes are 1 to 2+ throughout and symmetric. There is no pathological long tract sine. Cerebellar examination demonstrates intact finger to nose examination. LABORATORY EXAMINATION: Shows a white blood cell count of 5.9, hemoglobin 9.6, platelet count is 324,000. INR is 1.23 and PTT is 33.9. Serum sodium is 140, and potassium is 3.9. BUN and creatinine are 10.2 and 0.3 respectively. LFTs are normal except for a mildly elevated alkaline phosphatase of 129. Albumin is 1.3. Urinalysis initially demonstrated 2888 WBCs and 43 RBCs. It was greater than 10,000 bacteria. CD4 helper cell was 211. COVID-[address] scan of the facial bone demonstrated hypodense left hemispheric fluid collection with minimal mass effect. There is associated hypodense lesion along the left lateral temporal region consistent with subacute blood. There is no midline shift. There is no hydrocephalus when compared to a CT scan of the head from 2009. IMPRESSION: 1. Subacute on chronic left hemispheric subdural hematoma with minimal mass affect and no shift. 2. Urinary tract infection versus contamination. 3. Diarrhea. 4. Human immunodeficiency virus disease. 5. Metastatic prostatic carcinoma. RECOMMENDATION: The patient presents with nonspecific symptoms and diarrhea and cloudy urine. He was initially given antibiotics, however his subsequent urine culture was negative. He had complained of sharp left jaw area pain and a CT scan of the facial bone demonstrated prominence of the temporalis muscle area. There is also a left hemispheric hypodense fluid collection with the focal area isodensity in the left lateral temporal region. This most likely represents subacute on chronic subdural hematoma. This was not present on the prior MRI 11 years earlier. The patient has no seizure activities, no anticonvulsant is indicated. The patient adamantly denies any trauma which is likely contrary to the potential nature of the subdural fluid collection. At any event, as there is no significant mass effect or focal neurological deficit, surgical intervention is not indicated. The patient should have a dedicated head CT scan to document the size and extent of the subdural fluid collection. The patient should follow with his primary care physician to follow his overall general neurological condition. The above was discussed with patient at bedside. All questions were answered. FARHAT GILES M.D. RYAN/[id number] MTDD
[2020-05-16] MEDS ORDERED: DOXEPIN HCL 50 MG CAPSULE PO SCH ×2 (22:00)
[2020-05-16] MEDS ORDERED: DOXEPIN HCL 25 MG CAPSULE PO SCH (22:00)
[2020-05-17 06:25] VITALS: PULSE 92
[2020-05-17] MEDS: FOLIC ACID 1 MG TABLET (FP) PO SCH (09:41)
[2020-05-17] MEDS: BICALUTAMIDE 50 MG TABLET (FP) PO SCH (09:41)
[2020-05-17] MEDS: AMINO ACIDS/PROTEIN HYDROLYS 30 ML LIQUID.PKT PO SCH (09:41)
--- NOTE | 2020-05-17 11:56 | DS ---
Physical Exam: SUBJECTIVE: Patient seen and examined at bedside. The patient does not report any acute events overnight. OBJECTIVE: Vital Signs Period Temp Pulse Resp BP Sys/Reardon Pulse Ox Last 24 Hr 98.3 F-98.8 F 88-99 18-18 94-111/68-76 96-100 PHYSICAL EXAM GENERAL: The patient is awake, alert, and fully oriented, in no acute distress. HEAD:mild swelling located at the left temporal area LUNGS: Breath sounds equal, clear to auscultation bilaterally, no wheezes, no crackles, no accessory muscle use. HEART: Regular rate and rhythm, S1, S2 without murmur, rub or gallop. ABDOMEN: Soft, nontender, nondistended, normoactive bowel sounds, no guarding, no rebound, no hepatosplenomegaly, no masses. EXTREMITIES: 2+ pulses, warm, well-perfused, no edema. PSYCH: Normal mood, normal affect. LABS Laboratory Results - last 24 hr 05/13/20 05/15/20 05/16/20 10:00 10:46 14:32 WBC 5.3 5.9 RBC 3.76 L Hgb 9.6 L Hct 29.6 L D MCV 78.6 L MCH 25.5 L MCHC 32.4 RDW 14.7 Plt Count 324 MPV 8.2 Absolute Lymphs (auto) 1.1 Lymphocytes 21 Nucleated RBCs TNP Sodium Potassium Chloride Carbon Dioxide Anion Gap BUN Creatinine Est GFR (CKD-EPI)AfAm Est GFR (CKD-EPI)NonAf Random Glucose Calcium Phosphorus Magnesium Procalcitonin 0.51 H Absolute CD3 Count 776 % CD3+ Lymphocytes 70.5 Absolute CD4 [place] 211 L % CD4+ Lymphocyte 19.2 L CD4/CD8 Ratio 0.39 L % CD8+ Lymphocyte 49.2 H Absolute CD8 Count 541 05/16/20 14:32 WBC RBC Hgb Hct MCV MCH MCHC RDW Plt Count MPV Absolute Lymphs (auto) Lymphocytes Nucleated RBCs Sodium 140 Potassium 3.9 Chloride 111 H Carbon Dioxide 21 Anion Gap 8 BUN 10.2 Creatinine 0.3 L Est GFR (CKD-EPI)AfAm 170.79 Est GFR (CKD-EPI)NonAf 147.36 Random Glucose 64 L Calcium 7.0 L Phosphorus 3.0 Magnesium 1.8 Procalcitonin Absolute CD3 Count % CD3+ Lymphocytes Absolute CD4 [place] % CD4+ Lymphocyte CD4/CD8 Ratio % CD8+ Lymphocyte Absolute CD8 Count HOSPITAL COURSE: Date of Admission:05/12/20 Mr. Marquis Meyers is a 59M w a h/o Metastatic Prostate CA s/p XRT, Indwelling Aggarwal, HIV (last CD4 272, non-compliant with HAART), Chronic Anemia, brought in due to cloudy urine, L hip pain, diarrhea, and reported combativeness. During Mr. Siddiqui stay he was being treated for his FRANSISCA on CKD due to BPH, Left hip ulcer stage 2 with friability, and multiple episodes of diarrhea. The patient refuses to continue taking his HIV medications and some but not all of the medications in the hospital. His primary care physician (Dr. Elgin Sanchez at [facility]) reports that the patient had bone metastasis of his prostate CA and was evaluate with a PSA. The patient was set up with Dr. Nayak for his prostate cancer. The patient was also set up with Dr. Lacey for his HIV. The patients UTI was found negative and he was DC'd from his antibiotics. The patients diarrhea was sent for isosporidia and cryptosporidia stool culture and CDiff culture and were all negative. The patient was discharged on home hospice, visiting nursing services, and home PT. Date of Discharge: 05/17/20 Minutes to complete discharge: 40 Discharge Summary Problems reviewed: Yes Reason For Visit: UTI HIV INFECTION SEPSIS Current Active Problems Anemia (Chronic) HIV (human immunodeficiency virus infection) (Chronic) Condition: Good - Instructions Diet, Activity, Other Instructions: YOUR VISIT: You were admitted to the hospital for cloudy urine and diarrhea. While you were in the hospital, we evaluated you with lab work, blood work, imaging including x-rays of your chest and a CAT scan of your head. You were evaluated by specialists such as Hematology/oncology with Dr. Cadet, Urology with Dr. Carrillo, Infectious disease with Dr. Lacey, neurosurgeon Dr. Mane Lucero and wound care with Jemma LAWRENCE.We found that your cloudy urine was caused by urine back up due to your enlarged prostate. Dr. Carrillo, the urologist, had evaluated you for your prostate cancer and recommended you to receive a bone scan and aggarwal replacement. During your visit you were found to have low levels of blood. We were able to resolve your low blood levels with one transfusion of packed red blood cells. You had some diarrhea during your visit which had resolved on its own. We sent out your stool samples to be examined for bacterial infection and were found to be negative. Your left hip ulcer was examined and treated by the wound care team. You had mentioned to the internal medicine team that the left side of your face brought about excruciating pain and swelling. We examined you with a head CAT scan and consulted neurosurgery Dr. Mane Lucero for further evaluation. It was found to be a small bleed with no significant concern. MEDICATIONS: Please START taking CASODEX 50mg every day for your prostate cancer Please START taking FOLIC ACID 1mg every day for nutritional support Please START applying SANTYL ointment for your left hip wound every day Please take all other home medications as prescribed WOUND CARE: - Please use timely cleansing, use of appropriate incontinence disposables and use of barrier ointment for the left hip ulcer - Please make sure to off load all lorenzo areas such as heels, ankles, hips, and tailbone with optifoam and Alleyvn - Please make sure to reposition every two hours to reduce friction with lorenzo areas - Please apply santyl daily when dressing the wound - Please ensure nutritional protein supplementation with Ensure. REFERRAL: Please follow up with Infectious disease for your HIV within 1 week of discharge (Dr. Lacey) Please follow up with Urology for your prostate and bone scan within 1 week of discharge (Dr. Carrillo) Please follow up with Oncology for your prostate cancer treatment and anemia within 1 week of discharge (Dr. Cadet) Please follow up with your Primary care provider to go over your hospital visit within 1 week of discharge (Dr. Elgin Sanchez) Please follow up with Wound care for management of your left hip ulcer within 1 week of discharge (Dr. Patrick Frost) Please follow up with Neurosurgery for the management of your left facial bleed within 1 week of discharge (Dr. Mane Lucero) ADDITIONAL INFORMATION: You are being discharged home with visiting nursing services. Please return to the emergency department if you are experiencing any increased facial or head swelling or pain, chest pain, shortness of breath, fever, chills, diarrhea, or any concerning symptoms. Referrals: Elgin sanchez [Other] - 1 Week (PCP/ID) Robbie Pitts MD., MD [Staff Physician] - 1 Week (PSA follow up and prostate ca) Shayna Lacey MD [Staff Physician] - 1 Week (HIV follow up) Mane Lucero MD [Staff Physician] - 1 Week (Subdural hematoma) Chichi Miller MD [Staff Physician] - 1 Week (Prostate CA f/u and anemia) Patrick Frost DO [Staff Physician] - 1 Week (L hip ulcer stage II f/u) Disposition: VNS/HOME HEALTH CARE - Home Medications Comprehensive Discharge Medication List: Ambulatory Orders Doxepin HCl 200 mg PO HS 01/10/20 Emtricitab/Rilpiviri/Tenof Ala [Odefsey Tablet] 1 each PO DAILY 01/10/20 This patient is new to me today: No Emergency Visit: Yes ED Registration Date: 05/12/20 Care time: The patient presented to the Emergency Department on the above date and was hospitalized for further evaluation of their emergent condition. Critical Care patient: No - Discharge Referral Referred to [facility] Med P.C.: No ATTENDING PHYSICIAN STATEMENT I saw and evaluated the patient. I reviewed the resident's note and discussed the case with the resident. I agree with the resident's findings and plan as documented. SUBJECTIVE: OBJECTIVE: ASSESSMENT AND PLAN:
--- NOTE | 2020-05-17 12:27 | RAPID ---
Physical Examination Vital Signs: Vital Signs Temperature 98.6 F 05/17/20 06:00 Pulse Rate 92 H 05/17/20 06:00 Respiratory Rate 18 05/17/20 06:00 Blood Pressure 94/71 05/17/20 06:00 O2 Sat by Pulse Oximetry (%) 99 05/17/20 06:00 Labs: CBC, BMP 05/16/20 14:32 05/16/20 14:32 Rapid Response - Rapid Response Assessment: VITALS BP:108/63 AZ:145+ O2:96 Rapid response called at 12:20 for reports of the patient banging her head against the bed railing. Patient AZ recorded 145+. Patient was unable to have IV placement anesthesia paged stat for IV placement. Nurses are currently restraining patient from getting out of bed.
[2020-05-17 13:11] VITALS: BP 95/70; TEMP 97.6
--- NOTE | 2020-05-17 14:06 | PN ---
Progress Note (short form) - Note Progress Note: NEUROSURGERY Pt seen earlier Pt denies recent or remote trauma to L temporal/head region h/o metastatic prostate CA, HIV non-compliant with HIV medications, anemia has cloudy urine, LEFT hip lesion, diarrhea, and personality changes. No H/V, N/V, Sz. One episode of severe L upper jaw area pain. No fever/chill or recent infection. PE: General- unremarkable CN- intact; Motor- 5/5 without drift; Sensation- intact LT; DTR- 2+; Cerebellar- intact B FTN WBC 5.9, Hgb 9.6, INR 1.[address]- Symmetric cerebral atrophy; small L lateral temporal SDH with no mass effect L hemispheric small subacute SDH with no significant mass effect c/w trauma- though pt denies any trauma/fall Safety precautions d/w pt No neurosurgical intervention indicated for small SDH without significant mass effect Pt advised to follow up outpatient with PMD
--- NOTE | 2020-05-17 14:21 | PN ---
Teaching Attending Note Name of Resident: Juan Scanlon ATTENDING PHYSICIAN STATEMENT I saw and evaluated the patient. I reviewed the resident's note and discussed the case with the resident. I agree with the resident's findings and plan as documented. SUBJECTIVE: Appetite improving. Feeling better. No nausea/vomiting. No further loose stool overnight, no further BM today. No abdominal pain. L temporal swelling/mild discomfort improved. No visual disturbance. OBJECTIVE: Afebrile, hemodynamically stable. Cachexia. Last Vital Signs Temp Pulse Resp BP Pulse Ox 97.6 F 92 H 18 95/70 98 05/17/20 10:05/17/20 10:00 05/17/20 10:00 05/17/20 10:05/17/20 10:00 Heart - S1, S2, RRR Lungs - clear to auscultation Abdomen - soft, non-tender. Bowel Sounds normal. Extremities - no edema, no calf tenderness. Wasting ++ MS - Generalized wasting, prominent bony prominences, L hip ulcer - stage 3 with some bloody discharge, sacral decubitus ulcer. Neuro - AAO x 3. Tone/Power normal. Laboratory Results - last 24 hr 05/15/20 05/16/20 05/16/20 10:46 14:32 14:32 WBC 5.3 5.9 RBC 3.76 L Hgb 9.6 L Hct 29.6 L D MCV 78.6 L MCH 25.5 L MCHC 32.4 RDW 14.7 Plt Count 324 MPV 8.2 Absolute Lymphs (auto) 1.1 Lymphocytes 21 Nucleated RBCs TNP Sodium 140 Potassium 3.9 Chloride 111 H Carbon Dioxide 21 Anion Gap 8 BUN 10.2 Creatinine 0.3 L Est GFR (CKD-EPI)AfAm 170.79 Est GFR (CKD-EPI)NonAf 147.36 Random Glucose 64 L Calcium 7.0 L Phosphorus 3.0 Magnesium 1.8 Absolute CD3 Count 776 % CD3+ Lymphocytes 70.5 Absolute CD4 [place] 211 L % CD4+ Lymphocyte 19.2 L CD4/CD8 Ratio 0.39 L % CD8+ Lymphocyte 49.2 H Absolute CD8 Count 541 Current Medications Generic Name Dose Route Start Last Admin Trade Name Freq PRN Reason Stop Dose Admin Amino Acids 30 ml 05/13/20 08:00 05/17/20 09:41 Prosource No Carb Liquid Pkt PO Not Given BID@0800,1730 [facility] Bicalutamide 50 mg 05/16/20 10:00 05/17/20 09:41 Casodex - PO Not Given DAILY JESSICA Collagenase 1 applic 05/13/20 11:45 05/16/20 14:45 Santyl - TP 1 applic DAILY [facility] Administration Protocol Diphenhydramine HCl 12.5 mg 05/14/20 18:02 Benadryl Oral Solution - PO HS PRN FOR ITCHING Doxepin HCl 100 mg 05/16/20 22:00 05/16/20 22:51 Sinequan - PO Not Given HS JESSICA Folic Acid 1 mg 05/16/20 16:45 05/17/20 09:41 Folic Acid - PO Not Given DAILY JESSICA Tramadol HCl 50 mg 05/14/20 18:03 05/14/20 18:25 Ultram - PO 50 mg Q8H PRN Administration PAIN LEVEL 6-10 Home Medications Medication Instructions Recorded Doxepin HCl 200 mg PO HS 01/10/20 Emtricitab/Rilpiviri/Tenof Ala 1 each PO DAILY 01/10/20 [Odefsey Tablet] Bicalutamide [Casodex -] 50 mg PO DAILY #30 tablet 05/17/20 Collagenase Clostridium Hist. 1 applic TP DAILY #1 tube 05/17/20 [Santyl -] Folic Acid - 1 mg PO DAILY #30 tablet 05/17/20 ASSESSMENT AND PLAN: 59 year old male with history of Metastatic Prostate CA s/p XRT, Indwelling Aggarwal, HIV (last CD4 272, non-compliant with HAART), Chronic Anemia, brought in due to cloudy urine, L hip pain, diarrhea, and reported combativeness. No evidence of AMS or agitation on my interview. 1. Possible Small Subdural Hematoma/Soft tissue swelling L temporal fossa on CT Facial Bones Neurologically intact. Neurosurgery consulted - no need for acute intervention or further in-patient monitoring - for out-patient follow up. Lovenox stopped. 2. Diarrhea - intermittent/recurrent - now resolving Cdiff negative x 2 3. L hip/Sacral Decubitus Ulcers - present on admission, some sloughing and bloody discharge from L hip wound. Wound Care asked to re-evaluate for further management Frequent repositioning, air mattress, dressing as per wound care. For Wound care follow up on discharge 4. Severe Protein Calorie Malnutrition/failure to thrive Poor oral intake Nutrition consulted. Protein supplementation with ensure recommended. 5. HIV - noncompliant with HAART ID consulted - unclear plan for HIV Rx as patient intermittently refuses treatment. Will be discharged on Odefsey - ID follow up as out-patient. 6. Metastatic Prostate CA s/p XRT Blastic Bone lesions on CXR. Further work-up with Bone Scan etc as out-patient. PSA previously elevated, repeat pending. As per PCP, patient not compliant with Urology follow up for Ca treatment. Casodex started by Oncology - further management as per Onc. 7. Normocytic anemia ?sec to disseminated malignancy/chronic disease/HIV Anemia work-up including Iron studies, B12 levels normal. Folate levels borderline - supplemented. No active blood loss. H/H 9.6/29.6 s/p 1 unit PRBCs. 8. Home med lists Doxepin - for insomnia. Can continue on discharge. 9. Hypophosphatemia - repleted. 10. UTI associated with Indwelling aggarwal catheter ruled out Urine Cx contaminated, repeat Urine Cx pending. Aggarwal changed BP improving, will monitor. Empiric Zosyn discontinued by ID DVT Px - Lovenox SQ held due to questionable subdural hematoma. Dispo - medically stable for discharge home. He declines SNF/Rehab. Palliative Care evaluated. for home services and possible bridge to Hospice in the future. DNR/DNI.
== END 2020-05-17 17:04 | disposition home health service (06) | DRG 343 ==
LOC: JER 14:36 → JERBED 19:03 → J6S 21:55
PROVIDERS: ADMIT Student in an Organized Health Care Education/Training Program
PROC: 30230N1 Transfusion of Nonautologous Red Blood Cells into Peripheral Vein, Open Approach (ICD-10-PCS; principal; 2020-05-15)
DX: C79.51 Secondary malignant neoplasm of bone (principal); C61 Malignant neoplasm of prostate; R62.7 Adult failure to thrive; Z68.1 Body mass index [BMI] 19.9 or less, adult; E16.2 Hypoglycemia, unspecified; L89.222 Pressure ulcer of left hip, stage 2; L89.151 Pressure ulcer of sacral region, stage 1; L89.223 Pressure ulcer of left hip, stage 3; E43 Unspecified severe protein-calorie malnutrition; Z91.14 Patient's other noncompliance with medication regimen; D64.9 Anemia, unspecified; R64 Cachexia; E86.0 Dehydration; T83.511A Infection and inflammatory reaction due to indwelling urethral catheter, initial encounter; R19.7 Diarrhea, unspecified; N40.0 Benign prostatic hyperplasia without lower urinary tract symptoms; D63.0 Anemia in neoplastic disease; E83.39 Other disorders of phosphorus metabolism; S06.5X0A Traumatic subdural hemorrhage without loss of consciousness, initial encounter
CPT/HCPCS: 36415; 36430; 70450-TC; 70486-TC; 71045-TC-FY; 80048; 80053; 81003; 82308; 82550; 82607; 82728; 82746; 82803; 82962; 83540; 83550; 83605; 83735; 84100; 84153; 84484; 85025; 85027; 85610; 85730; 86359; 86360; 86850; 86900; 86901; 86922; 87040; 87045; 87046; 87086; 87177; 87186; 87205; 87207; 87209; 87324; 87328; 87449; 93005; 93010; 97162-GP; 99285-25; E0186; E1399; J7030; P9058; U0003

== ENCOUNTER 2020-06-10 12:30 | Inpatient (IN) | payer OTHER ==
[2020-06-10] MEDS ORDERED: LACTATED RINGERS SOLUTION 1000 ML INFUS.BAG IV ONE (13:06)
[2020-06-10] MEDS ORDERED: LIDOCAINE HCL 2% JELLY 10 ML CARTRIDGE UR ONE (13:28)
--- NOTE | 2020-06-10 13:33 | PDOC ---
History of Present Illness <Christine Lauren - Last Filed: 06/10/20 20:55> - History of Present Illness Initial Comments: HPI: 59 y/o male PMH of metastatic prostate CA, HIV (last CD4 211, non-adherent with HIV medications), and anemia BIBA after pt's blood pressure was found to be low at home when checked by visiting nurse/health aide (70s systolic) with associated dizziness. Pt also reports having multiple episodes of diarrhea (described as soft and loose stools) with bright red blood since last night. Pt also reports pain at insertion site of chronic indwelling aggarwal catheter as it has not been changed in over 1 month. Pt states he gets his indwelling aggarwal changed every month from visiting nurses (due to prostate cancer blockage). Pt denies fevers, chills, dysuria, urinary frequency, hematuria, chest pain, SOB, abdominal pain, constipation, vision changes, weakness, nausea, or vomiting. PMHX: as in HPI PSHX: as in HPI Meds: Home Medication List Medication Instructions Recorded Confirmed Type Doxepin HCl 200 mg PO HS 01/10/20 05/16/20 History Emtricitab/Rilpiviri/Tenof Ala 1 each PO DAILY 01/10/20 05/14/20 History [Odefsey Tablet] Allergies: ciprofloxacin, lactose Tob: : Smoked 1 ppd for 10 years, thirty years ago Etoh: Social alcohol use Rec drugs: Daily marijuana use PCP: Dr. Tsai (at [facility]) Marketing Operations Intern: n/a ROS GENERAL/CONSTITUTIONAL: No fever or chills. No weakness. + dizziness HEAD, EYES, EARS, NOSE AND THROAT: No change in vision. No ear pain or discharge. No sore throat. CARDIOVASCULAR: No chest pain or shortness of breath RESPIRATORY: No cough, wheezing, or hemoptysis. GASTROINTESTINAL: + diarrhea (soft and loose stool), + bright red blood in stool (per visiting nurse). No nausea, vomiting, diarrhea or constipation. GENITOURINARY: No dysuria, frequency, or change in urination. + pain at penile insertion site of aggarwal catheter MUSCULOSKELETAL: No joint or muscle swelling or pain. No neck or back pain. SKIN: No rash. Multiple decubitus ulcers/skin breakdown (L hip, sacral decubitus, R lower back) NEUROLOGIC: No headache, vertigo, loss of consciousness, or change in strength/sensation. ENDOCRINE: No increased thirst. No abnormal weight change HEMATOLOGIC/LYMPHATIC: No anemia, easy bleeding, or history of blood clots. ALLERGIC/IMMUNOLOGIC: No hives or skin allergy. PE GENERAL: Frail, cachectic, a&o x3 awake, alert, and fully oriented, in no acute distress. HEAD: Normal with no signs of trauma. EYES: Pupils equal, round and reactive to light, extraocular movements intact, sclera anicteric, conjunctiva clear EARS, NOSE, THROAT: Ears normal, nares patent, oropharynx clear without exudates or thrush. Dry mucous membranes. LUNGS: Breath sounds equal, clear to auscultation bilaterally. No wheezes, and no crackles. No accessory muscle use. HEART: Regular rate and rhythm, normal S1 and S2 without murmur, rub or gallop. ABDOMEN: Scaphoid, soft, not distended, mild suprapubic tenderness, normoactive bowel sounds, no guarding, no rebound, no masses. No hepatomegaly or splenomegaly. RECTAL: pt with no external masses or hemorrhoids; pt refusing internal rectal exam MUSCULOSKELETAL: Contracted LE BL. : mild irritation/erythema at glans penis; aggarwal catheter in place UPPER EXTREMITIES: 2+ pulses, warm, well-perfused. No cyanosis. LOWER EXTREMITIES: 2+ pulses, warm, well-perfused. No calf tenderness. 1+ pitting edema around ankles. NEUROLOGICAL: Cranial nerves II-XII intact. Normal speech. PSYCHIATRIC: appropriate SKIN: 8 cm circular stage 2 ulceration over LEFT hip with no discharge, mild redness, equal warmth. Sacral decubitus ulcer. R sided skin breakdown. 06/10/20 13:31 06/10/20 14:40 06/10/20 14:46 06/10/20 15:27 <Matthieu Enrique - Last Filed: 06/10/20 21:40> - General Chief Complaint: Blood Pressure Problem Stated Complaint: DIZZINESS Time Seen by Provider: 06/10/20 13:00 Past History <Christine Lauren - Last Filed: 06/10/20 20:55> - Medical History Anemia: Yes Cancer: (Yes; Prostate CA) Cardiac Disorders: No CVA: No COPD: No CHF: No Dementia: No Diabetes: No GI Disorders: No Disorders: Yes (retension - Aggarwal cath) HTN: No Hypercholesterolemia: No Liver Disease: No Seizures: No - Surgical History Abdominal Surgery: No Appendectomy: No Cardiac Surgery: No Cholecystectomy: No Lung Surgery: No Neurologic Surgery: No Orthopedic Surgery: No - Immunization History Immunization Up to Date: No - Psycho-Social/Smoking History Smoking History: Never smoked Have you smoked in the past 12 months: No If you are a former smoker, when did you quit?: 1989 Information on smoking cessation initiated: No 'Breaking Loose' booklet given: 10/29/19 - Substance Abuse Hx (Audit-C & DAST Scrn) How often the patient has a drink containing alcohol: Never Score: In Men: 4 or > Positive; In Women: 3 or > Positive: 0 Screen Result (Pos requires Nsg. Audit-10AR): Negative In the last yr the pt used illegal drug/Rx for NonMed reason: Yes Score: Yes response is considered Positive: 1 Screen Result (Positive result requires Nsg. DAST-10): Positive <Matthieu Enrique - Last Filed: 06/10/20 21:40> - Medical History Allergies/Adverse Reactions: Allergies Allergy/AdvReac Type Severity Reaction Status Date / Time ciprofloxacin [From Cipro] Allergy Verified 01/09/20 13:32 lactose AdvReac Verified 05/16/20 15:32 Home Medications: Ambulatory Orders Doxepin HCl 200 mg PO HS 01/10/20 Emtricitab/Rilpiviri/Tenof Ala [Odefsey Tablet] 1 each PO DAILY 01/10/20 Bicalutamide [Casodex -] 50 mg PO DAILY #30 tablet 05/17/20 Collagenase Clostridium Hist. [Santyl -] 1 applic TP DAILY #1 tube 05/17/20 Folic Acid - 1 mg PO DAILY #30 tablet 05/17/20 *Physical Exam - Vital Signs Last Vital Signs Temp Pulse Resp BP Pulse Ox 97.6 F 78 18 103/65 100 06/10/20 18:29 06/10/20 18:29 06/10/20 18:29 06/10/20 18:29 06/10/20 18:29 <Christine Lauren - Last Filed: 06/10/20 20:55> - Vital Signs Last Vital Signs Temp Pulse Resp BP Pulse Ox 97.1 F L 98 H 18 63/46 L 100 06/10/20 12:59 06/10/20 12:59 06/10/20 12:59 06/10/20 12:59 06/10/20 12:59 <Matthieu Enrique - Last Filed: 06/10/20 21:40> Procedures - Central Line Central Line Lumen: triple Central Line Position: internal jugular (L) Anesthesia: 1% Lidocaine Amount of anesthesia (ccs): 4 Complications: none Post Central Line Insertion: sutured, good blood return, position confirmed w/ CXR <JessikaChetmaricruzRamirocatherine - Last Filed: 06/10/20 20:55> ED Treatment Course - LABORATORY CBC & Chemistry Diagram: 06/10/20 16:58 06/10/20 16:58 - ADDITIONAL ORDERS Additional order review: Laboratory Results 06/10/20 06/10/20 06/10/20 16:58 16:58 16:58 VBG pH 7.352 POC VBG pCO2 46.3 POC VBG pO2 34.4 VBG HCO3 25.1 VBG O2 Sat (Franca) No Result Required. VBG Base Excess No Result Required. Sodium 143 Potassium 6.1 H* Chloride 112 H Carbon Dioxide 22 Anion Gap 9 BUN 45.3 H Creatinine 0.4 L Est GFR (CKD-EPI)AfAm 151.74 Est GFR (CKD-EPI)NonAf 130.93 Random Glucose 17 L* Lactic Acid 3.8 H* Calcium 6.6 L* Total Bilirubin 0.4 AST 687 H ALT 607 H Alkaline Phosphatase > 1000 H Troponin I < 0.02 Total Protein 4.5 L Albumin 1.2 L 06/10/20 16:58 RBC 2.03 L MCV 79.6 L MCHC 32.0 RDW 17.6 H MPV 9.1 D Neutrophils % 66.5 Lymphocytes % 28.0 D Monocytes % 4.9 Eosinophils % 0.1 D Basophils % 0.5 - Medications Given in the ED: ED Medications Discontinued Medications Generic Name Dose Route Start Last Admin Trade Name Freq PRN Reason Stop Dose Admin Dextrose 25 gm 06/10/20 17:50 06/10/20 17:54 D50w (Vial) - IVPUSH 06/10/20 17:51 25 gm NOW ONE Administration Cefepime HCl 2 gm/ Dextrose 100 mls @ 200 mls/hr 06/10/20 18:27 06/10/20 20:01 IVPB 06/10/20 18:56 200 mls/hr ONCE ONE Administration Metronidazole 500 mg in 100 mls @ 100 mls/hr 06/10/20 18:28 06/10/20 20:01 Flagyl 500mg Premixed Ivpb - IVPB 06/10/20 19:27 100 mls/hr ONCE ONE Administration Lactated Ringer's 1,000 ml 06/10/20 13:06 06/10/20 13:32 Lactated Ringers Solution IV 06/10/20 13:07 1,000 ml ONCE ONE Administration Lidocaine HCl 5 ml 06/10/20 13:28 06/10/20 13:35 Xylocaine 2% Uro-Jet UR 06/10/20 13:29 5 ml ONCE ONE Administration <Christine Lauren - Last Filed: 06/10/20 20:55> - LABORATORY CBC & Chemistry Diagram: 06/10/20 16:58 06/10/20 20:10 <Matthieu Enrique - Last Filed: 06/10/20 21:40> Medical Decision Making - Medical Decision Making 59 yo male PMH metastatic Prostate Ca, HIV (last CD4 211, non-compliant with HIV medications), anemia BIBA after pt found to be hypotensive at home (70s systolic) and diarrhea (soft and loose) with bright red blood in the stool since last night. sepsis vs acute blood loss EKG: NSR, rate 93 bpm, WV interval 104 ms, QT/QTc 320/397; no acute changes from previous EKG Sepsis work up. CBC. CMP. Stool for occult blood. Stool O+P/culture. Pt receiving IVF hydration with LR. CXR: blastic bone changes throughout suggestive of metastatic prostate cancer. Lungs free of infiltrates. L hilar prominence with questionable atelectasis on L and pleural-based density along the left chest wall. CT abdomen/pelvis w/o contrast: Interval development of diffuse mesenteric and subcutaneous edema. Development of moderate diffuse colonic distension (? d/t fecal retention). Development of small bilateral pleural effusions with associated mild bibasilar compressive atelectasis. Severe osteoblastic neoplastic disease. 06/10/20 14:27 Hb/Hct 5.2/16.2 WBC 10.9 K 6.1 (although hemolyzed) Glucose 17 AST 687, ALT 607, Alk Phos >1000 Calcium is 6.6, but corrected 8.8 Lactate 3.8 Will give dextrose. Will transfuse. Transaminitis is new - posible shock liver. Central line placement to be discussed for transfusion, further blood draws, and medication administration. Pt will be admitted to ICU. 06/10/20 17:57 06/10/20 18:47 06/10/20 19:22 06/10/20 20:48 <Matthieu Enrique - Last Filed: 06/10/20 21:40> Discharge <Christine Lauren - Last Filed: 06/10/20 20:55> - Discharge Information Problems reviewed: Yes <Matthieu Enrique - Last Filed: 06/10/20 21:40> - Discharge Information Clinical Impression/Diagnosis: AIDS, Transaminitis, Hypoglycemia Failure to thrive Qualifiers: Failure to thrive age range: in adult Qualified Code(s): R62.7 - Adult failure to thrive Condition: Critical
[2020-06-10] MEDS ORDERED: LIDOCAINE HCL 2% JELLY 10 ML CARTRIDGE ONE (13:35)
--- NOTE | 2020-06-10 13:56 | PDOC ---
Documentation entered by Jesús Guerrero SCRIBE, acting as scribe for Laura Hough MD. Laura Hough MD: This documentation has been prepared by the scribe, Jesús Guerrero SCRIBE, under my direction and personally reviewed by me in its entirety. I confirm that the documentation accurately reflects all work, treatment, procedures, and medical decision making performed by me. Attending Attestation - Resident Resident Name: Matthieu Enrique - ED Attending Attestation I have performed the following: I have examined & evaluated the patient, The case was reviewed & discussed with the resident, I agree w/resident's findings & plan, Exceptions are as noted - HPI HPI: 06/10/20 14:19 The patient is a 59 year old male with a significant past medical history of metastatic Prostate CA, HIV (last CD4 211, non-compliant with HIV medications), anemia who presents to the emergency department, [facility], for evaluation of dizziness and low blood pressure (70s systolic) detected today by the patients visiting nurse/health aide at home today. The patient reports associated episodes of diarrhea with bright red blood that began last night. He also endorses pain at the insertion site of his aggarwal catheter which has not been changed for the past month. The patient denies chest/abdominal/back pain, cough, and shortness of breath. Denies fever, chills, nausea, or vomiting. Denies any other symptoms. Allergies: ciprofloxacin, lactose Social Hx: The patient reports daily marijuana use, socially drinking alcohol, and previous smoking one pack of cigarettes per day for ten years before quitting 30 years ago. PCP: Dr. Tsai (at [facility]) - Physicial Exam PE: 06/10/20 13:04 GENERAL: Awake, alert, and fully oriented. Cachectic. Appears chronically ill, contracted. HEAD: No signs of trauma. +Temporal wasting. EYES: PERRLA, EOMI, sclera anicteric, conjunctiva clear ENT: Auricles normal inspection, hearing grossly normal, nares patent, oropharynx clear without exudates. Dry mucosa NECK: Normal ROM, supple, no lymphadenopathy, JVD, or masses LUNGS: Breath sounds equal, clear to auscultation bilaterally. No wheezes, and no crackles HEART: Regular rate and rhythm, normal S1 and S2, no murmurs, rubs or gallops ABDOMEN: Soft, nontender, normoactive bowel sounds. No guarding, no rebound. No masses EXTREMITIES: Normal range of motion, no edema. No clubbing or cyanosis. No cords, erythema, or tenderness NEUROLOGICAL: Cranial nerves II through XII grossly intact. Normal speech. No sensorimotor deficits. SKIN: Warm, Dry, normal turgor, no rashes or lesions noted. - Medical Decision Making 06/10/20 13:57 Pt with AIDS presenting with diarrhea, poor PO intake. Appears cachectic, contracted, chronically ill. Afebrile, however, severely immunocompromised and may not be able to mount a fever. Sepsis protocol initiated. Will send stool for culture, O&P when he has a bowel movement. 06/10/20 17:51 Pt with multiple lab abnormalities- glucose 17, calcium is 6.6, but corrects to 8.8 (albumin is extremely low). Potassium is elevated, however, hemolyzed- very difficult to draw. Also noted to have transaminitis- poss shock liver? Will give fluids. Will give dextrose. Will discuss central line placement, as he is going to need multiple meds, blood transfusion, and needs more blood draws. Need to discuss goals of care, this may be a case for palliative care. 06/10/20 18:39 Pt agreed to central line. Placing presently. Accepted to ICU for admission. Discharge - Discharge Information Problems reviewed: Yes Clinical Impression/Diagnosis: AIDS, Transaminitis, Hypoglycemia Failure to thrive Qualifiers: Failure to thrive age range: in adult Qualified Code(s): R62.7 - Adult failure to thrive Condition: Critical - Admission Yes - Follow up/Referral - Patient Discharge Instructions - Post Discharge Activity
[2020-06-10] MEDS: MICONAZOLE NITRATE 14 GM/TUBE TUBE TP SCH (14:30)
[2020-06-10 17:30] LABS: BASO % 0.5 % (0-2.0); EOS % 0.1 % (0-4.5); HEMATOCRIT 16.2 % (35.4-49); MCH 25.5 pg (25.7-33.7); MEAN CELL VOLUME 79.6 fl (80-96); MEAN PLT VOLUME 9.1 fl (7.5-11.1); MONO % 4.9 % (3.8-10.2); NEUT % 66.5 % (42.8-82.8); PLATELET COUNT 298 K/MM3 (134-434); RBC 2.03 M/mm3 (4.00-5.60); RDW 17.6 % (11.9-15.9); VENOUS PCO2 46.3 mmHg (38-52); VENOUS PH 7.352 (7.310-7.410); WHITE BLOOD COUNT 10.9 K/mm3 (4.0-10.0)
[2020-06-10 17:40] LABS: HEMOGLOBIN 5.2 GM/dL (11.7-16.9)
[2020-06-10 17:45] LABS: ALBUMIN 1.2 g/dl (3.4-5.0); BILIRUBIN,TOTAL 0.4 mg/dL (0.2-1); BLOOD UREA NITROGEN 45.3 mg/dL (7-18); CHLORIDE 112 mmol/L (98-107); CO2 22 mmol/L (21-32); CREATININE 0.4 mg/dL (0.55-1.3); SGOT/AST 687 U/L (15-37); SGPT/ALT 607 U/L (13-61); SODIUM 143 mmol/L (136-145); TOT PROT 4.5 g/dl (6.4-8.2)
[2020-06-10 17:46] LABS: ALK PHOS > 1000 U/L (45-117); ANION GAP 9 MMOL/L (8-16)
[2020-06-10 17:48] LABS: CALCIUM 6.6 mg/dL (8.5-10.1); GLUCOSE,RANDOM 17 mg/dL (74-106); POTASSIUM 6.1 mmol/L (3.5-5.1)
[2020-06-10] MEDS ORDERED: DEXTROSE 50%-WATER - 25 GM/50 ML VIAL IVPUSH ONE (17:50)
[2020-06-10] MEDS ORDERED: DEXTROSE 50%-WATER 25 GM/50 ML DISP.SYRIN ONE ×2 (17:51→19:45)
[2020-06-10] MEDS ORDERED: VANCOMYCIN 750 MG in DEXTROSE 5%-WATER - 250 ML IVPB ONE (18:25)
[2020-06-10] MEDS ORDERED: CEFEPIME 2 GM in DEXTROSE 5%-WATER - 100 ML IVPB ONE (18:27)
--- NOTE | 2020-06-10 19:13 | CONSULT ---
Consultation: REQUESTING PROVIDER: CONSULT REQUEST: We have been asked to medically evaluate this patient for (specify). HISTORY OF PRESENT ILLNESS: 59 yo male with pmh of metastatic prostate CA, HIV (CD4 <250 noncompliant on meds), anemia from notes states pt presents to the ED by nurse aid who states pt was hypotensive into 70s and pt was dizzy. Pt told ER that he was having multiple soft brown bowel movements starting last night. Pt explained to me that he had one diarrhea with streaks of bright red blood. Pt also has assoicated weakness for three weeks, nonproductive cough for three weeks with taste loss for for the last few days. Pt also dec urine output for the last day and dec appetite for past few days. Pt Pt denies nausea, emesis, prior instance of blood or black stool since yesterday, chest pain, fevers, chills, sick contacts. PMH: metastatic prostate CA, HIV, severe anemia Meds: doxipin, odefsey PSH: denies Allergies: ciprofloxacin Social: smokes marijuana and tobacco, denies alcohol use PCP: Dr. Elgin Reynoso REVIEW OF SYSTEMS: GENERAL/CONSTITUTIONAL: No fever or chills. Weakness. HEAD, EYES, EARS, NOSE AND THROAT: No change in vision. No ear pain or discharge. No sore throat. CARDIOVASCULAR: No chest pain or shortness of breath RESPIRATORY: No cough, wheezing, or hemoptysis. GASTROINTESTINAL: No nausea, vomiting, constipation. Diarrhea with streaks of BRB. GENITOURINARY: Dec urine output from aggarwal. MUSCULOSKELETAL: No joint or muscle swelling or pain. . SKIN: Multiple ulcers around body. NEUROLOGIC: No headache, loss of consciousness, or change in strength/sensation. ENDOCRINE: No increased thirst. No abnormal weight change HEMATOLOGIC/LYMPHATIC: Pt has history of severe bleeding ALLERGIC/IMMUNOLOGIC: No hives or skin allergy. PHYSICAL EXAMINATION GENERAL: Awake, alert, and fully oriented, in severe distress HEAD: No signs of trauma, normocephalic, atraumatic EYES: EOMI, sclera icteric, Pale conjunctiva ENT: Auricles normal inspection, hearing grossly normal, nares patent, oropharynx clear without exudates. NECK: Normal ROM, supple, no lymphadenopathy, JVD, or masses LUNGS: Pt not speaking full sentences, clear to auscultation bilaterally HEART: Regular rate (87) and regular rhythm, normal S1 and S2, no murmurs, rubs or gallops, peripheral pulses normal and equal bilaterally. ABDOMEN:Normal bowel sounds in all four quadrants. Tenderness and guarding in all four quadrants. EXTREMITIES : Normal inspection, Normal range of motion, no edema. No clubbing or cyanosis. NEUROLOGICAL: Cranial nerves II through XII grossly intact. SKIN: Grade 2 ulcer on buttock, Decubitus ulcer Rectal exam: showed streaks of bright red blood; multiple hemorrhoids around rectum. NO internal hemorrhoids noted. Pt does not look like he is actively bleeding from rectum Vital Signs - 24 hr 06/10/20 06/10/20 06/10/20 12:40 12:59 13:00 Temperature 97.1 F L 98.0 F Pulse Rate 98 H Pulse Rate [ 84 Apical] Respiratory 18 18 Rate Blood Pressure 63/46 L Blood Pressure 70/48 L [Left Arm] O2 Sat by Pulse 100 100 100 Oximetry (%) 06/10/20 06/10/20 06/10/20 13:20 13:30 14:15 Temperature 98.8 F Pulse Rate Pulse Rate [ 83 81 Apical] Respiratory Rate Blood Pressure Blood Pressure 90/49 L 80/55 L [Left Arm] O2 Sat by Pulse 100 Oximetry (%) 06/10/20 18:29 Temperature 97.6 F Pulse Rate Pulse Rate [ 78 Apical] Respiratory 18 Rate Blood Pressure Blood Pressure 103/65 [Left Arm] O2 Sat by Pulse 100 Oximetry (%) Laboratory Results - last 24 hr 06/10/20 06/10/20 06/10/20 16:58 16:58 16:58 WBC 10.9 H RBC 2.03 L Hgb 5.2 L* Hct 16.2 L D MCV 79.6 L MCH 25.5 L MCHC 32.0 RDW 17.6 H Plt Count 298 MPV 9.1 D Absolute Neuts (auto) 7.2 Neutrophils % 66.5 Lymphocytes % 28.0 D Monocytes % 4.9 Eosinophils % 0.1 D Basophils % 0.5 Nucleated RBC % 1 H VBG pH 7.352 POC VBG pCO2 46.3 POC VBG pO2 34.4 VBG HCO3 25.1 VBG O2 Sat (Franca) No Result Required. VBG Base Excess No Result Required. Sodium 143 Potassium 6.1 H* Chloride 112 H Carbon Dioxide 22 Anion Gap 9 BUN 45.3 H Creatinine 0.4 L Est GFR (CKD-EPI)AfAm 151.74 Est GFR (CKD-EPI)NonAf 130.93 Random Glucose 17 L* Lactic Acid Calcium 6.6 L* Total Bilirubin 0.4 AST 687 H ALT 607 H Alkaline Phosphatase > 1000 H Troponin I < 0.02 Total Protein 4.5 L Albumin 1.2 L 06/10/20 16:58 WBC RBC Hgb Hct MCV MCH MCHC RDW Plt Count MPV Absolute Neuts (auto) Neutrophils % Lymphocytes % Monocytes % Eosinophils % Basophils % Nucleated RBC % VBG pH POC VBG pCO2 POC VBG pO2 VBG HCO3 VBG O2 Sat (Franca) VBG Base Excess Sodium Potassium Chloride Carbon Dioxide Anion Gap BUN Creatinine Est GFR (CKD-EPI)AfAm Est GFR (CKD-EPI)NonAf Random Glucose Lactic Acid 3.8 H* Calcium Total Bilirubin AST ALT Alkaline Phosphatase Troponin I Total Protein Albumin Active Medications Generic Name Dose Route Start Last Admin Trade Name Freq PRN Reason Stop Dose Admin Chlorhexidine Gluconate 1 applic 06/10/20 22:00 Hibiclens For Decolonization - TP HS JESSICA Vancomycin HCl 750 mg/ 250 mls @ 166.667 mls/hr 06/10/20 18:25 Dextrose IVPB 06/10/20 19:54 ONCE ONE Metronidazole 500 mg in 100 mls @ 100 mls/hr 06/10/20 18:28 Flagyl 500mg Premixed Ivpb - IVPB 06/10/20 19:27 ONCE ONE Miconazole Nitrate 1 applic 06/10/20 13:30 06/10/20 14:30 Monistat Topical Cream - TP Not Given BID [facility] Mupirocin 1 applic 06/10/20 22:00 Bactroban Ointment (For Decolonization) - NS 06/15/20 21:59 BID [facility] ASSESSMENT/PLAN: Dispo: We will continue to follow the patient. Thank you for this consultative opportunity. Neuro - Grossly intact. No neuro checks needed AAOx3 frail and cachectic appearing Cardio - trop negative - EKG showed NOrmal sinus rhythm at 93 bpm, Normal [place], QRS, and QT intervals. - telemetry monitor - Pt K elevated to 6.1 will repeat and monitor Pulm - sat 100%% on RA - CXR shows free of infiltrates with left hilar prominence with questionable atelectasis on the left. - Per ED staff no suspicion of COVID-19 cont to monitor pulmonary status Heme Onc - hgb 5.2 pt known anemic on rectal exam per ED red streaks of blood noted within feces. - Pt ordered 2 PRBC in ED. Pt only received 1 PRBC. - pt also ordered one FFP - heme consult appreciated GI - Pt liver enzymes are elevated AST 687 ALT 607. Alk phos elevated to >1000. - Pt has most likely shock liver will treat with PRBC and monitor LFTs - Pt requesting GI consult for also streaks of blood noted in feces. - Dr. Schumacher consulted for GI. Dr. Schumacher wanted abdominal ultrasound. Dr. Schumacher explained to get surgical consult if concern for mesenteric ischemia or ischemic colitis. Dr. Schumacher explained and said he wanted CTAP with contrast and not CTA of abd and pelvis. Dr. Schumacher wanted Protonix 40 BID. He also explained he wanted to manage coagulopathy with vitamin K but to consult heme. ID - pt septic with history of HIV - pt given vanc and flagyl and cefepime in ED - ID consult appreciated Endo: - pt was hypoglycemic in ED - pt was given two units of D50 in the ED -q1hr glucose check. PPX: - DVT- SCD Visit type - Emergency Visit Emergency Visit: Yes ED Registration Date: 06/10/20 Care time: The patient presented to the Emergency Department on the above date and was hospitalized for further evaluation of their emergent condition. - New Patient This patient is new to me today: Yes Date on this admission: 06/11/20 - Critical Care Critical Care patient: Yes Total Critical Care Time (in minutes): 36 Critical Care Statement: The care of this patient involved high complexity deci haley making to prevent further life threatening deterioration of the patient's condition and/or to evaluate & treat vital organ system(s) failure or risk of failure. ATTENDING PHYSICIAN STATEMENT I saw and evaluated the patient. I reviewed the resident's note and discussed the case with the resident. I agree with the resident's findings and plan as documented. SUBJECTIVE: OBJECTIVE: ASSESSMENT AND PLAN:
[2020-06-10] MEDS ORDERED: TRIPLE LUMEN FLUSH 4 ML ML IVPUSH PRN (19:22)
[2020-06-10] MEDS ORDERED: CEFEPIME 2 GM/100 ML BAG IVPB ONE (19:47)
[2020-06-10 19:51] LABS: ANISOCYTOSIS 3+; MACROCYTOSIS 0; PLATELET ESTIMATE NORMAL
[2020-06-10 20:31] LABS: EPI CELLS 2 /uL (0-25.1); HYALINE CASTS 8 /uL (0-3.1); PH,URINE 8.5 (5.0-8.0); URINE APPEARANCE CLEAR; URINE BACTERIA 8058 /uL (0-1359); URINE BILIRUBIN NEGATIVE (NEGATIVE); URINE COLOR YELLOW; URINE GLUCOSE (UA) NEGATIVE (NEGATIVE); URINE KETONE NEGATIVE (NEGATIVE); URINE LEUK ESTERASE 2+ (NEGATIVE); URINE NITRITE POSITIVE (NEGATIVE); URINE PROTEIN 1+ (NEGATIVE); URINE RBC 43 /uL (0-23.9); URINE WBC 175 /uL (0-25.8)
[2020-06-10 20:51] LABS: INR 1.96 (0.83-1.09); PROTHROMBIN TIME (PATIENT) 23.3 SEC (9.7-13.0)
[2020-06-10 20:54] LABS: ACTIVATED PTT 33.8 SECONDS (25.2-36.5)
[2020-06-10 20:59] LABS: BILIRUBIN,TOTAL 0.3 mg/dL (0.2-1); BLOOD UREA NITROGEN 47.1 mg/dL (7-18); CREATININE 0.5 mg/dL (0.55-1.3); POTASSIUM 4.9 mmol/L (3.5-5.1); TOT PROT 3.4 g/dl (6.4-8.2)
[2020-06-10 21:05] LABS: CALCIUM 6.3 mg/dL (8.5-10.1)
[2020-06-10] MEDS ORDERED: PANTOPRAZOLE SODIUM 80 MG in SODIUM CHLORIDE 100 ML IVPB SCH (21:30)
[2020-06-10] MEDS ORDERED: SODIUM CHLORIDE 250 ML IV STA (22:05)
[2020-06-10] MEDS ORDERED: LACTATED RINGERS SOLUTION 1,000 ML/1,000 ML INFUS.BAG IV SCH (22:15)
[2020-06-10] MEDS ORDERED: SODIUM CHLORIDE 1,000 ML IV SCH (22:15)
[2020-06-10] MEDS ORDERED: PIPERACILLIN/TAZOB 3.375 GM 3.375 GM/50 ML BAG IVPB ONE (22:18)
[2020-06-10] MEDS ORDERED: VANCOMYCIN 1 GRAM (PRE-DOCKED) 1,000 MG/250 ML BAG IVPB ONE (22:18)
[2020-06-10] MEDS ORDERED: PANTOPRAZOLE SODIUM 40 MG VIAL ONE (22:18)
[2020-06-10] MEDS: PANTOPRAZOLE SODIUM 40 MG VIAL IVPUSH SCH (22:23)
[2020-06-10] MEDS: PIPERACILLIN/TAZOB 3.375 GM 3.375 GM in DEXTROSE 5%-WATER - 50 ML IVPB SCH (22:27)
[2020-06-10 22:45] LABS: BASO % 0.1 % (0-2.0); EOS % 0.1 % (0-4.5); HEMATOCRIT 11.6 % (35.4-49); MCH 27.3 pg (25.7-33.7); MCHC 32.8 g/dl (32.0-35.9); MEAN CELL VOLUME 83.4 fl (80-96); MEAN PLT VOLUME 9.1 fl (7.5-11.1); MONO % 5.5 % (3.8-10.2); NEUT % 71.3 % (42.8-82.8); PLATELET COUNT 232 K/MM3 (134-434); RBC 1.39 M/mm3 (4.00-5.60); RDW 17.9 % (11.9-15.9); WHITE BLOOD COUNT 7.2 K/mm3 (4.0-10.0)
[2020-06-10 22:52] LABS: HEMOGLOBIN 3.8 GM/dL (11.7-16.9)
[2020-06-11] MEDS ORDERED: DEXTROSE 50%-WATER 25 GM/50 ML DISP.SYRIN ONE (01:28)
[2020-06-11] MEDS: MICONAZOLE NITRATE 14 GM/TUBE TUBE TP SCH ×2 (01:33→21:23)
[2020-06-11] MEDS: MUPIROCIN 2% TOPICAL OINTMENT FOR DECOLONIZATION NS SCH ×3 (01:33→21:23)
[2020-06-11] MEDS: CHLORHEXIDINE GLUCONATE 4% CLEANSER FOR DECOLONIZATION TP SCH ×2 (01:33→21:23)
[2020-06-11] MEDS ORDERED: DEXTROSE 50%-WATER - 25 GM/50 ML VIAL IVPUSH ONE (02:30)
[2020-06-11] MEDS ORDERED: MORPHINE SULFATE 2 MG/ML VIAL IVPUSH ONE ×2 (02:35→18:35)
[2020-06-11] MEDS ORDERED: MORPHINE SULFATE 2 MG/ML VIAL ONE (02:38)
--- NOTE | 2020-06-11 02:41 | PN ---
Progress Note (short form) - Note Progress Note: CTAP w/ contrast: Free intraperitoneal air, ascites; perforated hollow viscus suspected; proximal transverse colon dilated w/ stool, and possible pneumatosis in [place] of this segment of colon. Visceral arteries such as SMA are patent, but small; Could represent vasospasm, fluid depletion, and could be a cause of low flow ischemia Discussed with General surgeon composition tile layer (Dr. Lua). Call placed for concern for bowel perforation and possible surgical intervention. Surgeon composition tile layer recommended continuing current medical management. Will discuss potential surgical intervention options with patient in AM. Discussed imaging results with patient and the possibility for surgical intervention in AM. Pt aware and agreeable to discussion with surgeon tomorrow AM. Pt is s/p 2 units PRBC and FFP 1 unit for suspected Lower GI bleed. Pt vitals are stable at this time. Will continue to monitor patient.
[2020-06-11] MEDS ORDERED: DEXTROSE 5%-WATER - 50 ML IVPB ONE ×3 (02:58→16:47)
[2020-06-11] MEDS ORDERED: PIPERACILLIN/TAZOBACTAM 3.375 GM VIAL IVPB ONE ×3 (02:58→16:47)
[2020-06-11] MEDS: PIPERACILLIN/TAZOB 3.375 GM 3.375 GM in DEXTROSE 5%-WATER - 50 ML IVPB SCH ×3 (02:59→17:03)
[2020-06-11] MEDS ORDERED: DEXTROSE 5%-LACTATED RINGERS 1,000 ML IV SCH ×2 (03:30→09:16)
--- NOTE | 2020-06-11 07:12 | CON.GI ---
Consult - History of Present Illness History of Present Illness: GI CONSULT DICTATED - Past Medical History Renal/: Yes: Cancer (Metastatic prostate ca) Infectious Disease: Yes: HIV - Alcohol/Substance Use Hx Alcohol Use: No History of Substance Use: reports: Marijuana - Smoking History Smoking history: Never smoked Have you smoked in the past 12 months: No If you are a former smoker, when did you quit?: 1989 - Social History Usual Living Arrangement: Alone ADL: Support Services Occupation: Unemployed History of Recent Travel: No Home Medications - Allergies Allergies/Adverse Reactions: Allergies Allergy/AdvReac Type Severity Reaction Status Date / Time ciprofloxacin [From Cipro] Allergy Verified 01/09/20 13:32 lactose AdvReac Verified 05/16/20 15:32 - Home Medications Home Medications: Ambulatory Orders Doxepin HCl 200 mg PO HS 01/10/20 Emtricitab/Rilpiviri/Tenof Ala [Odefsey Tablet] 1 each PO DAILY 01/10/20 Bicalutamide [Casodex -] 50 mg PO DAILY #30 tablet 05/17/20 Collagenase Clostridium Hist. [Santyl -] 1 applic TP DAILY #1 tube 05/17/20 Folic Acid - 1 mg PO DAILY #30 tablet 05/17/20 Physical Exam-GI Vital Signs: Vital Signs Temperature 97.6 F 06/11/20 06:00 Pulse Rate 68 06/11/20 06:00 Respiratory Rate 10 06/11/20 06:00 Blood Pressure 78/58 L 06/11/20 06:00 O2 Sat by Pulse Oximetry (%) 100 06/11/20 06:00 Labs: INR, PTT INR 1.96 (0.83-1.09) H 06/10/20 20:10 Problem List - Problems (1) AIDS Code(s): B20 - HUMAN IMMUNODEFICIENCY VIRUS [HIV] DISEASE (2) Pneumoperitoneum of unknown etiology Code(s): K66.8 - OTHER SPECIFIED DISORDERS OF PERITONEUM (3) Transaminitis Code(s): R74.0 - NONSPEC ELEV OF LEVELS OF TRANSAMNS & LACTIC ACID DEHYDRGNSE (4) Anemia Code(s): D64.9 - ANEMIA, UNSPECIFIED Qualifiers:
[2020-06-11 07:20] LABS: INR 1.56 (0.83-1.09); PROTHROMBIN TIME (PATIENT) 18.5 SEC (9.7-13.0)
[2020-06-11 07:21] LABS: EOS % 0.1 % (0-4.5); HEMOGLOBIN 9.1 GM/dL (11.7-16.9); MCH 28.8 pg (25.7-33.7); MCHC 33.7 g/dl (32.0-35.9); MEAN CELL VOLUME 85.6 fl (80-96); MEAN PLT VOLUME 8.8 fl (7.5-11.1); MONO % 2.8 % (3.8-10.2); NEUT % 89.1 % (42.8-82.8); PLATELET COUNT 215 K/MM3 (134-434); RBC 3.15 M/mm3 (4.00-5.60); RDW 20.5 % (11.9-15.9); WHITE BLOOD COUNT 11.7 K/mm3 (4.0-10.0)
[2020-06-11 07:23] LABS: ACTIVATED PTT 34.2 SECONDS (25.2-36.5)
[2020-06-11 07:40] LABS: ALBUMIN 1.3 g/dl (3.4-5.0); BILIRUBIN,TOTAL 0.5 mg/dL (0.2-1); BLOOD UREA NITROGEN 46.1 mg/dL (7-18); CREATININE 0.4 mg/dL (0.55-1.3); POTASSIUM 4.7 mmol/L (3.5-5.1)
[2020-06-11 08:08] LABS: CALCIUM 6.8 mg/dL (8.5-10.1)
[2020-06-11 09:43] LABS: HEMATOCRIT 28.9 % (35.4-49); HEMOGLOBIN 9.6 GM/dL (11.7-16.9); LYMPH % 8.5 % (8-40); MCH 28.7 pg (25.7-33.7); MCHC 33.3 g/dl (32.0-35.9); MEAN CELL VOLUME 86.3 fl (80-96); MEAN PLT VOLUME 8.7 fl (7.5-11.1); MONO % 2.9 % (3.8-10.2); NEUT % 88.6 % (42.8-82.8); PLATELET COUNT 210 K/MM3 (134-434); RBC 3.35 M/mm3 (4.00-5.60); RDW 19.9 % (11.9-15.9); WHITE BLOOD COUNT 11.6 K/mm3 (4.0-10.0)
--- NOTE | 2020-06-11 10:26 | EKG ---
Test Reason : Blood Pressure : / mmHG Vent. Rate : 093 BPM Atrial Rate : 093 BPM P-R Int : 104 ms QRS Dur : 074 ms QT Int : 320 ms P-R-T Axes : 049 072 263 degrees QTc Int : 397 ms POOR DATA QUALITY, INTERPRETATION MAY BE ADVERSELY AFFECTED SINUS RHYTHM WITH SHORT WY SEPTAL INFARCT , AGE UNDETERMINED ABNORMAL ECG WHEN COMPARED WITH ECG OF 12-MAY-2020 15:07, SEPTAL INFARCT IS NOW PRESENT NONSPECIFIC T WAVE ABNORMALITY NOW EVIDENT IN INFERIOR LEADS Confirmed by MD Taj, Jaime ([id number]) on 06/11/2020 10:26:12 AM Referred By: Confirmed By:Jaime Vang MD
[2020-06-11 10:30] LABS: ANISOCYTOSIS 2+; MACROCYTOSIS 2+; PLATELET ESTIMATE NORMAL; TARGET CELLS 1+; TEAR DROP CELLS 1+
[2020-06-11 10:33] LABS: ERYTHROCYTE SEDIMENTATION RATE 2 mm/hr (0-20)
--- NOTE | 2020-06-11 10:52 | PN ---
Progress Note (short form) - Note Progress Note: ID consult dictated 59 yo man with HIV, metastatic prostate cancer admitted with rectal bleeding and severe anemia, very high lfts ct scan with pneumoperitoneum seen by surgery felt to be too high risk for operative intervention he is dnr/dni plan is to continue antibiotics no history of MDRO would continue zosyn as ordered oral meds on hold at this time Problem List - Problems (1) Pneumoperitoneum of unknown etiology Code(s): K66.8 - OTHER SPECIFIED DISORDERS OF PERITONEUM (2) HIV (human immunodeficiency virus infection) Code(s): B20 - HUMAN IMMUNODEFICIENCY VIRUS [HIV] DISEASE (3) Anemia Code(s): D64.9 - ANEMIA, UNSPECIFIED Qualifiers: (4) Transaminitis Code(s): R74.0 - NONSPEC ELEV OF LEVELS OF TRANSAMNS & LACTIC ACID DEHYDRGNSE (5) Prostate cancer metastatic to lung Code(s): C61 - MALIGNANT NEOPLASM OF PROSTATE; C78.00 - SECONDARY MALIGNANT NEOPLASM OF UNSPECIFIED LUNG
[2020-06-11] MEDS: PANTOPRAZOLE SODIUM 40 MG VIAL IVPUSH SCH ×2 (11:18→21:23)
[2020-06-11 11:38] LABS: RETICULOCYTES 1.23 % (0.5-1.5)
--- NOTE | 2020-06-11 12:34 | CONSULT ---
<Cathryn Nova - Last Filed: 06/11/20 16:02> - Consultation REQUESTING PROVIDER: CONSULT REQUEST: We have been asked to surgically evaluate this patient for pneumoperitoneum/abd pain. PCP:Hesham Jo HISTORY OF PRESENT ILLNESS:The patient is a 59 yo male with history of HIV and metastatic prostate cancer. He presented to the ER for bloody bm's and abd pain since Tuesday. The nurses aide brought him in for low BP and feeling dizzy. Over all his nutritional state is poor, he is weak and not taking in much food/fluids daily. He states that he has a vegetarian diet and is unable to get have people cook him what he likes. The patient is at home with hospice care. The patient was admitted to the the ICU, his first CT scan was negative for pneumoperitoneum, there was mesenteric edema. The pt had persistent ABD pain and a repeat CT scan with IV contrast was completed which revealed pneumoperitoneum. PMHx: HIV, metastatic prostate cancer/s.p XRT and has indwelling aggarwal, depression, chronic anemia PSHx: Home Medications Medication Instructions Recorded Doxepin HCl 200 mg PO HS 01/10/20 Emtricitab/Rilpiviri/Tenof Ala 1 each PO DAILY 01/10/20 [Odefsey Tablet] Bicalutamide [Casodex -] 50 mg PO DAILY #30 tablet 05/17/20 Collagenase Clostridium Hist. 1 applic TP DAILY #1 tube 05/17/20 [Santyl -] Folic Acid - 1 mg PO DAILY #30 tablet 05/17/20 Allergies Allergy/AdvReac Type Severity Reaction Status Date / Time ciprofloxacin [From Cipro] Allergy Verified 01/09/20 13:32 lactose AdvReac Verified 05/16/20 15:32 REVIEW OF SYSTEMS: CONSTITUTIONAL: Absent: fever, chills Present: feeling weak CARDIOVASCULAR: Absent: chest pain RESPIRATORY: Absent: cough, shortness of breath PHYSICAL EXAM: GENERAL: Awake, alert, and fully oriented. Cachetic HEAD: Normal with no signs of trauma. ABDOMEN: Flat, diffuse tenderness and rebound with guarding. UPPER EXTREMITIES and lower ext: Thin with bony prominences visible. LE contracted NEUROLOGICAL: Normal speech, gait not observed. PSYCH: Cooperative. Good eye contact. Appropriate mood and affect. Laboratory Tests 05/12/20 05/12/20 05/16/20 16:34 18:00 14:32 WBC 5.9 Hgb 9.6 L Hct 29.6 L D INR 1.23 H D-Dimer Lactic Acid Ferritin AST ALT Alkaline Phosphatase LD Total Albumin COVID-19 (EDE) Not detected SARS-CoV-2 Ab Interp 06/10/20 06/10/20 06/10/20 16:58 20:10 22:16 WBC Hgb Hct INR 1.96 H D-Dimer Lactic Acid 3.8 H* Ferritin AST ALT Alkaline Phosphatase LD Total Albumin COVID-19 (EDE) SARS-CoV-2 Ab Interp Reactive 06/11/20 06/11/20 06/11/20 05:30 05:30 05:30 WBC Hgb Hct INR 1.56 H D-Dimer 1825 H Lactic Acid Ferritin 8796.8 H AST 333 H ALT 360 H Alkaline Phosphatase 654 H LD Total 315 H Albumin 1.3 L COVID-19 (EDE) SARS-CoV-2 Ab Interp 06/11/20 05:30 WBC Hgb Hct INR D-Dimer Lactic Acid 1.9 Ferritin AST ALT Alkaline Phosphatase LD Total Albumin COVID-19 (EDE) SARS-CoV-2 Ab Interp Vital Signs Temperature 98 F 06/11/20 09:40 Pulse Rate 78 06/11/20 11:55 Respiratory Rate 17 06/11/20 11:55 Blood Pressure 87/73 L 06/11/20 11:55 O2 Sat by Pulse Oximetry (%) 100 06/11/20 06:00 Lab Results WBC 11.6 K/mm3 (4.0-10.0) H 06/11/20 09:15 RBC 3.35 M/mm3 (4.00-5.60) L 06/11/20 09:15 Hgb 9.6 GM/dL (11.7-16.9) L 06/11/20 09:15 Hct 28.9 % (35.4-49) L 06/11/20 09:15 MCV 86.3 fl (80-96) 06/11/20 09:15 MCHC 33.3 g/dl (32.0-35.9) 06/11/20 09:15 RDW 19.9 % (11.9-15.9) H 06/11/20 09:15 Plt Count 210 K/MM3 (134-434) 06/11/20 09:15 INR 1.56 (0.83-1.09) H 06/11/20 05:30 Sodium 141 mmol/L (136-145) 06/11/20 05:30 Potassium 4.7 mmol/L (3.5-5.1) 06/11/20 05:30 Chloride 111 mmol/L (98-107) H 06/11/20 05:30 Carbon Dioxide 22 mmol/L (21-32) 06/11/20 05:30 Anion Gap 8 MMOL/L (8-16) 06/11/20 05:30 BUN 46.1 mg/dL (7-18) H 06/11/20 05:30 Creatinine 0.4 mg/dL (0.55-1.3) L 06/11/20 05:30 Random Glucose 106 mg/dL (74-106) 06/11/20 05:30 Calcium 6.8 mg/dL (8.5-10.1) L* 06/11/20 05:30 Blood Type AB POSITIVE 06/10/20 20:40 Blood Type Cancelled 06/10/20 20:40 Antibody Screen Cancelled 06/10/20 20:40 Antibody Screen Negative 06/10/20 20:40 CT scan without contrast 06/10: SQ and mesenteric edema CT scan with IV contrast 06/10: pneumoperitoneum, with stool in right colon and possible pneumotosis. diffuse osteoblastic neoplastic disease. Problem List - Problems (1) Pneumoperitoneum of unknown etiology Assessment/Plan: Pt with surgical abdomen and CT radiographic evidence of pneumoperitoneum. Although the pt is better fluid resuscitated with improvement in laboratory values, he still remains somewhat hypotensive. At base line, his SBP remains in 80/90's. His urine appears clear and not concentrated. Today the risks and benefits were explained to the patient by Dr. Lua and anesthesia Dr. Lake at bedside. It was explained that his prognosis is poor and the risk of recovery/extubation and survival of the surgery is poor. His nutritional status is poor with a albumin of 1 and overall 10 kg weight loss since his last admission at the end of April. Earliest CT scan studies in 11/05 revealed diffuse osteoblastic neoplastic disease. Recommending conservative management and supportive care after discussing with the patient. Palliative care consult placed by the ICU team. NPO Monitor H&H and transfuse as needed per the medical team, IV abx D/w Dr. Lua Problems reviewed: Yes Code(s): K66.8 - OTHER SPECIFIED DISORDERS OF PERITONEUM <Jessika Luaan N - Last Filed: 06/12/20 09:26> - Consultation REQUESTING PROVIDER: CONSULT REQUEST: We have been asked to surgically evaluate this patient for (specify). PCP:Hesham Jo HISTORY OF PRESENT ILLNESS: PMHx: PSHx: Home Medications Medication Instructions Recorded Doxepin HCl 200 mg PO HS 01/10/20 Emtricitab/Rilpiviri/Tenof Ala 1 each PO DAILY 01/10/20 [Odefsey Tablet] Bicalutamide [Casodex -] 50 mg PO DAILY #30 tablet 05/17/20 Collagenase Clostridium Hist. 1 applic TP DAILY #1 tube 05/17/20 [Santyl -] Folic Acid - 1 mg PO DAILY #30 tablet 05/17/20 Allergies Allergy/AdvReac Type Severity Reaction Status Date / Time ciprofloxacin [From Cipro] Allergy Verified 01/09/20 13:32 lactose AdvReac Verified 05/16/20 15:32 REVIEW OF SYSTEMS: CONSTITUTIONAL: Absent: fever, chills, diaphoresis, generalized weakness, malaise, loss of appetite, weight change CARDIOVASCULAR: Absent: chest pain, syncope, palpitations, irregular heart rate, lightheadedness, peripheral edema RESPIRATORY: Absent: cough, shortness of breath, dyspnea with exertion, wheezing, stridor, hemoptysis GASTROINTESTINAL: Absent: abdominal pain, abdominal distension, nausea, vomiting, diarrhea, constipation, melena, hematochezia GENITOURINARY: Absent: dysuria, frequency, urgency, hesitancy, hematuria, flank pain, genital pain MUSCULOSKELETAL: Absent: myalgia, arthralgia, joint swelling, back pain, neck pain SKIN: Absent: rash, itching, pallor HEMATOLOGIC/IMMUNOLOGIC: Absent: easy bleeding, easy bruising, lymphadenopathy NEUROLOGIC: Absent: headache, focal weakness, paresthesias, dizziness, unsteady gait, seizure, mental status changes, bladder or bowel incontinence PSYCHIATRIC: Absent: anxiety, depression, suicidal or homicidal ideation, hallucinations. PHYSICAL EXAM: GENERAL: Awake, alert, and fully oriented, in no acute distress. HEAD: Normal with no signs of trauma. EYES: PERRL, sclera anicteric, conjunctiva clear. NECK: Normal ROM, supple without lymphadenopathy, JVD, or masses. LUNGS: Clear to auscultation bilat anteriorly. No wheezes, and no crackles. No accessory muscle use. HEART: Regular rate and rhythm. No murmurs ABDOMEN: Soft, nontender, not distended, normoactive bowel sounds, no guarding, no rebound, no masses. No organomegaly. MUSCULOSKELETAL: Normal ROM at all joints. No bony deformities or tenderness. No CVA tenderness. UPPER EXTREMITIES: 2+ pulses, warm, well-perfused. No cyanosis. Cap refill <2 seconds. No peripheral edema. LOWER EXTREMITIES: 2+ pulses, warm, well-perfused. No calf tenderness. No peripheral edema. NEUROLOGICAL: Normal speech, gait not observed. PSYCH: Cooperative. Good eye contact. Appropriate mood and affect. SKIN: Warm, dry, normal turgor, no rashes or lesions noted. Vital Signs Temperature 97.3 F L 06/12/20 05:00 Pulse Rate 97 H 06/12/20 08:00 Respiratory Rate 15 06/12/20 08:00 Blood Pressure 80/61 L 06/12/20 08:00 O2 Sat by Pulse Oximetry (%) 99 06/12/20 05:00 Lab Results WBC 8.5 K/mm3 (4.0-10.0) 06/12/20 05:30 RBC 2.53 M/mm3 (4.00-5.60) L 06/12/20 05:30 Hgb 7.9 GM/dL (11.7-16.9) L 06/12/20 05:30 Hct 22.6 % (35.4-49) L D 06/12/20 05:30 MCV 89.5 fl (80-96) 06/12/20 05:30 MCHC 35.0 g/dl (32.0-35.9) 06/12/20 05:30 RDW 19.8 % (11.9-15.9) H 06/12/20 05:30 Plt Count 155 K/MM3 (134-434) D 06/12/20 05:30 INR 1.93 (0.83-1.09) H 06/12/20 05:30 Sodium 139 mmol/L (136-145) 06/12/20 05:30 Potassium 3.9 mmol/L (3.5-5.1) 06/12/20 05:30 Chloride 108 mmol/L (98-107) H 06/12/20 05:30 Carbon Dioxide 24 mmol/L (21-32) 06/12/20 05:30 Anion Gap 7 MMOL/L (8-16) L 06/12/20 05:30 BUN 36.7 mg/dL (7-18) H 06/12/20 05:30 Creatinine 0.3 mg/dL (0.55-1.3) L 06/12/20 05:30 Random Glucose 36 mg/dL (74-106) L* 06/12/20 05:30 Calcium 6.4 mg/dL (8.5-10.1) L* 06/12/20 05:30 Blood Type AB POSITIVE 06/10/20 20:40 Blood Type Cancelled 06/10/20 20:40 Antibody Screen Cancelled 06/10/20 20:40 Antibody Screen Negative 06/10/20 20:40
[2020-06-11] MEDS ORDERED: DEXTROSE 10%-WATER - 1,000 ML IV SCH (13:15)
--- NOTE | 2020-06-11 13:40 | PN ---
Teaching Attending Note Name of Resident: Apolinar Segovia ATTENDING PHYSICIAN STATEMENT I saw and evaluated the patient. I reviewed the resident's note and discussed the case with the resident. I agree with the resident's findings and plan as documented. SUBJECTIVE: Pt seen and examined in the ICU. Deemed high risk surgical candidate. c/o ab dominal pain. Blood pressure low. OBJECTIVE: Vital Signs Period Temp Pulse Resp BP Sys/Reardon Pulse Ox Last 24 Hr 97.6 F-98.7 F 63-89 10-20 74-103/42-73 98-100 Intake & Output 06/08/20 06/09/20 06/10/20 06/11/20 23:59 23:59 23:59 23:59 Intake Total 940 Balance 940 Weight 29.484 kg 29 kg Gen: cachectic Heart: RRR Lung: decreased breath sounds at the bases Abd: distended, diffusely TTP Ext: no edema CBC, BMP 06/11/20 09:15 06/11/20 05:30 Active Medications Chlorhexidine Gluconate (Hibiclens For Decolonization -) 1 applic TP HS JESSICA Last Admin: 06/11/20 01:33 Dose: Not Given Documented by: IV Flush (Triple Lumen Flush) 4 ml IVPUSH PRN PRN PRN Reason: Protocol Piperacillin Sod/Tazobactam (Sod 3.375 gm/ Dextrose) 50 mls @ 100 mls/hr IVPB Q8H-IV JESSICA; Protocol Last Admin: 06/11/20 11:19 Dose: 100 mls/hr Documented by: Dextrose/Lactated Ringer's (D5-Lr -) 1,000 mls @ 150 mls/hr IV ASDIR JESSICA Last Admin: 06/11/20 11:18 Dose: 150 mls/hr Documented by: Dextrose (D10w -) 1,000 mls @ 42 mls/hr IV ASDIR JESSICA Miconazole Nitrate (Monistat Topical Cream -) 1 applic TP BID JESSICA Last Admin: 06/11/20 01:33 Dose: Not Given Documented by: Mupirocin (Bactroban Ointment (For Decolonization) -) 1 applic NS BID JESSICA Stop: 06/15/20 21:59 Last Admin: 06/11/20 11:18 Dose: 1 inch Documented by: Pantoprazole Sodium (Protonix Iv) 40 mg IVPUSH BID JESSICA Last Admin: 06/11/20 11:18 Dose: 40 mg Documented by: ASSESSMENT AND PLAN: Perforated Viscus/Ischemic Bowel r/o Peritonitis Sepsis Lactic Acidosis Metastatic Prostate Ca HIV/AIDS Anemia Severe Protein Calorie Malnutrition - continue antibiotics - f/u cultures - IVF - pressors as needed to maintain MAP >65 - monitor H/H - transfuse as needed - clinimix, will likely need TPN - NPO - DVT prophylaxis - continue ICU monitoring critical care time spent in reviewing chart, evaluating patient and formulating plan 35 min
[2020-06-11] MEDS ORDERED: AMINO ACIDS 4.25%/D5W 1,000 ML IV SCH (16:00)
[2020-06-11] MEDS ORDERED: PT OWN MED DRAWER 7, Y5N ONE (16:47)
--- NOTE | 2020-06-11 18:07 | CONS ---
DATE OF CONSULTATION: DATE OF DICTATION: 06/11/2020 GASTROENTEROLOGY CONSULTATION HISTORY OF PRESENT ILLNESS: The patient is a 59-year-old man with a past medical history of metastatic prostate cancer, HIV with CD4 count less than 250, noncompliant with medication, anemia, who presents to the emergency room with hypertension, apparently systolic blood pressure in the 70s, and dizziness. Apparently had multiple soft brown bowel movements prior to coming to the hospital, and 1 episode of diarrhea that had some blood. He has been weak for the past 3 weeks also with cough and loss of taste in the last couple of days. Decreased urine output. He denies any melena, gross hematemesis versus hematochezia. No sick contacts. There is no history of previous episode of GI bleed. No history of liver disease. No previous colonoscopy or upper endoscopy as per the record. This consultation is for anemia / episode of bright red blood per rectum and abnormal liver tests. PAST MEDICAL AND SURGICAL HISTORY: As listed in the HPI. ALLERGIES: CIPROFLOXACIN and LACTOSE. SOCIAL HISTORY: Smokes marijuana, tobacco. Denies alcohol use. REVIEW OF SYSTEMS: As per the HPI. PHYSICAL EXAMINATION: Vital Signs: Temperature 97, pulse 66, blood pressure 93/70, pulse oximetry 98%, and respiratory rate 16. General: In no acute distress. HEENT: Anicteric sclerae. Cardiovascular: S1, S2, regular rate and rhythm. Lungs: Clear anteriorly. Abdomen: Tender diffusely to palpation with guarding, no rebound. Extremities: No edema. LABORATORY: White blood cell count on admission 10.9, presently it is 11.6, hemoglobin and hematocrit 5.2 over 16, went down to 3.8 and presently after transfusion 9.6 over 28, MCV 86, platelet count 210. INR 1.56. Sodium 141, potassium 4.7, BUN/creatinine 46/0.4, glucose 106, calcium 6.8, AST 333, ALT 360, alkaline phosphatase 654. Urine 2+ leukocyte esterase, stool for occult blood positive, COVID-19 is negative. He had a CT scan of the abdomen and pelvis with contrast which revealed free intraperitoneal air and fluid with possible pneumatosis in the right colon, moderate stool in the right colon, distention in the rest of the colon, no evidence of bowel obstruction. The stomach is distended with fluid and air. SMA and celiac arteries are patent. No embolism. REJI appears occluded. No portal gas was seen. No extravasation of intravenous contrast within the lumen. Diffuse blastic metastatic disease throughout the skeleton, atelectasis infiltration at both bases. IMPRESSION: 1. Severe anemia with an episode of what appears to be rectal bleeding. Gastrointestinal blood loss cannot be excluded. He does have underlying metastatic prostate cancer and malignancy which must also be included in the differential diagnosis for his anemia. He may have rectal involvement of his metastatic disease. Stool cultures c.diff / ova/ parasite / leukocyte / cryptosporidium/ isospora/ cyclospora/ giardia should be ordered. 2. Free air under the diaphragm, perforated viscus.Surgery consultation, n.p.o., intravenous fluids, broad-spectrum antibiotics as per the primary medical team. 3. Transaminitis, hepatocellular pattern may be secondary to ischemic hepatopathy, although I would expect the values to be a higher. Other etiology of liver disease will need to be excluded. Serologies for chronic disease ordered. Abdominal ultrasound will be followed up. Would prefer to hold off on any invasive procedures at this time considering he does have a perforated viscus, trend hemoglobin and hematocrit q.12 while hospitalized. Keep his hemoglobin between 9 and 10. Would also benefit from an oncology evaluation. DO CAROL SALDANA/[id number] MTDD
--- NOTE | 2020-06-11 18:19 | CONS ---
DATE OF CONSULTATION: DATE OF DICTATION: 06/11/2020 INFECTIOUS DISEASE CONSULTATION HISTORY OF PRESENT ILLNESS: This is a 59-year-old man who lives at home. He was sent to the ER by his home health aid, who noted that he had bright red blood in his stools. He has a history of HIV, metastatic prostate cancer. He has a chronic Syed catheter at home. He has had multiple admissions over the last year to [facility]. After discharge, he does not follow up with any of his outpatient providers. This time in the ER, he was found to be profoundly anemic. As well his LFTs were very, very high. He complained of diffuse abdominal pain. He was sent for a CAT scan of his abdomen and pelvis that showed pneumoperitoneum. He was evaluated by Surgery and Anesthesia and deemed to be a prohibitively high operative risk, and given his DNR/DNI status and advanced malignancy, it was elected to treat him conservatively without any surgery. He is currently alert. He complains to be of abdominal discomfort. He reports that after his last admission in April, he had resolution of his diarrhea. There is no history of C. difficile. He has had multiple C. difficiles checked as well as stool cultures. He has no history of any multidrug-resistant organism. He denies any difficulty breathing. PAST MEDICAL HISTORY: Notable for metastatic prostate cancer. He has a chronic Syed, and he is HIV positive. T cells in April were 211. There is no history of any alcohol use. He smokes marijuana, and he lives alone with support services. He is allergic to CIPRO. He was taking doxepin and Odefsey. At discharge he reports the only medicine has had been taking at home is doxepin. FAMILY HISTORY: Unremarkable. REVIEW OF SYSTEMS: Notable for the abdominal pain. He denies fevers or chills. PHYSICAL EXAMINATION: General: He is afebrile. Vital Signs: Temperature 97, pulse 66, blood pressure 108/65, respiratory rate 16, he weighs 28.9 kg. He is a cachectic man in no acute distress. HEENT: Normocephalic. Eyes are anicteric. Neck: Supple. Lungs: Clear to auscultation. Heart: Regular rate and rhythm. Abdomen: Exam notable for flat. He has diffuse tenderness on exam to palpation. Extremities: Without edema. LABORATORY: Notable for a white count of 11.6, hemoglobin is now 9.6, on admission was 5.2, platelets are 210. BUN and creatinine are 46 and 0.4. His liver enzymes on admission were 687 AST, ALT of 607 with alkaline phosphatase of over 1000. This morning his AST is 333, an ALT of 360, and an alkaline phosphatase of 654. His albumin is 1.3. He has a chronic Syed in place and as stated before, his last T cells were 211. COVID PCR is negative, and he has a positive antibody. Cultures are pending. IMPRESSION: In summary, this is a 59-year-old man with HIV, metastatic prostate cancer, with pneumoperitoneum. PLAN: The plan is to continue antibiotics. He has no history of multidrug organisms. So Zosyn would be appropriate. Oral medications on hold at this time. Overall prognosis is extremely poor. JOSE MARTIN WATKINS M.D. [id number] MTDD
--- NOTE | 2020-06-11 19:07 | PN ---
Physical Exam: SUBJECTIVE: Patient seen and examined at bedside. Pt complaining of abdominal pain, feeling weak, and feeling hungry. Pt accepted surgery. Pt was poor surgical consult and asked for second opinion. Pt asked to not contact Evelyne Yoo his home health aid and that he will contact people to help make decisions for him. Pt does not want pain medication. OBJECTIVE: Vital Signs Period Temp Pulse Resp BP Sys/Reardon Pulse Ox Last 24 Hr 96.8 F-98.7 F 66-89 10-20 74-108/42-73 98-100 GENERAL: The patient is awake, alert, and fully oriented, in severe distress. Patient is cachectic appearing HEAD: Normal with no signs of trauma. EYES: PERRL, extraocular movements intact, pale conjuctiva. ENT: Ears normal, nares patent, oropharynx clear without exudates, NECK: Trachea midline, full range of motion, supple. LUNGS: Breath sounds equal, clear to auscultation bilaterally, no wheezes, no crackles, no accessory muscle use. HEART: Regular rate and rhythm, S1, S2 without murmur, rub or gallop. ABDOMEN: Tender to palpation in all four quadrants EXTREMITIES: 2+ pulses in upper and lower ext. NEUROLOGICAL: Cranial nerves II through XII grossly intact. Normal speech, gait not observed. PSYCH: Normal mood, normal affect. SKIN: Lesions noted on hip and sacral decubitus ulcer. Laboratory Results - last 24 hr 06/10/20 06/10/20 06/10/20 16:58 18:30 19:37 WBC RBC Hgb Hct MCV MCH MCHC RDW Plt Count MPV Absolute Neuts (auto) Neutrophils % Neutrophils % (Manual) 70.9 Band Neutrophils % 0.0 Lymphocytes % Lymphocytes % (Manual) 28.1 Monocytes % Monocytes % (Manual) 0 L D Eosinophils % Eosinophils % (Manual) 0.0 Basophils % Basophils % (Manual) 0.0 Myelocytes % (Man) 0 Promyelocytes % (Man) 0 Blast Cells % (Manual) 0 Nucleated RBC % 0 Metamyelocytes 1 D Hypochromia 3+ Platelet Estimate Normal Polychromasia 1+ Poikilocytosis 0 Basophilic Stippling Anisocytosis 3+ Microcytosis 3+ Macrocytosis 0 Target Cells Tear Drop Cells ESR Retic Count PT with INR INR PTT (Actin FS) D-Dimer Sodium Potassium Chloride Carbon Dioxide Anion Gap BUN Creatinine Est GFR (CKD-EPI)AfAm Est GFR (CKD-EPI)NonAf POC Glucometer 40 Random Glucose Lactic Acid Calcium Ferritin Total Bilirubin AST ALT Alkaline Phosphatase LD Total Creatine Kinase Creatine Kinase Index CK-MB (CK-2) C-Reactive Protein Total Protein Albumin Urine Color Urine Appearance Urine pH Ur Specific Weston Urine Protein Urine Glucose (UA) Urine Ketones Urine Blood Urine Nitrite Urine Bilirubin Urine Urobilinogen Ur Leukocyte Esterase Urine WBC (Auto) Urine RBC (Auto) Urine Casts (Auto) U Epithel Cells (Auto) Urine Bacteria (Auto) Stool Occult Blood COVID-19 (EDE) Not detected SARS-CoV-2 Ab Interp Blood Type Antibody Screen Crossmatch 06/10/20 06/10/20 06/10/20 20:10 20:10 20:10 WBC RBC Hgb Hct MCV MCH MCHC RDW Plt Count MPV Absolute Neuts (auto) Neutrophils % Neutrophils % (Manual) Band Neutrophils % Lymphocytes % Lymphocytes % (Manual) Monocytes % Monocytes % (Manual) Eosinophils % Eosinophils % (Manual) Basophils % Basophils % (Manual) Myelocytes % (Man) Promyelocytes % (Man) Blast Cells % (Manual) Nucleated RBC % Metamyelocytes Hypochromia Platelet Estimate Polychromasia Poikilocytosis Basophilic Stippling Anisocytosis Microcytosis Macrocytosis Target Cells Tear Drop Cells ESR Retic Count PT with INR 23.30 H INR 1.96 H PTT (Actin FS) 33.8 D-Dimer Sodium 141 Potassium 4.9 Chloride 110 H Carbon Dioxide 24 Anion Gap 7 L BUN 47.1 H Creatinine 0.5 L Est GFR (CKD-EPI)AfAm 138.44 Est GFR (CKD-EPI)NonAf 119.45 POC Glucometer Random Glucose 245 H Lactic Acid Calcium 6.3 L* Ferritin Total Bilirubin 0.3 AST 474 H ALT 446 H Alkaline Phosphatase 775 H LD Total Creatine Kinase Creatine Kinase Index CK-MB (CK-2) C-Reactive Protein Total Protein 3.4 L Albumin 1.0 L Urine Color Yellow Urine Appearance Clear Urine pH 8.5 H D Ur Specific Weston 1.014 Urine Protein 1+ H Urine Glucose (UA) Negative Urine Ketones Negative Urine Blood Trace Urine Nitrite Positive H Urine Bilirubin Negative Urine Urobilinogen 1.0 Ur Leukocyte Esterase 2+ H Urine WBC (Auto) 175 Urine RBC (Auto) 43 Urine Casts (Auto) 8 U Epithel Cells (Auto) 2 Urine Bacteria (Auto) 8058 Stool Occult Blood COVID-19 (EDE) SARS-CoV-2 Ab Interp Blood Type Antibody Screen Crossmatch 06/10/20 06/10/20 06/10/20 20:10 20:15 20:40 WBC 7.2 RBC 1.39 L Hgb 3.8 L* Hct 11.6 L MCV 83.4 MCH 27.3 MCHC 32.8 RDW 17.9 H Plt Count 232 D MPV 9.1 Absolute Neuts (auto) 5.1 Neutrophils % 71.3 Neutrophils % (Manual) Band Neutrophils % Lymphocytes % 23.0 Lymphocytes % (Manual) Monocytes % 5.5 Monocytes % (Manual) Eosinophils % 0.1 Eosinophils % (Manual) Basophils % 0.1 Basophils % (Manual) Myelocytes % (Man) Promyelocytes % (Man) Blast Cells % (Manual) Nucleated RBC % 0 Metamyelocytes Hypochromia Platelet Estimate Polychromasia Poikilocytosis Basophilic Stippling Anisocytosis Microcytosis Macrocytosis Target Cells Tear Drop Cells ESR Retic Count PT with INR INR PTT (Actin FS) D-Dimer Sodium Potassium Chloride Carbon Dioxide Anion Gap BUN Creatinine Est GFR (CKD-EPI)AfAm Est GFR (CKD-EPI)NonAf POC Glucometer Random Glucose Lactic Acid Calcium Ferritin Total Bilirubin AST ALT Alkaline Phosphatase LD Total Creatine Kinase Creatine Kinase Index CK-MB (CK-2) C-Reactive Protein Total Protein Albumin Urine Color Urine Appearance Urine pH Ur Specific Weston Urine Protein Urine Glucose (UA) Urine Ketones Urine Blood Urine Nitrite Urine Bilirubin Urine Urobilinogen Ur Leukocyte Esterase Urine WBC (Auto) Urine RBC (Auto) Urine Casts (Auto) U Epithel Cells (Auto) Urine Bacteria (Auto) Stool Occult Blood Positive COVID-19 (EDE) SARS-CoV-2 Ab Interp Blood Type AB POSITIVE Antibody Screen Negative Crossmatch See Detail 06/10/20 06/10/20 06/11/20 20:40 22:16 01:24 WBC RBC Hgb Hct MCV MCH MCHC RDW Plt Count MPV Absolute Neuts (auto) Neutrophils % Neutrophils % (Manual) Band Neutrophils % Lymphocytes % Lymphocytes % (Manual) Monocytes % Monocytes % (Manual) Eosinophils % Eosinophils % (Manual) Basophils % Basophils % (Manual) Myelocytes % (Man) Promyelocytes % (Man) Blast Cells % (Manual) Nucleated RBC % Metamyelocytes Hypochromia Platelet Estimate Polychromasia Poikilocytosis Basophilic Stippling Anisocytosis Microcytosis Macrocytosis Target Cells Tear Drop Cells ESR Retic Count PT with INR INR PTT (Actin FS) D-Dimer Sodium Potassium Chloride Carbon Dioxide Anion Gap BUN Creatinine Est GFR (CKD-EPI)AfAm Est GFR (CKD-EPI)NonAf POC Glucometer 26 Random Glucose Lactic Acid Calcium Ferritin Total Bilirubin AST ALT Alkaline Phosphatase LD Total Creatine Kinase Creatine Kinase Index CK-MB (CK-2) C-Reactive Protein Total Protein Albumin Urine Color Urine Appearance Urine pH Ur Specific Weston Urine Protein Urine Glucose (UA) Urine Ketones Urine Blood Urine Nitrite Urine Bilirubin Urine Urobilinogen Ur Leukocyte Esterase Urine WBC (Auto) Urine RBC (Auto) Urine Casts (Auto) U Epithel Cells (Auto) Urine Bacteria (Auto) Stool Occult Blood COVID-19 (EDE) SARS-CoV-2 Ab Interp Reactive Blood Type Cancelled Antibody Screen Cancelled Crossmatch 06/11/20 06/11/20 06/11/20 02:09 03:09 05:09 WBC RBC Hgb Hct MCV MCH MCHC RDW Plt Count MPV Absolute Neuts (auto) Neutrophils % Neutrophils % (Manual) Band Neutrophils % Lymphocytes % Lymphocytes % (Manual) Monocytes % Monocytes % (Manual) Eosinophils % Eosinophils % (Manual) Basophils % Basophils % (Manual) Myelocytes % (Man) Promyelocytes % (Man) Blast Cells % (Manual) Nucleated RBC % Metamyelocytes Hypochromia Platelet Estimate Polychromasia Poikilocytosis Basophilic Stippling Anisocytosis Microcytosis Macrocytosis Target Cells Tear Drop Cells ESR Retic Count PT with INR INR PTT (Actin FS) D-Dimer Sodium Potassium Chloride Carbon Dioxide Anion Gap BUN Creatinine Est GFR (CKD-EPI)AfAm Est GFR (CKD-EPI)NonAf POC Glucometer 87 63 125 Random Glucose Lactic Acid Calcium Ferritin Total Bilirubin AST ALT Alkaline Phosphatase LD Total Creatine Kinase Creatine Kinase Index CK-MB (CK-2) C-Reactive Protein Total Protein Albumin Urine Color Urine Appearance Urine pH Ur Specific Weston Urine Protein Urine Glucose (UA) Urine Ketones Urine Blood Urine Nitrite Urine Bilirubin Urine Urobilinogen Ur Leukocyte Esterase Urine WBC (Auto) Urine RBC (Auto) Urine Casts (Auto) U Epithel Cells (Auto) Urine Bacteria (Auto) Stool Occult Blood COVID-19 (EDE) SARS-CoV-2 Ab Interp Blood Type Antibody Screen Crossmatch 06/11/20 06/11/20 06/11/20 05:30 05:30 05:30 WBC 11.7 H RBC 3.15 L Hgb 9.1 L Hct 27.0 L D MCV 85.6 MCH 28.8 MCHC 33.7 RDW 20.5 H Plt Count 215 MPV 8.8 Absolute Neuts (auto) 10.5 H Neutrophils % 89.1 H D Neutrophils % (Manual) Band Neutrophils % Lymphocytes % 8.0 D Lymphocytes % (Manual) Monocytes % 2.8 L Monocytes % (Manual) Eosinophils % 0.1 Eosinophils % (Manual) Basophils % 0.0 Basophils % (Manual) Myelocytes % (Man) Promyelocytes % (Man) Blast Cells % (Manual) Nucleated RBC % 0 Metamyelocytes Hypochromia 2+ Platelet Estimate Normal Polychromasia 2+ Poikilocytosis 1+ Basophilic Stippling 1+ Anisocytosis 2+ Microcytosis 1+ Macrocytosis 2+ Target Cells 1+ Tear Drop Cells 1+ ESR 2 Retic Count 1.23 D PT with INR 18.50 H INR 1.56 H PTT (Actin FS) 34.2 D-Dimer Sodium 141 Potassium 4.7 Chloride 111 H Carbon Dioxide 22 Anion Gap 8 BUN 46.1 H Creatinine 0.4 L Est GFR (CKD-EPI)AfAm 151.74 Est GFR (CKD-EPI)NonAf 130.93 POC Glucometer Random Glucose 106 Lactic Acid Calcium 6.8 L* Ferritin 8796.8 H Total Bilirubin 0.5 AST 333 H ALT 360 H Alkaline Phosphatase 654 H LD Total 315 H Creatine Kinase 213 Creatine Kinase Index 4.1 CK-MB (CK-2) 8.8 H C-Reactive Protein 2.8 H Total Protein 4.0 L Albumin 1.3 L Urine Color Urine Appearance Urine pH Ur Specific Weston Urine Protein Urine Glucose (UA) Urine Ketones Urine Blood Urine Nitrite Urine Bilirubin Urine Urobilinogen Ur Leukocyte Esterase Urine WBC (Auto) Urine RBC (Auto) Urine Casts (Auto) U Epithel Cells (Auto) Urine Bacteria (Auto) Stool Occult Blood COVID-19 (EDE) SARS-CoV-2 Ab Interp Blood Type Antibody Screen Crossmatch 06/11/20 06/11/20 06/11/20 05:30 05:30 09:15 WBC 11.6 H RBC 3.35 L Hgb 9.6 L Hct 28.9 L MCV 86.3 MCH 28.7 MCHC 33.3 RDW 19.9 H Plt Count 210 MPV 8.7 Absolute Neuts (auto) 10.3 H Neutrophils % 88.6 H Neutrophils % (Manual) Band Neutrophils % Lymphocytes % 8.5 Lymphocytes % (Manual) Monocytes % 2.9 L Monocytes % (Manual) Eosinophils % 0.0 D Eosinophils % (Manual) Basophils % 0.0 Basophils % (Manual) Myelocytes % (Man) Promyelocytes % (Man) Blast Cells % (Manual) Nucleated RBC % 0 Metamyelocytes Hypochromia Platelet Estimate Polychromasia Poikilocytosis Basophilic Stippling Anisocytosis Microcytosis Macrocytosis Target Cells Tear Drop Cells ESR Retic Count PT with INR INR PTT (Actin FS) D-Dimer 1825 H Sodium Potassium Chloride Carbon Dioxide Anion Gap BUN Creatinine Est GFR (CKD-EPI)AfAm Est GFR (CKD-EPI)NonAf POC Glucometer Random Glucose Lactic Acid 1.9 Calcium Ferritin Total Bilirubin AST ALT Alkaline Phosphatase LD Total Creatine Kinase Creatine Kinase Index CK-MB (CK-2) C-Reactive Protein Total Protein Albumin Urine Color Urine Appearance Urine pH Ur Specific Weston Urine Protein Urine Glucose (UA) Urine Ketones Urine Blood Urine Nitrite Urine Bilirubin Urine Urobilinogen Ur Leukocyte Esterase Urine WBC (Auto) Urine RBC (Auto) Urine Casts (Auto) U Epithel Cells (Auto) Urine Bacteria (Auto) Stool Occult Blood COVID-19 (EDE) SARS-CoV-2 Ab Interp Blood Type Antibody Screen Crossmatch 06/11/20 06/11/20 06/11/20 11:49 13:24 16:55 WBC RBC Hgb Hct MCV MCH MCHC RDW Plt Count MPV Absolute Neuts (auto) Neutrophils % Neutrophils % (Manual) Band Neutrophils % Lymphocytes % Lymphocytes % (Manual) Monocytes % Monocytes % (Manual) Eosinophils % Eosinophils % (Manual) Basophils % Basophils % (Manual) Myelocytes % (Man) Promyelocytes % (Man) Blast Cells % (Manual) Nucleated RBC % Metamyelocytes Hypochromia Platelet Estimate Polychromasia Poikilocytosis Basophilic Stippling Anisocytosis Microcytosis Macrocytosis Target Cells Tear Drop Cells ESR Retic Count PT with INR INR PTT (Actin FS) D-Dimer Sodium Potassium Chloride Carbon Dioxide Anion Gap BUN Creatinine Est GFR (CKD-EPI)AfAm Est GFR (CKD-EPI)NonAf POC Glucometer 43 83 105 Random Glucose Lactic Acid Calcium Ferritin Total Bilirubin AST ALT Alkaline Phosphatase LD Total Creatine Kinase Creatine Kinase Index CK-MB (CK-2) C-Reactive Protein Total Protein Albumin Urine Color Urine Appearance Urine pH Ur Specific Weston Urine Protein Urine Glucose (UA) Urine Ketones Urine Blood Urine Nitrite Urine Bilirubin Urine Urobilinogen Ur Leukocyte Esterase Urine WBC (Auto) Urine RBC (Auto) Urine Casts (Auto) U Epithel Cells (Auto) Urine Bacteria (Auto) Stool Occult Blood COVID-19 (EDE) SARS-CoV-2 Ab Interp Blood Type Antibody Screen Crossmatch Active Medications Generic Name Dose Route Start Last Admin Trade Name Freq PRN Reason Stop Dose Admin Chlorhexidine Gluconate 1 applic 06/10/20 22:00 06/11/20 01:33 Hibiclens For Decolonization - TP Not Given HS JESSICA IV Flush 4 ml 06/10/20 19:22 Triple Lumen Flush IVPUSH PRN PRN Protocol Piperacillin Sod/Tazobactam 50 mls @ 100 mls/hr 06/11/20 11:00 06/11/20 17:03 Sod 3.375 gm/ Dextrose IVPB 100 mls/hr Q8H-IV JESSICA Administration Protocol Amino Acids 1,000 mls @ 42 mls/hr 06/11/20 16:00 06/11/20 17:03 Clinimix - IV 42 mls/hr Q24H JESSICA Administration Miconazole Nitrate 1 applic 06/10/20 13:30 06/11/20 01:33 Monistat Topical Cream - TP Not Given BID JESSICA Mupirocin 1 applic 06/10/20 22:00 06/11/20 11:18 Bactroban Ointment (For Decolonization) - NS 06/15/20 21:59 1 inch BID JESSICA Administration Pantoprazole Sodium 40 mg 06/10/20 22:00 06/11/20 11:18 Protonix Iv IVPUSH 40 mg BID JESSICA Administration ASSESSMENT/PLAN: 59 yo male with pmh of metastatic prostate tumor, HIV (poor compliance to medication), anemia presented to ICU for lower GI bleed, anemia perforated bowel vs ischemic bowel vs sepsis. Neuro - Grossly intact. No neuro checks needed AAOx3 frail and cachectic appearing Cardio - trop negative - EKG showed NOrmal sinus rhythm at 93 bpm, Normal NE, QRS, and QT intervals. - patient monitor - Pt not on pressors will monitor MAP>65 Pulm - sat 100%% on RA - CXR shows free of infiltrates with left hilar prominence with questionable atelectasis on the left. - Pt has suspicion to COVID 19 due to sxs will AB positive. Nasal swab negative. Heme Onc - Pt received 2 PRBC and 2 FFP pt Hg up to 9.1. Will monitor H&H and transuse when needed. GI - Ischemic bowel and perforation - GI consult appreciatd - Surgery consulted explained pt poor surgical candidate considered by both surgical team and anesthesia team - Pt wanted second opinion for surgery and Doctor covering for Dr. Love not Dr. Love explained pt is poor surgical candidate due to metastatic prostate cancer and HIV. ID -no history of MDRO -would continue zosyn as ordered - ID consult appreciate Endo: - pt was hypoglycemic in ED -pt was given D10 LR today and pt transitioned over to cliinimax will possibly transition to TPN will continue to monitor glucose q 6 hours Palliative: - pt palliative care was consulted to see end goal for pt - Pt denied pain meds at this time PPX: - DVT- SCD Visit type - Emergency Visit Emergency Visit: Yes ED Registration Date: 06/10/20 Care time: The patient presented to the Emergency Department on the above date and was hospitalized for further evaluation of their emergent condition. - New Patient This patient is new to me today: No - Critical Care Critical Care patient: Yes Total Critical Care Time (in minutes): 36 Critical Care Statement: The care of this patient involved high complexity decision making to prevent further life threatening deterioration of the patient's condition and/or to evaluate & treat vital organ system(s) failure or risk of failure. ATTENDING PHYSICIAN STATEMENT I saw and evaluated the patient. I reviewed the resident's note and discussed the case with the resident. I agree with the resident's findings and plan as documented. SUBJECTIVE: OBJECTIVE: ASSESSMENT AND PLAN:
[2020-06-12] MEDS ORDERED: PIPERACILLIN/TAZOBACTAM 3.375 GM VIAL IVPB ONE ×3 (02:15→16:41)
[2020-06-12] MEDS ORDERED: DEXTROSE 5%-WATER - 50 ML IVPB ONE ×3 (02:15→16:41)
[2020-06-12] MEDS: PIPERACILLIN/TAZOB 3.375 GM 3.375 GM in DEXTROSE 5%-WATER - 50 ML IVPB SCH ×4 (02:38→19:27)
[2020-06-12 07:23] LABS: INR 1.93 (0.83-1.09); PROTHROMBIN TIME (PATIENT) 22.9 SEC (9.7-13.0)
[2020-06-12 07:29] LABS: BASO % 0.1 % (0-2.0); EOS % 0.1 % (0-4.5); HEMATOCRIT 22.6 % (35.4-49); HEMOGLOBIN 7.9 GM/dL (11.7-16.9); LYMPH % 12.2 % (8-40); MCH 31.3 pg (25.7-33.7); MEAN CELL VOLUME 89.5 fl (80-96); MONO % 2.6 % (3.8-10.2); PLATELET COUNT 155 K/MM3 (134-434); RBC 2.53 M/mm3 (4.00-5.60); RDW 19.8 % (11.9-15.9); WHITE BLOOD COUNT 8.5 K/mm3 (4.0-10.0)
[2020-06-12 08:25] LABS: POTASSIUM 3.9 mmol/L (3.5-5.1)
[2020-06-12 08:32] LABS: ALBUMIN 1.2 g/dl (3.4-5.0); BILIRUBIN,TOTAL 0.4 mg/dL (0.2-1); BLOOD UREA NITROGEN 36.7 mg/dL (7-18); CREATININE 0.3 mg/dL (0.55-1.3)
[2020-06-12 08:41] LABS: CALCIUM 6.4 mg/dL (8.5-10.1)
[2020-06-12] MEDS ORDERED: DEXTROSE 50%-WATER - 25 GM/50 ML VIAL IVPUSH ONE (08:41)
[2020-06-12] MEDS ORDERED: DEXTROSE 50%-WATER 25 GM/50 ML DISP.SYRIN ONE (08:50)
[2020-06-12] MEDS: PANTOPRAZOLE SODIUM 40 MG VIAL IVPUSH SCH ×2 (09:04→21:10)
[2020-06-12] MEDS: MUPIROCIN 2% TOPICAL OINTMENT FOR DECOLONIZATION NS SCH ×2 (09:04→23:10)
[2020-06-12] MEDS ORDERED: PT OWN MED DRAWER 7, Y5N ONE (10:48)
--- NOTE | 2020-06-12 11:50 | PN ---
Teaching Attending Note Name of Resident: Apolinar Segovia ATTENDING PHYSICIAN STATEMENT I saw and evaluated the patient. I reviewed the resident's note and discussed the case with the resident. I agree with the resident's findings and plan as documented. SUBJECTIVE: Pt seen and examined in the ICU. States abdominal pain has resolved. Hungry. Blood pressures at baseline. OBJECTIVE: Vital Signs Period Temp Pulse Resp BP Sys/Reardon Pulse Ox Last 24 Hr 96.2 F-97.3 F 66-97 13-20 76-108/55-88 99-100 Intake & Output 06/09/20 06/10/20 06/11/20 06/12/20 23:59 23:59 23:59 23:59 Intake Total 2390 970 Output Total 600 1300 Balance 1790 -330 Weight 29.484 kg 28.973 kg Gen: cachectic Heart: RRR Lung: decreased breath sounds at the bases Abd: distended, diffusely TTP Ext: no edema CBC, BMP 06/12/20 05:30 06/12/20 05:30 Active Medications Chlorhexidine Gluconate (Hibiclens For Decolonization -) 1 applic TP HS [facility] Last Admin: 06/11/20 21:23 Dose: 1 applic Documented by: IV Flush (Triple Lumen Flush) 4 ml IVPUSH PRN PRN PRN Reason: Protocol Piperacillin Sod/Tazobactam (Sod 3.375 gm/ Dextrose) 50 mls @ 100 mls/hr IVPB Q8H-IV JESSICA; Protocol Last Admin: 06/12/20 09:05 Dose: 100 mls/hr Documented by: Amino Acids (Clinimix -) 1,000 mls @ 42 mls/hr IV Q24H [facility] Last Admin: 06/11/20 17:03 Dose: 42 mls/hr Documented by: Miconazole Nitrate (Monistat Topical Cream -) 1 applic TP BID [facility] Last Admin: 06/11/20 21:23 Dose: Not Given Documented by: Mupirocin (Bactroban Ointment (For Decolonization) -) 1 applic NS BID [facility] Stop: 06/15/20 21:59 Last Admin: 06/12/20 09:04 Dose: 1 applic Documented by: Pantoprazole Sodium (Protonix Iv) 40 mg IVPUSH BID [facility] Last Admin: 06/12/20 09:04 Dose: 40 mg Documented by: ASSESSMENT AND PLAN: Perforated Viscus/Ischemic Bowel r/o Peritonitis Sepsis Lactic Acidosis Metastatic Prostate Ca HIV/AIDS Anemia Severe Protein Calorie Malnutrition - continue antibiotics - f/u cultures - start TPN - monitor H/H - transfuse as needed - NPO - DVT prophylaxis - can monitor on floor
--- NOTE | 2020-06-12 12:01 | PN.GI ---
GI Progress Note Subjective: No acute events Patient without focal complaints No abdominal pain - Objective Vital Signs: Vital Signs Temperature 97.1 F L 06/12/20 10:00 Pulse Rate 76 06/12/20 10:00 Respiratory Rate 16 06/12/20 10:00 Blood Pressure 100/88 06/12/20 10:00 O2 Sat by Pulse Oximetry (%) 99 06/12/20 09:00 Constitutional: Calm Eyes: No: Sclera Icterus Cardiovascular: Yes: Regular Rate and Rhythm. No: Murmur Respiratory: Yes: Diminished (At bases bilaterally) Gastrointestinal Inspection: No: Distention ...Auscultate: Yes: Normoactive Bowel Sounds ...Palpate: No: Tenderness ...Percussion: Yes: Tympanitic Edema: No (No LE edema) Neurological: Yes: Alert Labs: CBC, BMP 06/12/20 05:30 06/12/20 05:30 INR, PTT INR 1.93 (0.83-1.09) H 06/12/20 05:30 Problem List - Problems (1) Pneumoperitoneum of unknown etiology Assessment/Plan: Perforated viscus: Unclear etiology Continuing supportive measures as he was deemed to be a non-surgical candidate Being evaluated by palliative care Supportive measures per primary team GI will sign off. Recall as needed Code(s): K66.8 - OTHER SPECIFIED DISORDERS OF PERITONEUM
--- NOTE | 2020-06-12 12:17 | PN ---
Progress Note (short form) - Note Progress Note: 59 yo male with pmh of metastatic prostate tumor, HIV (poor compliance to medication), anemia presented to ICU for lower GI bleed, anemia, perforated bowel patient seen at bedside- feeling a little bit better than yesterday however states he is still feeling weak but hungry; patient has remained off pressors and has no longer required any transfusions and his vitals have since remained stable. patient is not deemed a surgical candidate given co-morbid medical conditions and risks outweigh benefits- palliative care on board gen: AOX; NAD LUNGS: CTA B/L no rales, rhonchi or wheezing CV: RRR s1 s2 no MRG abd: soft; NT ND +BS in all 4 quadrants patient is stable to be transferred to the med-surg floor Problem List - Problems (1) AIDS Code(s): B20 - HUMAN IMMUNODEFICIENCY VIRUS [HIV] DISEASE (2) Failure to thrive Code(s): CHB8962 - Qualifiers: Failure to thrive age range: in adult Qualified Code(s): R62.7 - Adult failure to thrive (3) Pneumoperitoneum of unknown etiology Code(s): K66.8 - OTHER SPECIFIED DISORDERS OF PERITONEUM (4) Anemia Code(s): D64.9 - ANEMIA, UNSPECIFIED Qualifiers:
[2020-06-12] MEDS: MICONAZOLE NITRATE 14 GM/TUBE TUBE TP SCH ×3 (12:29→23:09)
--- NOTE | 2020-06-12 13:02 | PN ---
Progress Note (short form) - Note Progress Note: 59 yo male with pmh of metastatic prostate tumor, HIV (poor compliance to medication), anemia presented to ICU for lower GI bleed, anemia perforated bowel vs ischemic bowel vs sepsis. Pt stable with no pain today. Pt did not make bowel movements today and did not pass gas. Pt was able to pass urine. Pt was given TPN for nutiritional feed. Pt still NPO to rest bowels. Pt given D50 today due to low glucose and cont on D10 drip (most likely due to demand cancer). Pt hemoglobin came down but still above 7. Pt wbc is down will continue Abx. Pt INR PT elevated will give vitamin K. Pt stable to transfer to med-surg. GENERAL: The patient is awake, alert, and fully oriented, in no acute distress. Patient is cachectic appearing HEAD: Normal with no signs of trauma. EYES: PERRL, extraocular movements intact, pale conjuctiva. ENT: Ears normal, nares patent, oropharynx clear without exudates, NECK: Trachea midline, full range of motion, supple. LUNGS: Breath sounds equal, clear to auscultation bilaterally, no wheezes, no crackles, no accessory muscle use. HEART: Regular rate and rhythm, S1, S2 without murmur, rub or gallop. ABDOMEN: Tender to palpation in all four quadrants EXTREMITIES: 2+ pulses in upper and lower ext. NEUROLOGICAL: Cranial nerves II through XII grossly intact. Normal speech, gait not observed. PSYCH: Normal mood, normal affect. SKIN: Lesions noted on hip and sacral decubitus ulcer.
[2020-06-12] MEDS ORDERED: DEXTROSE 10%-WATER - 1,000 ML IV SCH ×2 (13:15→13:26)
[2020-06-12] MEDS ORDERED: PHYTONADIONE 10 MG/1 ML AMP IVPB ONE ×2 (13:18→13:36)
[2020-06-12] MEDS ORDERED: POTASSIUM PHOSPHATE IVPB SCH (16:00)
[2020-06-12] MEDS ORDERED: SODIUM CHLORIDE IVPB SCH (16:00)
[2020-06-12] MEDS ORDERED: POTASSIUM CHLORIDE IVPB SCH (16:00)
[2020-06-12] MEDS ORDERED: [UNRECOGNIZED DRUG - OTHER] IVPB SCH (16:00)
--- NOTE | 2020-06-12 16:26 | PN ---
Progress Note (short form) - Note Progress Note: feels well no complaints less abdominal pain Vital Signs Period Temp Pulse Resp BP Sys/Reardon Pulse Ox Last 24 Hr 96.2 F-97.3 F 69-97 13-20 76-120/55-88 97-100 cor-rrr lungs clear abd -+BS ext trace pedal edema CBC, BMP 06/12/20 05:30 06/12/20 05:30 Microbiology 06/10/20 15:21 Stool Cryptosporidium Antigen - Final 06/10/20 15:21 Stool Giardia Antigen (SHAYY) - Final 06/10/20 18:15 Stool Clostridioides difficile Antigen - Final 06/10/20 18:15 Stool Clostridioides difficile Toxin Assay - Final 06/10/20 18:15 Stool Salmonella/Shigella Culture - Preliminary NO ENTERIC PATHOGENS, 24 HOURS, ON PRIMARY PLATES 06/10/20 18:15 Stool Yersinia Culture - Preliminary NO ENTERIC PATHOGENS, 24 HOURS, ON PRIMARY PLATES 06/10/20 18:15 Stool Vibrio Culture - Final NO GROWTH OF VIBRIO SPECIES OBTAINED 06/10/20 18:15 Stool Escherichia coli 0157 Culture - Final NO GROWTH OF E COLI 0157 OBTAINED 06/10/20 20:10 Urine - Urine Syed Urine Culture - Preliminary Lactose Fermenting Neg Bacilli 06/10/20 21:50 Blood - Peripheral Venous Blood Culture - Preliminary NO GROWTH OBTAINED AFTER 24 HOURS, INCUBATION TO CONTINUE FOR 4 DAYS. 06/10/20 21:50 Blood - Peripheral Venous Blood Culture - Preliminary NO GROWTH OBTAINED AFTER 24 HOURS, INCUBATION TO CONTINUE FOR 4 DAYS. a/p 59 yo man with HIV, metastatic prostate cancer, anemia pneumoperitoneum no history of MDRO would continue zosyn as ordered oral meds on hold at this time clinically improved cultures negative to date
--- NOTE | 2020-06-12 17:00 | PN ---
Teaching Attending Note Name of Resident: Jeannine Babcock ATTENDING PHYSICIAN STATEMENT I saw and evaluated the patient. I reviewed the resident's note and discussed the case with the resident. I agree with the resident's findings and plan as documented. SUBJECTIVE: pt seen and examined at bedside, reporting feeling improved OBJECTIVE: Last Vital Signs Temp Pulse Resp BP Pulse Ox 97.3 F L 74 16 111/81 99 06/12/20 14:00 06/12/20 14:00 06/12/20 14:00 06/12/20 14:00 06/12/20 09:00 GENERAL: Awake, alert, and fully oriented, in no acute distress, cachectic HEAD: Normal with no signs of trauma. EYES: Pupils equal, round and reactive to light, sclera anicteric, conjunctiva clear. LUNGS: Breath sounds equal, clear to auscultation bilaterally. No wheezes, and no crackles. No accessory muscle use. HEART: Regular rate and rhythm, normal S1 and S2 ABDOMEN: Soft, nontender, not distended MUSCULOSKELETAL: Normal range of motion at all joints. No bony deformities or tenderness. No CVA tenderness. UPPER EXTREMITIES: 2+ pulses, warm, well-perfused. No cyanosis. No clubbing. No peripheral edema. LOWER EXTREMITIES: 2+ pulses, warm, well-perfused. No calf tenderness. No peripheral edema. NEUROLOGICAL: Cranial nerves II-XII intact. Normal speech. CBCD WBC 8.5 K/mm3 (4.0-10.0) 06/12/20 05:30 RBC 2.53 M/mm3 (4.00-5.60) L 06/12/20 05:30 Hgb 7.9 GM/dL (11.7-16.9) L 06/12/20 05:30 Hct 22.6 % (35.4-49) L D 06/12/20 05:30 MCV 89.5 fl (80-96) 06/12/20 05:30 MCHC 35.0 g/dl (32.0-35.9) 06/12/20 05:30 RDW 19.8 % (11.9-15.9) H 06/12/20 05:30 Plt Count 155 K/MM3 (134-434) D 06/12/20 05:30 MPV 9.0 fl (7.5-11.1) 06/12/20 05:30 CMP Sodium 139 mmol/L (136-145) 06/12/20 05:30 Potassium 3.9 mmol/L (3.5-5.1) 06/12/20 05:30 Chloride 108 mmol/L (98-107) H 06/12/20 05:30 Carbon Dioxide 24 mmol/L (21-32) 06/12/20 05:30 Anion Gap 7 MMOL/L (8-16) L 06/12/20 05:30 BUN 36.7 mg/dL (7-18) H 06/12/20 05:30 Creatinine 0.3 mg/dL (0.55-1.3) L 06/12/20 05:30 Calcium 6.4 mg/dL (8.5-10.1) L* 06/12/20 05:30 Total Bilirubin 0.4 mg/dL (0.2-1) 06/12/20 05:30 AST 210 U/L (15-37) H 06/12/20 05:30 ALT 276 U/L (13-61) H 06/12/20 05:30 Alkaline Phosphatase 541 U/L (45-117) H 06/12/20 05:30 Total Protein 4.0 g/dl (6.4-8.2) L 06/12/20 05:30 Albumin 1.2 g/dl (3.4-5.0) L 06/12/20 05:30 Active Medications Chlorhexidine Gluconate (Hibiclens For Decolonization -) 1 applic TP HS [facility] Last Admin: 06/11/20 21:23 Dose: 1 applic Documented by: IV Flush (Triple Lumen Flush) 4 ml IVPUSH PRN PRN PRN Reason: Protocol Piperacillin Sod/Tazobactam (Sod 3.375 gm/ Dextrose) 50 mls @ 100 mls/hr IVPB Q8H-IV JESSICA; Protocol Last Admin: 06/12/20 09:05 Dose: 100 mls/hr Documented by: Potassium Chloride 40 meq/Potassium Phosphate 20 mm/Sodium Chloride 40 meq/Calcium Gluconate 2,553 mg/Magnesium Sulfate 1 gm/ Folic Acid 1 mg/ Thiamine HCl 100 mg / Multivitamins/Minerals 10 ml / Sterile Water/ Dextrose/Amino Acids 1,000 mls @ 41.66 mls/hr IVPB DAILY@1600 [facility] Last Admin: 06/12/20 16:17 Dose: 41.66 mls/hr Documented by: Dextrose (D10w -) 1,000 mls @ 75 mls/hr IV ASDIR [facility] Last Admin: 06/12/20 13:34 Dose: 75 mls/hr Documented by: Miconazole Nitrate (Monistat Topical Cream -) 1 applic TP BID [facility] Last Admin: 06/12/20 12:29 Dose: 1 applic Documented by: Mupirocin (Bactroban Ointment (For Decolonization) -) 1 applic NS BID [facility] Stop: 06/15/20 21:59 Last Admin: 06/12/20 09:04 Dose: 1 applic Documented by: Pantoprazole Sodium (Protonix Iv) 40 mg IVPUSH BID [facility] Last Admin: 06/12/20 09:04 Dose: 40 mg Documented by: ASSESSMENT AND PLAN: 59 yo man with mhx of metastatic prostate tumor, HIV (poor compliance to medication), anemia presented to ICU for lower GI bleed, anemia, perforated bowel # Perforated Viscus to r/o Peritonitis presented with Sepsis, acute anemia and was admitted to ICU, transfused and evaluated by surgery (not a surgical candidate) afebrile, WBC trending down NPO, on TPN stable vitals on Abx, culture negative to date monitor H/H GI signed off case Metastatic Prostate Ca HIV/AIDS Anemia Severe Protein Calorie Malnutrition DNR/DNI DVT prophylaxis Pt is accepted to transfer from ICU to floor
[2020-06-12] MEDS ORDERED: LIDOCAINE 5% TOPICAL PATCH TP ONE (17:45)
[2020-06-12] MEDS: LIDOCAINE PATCH REMOVAL MC SCH (23:08)
[2020-06-12] MEDS: CHLORHEXIDINE GLUCONATE 4% CLEANSER FOR DECOLONIZATION TP SCH (23:09)
[2020-06-13] MEDS ORDERED: PIPERACILLIN/TAZOBACTAM 3.375 GM VIAL IVPB ONE ×3 (00:43→17:38)
[2020-06-13] MEDS ORDERED: DEXTROSE 5%-WATER - 50 ML IVPB ONE ×3 (00:43→17:38)
[2020-06-13] MEDS: PIPERACILLIN/TAZOB 3.375 GM 3.375 GM in DEXTROSE 5%-WATER - 50 ML IVPB SCH ×3 (01:00→18:19)
[2020-06-13] MEDS ORDERED: LIDOCAINE PATCH REMOVAL MC SCH (06:00)
[2020-06-13] MEDS: LIDOCAINE 5% TOPICAL PATCH TP SCH (09:31)
[2020-06-13] MEDS: PANTOPRAZOLE SODIUM 40 MG VIAL IVPUSH SCH ×2 (09:32→23:07)
--- NOTE | 2020-06-13 09:43 | PN ---
Progress Note (short form) - Note Progress Note: Attending Surgeon Seen in f/u; c/o back/hip/shoulder pain; no nausea and/or vomiting VSS AF abdo-soft and non tender; o/w negative. IMP: no evidence of an acute surgical abdomen at this time PLAN: Palliative Care evaluation in progress; possibley resume PO intake w/clear liquids; pain control. Giovani Lua MD FACS
[2020-06-13] MEDS ORDERED: PT OWN MED DRAWER 7, Y5N ONE (11:40)
[2020-06-13] MEDS ORDERED: MORPHINE SULFATE 2 MG/ML VIAL IVPUSH ONE (13:11)
[2020-06-13] MEDS ORDERED: MORPHINE SULFATE 2 MG/ML VIAL ONE (13:13)
[2020-06-13 13:15] LABS: HEMATOCRIT 15.2 % (35.4-49); MCH 27.9 pg (25.7-33.7); MCHC 33.2 g/dl (32.0-35.9); MEAN CELL VOLUME 83.8 fl (80-96); MEAN PLT VOLUME 8.7 fl (7.5-11.1); PLATELET COUNT 122 K/MM3 (134-434); RBC 1.81 M/mm3 (4.00-5.60); RDW 19.8 % (11.9-15.9); WHITE BLOOD COUNT 7.8 K/mm3 (4.0-10.0)
[2020-06-13 14:01] LABS: ALBUMIN 0.9 g/dl (3.4-5.0); BLOOD UREA NITROGEN 32.9 mg/dL (7-18); CREATININE 0.4 mg/dL (0.55-1.3); MAGNESIUM 1.9 mg/dL (1.8-2.4); PHOSPHOROUS 3.2 mg/dL (2.5-4.9); POTASSIUM 3.9 mmol/L (3.5-5.1); TOT PROT 3.2 g/dl (6.4-8.2)
[2020-06-13] MEDS ORDERED: HYDROmorphone HCl 2 MG/ML VIAL IVPB ONE (14:06)
[2020-06-13 14:13] LABS: BILIRUBIN,TOTAL 1.4 mg/dL (0.2-1)
[2020-06-13 14:24] LABS: CALCIUM 6.4 mg/dL (8.5-10.1)
[2020-06-13] MEDS ORDERED: POTASSIUM CHLORIDE IVPB SCH ×2 (16:00)
[2020-06-13] MEDS ORDERED: POTASSIUM PHOSPHATE IVPB SCH ×2 (16:00)
[2020-06-13] MEDS ORDERED: [UNRECOGNIZED DRUG - OTHER] IVPB SCH ×2 (16:00)
[2020-06-13] MEDS ORDERED: SODIUM CHLORIDE IVPB SCH ×2 (16:00)
--- NOTE | 2020-06-13 17:17 | CONSULT ---
Consult Consult Specialty:: Palliative care Referred by:: Yonis Aguila Reason for Consultation:: Goals of care - History of Present Illness Chief Complaint: pain History of Present Illness: 59 y/o male PMH of metastatic prostate CA, HIV (last CD4 211, non-adherent with HIV medications), and anemia BIBA on 06/10 after pt's blood pressure was found to be low at home when checked by visiting nurse/health aide (70s systolic) with associated dizziness. Pt also reports having multiple episodes of diarrhea (described as soft and loose stools) with bright red blood since one night. Pt also reports pain at insertion site of chronic indwelling aggarwal catheter as it has not been changed in over 1 month. Pt states he gets his indwelling aggarwal changed every month from visiting nurses (due to prostate cancer blockage). Pt denies fevers, chills, dysuria, urinary frequency, hematuria, chest pain, SOB, abdominal pain, constipation, vision changes, weakness, nausea, or vomiting. He was hypotensive on admission with glu- 17 ca- 6.6 alb-1.2 lactic acid- 3.8 hb -5 transaminitis ( ? shock liver) CXR: blastic bone changes throughout suggestive of metastatic prostate cancer. Lungs free of infiltrates. L hilar prominence with questionable atelectasis on L and pleural-based density along the left chest wall. He was started on iv fluid/ a/bs CT abdomen/pelvis w/o contrast: Interval development of diffuse mesenteric and subcutaneous edema. Development of moderate diffuse colonic distension (? d/t fecal retention). Development of small bilateral pleural effusions with associated mild bibasilar compressive atelectasis. Severe osteoblastic neoplastic disease. rpt imaging CTAP w/ contrast: Free intraperitoneal air, ascites; perforated hollow viscus suspected; proximal transverse colon dilated w/ stool, and possible pneumatosis in [place] of this segment of colon. Visceral arteries such as SMA are patent, but small; Could represent vasospasm, fluid depletion, and could be a cause of low flow ischemia Lesions noted on hip and sacral decubitus ulcer seen by surgery felt to be too high risk for operative intervention he is dnr/dni on iv antibiotics and is NPO the risks and benefits were explained to the patient by Dr. Lua and an esthesia Dr. Lake at bedside. It was explained that his prognosis is poor and the risk of recovery/extubation and survival of the surgery is poor. His nutritional status is poor with a albumin of 1 and overall 10 kg weight loss since his last admission at the end of April. Earliest CT scan studies in 11/05 revealed diffuse osteoblastic neoplastic disease. Recommending conservative management and supportive care after discussing with the patient. Palliative care consult placed by the ICU team. - History Source History Provided By: Medical Record Limitations to Obtaining History: Clinical Condition - Past Medical History Renal/: Yes: Cancer (Metastatic prostate ca) Heme/Onc: Yes: Anemia Infectious Disease: Yes: HIV - Alcohol/Substance Use Hx Alcohol Use: Yes History of Substance Use: reports: Marijuana - Smoking History Smoking history: Former smoker Have you smoked in the past 12 months: No If you are a former smoker, when did you quit?: 1989 - Social History Usual Living Arrangement: Alone ADL: Support Services Occupation: Unemployed History of Recent Travel: No Home Medications - Allergies Allergies/Adverse Reactions: Allergies Allergy/AdvReac Type Severity Reaction Status Date / Time ciprofloxacin [From Cipro] Allergy Verified 01/09/20 13:32 lactose AdvReac Verified 05/16/20 15:32 - Home Medications Home Medications: Ambulatory Orders Doxepin HCl 200 mg PO HS 01/10/20 Emtricitab/Rilpiviri/Tenof Ala [Odefsey Tablet] 1 each PO DAILY 01/10/20 Bicalutamide [Casodex -] 50 mg PO DAILY #30 tablet 05/17/20 Collagenase Clostridium Hist. [Santyl -] 1 applic TP DAILY #1 tube 05/17/20 Folic Acid - 1 mg PO DAILY #30 tablet 05/17/20 Family Medical History Family History: Unable to Obtain Review of Systems - Review of Systems Constitutional: reports: Lethargy, Loss of Appetite, Unintentional Wgt. Loss, Weakness Gastrointestinal: reports: Abdominal Pain, Constipation Physical Exam Vital Signs: Vital Signs Temperature 97.7 F 06/13/20 09:00 Pulse Rate 92 H 06/13/20 09:00 Respiratory Rate 06/13/20 09:00 Blood Pressure 96/67 06/13/20 09:00 O2 Sat by Pulse Oximetry (%) 97 06/13/20 09:00 Constitutional: Yes: Cachectic Eyes: Yes: WNL HENT: Yes: Atraumatic, Normocephalic Neck: Yes: Supple Cardiovascular: Yes: Regular Rate and Rhythm Respiratory: Yes: Regular, CTA Bilaterally Gastrointestinal: Yes: Soft Edema: Yes Edema: LLE: 1+ (left foot swollen) Integumentary: Yes: Pressure Ulcer (sacrum and left buttock) Neurological: Yes: WNL, Alert, Oriented Labs: CBC, BMP 06/13/20 13:00 06/13/20 13:00 Imaging - Results Chest X-ray: Report Reviewed Cat Scan: Report Reviewed Ultrasound: Report Reviewed Problem List - Problems (1) AIDS Code(s): B20 - HUMAN IMMUNODEFICIENCY VIRUS [HIV] DISEASE (2) Failure to thrive Code(s): OYW7464 - Qualifiers: Failure to thrive age range: in adult Qualified Code(s): R62.7 - Adult failure to thrive (3) Pneumoperitoneum of unknown etiology Code(s): K66.8 - OTHER SPECIFIED DISORDERS OF PERITONEUM (4) Prostate cancer metastatic to lung Code(s): C61 - MALIGNANT NEOPLASM OF PROSTATE; C78.00 - SECONDARY MALIGNANT NEOPLASM OF UNSPECIFIED LUNG (5) Anemia Code(s): D64.9 - ANEMIA, UNSPECIFIED Qualifiers: (6) Prostate cancer Code(s): C61 - MALIGNANT NEOPLASM OF PROSTATE (7) Pressure ulcer Code(s): L89.90 - PRESSURE ULCER OF UNSPECIFIED SITE, UNSPECIFIED STAGE Assessment/Plan Metastatic prostate cancer with bone mets and severe pain, HIV with AIDS, perforated viscus, poor surgical candidate due to comorbidities and poor functional status, for conservative management BP better with iv fluids and a/bs malnourished GI bleed- requiring multiple blood transfusions Prognosis guarded. Patient is DNR/ DNI - continue antibiotics - IVF - clinimix - po may be initiated as per surgery team Goal is comfort care/ palliation as patient is not a candidate for curative treatment. Patient has previously signed a MOLST form and is DNR? DNI, no feeding tube which he reaffirmed with me. We discussed hospice care. Patient just received morphine then dilauded for severe bone pain and currently is feeling sleepy- He prefers to continue the conversation at another time. Patient lives alone and does not have any community support except for [employer] health insurance coverage with [employer]/ [employer]. However given his current condition he cannot be discharged back home and would benefit from 24h care as provided at [facility]. We did discuss [place] which would be appropriate for him given his diagnosis and severe pain Currently I would recommend starting morphine 2 mg ivpb q6h standing and 2 mg iv q3h prn for pain and increase as tolerated. will follow. Thankyou for allowing me to participate in the care of this patient. Please call with questions. Jonah Agee MD [phone] Total time for chart review, examination, conference and coordination of care- 50 minutes.
[2020-06-13] MEDS: DEXTROSE 10%-WATER - 1,000 ML IV SCH (18:17)
--- NOTE | 2020-06-13 18:20 | PN ---
Physical Exam: SUBJECTIVE: Patient seen and examined at bedside, Hgb 5.0 will need pRBC transfusion, prognosis poor/patient for DNR/DNI and wants comfort measures only. Will refer to for transfer to [facility] for further end-of-life care. OBJECTIVE: Vital Signs Period Temp Pulse Resp BP Sys/Reardon Pulse Ox Last 24 Hr 97.4 F-97.7 F 65-105 13-20 71-125/58-83 97-100 GENERAL: AAox3, speaking in full sentences, markedly cachectic, temporal wasting, malnourished HEENT NC/aT, EOMI, neck supple, dry MM LUNGS: good air entry anteriorally, poor inspiratory effort HEART: RRR, NSR, normal s1, s2, murmur no M/R/G ABDOMEN: very thin habitus, body protrusions, soft, no pain to palpation LOWER EXTREMITIES: no edema, +2DP pulse, NEUROLOGICAL: No focal deficit. Normal speech. gait not observed. PSYCHIATRIC: Cooperative. Good eye contact. flat/depressed mood. 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 11 Hep A IgM Ab Confirm Negative Hepatitis A Ab Total Positive H Hep B Core IgM Ab Negative Blood Type Antibody Screen Crossmatch See Detail 06/12/20 06/13/20 06/13/20 20:54 03:04 13:00 WBC 7.8 RBC 1.81 L Hgb 5.0 L* Hct 15.2 L D MCV 83.8 MCH 27.9 D MCHC 33.2 RDW 19.8 H Plt Count 122 L D MPV 8.7 Sodium Potassium Chloride Carbon Dioxide Anion Gap BUN Creatinine Est GFR (CKD-EPI)AfAm Est GFR (CKD-EPI)NonAf POC Glucometer 83 88 Random Glucose Calcium Phosphorus Magnesium Total Bilirubin AST ALT Alkaline Phosphatase Total Protein Albumin 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 Hep A IgM Ab Confirm Hepatitis A Ab Total Hep B Core IgM Ab Blood Type Antibody Screen Crossmatch 06/13/20 06/13/20 06/13/20 13:00 14:45 16:48 WBC RBC Hgb Hct MCV MCH MCHC RDW Plt Count MPV Sodium 139 Potassium 3.9 Chloride 108 H Carbon Dioxide 19 L Anion Gap 12 BUN 32.9 H Creatinine 0.4 L Est GFR (CKD-EPI)AfAm 151.74 Est GFR (CKD-EPI)NonAf 130.93 POC Glucometer 95 Random Glucose 160 H Calcium 6.4 L* Phosphorus 3.2 Magnesium 1.9 Total Bilirubin 1.4 H AST 214 H ALT 222 H Alkaline Phosphatase 704 H Total Protein 3.2 L Albumin 0.9 L 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 Hep A IgM Ab Confirm Hepatitis A Ab Total Hep B Core IgM Ab Blood Type AB POSITIVE Antibody Screen Negative Crossmatch See Detail Active Medications Generic Name Dose Route Start Last Admin Trade Name Freq PRN Reason Stop Dose Admin IV Flush 4 ml 06/12/20 23:07 Triple Lumen Flush IVPUSH PRN PRN Protocol Piperacillin Sod/Tazobactam 50 mls @ 100 mls/hr 06/13/20 02:00 06/13/20 09:32 Sod 3.375 gm/ Dextrose IVPB 100 mls/hr Q8H-IV JESSICA Administration Protocol Dextrose 1,000 mls @ 100 mls/hr 06/13/20 10:11 D10w - IV ASDIR [facility] Potassium Chloride 40 meq/ 1,200 mls @ 50 mls/hr 06/13/20 16:00 Potassium Phosphate 20 mm/ IVPB Sodium Chloride 40 meq/ DAILY@1600 [facility] Calcium Gluconate 2,400 mg/ Magnesium Sulfate 0.985 gm/ Folic Acid 1 mg/ Thiamine HCl 100 mg/ Multivitamins/Minerals 10 ml/ Sterile Water/ Dextrose/ Amino Acids Fat Emulsion-[place] Oil/Soybean Oil 250 mls @ 20.833 mls/hr 06/13/20 22:00 Clinolipid 20% Iv Fat Emulsion IV DAILY@2200 [facility] Lidocaine 1 patch 06/13/20 10:00 06/13/20 09:31 Lidoderm Patch - TP 1 patch DAILY [facility] Administration Miscellaneous 1 each 06/12/20 22:00 06/12/20 23:08 Lidoderm Patch Removal MC Not Given DAILY@2200 [facility] Pantoprazole Sodium 40 mg 06/13/20 10:00 06/13/20 09:32 Protonix Iv IVPUSH 40 mg BID [facility] Administration ASSESSMENT/PLAN: 59 M Perforated viscus but poor surgical candidate Anemia 2/2 LGIB Metastatic Prostate Ca HIV/AIDS non-compliant w/ HAART Severe Protein Calorie Malnutrition Plan: D10 drip, IV Zosyn, TPN, will attempt clear liquids per Surgery recs Transfuse to threshold of >7.0 Morphine/dilaudid for severe bone pain/comfort measures Palliative following Will need transfer to [facility] for end of life care DNR/DNI DVT prophylaxis SCD Visit type - Emergency Visit Emergency Visit: Yes ED Registration Date: 06/10/20 Care time: The patient presented to the Emergency Department on the above date and was hospitalized for further evaluation of their emergent condition. - New Patient This patient is new to me today: Yes Date on this admission: 06/13/20 - Critical Care Critical Care patient: No - Discharge Referral [facility]erred to [facility] Med P.C.: No
[2020-06-13] MEDS: LIDOCAINE PATCH REMOVAL MC SCH (23:02)
[2020-06-13 23:08] LABS: HEP B CORE AB, TOT Negative (Negative)
[2020-06-14] MEDS: FAT EMULSION/OLIVE/SOY/PHOSPHO 250 ML IV SCH (02:48)
[2020-06-14] MEDS ORDERED: DEXTROSE 5%-WATER - 50 ML IVPB ONE ×3 (02:57→17:29)
[2020-06-14] MEDS ORDERED: PIPERACILLIN/TAZOBACTAM 3.375 GM VIAL IVPB ONE ×3 (02:57→17:29)
[2020-06-14] MEDS: PIPERACILLIN/TAZOB 3.375 GM 3.375 GM in DEXTROSE 5%-WATER - 50 ML IVPB SCH ×3 (03:12→17:37)
[2020-06-14 08:41] LABS: BASO % 0.1 % (0-2.0); EOS % 0.1 % (0-4.5); HEMATOCRIT 29.5 % (35.4-49); HEMOGLOBIN 10.6 GM/dL (11.7-16.9); LYMPH % 16.6 % (8-40); MCH 32.4 pg (25.7-33.7); MCHC 35.8 g/dl (32.0-35.9); MEAN CELL VOLUME 90.3 fl (80-96); MEAN PLT VOLUME 9.3 fl (7.5-11.1); MONO % 2.4 % (3.8-10.2); NEUT % 80.8 % (42.8-82.8); PLATELET COUNT 124 K/MM3 (134-434); RBC 3.27 M/mm3 (4.00-5.60); RDW 17.9 % (11.9-15.9); WHITE BLOOD COUNT 8.6 K/mm3 (4.0-10.0)
[2020-06-14 09:13] LABS: ALBUMIN 1.2 g/dl (3.4-5.0); BILIRUBIN,TOTAL 0.6 mg/dL (0.2-1); BLOOD UREA NITROGEN 48.8 mg/dL (7-18); CREATININE 0.4 mg/dL (0.55-1.3); MAGNESIUM 1.9 mg/dL (1.8-2.4); PHOSPHOROUS 3.2 mg/dL (2.5-4.9); POTASSIUM 4.2 mmol/L (3.5-5.1); TOT PROT 3.9 g/dl (6.4-8.2)
[2020-06-14 09:47] LABS: CALCIUM 6.5 mg/dL (8.5-10.1)
[2020-06-14] MEDS: DEXTROSE 10%-WATER - 1,000 ML IV SCH (10:00)
[2020-06-14] MEDS: PANTOPRAZOLE SODIUM 40 MG VIAL IVPUSH SCH ×2 (10:50→21:34)
[2020-06-14] MEDS: LIDOCAINE 5% TOPICAL PATCH TP SCH (10:50)
[2020-06-14 11:14] LABS: PLATELET ESTIMATE DECREASED
[2020-06-14] MEDS: TRIPLE LUMEN FLUSH 4 ML ML IVPUSH PRN ×2 (12:00→16:31)
--- NOTE | 2020-06-14 12:37 | PN ---
Progress Note (short form) - Note Progress Note: PULMONARY Denies abdominal pain. Tolerating clears. Vital Signs Period Temp Pulse Resp BP Sys/Reardon Pulse Ox Last 24 Hr 94.4 F-98.4 F 84-99 18-20 72-96/54-74 100-100 Gen: NAD at rest, cachectic Heart: RRR Lung: decreased breath sounds at the bases Abd: soft, nontender Ext: no edema CBC, BMP 06/14/20 07:20 06/14/20 07:20 Active Medications Calcium Carbonate (Calcium Carbonate -) 650 mg PO BID [facility] IV Flush (Triple Lumen Flush) 4 ml IVPUSH PRN PRN PRN Reason: Protocol Piperacillin Sod/Tazobactam (Sod 3.375 gm/ Dextrose) 50 mls @ 100 mls/hr IVPB Q8H-IV JESSICA; Protocol Last Admin: 06/14/20 10:50 Dose: 100 mls/hr Documented by: Dextrose (D10w -) 1,000 mls @ 100 mls/hr IV ASDIR [facility] Last Admin: 06/13/20 18:17 Dose: Not Given Documented by: Potassium Chloride 40 meq/Potassium Phosphate 20 mm/Sodium Chloride 40 meq/Calcium Gluconate 2,400 mg/Magnesium Sulfate 0.985 gm/Folic Acid 1 mg/ Thiamine HCl 100 mg/ Multivitamins/Minerals 10 ml/ Sterile Water/Dextrose/ Amino Acids 1,200 mls @ 50 mls/hr IVPB DAILY@1600 [facility] Last Admin: 06/13/20 18:18 Dose: 50 mls/hr Documented by: Fat Emulsion-[place] Oil/Soybean Oil (Clinolipid 20% Iv Fat Emulsion) 250 mls @ 20.833 mls/hr IV DAILY@2200 [facility] Last Admin: 06/14/20 02:48 Dose: 20.833 mls/hr Documented by: Lidocaine (Lidoderm Patch -) 1 patch TP DAILY [facility] Last Admin: 06/14/20 10:50 Dose: 1 patch Documented by: Miscellaneous (Lidoderm Patch Removal) 1 each MC DAILY@2200 [facility] Last Admin: 06/13/20 23:02 Dose: Not Given Documented by: Pantoprazole Sodium (Protonix Iv) 40 mg IVPUSH BID [facility] Last Admin: 06/14/20 10:50 Dose: 40 mg Documented by: A/P Perforated Viscus/Ischemic Bowel r/o Peritonitis Sepsis Lactic Acidosis Metastatic Prostate Ca HIV/AIDS Anemia Severe Protein Calorie Malnutrition - continue antibiotics - f/u cultures - continue TPN - monitor H/H - transfuse as needed - PO per surgery - DVT prophylaxis
--- NOTE | 2020-06-14 14:15 | PN ---
Physical Exam: SUBJECTIVE: Patient seen and examined at bedside, Hgb improved to 10 after 2u pRBC, still poor prognosis, tolerating clear diet. OBJECTIVE: Vital Signs Period Temp Pulse Resp BP Sys/Reardon Pulse Ox Last 24 Hr 97.4 F-97.7 F 65-105 13-20 71-125/58-83 97-100 GENERAL: AAox3, speaking in full sentences, markedly cachectic, temporal wasting, malnourished HEENT NC/aT, EOMI, neck supple, dry MM LUNGS: good air entry anteriorally, poor inspiratory effort HEART: RRR, NSR, normal s1, s2, murmur no M/R/G ABDOMEN: very thin habitus, body protrusions, soft, no pain to palpation LOWER EXTREMITIES: no edema, +2DP pulse, NEUROLOGICAL: No focal deficit. Normal speech. gait not observed. PSYCHIATRIC: Cooperative. Good eye contact. flat/depressed mood. SKIN: Warm, dry,left hip pressure ulcer 5x5 cm stage III w/ surrounding erythema w/o signs of acute infection, contracted extremities Laboratory Results - last 24 hr 06/10/20 06/12/20 06/12/20 20:40 05:30 05:30 WBC RBC Hgb Hct MCV MCH MCHC RDW Plt Count MPV Absolute Neuts (auto) Neutrophils % Neutrophils % (Manual) Band Neutrophils % Lymphocytes % Lymphocytes % (Manual) Monocytes % Monocytes % (Manual) Eosinophils % Eosinophils % (Manual) Basophils % Basophils % (Manual) Myelocytes % (Man) Promyelocytes % (Man) Blast Cells % (Manual) Nucleated RBC % Metamyelocytes Platelet Estimate Sodium Potassium Chloride Carbon Dioxide Anion Gap BUN Creatinine Est GFR (CKD-EPI)AfAm Est GFR (CKD-EPI)NonAf POC Glucometer Random Glucose Calcium Phosphorus Magnesium Total Bilirubin AST ALT Alkaline Phosphatase Total Protein Albumin TAYLOR Screen Negative Smooth Musc &SUMMER ANALYST Intrp Hep Bs Antigen Negative Hep Bs Antibody Non reactive Hep B Core Total Ab Negative Hep B Core IgM Ab Negative Hepatitis Be Antibody Negative Hepatitis Be Antigen Negative Blood Type AB POSITIVE Antibody Screen Negative Crossmatch See Detail 06/12/20 06/13/20 06/13/20 05:30 13:00 14:45 WBC RBC Hgb Hct MCV MCH MCHC RDW Plt Count MPV Absolute Neuts (auto) Neutrophils % Neutrophils % (Manual) Band Neutrophils % Lymphocytes % Lymphocytes % (Manual) Monocytes % Monocytes % (Manual) Eosinophils % Eosinophils % (Manual) Basophils % Basophils % (Manual) Myelocytes % (Man) Promyelocytes % (Man) Blast Cells % (Manual) Nucleated RBC % Metamyelocytes Platelet Estimate Sodium Potassium Chloride Carbon Dioxide Anion Gap BUN Creatinine Est GFR (CKD-EPI)AfAm Est GFR (CKD-EPI)NonAf POC Glucometer Random Glucose Calcium 6.4 L* Phosphorus Magnesium Total Bilirubin AST ALT Alkaline Phosphatase Total Protein Albumin TAYLOR Screen Smooth Musc &SUMMER ANALYST Intrp 11 Hep Bs Antigen Hep Bs Antibody Hep B Core Total Ab Hep B Core IgM Ab Hepatitis Be Antibody Hepatitis Be Antigen Blood Type AB POSITIVE Antibody Screen Negative Crossmatch See Detail 06/13/20 06/14/20 06/14/20 16:48 07:20 07:20 WBC 8.6 RBC 3.27 L Hgb 10.6 L Hct 29.5 L D MCV 90.3 D MCH 32.4 D MCHC 35.8 RDW 17.9 H Plt Count 124 L MPV 9.3 Absolute Neuts (auto) 6.9 Neutrophils % 80.8 Neutrophils % (Manual) 92.0 H D Band Neutrophils % 0.0 Lymphocytes % 16.6 D Lymphocytes % (Manual) 8.0 D Monocytes % 2.4 L Monocytes % (Manual) 0 L Eosinophils % 0.1 Eosinophils % (Manual) 0.0 Basophils % 0.1 Basophils % (Manual) 0.0 Myelocytes % (Man) 0 Promyelocytes % (Man) 0 Blast Cells % (Manual) 0 Nucleated RBC % 6 H Metamyelocytes 0 D Platelet Estimate Decreased Sodium 139 Potassium 4.2 Chloride 108 H Carbon Dioxide 23 Anion Gap 8 BUN 48.8 H Creatinine 0.4 L Est GFR (CKD-EPI)AfAm 151.74 Est GFR (CKD-EPI)NonAf 130.93 POC Glucometer 95 Random Glucose 97 Calcium 6.5 L* Phosphorus 3.2 Magnesium 1.9 Total Bilirubin 0.6 AST 657 H ALT 515 H Alkaline Phosphatase 969 H Total Protein 3.9 L Albumin 1.2 L TAYLOR Screen Smooth Musc &SUMMER ANALYST Intrp Hep Bs Antigen Hep Bs Antibody Hep B Core Total Ab Hep B Core IgM Ab Hepatitis Be Antibody Hepatitis Be Antigen Blood Type Antibody Screen Crossmatch Active Medications Generic Name Dose Route Start Last Admin Trade Name Freq PRN Reason Stop Dose Admin Calcium Carbonate 650 mg 06/14/20 12:45 Calcium Carbonate - PO BID JESSICA IV Flush 4 ml 06/12/20 23:07 Triple Lumen Flush IVPUSH PRN PRN Protocol Piperacillin Sod/Tazobactam 50 mls @ 100 mls/hr 06/13/20 02:00 06/14/20 10:50 Sod 3.375 gm/ Dextrose IVPB 100 mls/hr Q8H-IV JESSICA Administration Protocol Dextrose 1,000 mls @ 100 mls/hr 06/13/20 10:11 06/13/20 18:17 D10w - IV Not Given ASDIR JESSICA Potassium Chloride 40 meq/ 1,200 mls @ 50 mls/hr 06/13/20 16:00 06/13/20 18:18 Potassium Phosphate 20 mm/ IVPB 50 mls/hr Sodium Chloride 40 meq/ DAILY@1600 JESSICA Administration Calcium Gluconate 2,400 mg/ Magnesium Sulfate 0.985 gm/ Folic Acid 1 mg/ Thiamine HCl 100 mg/ Multivitamins/Minerals 10 ml/ Sterile Water/ Dextrose/ Amino Acids Fat Emulsion-[place] Oil/Soybean Oil 250 mls @ 20.833 mls/hr 06/13/20 22:00 06/14/20 02:48 Clinolipid 20% Iv Fat Emulsion IV 20.833 mls/hr DAILY@2200 JESSICA Administration Lidocaine 1 patch 06/13/20 10:00 06/14/20 10:50 Lidoderm Patch - TP 1 patch DAILY JESSICA Administration Miscellaneous 1 each 06/12/20 22:00 06/13/20 23:02 Lidoderm Patch Removal MC Not Given DAILY@2200 JESSICA Pantoprazole Sodium 40 mg 06/13/20 10:00 06/14/20 10:50 Protonix Iv IVPUSH 40 mg BID JESSICA Administration ASSESSMENT/PLAN: 59 M Perforated viscus but poor surgical candidate Anemia 2/2 LGIB s/p transfusion Metastatic Prostate Ca HIV/AIDS non-compliant w/ HAART Severe Protein Calorie Malnutrition Hypocalcemia Plan: D10 drip, IV Zosyn, TPN, cont. clear liquids per Surgery recs Transfuse to threshold of >7.0 Morphine/dilaudid for severe bone pain/comfort measures Palliative following Will need transfer to [place] for end of life care DNR/DNI DVT prophylaxis SCD Visit type - Emergency Visit Emergency Visit: Yes ED Registration Date: 06/10/20 Care time: The patient presented to the Emergency Department on the above date and was hospitalized for further evaluation of their emergent condition. - New Patient This patient is new to me today: No - Critical Care Critical Care patient: No - Discharge Referral Referred to [facility] Med P.C.: No
[2020-06-14] MEDS ORDERED: HYDROmorphone HCl 2 MG/ML VIAL IVPB PRN ×2 (14:27→14:30)
[2020-06-14] MEDS ORDERED: MORPHINE SULFATE 2 MG/ML VIAL IVPUSH PRN (14:33)
[2020-06-14] MEDS: CALCIUM CARBONATE 650 MG TABLET PO SCH ×2 (14:59→21:34)
[2020-06-14] MEDS ORDERED: [UNRECOGNIZED DRUG - OTHER] IVPB SCH (16:00)
[2020-06-14] MEDS ORDERED: POTASSIUM CHLORIDE IVPB SCH (16:00)
[2020-06-14] MEDS ORDERED: SODIUM CHLORIDE IVPB SCH (16:00)
[2020-06-14] MEDS ORDERED: SODIUM PHOSPHATE IVPB SCH (16:00)
[2020-06-14 16:50] LABS: INR 1.46 (0.83-1.09); PROTHROMBIN TIME (PATIENT) 17.3 SEC (9.7-13.0)
[2020-06-14] MEDS: LIDOCAINE PATCH REMOVAL MC SCH (21:34)
[2020-06-15] MEDS ORDERED: PIPERACILLIN/TAZOBACTAM 3.375 GM VIAL IVPB ONE ×3 (00:26→17:08)
[2020-06-15] MEDS ORDERED: DEXTROSE 5%-WATER - 50 ML IVPB ONE ×3 (00:26→17:08)
[2020-06-15] MEDS: PIPERACILLIN/TAZOB 3.375 GM 3.375 GM in DEXTROSE 5%-WATER - 50 ML IVPB SCH ×3 (01:05→17:10)
[2020-06-15] MEDS: HYDROmorphone HCl 2 MG/ML VIAL IVPB PRN ×2 (01:06→08:45)
[2020-06-15] MEDS ORDERED: MORPHINE SULFATE 2 MG/ML VIAL IVPUSH ONE (05:08)
[2020-06-15 07:53] LABS: BASO % 0.5 % (0-2.0); EOS % 0.1 % (0-4.5); HEMATOCRIT 27.4 % (35.4-49); HEMOGLOBIN 9.4 GM/dL (11.7-16.9); LYMPH % 11.6 % (8-40); MCH 30.7 pg (25.7-33.7); MCHC 34.4 g/dl (32.0-35.9); MEAN CELL VOLUME 89.3 fl (80-96); MEAN PLT VOLUME 9.2 fl (7.5-11.1); MONO % 2.4 % (3.8-10.2); NEUT % 85.4 % (42.8-82.8); PLATELET COUNT 122 K/MM3 (134-434); RBC 3.07 M/mm3 (4.00-5.60); WHITE BLOOD COUNT 10.4 K/mm3 (4.0-10.0)
[2020-06-15 08:10] LABS: ALBUMIN 1.2 g/dl (3.4-5.0); BILIRUBIN,TOTAL 0.4 mg/dL (0.2-1); BLOOD UREA NITROGEN 43.8 mg/dL (7-18); CREATININE 0.3 mg/dL (0.55-1.3); POTASSIUM 4.3 mmol/L (3.5-5.1); TOT PROT 4.2 g/dl (6.4-8.2)
[2020-06-15] MEDS: CALCIUM CARBONATE 650 MG TABLET PO SCH ×2 (09:08→21:11)
[2020-06-15] MEDS: LIDOCAINE 5% TOPICAL PATCH TP SCH (10:57)
[2020-06-15] MEDS: PANTOPRAZOLE SODIUM 40 MG VIAL IVPUSH SCH ×2 (10:57→21:11)
--- NOTE | 2020-06-15 11:26 | PN ---
Physical Exam: SUBJECTIVE: Patient seen and examined Patient has no new complaints. According to the hospitalist notes yesterday patient has rescinded his DNR DNI. So he is full code at this time. OBJECTIVE: Vital Signs Period Temp Pulse Resp BP Sys/Reardon Pulse Ox Last 24 Hr 95.7 F-98.3 F 90-102 20-24 94-109/54-74 80-100 GENERAL: AAox3, speaking in full sentences, markedly cachectic, temporal wasting, malnourished HEENT NC/aT, EOMI, neck supple, dry MM LUNGS: good air entry anteriorally, poor inspiratory effort HEART: RRR, NSR, normal s1, s2, murmur no M/R/G ABDOMEN: very thin habitus, body protrusions, soft, no pain to palpation LOWER EXTREMITIES: no edema, +2DP pulse, NEUROLOGICAL: No focal deficit. Normal speech. gait not observed. PSYCHIATRIC: Cooperative. Good eye contact. flat/depressed mood. Laboratory Results - last 24 hr 06/12/20 06/14/20 06/14/20 15:45 16:30 18:48 WBC RBC Hgb Hct MCV MCH MCHC RDW Plt Count MPV Absolute Neuts (auto) Neutrophils % Lymphocytes % Monocytes % Eosinophils % Basophils % Nucleated RBC % PT with INR 17.30 H INR 1.46 H Sodium Potassium Chloride Carbon Dioxide Anion Gap BUN Creatinine Est GFR (CKD-EPI)AfAm Est GFR (CKD-EPI)NonAf POC Glucometer 139 Random Glucose Calcium Total Bilirubin AST ALT Alkaline Phosphatase Total Protein Albumin HCV Quantitation Hcv not detected HCV RNA log copies/mL TNP 06/15/20 06/15/20 06/15/20 06:08 06:40 06:40 WBC 10.4 H RBC 3.07 L Hgb 9.4 L Hct 27.4 L MCV 89.3 MCH 30.7 MCHC 34.4 RDW 18.0 H Plt Count 122 L MPV 9.2 Absolute Neuts (auto) 8.8 H Neutrophils % 85.4 H Lymphocytes % 11.6 D Monocytes % 2.4 L Eosinophils % 0.1 Basophils % 0.5 D Nucleated RBC % 1 H PT with INR INR Sodium 140 Potassium 4.3 Chloride 110 H Carbon Dioxide 24 Anion Gap 6 L BUN 43.8 H Creatinine 0.3 L Est GFR (CKD-EPI)AfAm 170.79 Est GFR (CKD-EPI)NonAf 147.36 POC Glucometer 106 Random Glucose 79 Calcium 7.0 L Total Bilirubin 0.4 AST 297 H ALT 341 H Alkaline Phosphatase 745 H Total Protein 4.2 L Albumin 1.2 L HCV Quantitation HCV RNA log copies/mL Active Medications Generic Name Dose Route Start Last Admin Trade Name Freq PRN Reason Stop Dose Admin Calcium Carbonate 650 mg 06/14/20 12:45 06/15/20 09:08 Calcium Carbonate - PO Not Given BID JESSICA Hydromorphone HCl 1 mg 06/14/20 15:07 06/15/20 08:45 Dilaudid Vial - IVPB 1 mg Q8H PRN Administration PAIN LEVEL 7 - 10 IV Flush 4 ml 06/12/20 23:07 06/14/20 16:31 Triple Lumen Flush IVPUSH 4 ml PRN PRN Administration Protocol Piperacillin Sod/Tazobactam 50 mls @ 100 mls/hr 06/13/20 02:00 06/15/20 10:57 Sod 3.375 gm/ Dextrose IVPB 100 mls/hr Q8H-IV JESSICA Administration Protocol Fat Emulsion-[place] Oil/Soybean Oil 250 mls @ 20.833 mls/hr 06/13/20 22:00 06/14/20 02:48 Clinolipid 20% Iv Fat Emulsion IV 20.833 mls/hr DAILY@2200 JESSICA Administration Potassium Chloride 40 meq/ 1,200 mls @ 50 mls/hr 06/14/20 16:00 06/14/20 16:41 Sodium Phosphate 20 mm/ Sodium IVPB 50 mls/hr Chloride 40 meq/ Calcium DAILY@1600 JESSICA Administration Gluconate 2,400 mg/ Magnesium Sulfate 0.985 gm/ Folic Acid 1 mg/ Thiamine HCl 100 mg/ Multivitamins/Minerals 10 ml/ Sterile Water/ Dextrose/ Amino Acids Lidocaine 1 patch 06/13/20 10:00 06/15/20 10:57 Lidoderm Patch - TP 1 patch DAILY JESSICA Administration Miscellaneous 1 each 06/12/20 22:00 06/14/20 21:34 Lidoderm Patch Removal MC 1 each DAILY@2200 JESSICA Administration Pantoprazole Sodium 40 mg 06/13/20 10:00 06/15/20 10:57 Protonix Iv IVPUSH 40 mg BID JESSICA Administration ASSESSMENT/PLAN: 59-year-old -[place] male who was admitted with the following medical problems Perforated viscus but poor surgical candidate Anemia 2/2 LGIB s/p transfusion Metastatic Prostate Ca HIV/AIDS non-compliant w/ HAART Severe Protein Calorie Malnutrition Hypocalcemia Plan: D10 drip, IV Zosyn, TPN, cont. clear liquids per Surgery recs Hemoglobin today is better after transfusion Morphine/dilaudid for severe bone pain/comfort measures Palliative following Will need transfer to [place] for end of life care DNR/DNI has been rescinded he is full code now DVT prophylaxis SCD Visit type - Emergency Visit Emergency Visit: Yes ED Registration Date: 06/10/20 Care time: The patient presented to the Emergency Department on the above date and was hospitalized for further evaluation of their emergent condition. - New Patient This patient is new to me today: Yes Date on this admission: 06/15/20 - Critical Care Critical Care patient: No - Discharge Referral Referred to [facility] Med P.C.: No
--- NOTE | 2020-06-15 11:46 | PN ---
Progress Note (short form) - Note Progress Note: PULMONARY Denies abdominal pain. Tolerating clears. No fevers recorded. Vital Signs Period Temp Pulse Resp BP Sys/Reardon Pulse Ox Last 24 Hr 95.7 F-98.3 F 90-102 20-24 94-109/54-74 80-100 Gen: NAD at rest, cachectic Heart: RRR Lung: decreased breath sounds at the bases Abd: soft, nontender Ext: no edema CBC, BMP 06/15/20 06:40 06/15/20 06:40 Active Medications Calcium Carbonate (Calcium Carbonate -) 650 mg PO BID [facility] Last Admin: 06/15/20 09:08 Dose: Not Given Documented by: Hydromorphone HCl (Dilaudid Vial -) 1 mg IVPB Q8H PRN PRN Reason: PAIN LEVEL 7 - 10 Last Admin: 06/15/20 08:45 Dose: 1 mg Documented by: IV Flush (Triple Lumen Flush) 4 ml IVPUSH PRN PRN PRN Reason: Protocol Last Admin: 06/14/20 16:31 Dose: 4 ml Documented by: Piperacillin Sod/Tazobactam (Sod 3.375 gm/ Dextrose) 50 mls @ 100 mls/hr IVPB Q8H-IV JESSICA; Protocol Last Admin: 06/15/20 10:57 Dose: 100 mls/hr Documented by: Fat Emulsion-[place] Oil/Soybean Oil (Clinolipid 20% Iv Fat Emulsion) 250 mls @ 20.833 mls/hr IV DAILY@2200 [facility] Last Admin: 06/14/20 02:48 Dose: 20.833 mls/hr Documented by: Potassium Chloride 40 meq/Sodium Phosphate 20 mm/ Sodium Chloride 40 meq/ Calcium Gluconate 2,400 mg/ Magnesium Sulfate 0.985 gm/ Folic Acid 1 mg/ Thiamine HCl 100 mg/Multivitamins/Minerals 10 ml/Sterile Water/ Dextrose/ Amino Acids 1,200 mls @ 50 mls/hr IVPB DAILY@1600 [facility] Last Admin: 06/14/20 16:41 Dose: 50 mls/hr Documented by: Lidocaine (Lidoderm Patch -) 1 patch TP DAILY [facility] Last Admin: 06/15/20 10:57 Dose: 1 patch Documented by: Miscellaneous (Lidoderm Patch Removal) 1 each MC DAILY@2200 [facility] Last Admin: 06/14/20 21:34 Dose: 1 each Documented by: Pantoprazole Sodium (Protonix Iv) 40 mg IVPUSH BID JESSICA Last Admin: 06/15/20 10:57 Dose: 40 mg Documented by: A/P Perforated Viscus/Ischemic Bowel Sepsis Lactic Acidosis Metastatic Prostate Ca HIV/AIDS Anemia Severe Protein Calorie Malnutrition - continue antibiotics - continue TPN - monitor lytes - monitor H/H - transfuse as needed - PO per surgery - DVT prophylaxis
[2020-06-15] MEDS ORDERED: POTASSIUM CHLORIDE IVPB SCH (16:00)
[2020-06-15] MEDS ORDERED: [UNRECOGNIZED DRUG - OTHER] IVPB SCH (16:00)
[2020-06-15] MEDS ORDERED: SODIUM PHOSPHATE IVPB SCH (16:00)
[2020-06-15] MEDS ORDERED: SODIUM ACETATE IVPB SCH (16:00)
[2020-06-15] MEDS: TRIPLE LUMEN FLUSH 4 ML ML IVPUSH PRN (16:46)
[2020-06-15] MEDS: morphine SULFATE 4 MG/ML VIAL IVPUSH PRN (16:46)
[2020-06-15] MEDS: LIDOCAINE PATCH REMOVAL MC SCH (21:11)
[2020-06-15] MEDS: FAT EMULSION/OLIVE/SOY/PHOSPHO 250 ML IV SCH (21:11)
[2020-06-16] MEDS ORDERED: DEXTROSE 5%-WATER - 50 ML IVPB ONE ×3 (00:48→14:29)
[2020-06-16] MEDS ORDERED: PIPERACILLIN/TAZOBACTAM 3.375 GM VIAL IVPB ONE ×3 (00:48→14:29)
[2020-06-16] MEDS: morphine SULFATE 4 MG/ML VIAL IVPUSH PRN (01:06)
[2020-06-16] MEDS: PIPERACILLIN/TAZOB 3.375 GM 3.375 GM in DEXTROSE 5%-WATER - 50 ML IVPB SCH ×3 (01:06→17:05)
[2020-06-16 08:30] LABS: HEMATOCRIT 23.3 % (35.4-49); HEMOGLOBIN 8.2 GM/dL (11.7-16.9); MCH 33.4 pg (25.7-33.7); MCHC 35.3 g/dl (32.0-35.9); MEAN CELL VOLUME 94.8 fl (80-96); MEAN PLT VOLUME 9.3 fl (7.5-11.1); PLATELET COUNT 87 K/MM3 (134-434); RBC 2.46 M/mm3 (4.00-5.60); RDW 18.6 % (11.9-15.9); WHITE BLOOD COUNT 6.7 K/mm3 (4.0-10.0)
[2020-06-16 08:47] LABS: ALBUMIN 0.9 g/dl (3.4-5.0); ANION GAP 7 MMOL/L (8-16); BILIRUBIN,TOTAL 0.8 mg/dL (0.2-1); BLOOD UREA NITROGEN 31.6 mg/dL (7-18); CHLORIDE 118 mmol/L (98-107); CO2 20 mmol/L (21-32); CREATININE < 0.2 mg/dL (0.55-1.3); GLUCOSE,RANDOM 89 mg/dL (74-106); MAGNESIUM 1.7 mg/dL (1.8-2.4); PHOSPHOROUS 1.7 mg/dL (2.5-4.9); SGOT/AST 139 U/L (15-37); SGPT/ALT 179 U/L (13-61); SODIUM 145 mmol/L (136-145); TOT PROT 3.4 g/dl (6.4-8.2)
[2020-06-16 08:50] LABS: ALK PHOS 442 U/L (45-117)
[2020-06-16 08:56] LABS: CALCIUM 5.5 mg/dL (8.5-10.1)
[2020-06-16 09:46] LABS: ANISOCYTOSIS 1+; MACROCYTOSIS 1+; PLATELET ESTIMATE DECREASED
[2020-06-16] MEDS ORDERED: PT OWN MED DRAWER 7, Y5N ONE (09:50)
[2020-06-16] MEDS: PANTOPRAZOLE SODIUM 40 MG VIAL IVPUSH SCH ×2 (10:08→21:35)
[2020-06-16] MEDS: LIDOCAINE 5% TOPICAL PATCH TP SCH (10:08)
[2020-06-16] MEDS: CALCIUM CARBONATE 650 MG TABLET PO SCH (10:08)
[2020-06-16] MEDS ORDERED: CALCIUM GLUCONATE 10% - 1,000 MG/10 ML VIAL IVPB ONE (10:29)
[2020-06-16] MEDS ORDERED: POTASSIUM CHLORIDE 20 MEQ PREMIX IVPB 100 ML IVPB ONE (10:30)
--- NOTE | 2020-06-16 14:51 | PN ---
Progress Note (short form) - Note Progress Note: PULMONARY Denies abdominal pain. Tolerating clears. No fevers recorded. Vital Signs Period Temp Pulse Resp BP Sys/Reardon Pulse Ox Last 24 Hr 97.7 F-98.4 F 74-101 20-22 90-104/65-77 98-100 Gen: NAD at rest, cachectic Heart: RRR Lung: decreased breath sounds at the bases Abd: soft, nontender Ext: no edema CBC, BMP 06/16/20 08:04 06/16/20 08:04 Active Medications IV Flush (Triple Lumen Flush) 4 ml IVPUSH PRN PRN PRN Reason: Protocol Last Admin: 06/15/20 16:46 Dose: 4 ml Documented by: Piperacillin Sod/Tazobactam (Sod 3.375 gm/ Dextrose) 50 mls @ 100 mls/hr IVPB Q8H-IV JESSICA; Protocol Last Admin: 06/16/20 10:08 Dose: 100 mls/hr Documented by: Fat Emulsion-[place] Oil/Soybean Oil (Clinolipid 20% Iv Fat Emulsion) 250 mls @ 20.833 mls/hr IV DAILY@2200 [facility] Last Admin: 06/15/20 21:11 Dose: 20.833 mls/hr Documented by: Potassium Chloride 40 meq/Sodium Phosphate 20 mm/ Sodium Acetate 40 meq/ Calcium Gluconate 2,400 mg/ Magnesium Sulfate 0.985 gm/ Folic Acid 1 mg/ Thiamine HCl 100 mg/Multivitamins/Minerals 10 ml/Sterile Water/ Dextrose/ Amino Acids 1,200 mls @ 50 mls/hr IVPB DAILY@1600 [facility] Last Admin: 06/15/20 15:16 Dose: 50 mls/hr Documented by: Lidocaine (Lidoderm Patch -) 1 patch TP DAILY [facility] Last Admin: 06/16/20 10:08 Dose: 1 patch Documented by: Miscellaneous (Lidoderm Patch Removal) 1 each MC DAILY@2200 [facility] Last Admin: 06/15/20 21:11 Dose: 1 each Documented by: Morphine Sulfate (Morphine Sulfate) 4 mg IVPUSH Q4H PRN PRN Reason: PAIN LEVEL 7 - 10 Last Admin: 06/16/20 01:06 Dose: 4 mg Documented by: Pantoprazole Sodium (Protonix Iv) 40 mg IVPUSH BID [facility] Last Admin: 06/16/20 10:08 Dose: 40 mg Documented by: Potassium Chloride (Potassium Chloride 20 Meq Premix Ivpb -) 40 meq IVPB ONCE O NE Stop: 06/16/20 10:31 A/P Perforated Viscus/Ischemic Bowel Sepsis Lactic Acidosis Metastatic Prostate Ca HIV/AIDS Anemia Severe Protein Calorie Malnutrition - continue antibiotics - adjusted TPN - monitor lytes - monitor H/H - transfuse as needed - PO per surgery - DVT prophylaxis
[2020-06-16] MEDS ORDERED: SODIUM PHOSPHATE IV SCH (16:00)
[2020-06-16] MEDS ORDERED: FOLIC ACID IV SCH (16:00)
[2020-06-16] MEDS ORDERED: [UNRECOGNIZED DRUG - OTHER] IV SCH (16:00)
[2020-06-16] MEDS ORDERED: MAGNESIUM SO4 IV SCH (16:00)
--- NOTE | 2020-06-16 16:22 | CONSULT ---
Consult - text type - Consultation Consultation Note: Initially consulted for anemia as patient has multiple medical problems including AIDS with non compliance to HAART and metastatic prostate ca with mets to bone. He presented with abd pain found to have free air ; currently pending inpatient hospice placement .
--- NOTE | 2020-06-16 17:33 | PN ---
Progress Note (short form) - Note Progress Note: denies abdominal pain Vital Signs Period Temp Pulse Resp BP Sys/Reardon Pulse Ox Last 24 Hr 97.7 F-98.4 F 74-101 20-22 90-111/57-80 97-100 cachectic alert cor-rrr lungs clear abd +BS, nt to palpation ext +pedal edema CBC, BMP 06/16/20 08:04 06/16/20 08:04 Microbiology 06/10/20 21:50 Blood - Peripheral Venous Blood Culture - Final NO GROWTH AFTER 5 DAYS INCUBATION 06/10/20 21:50 Blood - Peripheral Venous Blood Culture - Final NO GROWTH AFTER 5 DAYS INCUBATION 06/10/20 18:15 Stool Clostridioides difficile Antigen - Final 06/10/20 18:15 Stool Clostridioides difficile Toxin Assay - Final 06/10/20 18:15 Stool Salmonella/Shigella Culture - Final NO GROWTH OF SALMONELLA OR SHIGELLA SPECIES OBTAINED 06/10/20 18:15 Stool Campylobacter Culture - Final NO GROWTH OF CAMPYLOBACTER SPECIES OBTAINED 06/10/20 18:15 Stool Yersinia Culture - Final NO GROWTH OF YERSINIA SPECIES OBTAINED 06/10/20 18:15 Stool Vibrio Culture - Final NO GROWTH OF VIBRIO SPECIES OBTAINED 06/10/20 18:15 Stool Escherichia coli 0157 Culture - Final NO GROWTH OF E COLI 0157 OBTAINED 06/10/20 20:10 Urine - Urine Aggarwal Urine Culture - Final Klebsiella Pneumoniae 06/10/20 15:21 Stool Cryptosporidium Antigen - Final 06/10/20 15:21 Stool Giardia Antigen (SHAYY) - Final a/p 59 yo man with HIV, metastatic prostate cancer pneumoperitoneum- continue zosyn day #6 abnl lfts-improved anemia s/p transfusion prostate ca with mets and chronic aggarwal hiv- resume art when able to take po meds Problem List - Problems (1) Pneumoperitoneum of unknown etiology Code(s): K66.8 - OTHER SPECIFIED DISORDERS OF PERITONEUM (2) HIV (human immunodeficiency virus infection) Code(s): B20 - HUMAN IMMUNODEFICIENCY VIRUS [HIV] DISEASE (3) Anemia Code(s): D64.9 - ANEMIA, UNSPECIFIED Qualifiers: (4) Transaminitis Code(s): R74.0 - NONSPEC ELEV OF LEVELS OF TRANSAMNS & LACTIC ACID DEHYDRGNSE (5) Prostate cancer metastatic to lung Code(s): C61 - MALIGNANT NEOPLASM OF PROSTATE; C78.00 - SECONDARY MALIGNANT NEOPLASM OF UNSPECIFIED LUNG
[2020-06-16] MEDS: LIDOCAINE PATCH REMOVAL MC SCH (21:35)
[2020-06-17] MEDS ORDERED: PIPERACILLIN/TAZOBACTAM 3.375 GM VIAL IVPB ONE ×4 (00:36→17:32)
[2020-06-17] MEDS ORDERED: DEXTROSE 5%-WATER - 50 ML IVPB ONE ×4 (00:36→17:32)
[2020-06-17] MEDS: PIPERACILLIN/TAZOB 3.375 GM 3.375 GM in DEXTROSE 5%-WATER - 50 ML IVPB SCH ×3 (01:53→17:40)
[2020-06-17] MEDS: morphine SULFATE 4 MG/ML VIAL IVPUSH PRN (05:51)
--- NOTE | 2020-06-17 09:24 | PN ---
Progress Note (short form) - Note Progress Note: Palliative care f/up pain controlled on dilauded appears more comfortable today Pt rescinded DNR and is now full code He is afebrile, haemodynamically stable 59 y/o male with Metastatic prostate cancer with bone mets and severe pain, HIV with AIDS ( non compliant with HAART), perforated viscus, poor surgical candidate due to comorbidities and poor functional status, for conservative management BP better with iv fluids and a/bs on TPN malnourished GI bleed- requiring multiple blood transfusions- H/H stable- last transfusion on 06/13 Prognosis guarded. I spoke to the patient again today and we discussed his goals of care. He understands his poor prognosis and that curative treatments are not an option. He wants to go home and says he has home hospice and 24 h care at home. He is currently on TPN - continue antibiotics - IVF - clinimix - po may be initiated as per surgery team- Dr Lua's recommendation that clear liquids could be initiated and would attempt to start po and taper off TPN if feasible and ok with surgical services. Goal is comfort care/ palliation as patient is not a candidate for curative treatment. We discussed hospice care. Patient says he already has home hospice set up? Full code status does not necessarily preclude hospice if the goal is palliation of symptoms. will follow. Problem List - Problems (1) AIDS Code(s): B20 - HUMAN IMMUNODEFICIENCY VIRUS [HIV] DISEASE (2) Failure to thrive Code(s): [id number] - Qualifiers: Failure to thrive age range: in adult Qualified Code(s): R62.7 - Adult failure to thrive (3) Pneumoperitoneum of unknown etiology Code(s): K66.8 - OTHER SPECIFIED DISORDERS OF PERITONEUM (4) Prostate cancer metastatic to lung Code(s): C61 - MALIGNANT NEOPLASM OF PROSTATE; C78.00 - SECONDARY MALIGNANT NEOPLASM OF UNSPECIFIED LUNG (5) Anemia Code(s): D64.9 - ANEMIA, UNSPECIFIED Qualifiers: (6) Prostate cancer Code(s): C61 - MALIGNANT NEOPLASM OF PROSTATE
[2020-06-17] MEDS: LIDOCAINE 5% TOPICAL PATCH TP SCH (09:53)
[2020-06-17] MEDS: PANTOPRAZOLE SODIUM 40 MG VIAL IVPUSH SCH ×2 (09:53→21:03)
[2020-06-17 12:10] LABS: BASO % 0.2 % (0-2.0); EOS % 0.1 % (0-4.5); HEMATOCRIT 23.4 % (35.4-49); HEMOGLOBIN 7.9 GM/dL (11.7-16.9); LYMPH % 13.5 % (8-40); MCH 29.9 pg (25.7-33.7); MCHC 33.6 g/dl (32.0-35.9); NEUT % 83.2 % (42.8-82.8); PLATELET COUNT 95 K/MM3 (134-434); RBC 2.63 M/mm3 (4.00-5.60); WHITE BLOOD COUNT 5.9 K/mm3 (4.0-10.0)
[2020-06-17 13:00] LABS: ALBUMIN 1.2 g/dl (3.4-5.0); BILIRUBIN,TOTAL 0.5 mg/dL (0.2-1); CREATININE 0.2 mg/dL (0.55-1.3); MAGNESIUM 2.2 mg/dL (1.8-2.4); PHOSPHOROUS 3.1 mg/dL (2.5-4.9); POTASSIUM 4.1 mmol/L (3.5-5.1); TOT PROT 4.1 g/dl (6.4-8.2)
[2020-06-17 13:01] LABS: CALCIUM 6.7 mg/dL (8.5-10.1)
--- NOTE | 2020-06-17 13:15 | PN ---
Progress Note (short form) - Note Progress Note: PULMONARY Denies abdominal pain. Tolerating clears. No fevers recorded. Vital Signs Period Temp Pulse Resp BP Sys/Reardon Pulse Ox Last 24 Hr 97.7 F-98.3 F 85-93 20-20 105-113/57-80 97-100 Gen: NAD at rest, cachectic Heart: RRR Lung: decreased breath sounds at the bases Abd: soft, nontender Ext: no edema CBC, BMP 06/17/20 11:02 06/17/20 11:02 Active Medications IV Flush (Triple Lumen Flush) 4 ml IVPUSH PRN PRN PRN Reason: Protocol Last Admin: 06/15/20 16:46 Dose: 4 ml Documented by: Piperacillin Sod/Tazobactam (Sod 3.375 gm/ Dextrose) 50 mls @ 100 mls/hr IVPB Q8H-IV JESSICA; Protocol Last Admin: 06/17/20 09:53 Dose: 100 mls/hr Documented by: Sodium Phosphate 30 mm/Magnesium Sulfate 1.48 gm/Folic Acid 1 mg/ Thiamine HCl 100 mg/ Multivitamins/Minerals 10 ml/ Potassium Acetate 60 meq/ Sterile Water/ Dextrose/Amino Acids 1,200 mls @ 50 mls/hr IV DAILY@1600 [facility] Last Admin: 06/16/20 16:17 Dose: 50 mls/hr Documented by: Lidocaine (Lidoderm Patch -) 1 patch TP DAILY [facility] Last Admin: 06/17/20 09:53 Dose: 1 patch Documented by: Miscellaneous (Lidoderm Patch Removal) 1 each MC DAILY@2200 [facility] Last Admin: 06/16/20 21:35 Dose: 1 each Documented by: Morphine Sulfate (Morphine Sulfate) 4 mg IVPUSH Q4H PRN PRN Reason: PAIN LEVEL 7 - 10 Last Admin: 06/17/20 05:51 Dose: 4 mg Documented by: Pantoprazole Sodium (Protonix Iv) 40 mg IVPUSH BID [facility] Last Admin: 06/17/20 09:53 Dose: 40 mg Documented by: A/P Perforated Viscus/Ischemic Bowel Sepsis Lactic Acidosis Metastatic Prostate Ca HIV/AIDS Anemia Severe Protein Calorie Malnutrition - continue antibiotics - adjusted TPN, taper off when tolerating enough PO - monitor lytes - monitor H/H - transfuse as needed - PO per surgery - DVT prophylaxis
--- NOTE | 2020-06-17 14:33 | PN ---
Progress Note (short form) - Note Progress Note: denies abdominal pain alert wants something to drink Vital Signs Period Temp Pulse Resp BP Sys/Reardon Pulse Ox Last 24 Hr 97.5 F-97.8 F 69-93 20-20 111-118/73-80 100-100 cor-rrr lungs decreased bs at bases abd soft,nt +BS ext +pedal edema +aggarwal CBC, BMP 06/17/20 11:02 06/17/20 11:02 Microbiology 06/10/20 15:21 Stool Cryptosporidium Antigen - Final 06/10/20 15:21 Stool Giardia Antigen (SHAYY) - Final 06/10/20 21:50 Blood - Peripheral Venous Blood Culture - Final NO GROWTH AFTER 5 DAYS INCUBATION 06/10/20 21:50 Blood - Peripheral Venous Blood Culture - Final NO GROWTH AFTER 5 DAYS INCUBATION 06/10/20 18:15 Stool Clostridioides difficile Antigen - Final 06/10/20 18:15 Stool Clostridioides difficile Toxin Assay - Final 06/10/20 18:15 Stool Salmonella/Shigella Culture - Final NO GROWTH OF SALMONELLA OR SHIGELLA SPECIES OBTAINED 06/10/20 18:15 Stool Campylobacter Culture - Final NO GROWTH OF CAMPYLOBACTER SPECIES OBTAINED 06/10/20 18:15 Stool Yersinia Culture - Final NO GROWTH OF YERSINIA SPECIES OBTAINED 06/10/20 18:15 Stool Vibrio Culture - Final NO GROWTH OF VIBRIO SPECIES OBTAINED 06/10/20 18:15 Stool Escherichia coli 0157 Culture - Final NO GROWTH OF E COLI 0157 OBTAINED 06/10/20 20:10 Urine - Urine Aggarwal Urine Culture - Final Klebsiella Pneumoniae a/p 59 yo man with HIV, metastatic prostate cancer pneumoperitoneum- continue zosyn day #7 abnl lfts-improved anemia s/p transfusion prostate ca with mets and chronic aggarwal hiv- resume art when able to take po meds ?repeat ct scan, discuss with surgery when to try clear liquids continue zosyn for now Problem List - Problems (1) Pneumoperitoneum of unknown etiology Code(s): K66.8 - OTHER SPECIFIED DISORDERS OF PERITONEUM (2) HIV (human immunodeficiency virus infection) Code(s): B20 - HUMAN IMMUNODEFICIENCY VIRUS [HIV] DISEASE (3) Anemia Code(s): D64.9 - ANEMIA, UNSPECIFIED Qualifiers: (4) Transaminitis Code(s): R74.0 - NONSPEC ELEV OF LEVELS OF TRANSAMNS & LACTIC ACID DEHYDRGNSE (5) Prostate cancer metastatic to lung Code(s): C61 - MALIGNANT NEOPLASM OF PROSTATE; C78.00 - SECONDARY MALIGNANT NEOPLASM OF UNSPECIFIED LUNG
--- NOTE | 2020-06-17 14:49 | PN ---
Teaching Attending Note Name of Resident: Morgan Escoto ATTENDING PHYSICIAN STATEMENT I saw and evaluated the patient. I reviewed the resident's note and discussed the case with the resident. I agree with the resident's findings and plan as documented. SUBJECTIVE: seen and examined at bedside. Patient reports his symptoms are controlled and is currently pursuing home hospice. OBJECTIVE Last Vital Signs Temp Pulse Resp BP Pulse Ox 97.5 F L 69 20 118/77 100 06/17/20 14:21 06/17/20 14:21 06/17/20 14:21 06/17/20 14:21 06/17/20 14:21 PE: Per resident note Labs/Imaging: reviewed ASSESSMENT/PLAN 59-year-old -English male past medical history of metastatic prostate cancer HIV AIDS noncompliant with HAART, severe protein calorie malnutrition admitted for perforated viscus. #End-of-life care Patient has multiple medical problems not amenable to treatment. Patient has expressed interest in home hospice Continue Zosyn Attempt to increase oral liquids so as to decrease Clinimix Pain control We will discuss details of home hospice with case management
[2020-06-17] MEDS ORDERED: [UNRECOGNIZED DRUG - OTHER] IV SCH (16:00)
[2020-06-17] MEDS ORDERED: MAGNESIUM SO4 IV SCH (16:00)
[2020-06-17] MEDS ORDERED: SODIUM PHOSPHATE IV SCH (16:00)
[2020-06-17] MEDS ORDERED: FOLIC ACID IV SCH (16:00)
--- NOTE | 2020-06-17 16:54 | PN ---
Physical Exam: Subjective: Patient seen and examined at bedside, c/o abdominal pain after liquid intake, made NPO w/ Clinimix only, increased Dilaudid regimen, patient expressing interest to be DC home with hospice care, will need Palliative follow up for possible setup for hospice at home. Objective: GENERAL: AAox3, speaking in full sentences, cachectic, malnourished HEENT NC/AT, EOMI, neck supple, dry MM LUNGS: Poor inspiratory effort, bony protrusions of chest wall HEART: RRR, NSR, normal s1, s2, murmur no M/R/G ABDOMEN: very thin habitus, body protrusions, soft, no pain to palpation LOWER EXTREMITIES: no edema, +2 DP pulse, contracted extremities NEUROLOGICAL: No focal deficit. Normal speech. gait not observed. PSYCHIATRIC: Cooperative. Good eye contact. flat/depressed mood. SKIN: Warm, dry,left hip pressure ulcer with wound dressing. Vital Signs (72 hours) 06/14/20 06/14/20 06/14/20 18:10 19:50 20:21 Temperature 97.3 F L 98.3 F Pulse Rate 90 95 H Respiratory 20 20 20 Rate Blood Pressure 103/74 96/73 O2 Sat by Pulse 100 100 100 Oximetry (%) 06/15/20 06/15/20 06/15/20 05:22 11:05 14:00 Temperature 95.7 F L 97.7 F 97.3 F L Pulse Rate 102 H 99 H Respiratory 24 H 22 H Rate Blood Pressure 109/54 L 103/70 O2 Sat by Pulse 98 97 Oximetry (%) 06/15/20 06/15/20 06/16/20 19:21 20:08 05:21 Temperature 98.4 F 97.7 F Pulse Rate 94 H 101 H Respiratory 22 H 22 H 22 H Rate Blood Pressure 101/72 104/77 O2 Sat by Pulse 98 98 100 Oximetry (%) 06/16/20 06/16/20 06/16/20 09:00 10:00 14:00 Temperature 98 F 98.3 F Pulse Rate 74 85 Respiratory 20 20 20 Rate Blood Pressure 90/65 105/57 L O2 Sat by Pulse 99 99 97 Oximetry (%) 06/16/20 06/16/20 06/16/20 17:10 19:28 20:36 Temperature 97.7 F 97.8 F Pulse Rate 93 H 86 Respiratory 20 20 20 Rate Blood Pressure 111/80 113/73 O2 Sat by Pulse 100 100 100 Oximetry (%) 06/17/20 06/17/20 06/17/20 09:00 11:00 14:21 Temperature 97.6 F 97.5 F L Pulse Rate 85 69 Respiratory 20 20 20 Rate Blood Pressure 105/71 118/77 O2 Sat by Pulse 100 100 100 Oximetry (%) Microbiology 06/10/20 15:21 Stool Cryptosporidium Antigen - Final 06/10/20 15:21 Stool Giardia Antigen (SHAYY) - Final 06/10/20 21:50 Blood - Peripheral Venous Blood Culture - Final NO GROWTH AFTER 5 DAYS INCUBATION 06/10/20 21:50 Blood - Peripheral Venous Blood Culture - Final NO GROWTH AFTER 5 DAYS INCUBATION 06/10/20 18:15 Stool Clostridioides difficile Antigen - Final 06/10/20 18:15 Stool Clostridioides difficile Toxin Assay - Final 06/10/20 18:15 Stool Salmonella/Shigella Culture - Final NO GROWTH OF SALMONELLA OR SHIGELLA SPECIES OBTAINED 06/10/20 18:15 Stool Campylobacter Culture - Final NO GROWTH OF CAMPYLOBACTER SPECIES OBTAINED 06/10/20 18:15 Stool Yersinia Culture - Final NO GROWTH OF YERSINIA SPECIES OBTAINED 06/10/20 18:15 Stool Vibrio Culture - Final NO GROWTH OF VIBRIO SPECIES OBTAINED 06/10/20 18:15 Stool Escherichia coli 0157 Culture - Final NO GROWTH OF E COLI 0157 OBTAINED 06/10/20 20:10 Urine - Urine Syed Urine Culture - Final Klebsiella Pneumoniae Laboratory Results - last 24 hr 06/13/20 06/14/20 06/17/20 14:45 12:04 11:02 WBC 5.9 RBC 2.63 L Hgb 7.9 L Hct 23.4 L MCV 89.0 MCH 29.9 D MCHC 33.6 RDW 19.0 H Plt Count 95 L MPV 9.0 Absolute Neuts (auto) 4.9 Neutrophils % 83.2 H Lymphocytes % 13.5 Monocytes % 3.0 L Eosinophils % 0.1 Basophils % 0.2 Nucleated RBC % 0 Sodium Potassium Chloride Carbon Dioxide Anion Gap BUN Creatinine Est GFR (CKD-EPI)AfAm Est GFR (CKD-EPI)NonAf POC Glucometer Random Glucose Calcium Ionized Calcium 3.0 L Phosphorus Magnesium Total Bilirubin AST ALT Alkaline Phosphatase Total Protein Albumin Blood Type AB POSITIVE Antibody Screen Negative Crossmatch See Detail 06/17/20 06/17/20 11:02 16:34 WBC RBC Hgb Hct MCV MCH MCHC RDW Plt Count MPV Absolute Neuts (auto) Neutrophils % Lymphocytes % Monocytes % Eosinophils % Basophils % Nucleated RBC % Sodium 144 Potassium 4.1 Chloride 114 H Carbon Dioxide 26 Anion Gap 5 L BUN 39.0 H Creatinine 0.2 L Est GFR (CKD-EPI)AfAm 201.76 Est GFR (CKD-EPI)NonAf 174.08 POC Glucometer 48 Random Glucose 58 L Calcium 6.7 L* Ionized Calcium Phosphorus 3.1 Magnesium 2.2 Total Bilirubin 0.5 AST 244 H ALT 230 H Alkaline Phosphatase 620 H Total Protein 4.1 L Albumin 1.2 L Blood Type Antibody Screen Crossmatch Home Medications Medication Instructions Recorded Doxepin HCl 200 mg PO HS 01/10/20 Emtricitab/Rilpiviri/Tenof Ala 1 each PO DAILY 01/10/20 [Odefsey Tablet] Bicalutamide [Casodex -] 50 mg PO DAILY #30 tablet 05/17/20 Collagenase Clostridium Hist. 1 applic TP DAILY #1 tube 05/17/20 [Santyl -] Folic Acid - 1 mg PO DAILY #30 tablet 05/17/20 Current Medications Generic Name Dose Route Start Last Admin Trade Name Freq PRN Reason Stop Dose Admin IV Flush 4 ml 06/12/20 23:07 06/15/20 16:46 Triple Lumen Flush IVPUSH 4 ml PRN PRN Administration Protocol Piperacillin Sod/Tazobactam 50 mls @ 100 mls/hr 06/13/20 02:00 06/17/20 09:53 Sod 3.375 gm/ Dextrose IVPB 100 mls/hr Q8H-IV JESSICA Administration Protocol Sodium Phosphate 20 mm/ 1,200 mls @ 50 mls/hr 06/17/20 16:00 Magnesium Sulfate 1.48 gm/ IV Folic Acid 1 mg/ Multivitamins DAILY@1600 JESSICA /Minerals 10 ml/ Potassium Chloride 40 meq/ Calcium Gluconate 2,400 mg/ Sterile Water/ Dextrose/ Amino Acids Fat Emulsion Intravenous 250 mls @ 20.833 mls/hr 06/17/20 22:00 Intralipid - IV DAILY@2200 JESSICA Lidocaine 1 patch 06/13/20 10:00 06/17/20 09:53 Lidoderm Patch - TP 1 patch DAILY JESSICA Administration Miscellaneous 1 each 06/12/20 22:00 06/16/20 21:35 Lidoderm Patch Removal MC 1 each DAILY@2200 JESSICA Administration Morphine Sulfate 4 mg 06/15/20 16:18 06/17/20 05:51 Morphine Sulfate IVPUSH 4 mg Q4H PRN Administration PAIN LEVEL 7 - 10 Pantoprazole Sodium 40 mg 06/13/20 10:00 06/17/20 09:53 Protonix Iv IVPUSH 40 mg BID JESSICA Administration A/P: 59 M Perforated viscus but poor surgical candidate Anemia 2/2 LGIB/HIV/AIDS s/p transfusion Metastatic Prostate Ca to bone HIV/AIDS non-compliant w/ HAART Severe Protein Calorie Malnutrition Hypocalcemia Hypoalbuminemia Deconditioned Plan: NPO unless abdominal pain resolves, cont. Clinimix, IV Zosyn for perforated viscus Transfuse to threshold of >7.0 Dilaudid for severe bone pain/comfort measures, will benefit from Fentanyl patch Palliative following for possible setup for home hospice [facility] for hospice care Patient opting for FULL CODE DVT prophylaxis SCD Visit type - Emergency Visit Emergency Visit: Yes ED Registration Date: 06/10/20 Care time: The patient presented to the Emergency Department on the above date and was hospitalized for further evaluation of their emergent condition. - New Patient This patient is new to me today: No - Critical Care Critical Care patient: No - Discharge Referral Referred to [facility] Med P.C.: No
[2020-06-17] MEDS ORDERED: DEXTROSE 50%-WATER - 25 GM/50 ML VIAL IVPUSH ONE (17:11)
--- NOTE | 2020-06-17 17:23 | PN ---
Physical Exam: SUBJECTIVE: Patient seen and examined. Pt. states he would like to have home hospice. Discussed with Pt. that in order to achieve that he will need to be DNR/DNI. Pt. verbally told me that he would like to proceed. Discussed with Vanessa that authorization and insurance discussions are being held. OBJECTIVE: Vital Signs Period Temp Pulse Resp BP Sys/Reardon Pulse Ox Last 24 Hr 97.4 F-97.8 F 69-86 20-20 105-121/71-81 100-100 GENERAL: The patient is awake, alert, cachectic, in no acute distress. HEAD: Normal with no signs of trauma. EYES: Sclera anicteric, conjunctiva clear. No ptosis. ENT: Dry mucous membranes. LUNGS: Breath sounds equal, clear to auscultation bilaterally, no wheezes, no crackles, no accessory muscle use. HEART: Regular rate and rhythm, S1, S2 without murmur ABDOMEN: Soft, nontender, nondistended, Hypoactive bowel sounds EXTREMITIES: 2+ radial pulses, warm, well-perfused, no edema. NEUROLOGICAL: Normal speech, gait not observed. PSYCH: Normal mood, normal affect. SKIN: Warm, dry Laboratory Results - last 24 hr 06/13/20 06/14/20 06/17/20 14:45 12:04 11:02 WBC 5.9 RBC 2.63 L Hgb 7.9 L Hct 23.4 L MCV 89.0 MCH 29.9 D MCHC 33.6 RDW 19.0 H Plt Count 95 L MPV 9.0 Absolute Neuts (auto) 4.9 Neutrophils % 83.2 H Lymphocytes % 13.5 Monocytes % 3.0 L Eosinophils % 0.1 Basophils % 0.2 Nucleated RBC % 0 Sodium Potassium Chloride Carbon Dioxide Anion Gap BUN Creatinine Est GFR (CKD-EPI)AfAm Est GFR (CKD-EPI)NonAf POC Glucometer Random Glucose Calcium Ionized Calcium 3.0 L Phosphorus Magnesium Total Bilirubin AST ALT Alkaline Phosphatase Total Protein Albumin Blood Type AB POSITIVE Antibody Screen Negative Crossmatch See Detail 06/17/20 06/17/20 11:02 16:34 WBC RBC Hgb Hct MCV MCH MCHC RDW Plt Count MPV Absolute Neuts (auto) Neutrophils % Lymphocytes % Monocytes % Eosinophils % Basophils % Nucleated RBC % Sodium 144 Potassium 4.1 Chloride 114 H Carbon Dioxide 26 Anion Gap 5 L BUN 39.0 H Creatinine 0.2 L Est GFR (CKD-EPI)AfAm 201.76 Est GFR (CKD-EPI)NonAf 174.08 POC Glucometer 48 Random Glucose 58 L Calcium 6.7 L* Ionized Calcium Phosphorus 3.1 Magnesium 2.2 Total Bilirubin 0.5 AST 244 H ALT 230 H Alkaline Phosphatase 620 H Total Protein 4.1 L Albumin 1.2 L Blood Type Antibody Screen Crossmatch Active Medications Generic Name Dose Route Start Last Admin Trade Name Freq PRN Reason Stop Dose Admin Dextrose 25 gm 06/17/20 17:30 D50w (Syringe) - IVPUSH 06/17/20 17:31 NOW ONE IV Flush 4 ml 06/12/20 23:07 06/15/20 16:46 Triple Lumen Flush IVPUSH 4 ml PRN PRN Administration Protocol Piperacillin Sod/Tazobactam 50 mls @ 100 mls/hr 06/13/20 02:00 06/17/20 09:53 Sod 3.375 gm/ Dextrose IVPB 100 mls/hr Q8H-IV JESSICA Administration Protocol Sodium Phosphate 20 mm/ 1,200 mls @ 50 mls/hr 06/17/20 16:00 Magnesium Sulfate 1.48 gm/ IV Folic Acid 1 mg/ Multivitamins DAILY@1600 JESSICA /Minerals 10 ml/ Potassium Chloride 40 meq/ Calcium Gluconate 2,400 mg/ Sterile Water/ Dextrose/ Amino Acids Fat Emulsion Intravenous 250 mls @ 20.833 mls/hr 06/17/20 22:00 Intralipid - IV DAILY@2200 JESSICA Lidocaine 1 patch 06/13/20 10:00 06/17/20 09:53 Lidoderm Patch - TP 1 patch DAILY JESSICA Administration Miscellaneous 1 each 06/12/20 22:00 06/16/20 21:35 Lidoderm Patch Removal MC 1 each DAILY@2200 JESSICA Administration Morphine Sulfate 4 mg 06/15/20 16:18 06/17/20 05:51 Morphine Sulfate IVPUSH 4 mg Q4H PRN Administration PAIN LEVEL 7 - 10 Pantoprazole Sodium 40 mg 06/13/20 10:00 06/17/20 09:53 Protonix Iv IVPUSH 40 mg BID JESSICA Administration ASSESSMENT/PLAN: 59-year-old -[place] male past medical history of metastatic prostate cancer HIV AIDS noncompliant with HAART, severe protein calorie malnutrition admitted for perforated viscus. Pt. transfused for GIB on 06/13. #Encounter for Palliative Care Pt. is not a surgical candidate currently for bowel perforation or for me tastatic prostate CA. Pt. is non-adherent with HAART. Continue w/ pain control IV Clinimx IV lipids Upward trending transaminitis Protonix for GIB c/w Zosyn Palliative care appreciated for vacillating code status--currently Full Code? SW consult appreciated for initiating home hospice Pt. awaiting acceptance of home hospice then will discharge home. Will need discussion about continuing antibiotics and IV nutrition at home. Visit type - Emergency Visit Emergency Visit: Yes ED Registration Date: 06/10/20 Care time: The patient presented to the Emergency Department on the above date and was hospitalized for further evaluation of their emergent condition. - New Patient This patient is new to me today: No - Critical Care Critical Care patient: No - Discharge Referral Referred to [facility] Med P.C.: No ATTENDING PHYSICIAN STATEMENT I saw and evaluated the patient. I reviewed the resident's note and discussed the case with the resident. I agree with the resident's findings and plan as documented. SUBJECTIVE: OBJECTIVE: ASSESSMENT AND PLAN:
[2020-06-17] MEDS ORDERED: DEXTROSE 50%-WATER 25 GM/50 ML DISP.SYRIN IVPUSH ONE ×2 (17:30→17:45)
[2020-06-17] MEDS: LIDOCAINE PATCH REMOVAL MC SCH (21:02)
[2020-06-17] MEDS: FAT EMULSIONS 250 ML IV SCH (21:03)
[2020-06-18] MEDS ORDERED: PIPERACILLIN/TAZOBACTAM 3.375 GM VIAL IVPB ONE ×2 (00:51→10:54)
[2020-06-18] MEDS ORDERED: DEXTROSE 5%-WATER - 50 ML IVPB ONE ×2 (00:51→10:54)
[2020-06-18] MEDS: PIPERACILLIN/TAZOB 3.375 GM 3.375 GM in DEXTROSE 5%-WATER - 50 ML IVPB SCH ×2 (01:12→11:12)
[2020-06-18] MEDS: morphine SULFATE 4 MG/ML VIAL IVPUSH PRN (02:40)
[2020-06-18 08:24] LABS: BASO % 0.9 % (0-2.0); EOS % 0.6 % (0-4.5); HEMATOCRIT 22.5 % (35.4-49); HEMOGLOBIN 7.9 GM/dL (11.7-16.9); LYMPH % 19.4 % (8-40); MCH 32.7 pg (25.7-33.7); MCHC 34.9 g/dl (32.0-35.9); MEAN CELL VOLUME 93.9 fl (80-96); MEAN PLT VOLUME 9.2 fl (7.5-11.1); MONO % 5.4 % (3.8-10.2); NEUT % 73.7 % (42.8-82.8); PLATELET COUNT 78 K/MM3 (134-434); RDW 18.5 % (11.9-15.9); WHITE BLOOD COUNT 4.4 K/mm3 (4.0-10.0)
[2020-06-18 08:54] LABS: ALBUMIN 1.2 g/dl (3.4-5.0); BILIRUBIN,TOTAL 0.6 mg/dL (0.2-1); BLOOD UREA NITROGEN 35.1 mg/dL (7-18); CREATININE 0.3 mg/dL (0.55-1.3); MAGNESIUM 1.9 mg/dL (1.8-2.4); PHOSPHOROUS 2.4 mg/dL (2.5-4.9); POTASSIUM 3.5 mmol/L (3.5-5.1); TOT PROT 3.9 g/dl (6.4-8.2)
[2020-06-18 09:09] LABS: CALCIUM 6.5 mg/dL (8.5-10.1)
[2020-06-18] MEDS ORDERED: PT OWN MED DRAWER 7, Y5N ONE ×2 (10:54→20:05)
[2020-06-18] MEDS: PANTOPRAZOLE SODIUM 40 MG VIAL IVPUSH SCH ×2 (11:20→21:02)
[2020-06-18] MEDS: LIDOCAINE 5% TOPICAL PATCH TP SCH (11:21)
[2020-06-18] MEDS ORDERED: CALCIUM GLUCONATE 10% - 1,000 MG/10 ML VIAL IVPB ONE (12:15)
--- NOTE | 2020-06-18 14:17 | PN ---
Teaching Attending Note Name of Resident: Morgan Escoto ATTENDING PHYSICIAN STATEMENT I saw and evaluated the patient. I reviewed the resident's note and discussed the case with the resident. I agree with the resident's findings and plan as documented. SUBJECTIVE: Seen and examined at bedside. Informed by case management that patient was rej ected for home hospice because he only has 6 hours of nursing, no family to give him medications, and his aide will not be able to give him medications. On exam patient appears comfortable and is alert and oriented x3 and of sound mind. I spent 30 minutes with the patient and the full medical team at bedside discussing his medical condition and discharge options in depth. Patient was told he has terminal metastatic prostate cancer and bowel perforation, and has been slowly bleeding requiring numerous transfusions during the stay. He was told that once antibiotics and transfusions are stopped he is likely to become critically anemic and probably septic, likely resulting in or severe illness/symptoms within days to weeks. This was explained in clear language and the patient expressed full understanding. As home hospice is no longer an option the patient was given the choice to continue treatment in this hospital, be transferred to inpatient hospice at [place], or sign out AGAINST MEDICAL ADVICE and go home. My recommendation was that the patient be transferred to [place]. After extensive discussion patient stated that above all he wants to go home even if he has to leave AGAINST MEDICAL ADVICE. The consequences of doing so regarding prescribing medications and insurance reimbursement were explained. The patient signed a DNR/DNI and will also sign a do not hospitalize form: He is aware that he can revoke these at any time. The patient is currently tolerating clears at this time. OBJECTIVE Last Vital Signs Temp Pulse Resp BP Pulse Ox 97.9 F 99 H 18 100/70 100 06/18/20 05:56 06/18/20 05:56 06/18/20 05:56 06/18/20 05:56 06/18/20 05:56 PE: Per resident note Labs/Imaging: reviewed ASSESSMENT/PLAN 59-year-old last Slovak male with past medical history of metastatic prostate cancer, HIV, AIDS noncompliant with HAART, severe protein calorie malnutrition admitted for perforated viscus. Patient was not excepted for home hospice and has chosen to be discharged home AGAINST MEDICAL ADVICE as described above. Due to AMA and DNR/DNI/DNH status patient will not be discharged with antibiotics or Clinimix. He is currently tolerating clear liquids. Patient aware that he may become highly symptomatic in the next several days, and does not want to return to hospital. We will prescribe as needed roxanol for this eventuality. Patient is aware that insurance may not cover the cost
[2020-06-18] MEDS: SODIUM PHOSPHATE IV SCH (19:11)
[2020-06-18] MEDS: MAGNESIUM SO4 IV SCH (19:11)
[2020-06-18] MEDS: FOLIC ACID IV SCH (19:11)
[2020-06-18] MEDS: [UNRECOGNIZED DRUG - OTHER] IV SCH (19:11)
--- NOTE | 2020-06-18 19:21 | PN ---
Physical Exam: SUBJECTIVE: Patient seen and examined. Pt. reported to have 5 blacks stools overnight. At length discussion with Pt. about disposition. Pt. is unable to have home hospice because of the complexity of his case. Pt. does not have anyone at home to assist RN and proved Pt. with medications. Pt. denied home hospice by multiple facilities. Pt. accepted to [facility] hospice. Pt. refused. Pt. refused LTACH. At length discussion with Pt. about the series of events that will happen if Pt. goes home as Pt. will be signing out AMA and will not ave antibiotics. Pt. acknowledeged and understood that by going home without antibiotics he will be at risk for severe pain, may lose mental faculties, have a heart attack and will most likely . Pt. agreed and also signed DNH. OBJECTIVE: Vital Signs Period Temp Pulse Resp BP Sys/Reardon Pulse Ox Last 24 Hr 97.8 F-98.5 F 85-99 18-20 100-117/70-81 98-100 GENERAL: The patient is awake, alert, cachectic, in no acute distress. HEAD: Normal with no signs of trauma. EYES: Sclera anicteric, conjunctiva clear. No ptosis. ENT: Dry mucous membranes. LUNGS: Breath sounds equal, clear to auscultation bilaterally, no wheezes, no crackles, no accessory muscle use. HEART: Regular rate and rhythm, S1, S2 without murmur ABDOMEN: Soft, nontender, nondistended, Hypoactive bowel sounds EXTREMITIES: 2+ radial pulses, warm, well-perfused, no edema. NEUROLOGICAL: Normal speech, gait not observed. PSYCH: Normal mood, normal affect. SKIN: Warm, dry Laboratory Results - last 24 hr 06/17/20 06/18/20 06/18/20 19:25 06:00 06:00 WBC 4.4 RBC 2.40 L Hgb 7.9 L Hct 22.5 L MCV 93.9 MCH 32.7 MCHC 34.9 RDW 18.5 H Plt Count 78 L MPV 9.2 Absolute Neuts (auto) 3.3 Neutrophils % 73.7 Lymphocytes % 19.4 D Monocytes % 5.4 Eosinophils % 0.6 D Basophils % 0.9 D Nucleated RBC % 1 H Sodium 141 Potassium 3.5 Chloride 110 H Carbon Dioxide 24 Anion Gap 7 L BUN 35.1 H Creatinine 0.3 L Est GFR (CKD-EPI)AfAm 170.79 Est GFR (CKD-EPI)NonAf 147.36 POC Glucometer 135 Random Glucose 241 H Calcium 6.5 L* Phosphorus 2.4 L Magnesium 1.9 Total Bilirubin 0.6 AST 358 H ALT 305 H Alkaline Phosphatase 862 H Total Protein 3.9 L Albumin 1.2 L Triglycerides 329 H Blood Type Antibody Screen Crossmatch 06/18/20 12:50 WBC RBC Hgb Hct MCV MCH MCHC RDW Plt Count MPV Absolute Neuts (auto) Neutrophils % Lymphocytes % Monocytes % Eosinophils % Basophils % Nucleated RBC % Sodium Potassium Chloride Carbon Dioxide Anion Gap BUN Creatinine Est GFR (CKD-EPI)AfAm Est GFR (CKD-EPI)NonAf POC Glucometer Random Glucose Calcium Phosphorus Magnesium Total Bilirubin AST ALT Alkaline Phosphatase Total Protein Albumin Triglycerides Blood Type AB POSITIVE Antibody Screen Negative Crossmatch See Detail Active Medications Generic Name Dose Route Start Last Admin Trade Name Freq PRN Reason Stop Dose Admin IV Flush 4 ml 06/12/20 23:07 06/15/20 16:46 Triple Lumen Flush IVPUSH 4 ml PRN PRN Administration Protocol Fat Emulsion Intravenous 250 mls @ 20.833 mls/hr 06/17/20 22:00 06/17/20 21:03 Intralipid - IV 20.833 mls/hr DAILY@2200 JESSICA Administration Sodium Phosphate 30 mm/ 1,200 mls @ 50 mls/hr 06/18/20 16:00 06/18/20 19:11 Magnesium Sulfate 0.985 gm/ IV Not Given Folic Acid 1 mg/ Multivitamins DAILY@1600 JESSICA /Minerals 10 ml/ Potassium Chloride 50 meq/ Sterile Water / Dextrose/ Amino Acids Lidocaine 1 patch 06/13/20 10:00 06/18/20 11:21 Lidoderm Patch - TP 1 patch DAILY JESSICA Administration Miscellaneous 1 each 06/12/20 22:00 06/17/20 21:02 Lidoderm Patch Removal MC 1 each DAILY@2200 JESSICA Administration Pantoprazole Sodium 40 mg 06/13/20 10:00 06/18/20 11:20 Protonix Iv IVPUSH 40 mg BID JESSICA Administration ASSESSMENT/PLAN: 59-year-old -Q[place] male past medical history of metastatic prostate cancer HIV AIDS noncompliant with HAART, severe protein calorie malnutrition admitted for perforated viscus. Pt. transfused for GIB on 8/28. #Encounter for Palliative Care Pt. is not a surgical candidate currently for bowel perforation or for metastatic prostate CA. Pt. is non-adherent with HAART. Continue w/ pain control Discontinued medications Pt. signing out AMA but has agreed to stay overnight for 2units pRBCs and to await if case management can increase home hours. Will not perform blood draws or give Abx. Will continue IV feeds and protonix until Pt. physically leaves hospital. Visit type - Emergency Visit Emergency Visit: Yes ED Registration Date: 06/10/20 Care time: The patient presented to the Emergency Department on the above date and was hospitalized for further evaluation of their emergent condition. - New Patient This patient is new to me today: No - Critical Care Critical Care patient: No - Discharge Referral Referred to [facility] Med P.C.: No ATTENDING PHYSICIAN STATEMENT I saw and evaluated the patient. I reviewed the resident's note and discussed the case with the resident. I agree with the resident's findings and plan as documented. SUBJECTIVE: OBJECTIVE: ASSESSMENT AND PLAN:
[2020-06-18] MEDS: FAT EMULSIONS 250 ML IV SCH (21:01)
[2020-06-18] MEDS: LIDOCAINE PATCH REMOVAL MC SCH (21:03)
[2020-06-19] MEDS: SODIUM PHOSPHATE IV SCH (01:02)
[2020-06-19] MEDS: MAGNESIUM SO4 IV SCH (01:02)
[2020-06-19] MEDS: [UNRECOGNIZED DRUG - OTHER] IV SCH (01:02)
[2020-06-19] MEDS: FOLIC ACID IV SCH (01:02)
[2020-06-19] MEDS: LIDOCAINE 5% TOPICAL PATCH TP SCH (10:06)
[2020-06-19] MEDS: PANTOPRAZOLE SODIUM 40 MG VIAL IVPUSH SCH (10:07)
--- NOTE | 2020-06-19 11:56 | DS ---
Physical Exam: SUBJECTIVE: Patient seen and examined at bedside. No acute events overnight. OBJECTIVE: Vital Signs Period Temp Pulse Resp BP Sys/Reardon Pulse Ox Last 24 Hr 98.1 F-98.5 F 90-103 20-20 105-119/76-81 96-98 PHYSICAL EXAM GENERAL: The patient is awake, alert, cachectic, in no acute distress. HEAD: Normal with no signs of trauma. EYES: Sclera anicteric, conjunctiva clear. No ptosis. ENT: Dry mucous membranes. LUNGS: Breath sounds equal, clear to auscultation bilaterally, no wheezes, no crackles, no accessory muscle use. HEART: Regular rate and rhythm, S1, S2 without murmur ABDOMEN: Soft, nontender, nondistended, Hypoactive bowel sounds EXTREMITIES: 2+ radial pulses, warm, well-perfused, no edema. NEUROLOGICAL: Normal speech, gait not observed. PSYCH: Normal mood, normal affect. SKIN: Warm, dry LABS Laboratory Results - last 24 hr 06/18/20 12:50 Blood Type AB POSITIVE Antibody Screen Negative Crossmatch See Detail HOSPITAL COURSE: Date of Admission:06/10/20 59-year-old -Cym[place] male past medical history of metastatic prostate cancer, AIDS noncompliant with HAART, severe protein calorie malnutrition was admitted for perforated viscus. Pt was evaluated by surgery with recommendation for only conservative management given poor prognosis of risk of recovery/extubation as well as survival of surgery. He was also evaluated by GI, but given pt's request for only palliative care and to return home, further GI workup was deferred. Pt was seen by ID with recommendation to empirically treat pt with IV Zosyn. Palliative care team was consulted and discussed in-depth with patient the option to go to [facility] for hospice care, however patient declined (He was not accepted for home hospice.) After ongoing discussions with palliative care team, transition social worker, and patient, pt decided to sign out AMA to be at home. He verbalized understanding of risks of signing out prior to completion of medical workup, including risk of . He was made aware and stated he did not want to return to the hospital for further medical management. Pt left AMA and was prescribed Roxanol for pain. Date of Discharge: 06/19/20 Minutes to complete discharge: 36 Discharge Summary Problems reviewed: Yes Reason For Visit: ELEVATED TRANSAMINASE MEASUREMENT ACQUIRED IMMUNOD Current Active Problems AIDS (Acute) Failure to thrive (Acute) Hypoglycemia (Acute) Pneumoperitoneum of unknown etiology (Acute) Prostate cancer metastatic to lung (Acute) Transaminitis (Acute) Condition: Critical - Instructions Diet, Activity, Other Instructions: You came in for weakness, dizziness, blood in your stool and low blood press ures. We imaged your abdomen and saw that you had prostate cancer that had spread everywhere which you already knew, and a NEW hole in your intestines causing a severe infection. We monitored you in the ICU and gave you IV antibiotics. We transfused blood because you were bleeding and your counts were low. You were seen by an infectious disease specialist, herb counselor, machine silk screen printer/oncologist, general surgeon and a sports medicine physician. You were receiving food through an IV in your arm. We are prescribing you pain medications We discussed the risks of you going home against medical advice including the HIGH likelihood that you will develop severe abdominal pain, become septic meaning that you blood pressure will go very low and that you will . You acknowledged this and decided to go home. You made this decision while having capacity to make your own decisions. You signed a DNR/DNI and DNH form in the hospital. Disposition: AGAINST MEDICAL ADVICE - Home Medications Comprehensive Discharge Medication List: Ambulatory Orders Doxepin HCl 200 mg PO HS 01/10/20 Emtricitab/Rilpiviri/Tenof Ala [Odefsey Tablet] 1 each PO DAILY 01/10/20 Bicalutamide [Casodex -] 50 mg PO DAILY #30 tablet 05/17/20 Collagenase Clostridium Hist. [Santyl -] 1 applic TP DAILY #1 tube 05/17/20 Folic Acid - 1 mg PO DAILY #30 tablet 05/17/20 Morphine Sulfate 10 mg PO Q4H #500 ml MDD 50mL 06/18/20 Morphine Sulfate 10 mg PO Q4H PRN #500 ml MDD 4 teaspoon 06/19/20 This patient is new to me today: Yes Date on this admission: 07/08/20 Emergency Visit: Yes ED Registration Date: 06/10/20 Care time: The patient presented to the Emergency Department on the above date and was hospitalized for further evaluation of their emergent condition. Critical Care patient: No - Discharge Referral Referred to [facility] Med P.C.: No ATTENDING PHYSICIAN STATEMENT I saw and evaluated the patient. I reviewed the resident's note and discussed the case with the resident. I agree with the resident's findings and plan as documented. SUBJECTIVE: OBJECTIVE: ASSESSMENT AND PLAN:
[2020-06-19 12:16] LABS: BASO % 0.2 % (0-2.0); EOS % 0.3 % (0-4.5); HEMATOCRIT 32.5 % (35.4-49); HEMOGLOBIN 10.9 GM/dL (11.7-16.9); LYMPH % 14.9 % (8-40); MCH 29.9 pg (25.7-33.7); MCHC 33.6 g/dl (32.0-35.9); MEAN CELL VOLUME 88.9 fl (80-96); MEAN PLT VOLUME 8.5 fl (7.5-11.1); MONO % 4.3 % (3.8-10.2); NEUT % 80.3 % (42.8-82.8); PLATELET COUNT 71 K/MM3 (134-434); RBC 3.65 M/mm3 (4.00-5.60); RDW 16.9 % (11.9-15.9); WHITE BLOOD COUNT 5.5 K/mm3 (4.0-10.0)
--- NOTE | 2020-06-19 12:28 | PN ---
Progress Note (short form) - Note Progress Note: Palliative care f/up pain controlled tolerating clears appears comfortable Pt has decided to go home AMA and has signed DNR/ DNI/ DNH He is afebrile, haemodynamically stable 59 y/o male with Metastatic prostate cancer with bone mets and severe pain, HIV with AIDS ( non compliant with HAART), perforated viscus, poor surgical candidate due to comorbidities and poor functional status, for conservative management BP better with iv fluids and a/bs malnourished GI bleed- requiring multiple blood transfusions- H/H stable- Prognosis guarded. I spoke to the patient again today and we discussed his goals of care. He understands his poor prognosis and that curative treatments are not an option. He wants to go home even though option of [facility] was discussed with him. Prognosis is poor Goal is comfort care/ palliation as patient is not a candidate for curative treatment. Problem List - Problems (1) AIDS Code(s): B20 - HUMAN IMMUNODEFICIENCY VIRUS [HIV] DISEASE (2) Failure to thrive Code(s): [id number] - Qualifiers: Failure to thrive age range: in adult Qualified Code(s): R62.7 - Adult failure to thrive (3) Pneumoperitoneum of unknown etiology Code(s): K66.8 - OTHER SPECIFIED DISORDERS OF PERITONEUM (4) Prostate cancer metastatic to lung Code(s): C61 - MALIGNANT NEOPLASM OF PROSTATE; C78.00 - SECONDARY MALIGNANT NEOPLASM OF UNSPECIFIED LUNG (5) Anemia Code(s): D64.9 - ANEMIA, UNSPECIFIED Qualifiers: (6) Prostate cancer Code(s): C61 - MALIGNANT NEOPLASM OF PROSTATE
[2020-06-19 12:46] LABS: ALBUMIN 1.2 g/dl (3.4-5.0); ANION GAP 4 MMOL/L (8-16); BILIRUBIN,TOTAL 0.8 mg/dL (0.2-1); BLOOD UREA NITROGEN 18.7 mg/dL (7-18); CHLORIDE 113 mmol/L (98-107); CO2 23 mmol/L (21-32); CREATININE < 0.2 mg/dL (0.55-1.3); GLUCOSE,RANDOM 115 mg/dL (74-106); MAGNESIUM 1.8 mg/dL (1.8-2.4); PHOSPHOROUS 1.8 mg/dL (2.5-4.9); POTASSIUM 4.3 mmol/L (3.5-5.1); SGOT/AST 144 U/L (15-37); SGPT/ALT 200 U/L (13-61); SODIUM 140 mmol/L (136-145); TOT PROT 4.2 g/dl (6.4-8.2)
[2020-06-19 12:49] LABS: ALK PHOS 691 U/L (45-117)
[2020-06-19 12:52] LABS: CALCIUM 6.8 mg/dL (8.5-10.1)
--- NOTE | 2020-06-19 13:13 | PN ---
Teaching Attending Note Name of Resident: Jolene Ramirez ATTENDING PHYSICIAN STATEMENT I saw and evaluated the patient. I reviewed the resident's note and discussed the case with the resident. I agree with the resident's findings and plan as documented. SUBJECTIVE: Seen and examined at bedside. Discharge held last night as unable to get opiate medications in time. Patient still wishes to be sent home AGAINST MEDICAL ADVICE as described yesterday. Will be sent home today. OBJECTIVE Last Vital Signs Temp Pulse Resp BP Pulse Ox 98.4 F 103 H 20 107/76 98 06/19/20 06:00 06/19/20 06:00 06/19/20 06:00 06/19/20 06:00 06/19/20 09:00 PE: Per resident note Labs/Imaging: reviewed ASSESSMENT/PLAN 59-year-old last Cameroonian male with past medical history of metastatic prostate cancer, HIV, AIDS noncompliant with HAART, severe protein calorie malnutrition admitted for perforated viscus. Patient was not excepted for home hospice and has chosen to be discharged home AGAINST MEDICAL ADVICE as described previously Due to AMA and DNR/DNI/DNH status patient will not be discharged with ant ibiotics or Clinimix. He is currently tolerating clear liquids. Patient aware that he may become highly symptomatic in the next several days, and does not want to return to hospital. We will prescribe as needed roxanol for this eventuality. Patient is aware that insurance may not cover the cost
[2020-06-19] MEDS ORDERED: PANTOPRAZOLE 40 MG TABLET PO ONE ×2 (20:50)
[2020-06-19] MEDS: LIDOCAINE PATCH REMOVAL MC SCH (23:39)
[2020-06-20] MEDS: [UNRECOGNIZED DRUG - OTHER] IV SCH (01:15)
[2020-06-20] MEDS: FAT EMULSIONS 250 ML IV SCH (01:15)
[2020-06-20] MEDS: FOLIC ACID IV SCH (01:15)
[2020-06-20] MEDS: SODIUM PHOSPHATE IV SCH (01:15)
[2020-06-20] MEDS: MAGNESIUM SO4 IV SCH (01:15)
[2020-06-20] MEDS ORDERED: morphine CARPU-JECT 4 MG/1 ML DISP.SYRIN IVPUSH PRN (03:09)
[2020-06-20] MEDS: oxyCODONE HCL 5 MG TABLET PO ONE ×2 (03:16→03:23)
[2020-06-20 08:07] LABS: BASO % 0.3 % (0-2.0); EOS % 0.1 % (0-4.5); HEMATOCRIT 34.3 % (35.4-49); HEMOGLOBIN 11.6 GM/dL (11.7-16.9); LYMPH % 15.2 % (8-40); MCHC 33.6 g/dl (32.0-35.9); MEAN CELL VOLUME 89.1 fl (80-96); MEAN PLT VOLUME 8.4 fl (7.5-11.1); MONO % 3.2 % (3.8-10.2); NEUT % 81.2 % (42.8-82.8); PLATELET COUNT 76 K/MM3 (134-434); RBC 3.85 M/mm3 (4.00-5.60); RDW 17.3 % (11.9-15.9); WHITE BLOOD COUNT 5.8 K/mm3 (4.0-10.0)
[2020-06-20 08:21] LABS: ALBUMIN 1.2 g/dl (3.4-5.0); ANION GAP 5 MMOL/L (8-16); BLOOD UREA NITROGEN 15.4 mg/dL (7-18); CHLORIDE 111 mmol/L (98-107); CO2 23 mmol/L (21-32); MAGNESIUM 1.8 mg/dL (1.8-2.4); POTASSIUM 4.5 mmol/L (3.5-5.1); SODIUM 139 mmol/L (136-145)
[2020-06-20 08:25] LABS: BILIRUBIN,TOTAL 0.7 mg/dL (0.2-1); PHOSPHOROUS 2.3 mg/dL (2.5-4.9); SGOT/AST 119 U/L (15-37); SGPT/ALT 183 U/L (13-61); TOT PROT 4.3 g/dl (6.4-8.2)
[2020-06-20 08:28] LABS: ALK PHOS 659 U/L (45-117)
[2020-06-20 08:37] LABS: CREATININE < 0.2 mg/dL (0.55-1.3)
[2020-06-20 08:39] LABS: GLUCOSE,RANDOM 40 mg/dL (74-106)
[2020-06-20 08:40] LABS: CALCIUM 6.9 mg/dL (8.5-10.1)
[2020-06-20] MEDS ORDERED: INSULIN (NOVOLOG) ASPART 100 UNITS/ML 10ML VIAL ONE (09:22)
[2020-06-20] MEDS ORDERED: INSULIN (NOVOLOG MIX 70/30) 100 UNITS/ML MDV SQ ONE (09:22)
[2020-06-20] MEDS: PANTOPRAZOLE SODIUM 40 MG VIAL IVPUSH SCH (10:46)
[2020-06-20 10:51] VITALS: BMI 17.2
[2020-06-20] MEDS: LIDOCAINE 5% TOPICAL PATCH TP SCH (10:51)
--- NOTE | 2020-06-20 11:55 | PN ---
Teaching Attending Note Name of Resident: Sofi Parker ATTENDING PHYSICIAN STATEMENT I saw and evaluated the patient. I reviewed the resident's note and discussed the case with the resident. I agree with the resident's findings and plan as documented. SUBJECTIVE: Seen and examined at bedside. Discharge held last night as nobody at home to accept pt. Will be sent home today. OBJECTIVE Last Vital Signs Temp Pulse Resp BP Pulse Ox 97.7 F 8 L 18 116/78 98 06/20/20 06:00 06/20/20 06:00 06/20/20 06:00 06/20/20 06:00 06/20/20 06:00 PE: Per resident note Labs/Imaging: reviewed ASSESSMENT/PLAN 59-year-old last Tunisian male with past medical history of metastatic prostate cancer, HIV, AIDS noncompliant with HAART, severe protein calorie malnutrition admitted for perforated viscus. Patient was not excepted for home hospice and has chosen to be discharged home AGAINST MEDICAL ADVICE as described previously Due to AMA and DNR/DNI/DNH status patient will not be discharged with antibiotics or Clinimix. He is currently tolerating clear liquids. Patient aware that he may become highly symptomatic in the next several days, and does not want to return to hospital. We will prescribe as needed roxanol for this eventuality. Patient is aware that insurance may not cover the cost
[2020-06-20 16:15] VITALS: BP 124/83; PULSE 83; TEMP 97.6
== END 2020-06-20 15:00 | disposition left against medical advice (07) | DRG 254 ==
LOC: JER 12:30 → JERBED 18:59 → JICU 06-11 00:25 → J8W 06-12 21:30
PROVIDERS: ADMIT Internal Medicine Pulmonary Disease; ATTEND Internal Medicine
PROC: 30233N1 Transfusion of Nonautologous Red Blood Cells into Peripheral Vein, Percutaneous Approach (ICD-10-PCS; principal; 2020-06-11)
PROC: 30233L1 Transfusion of Nonautologous Fresh Plasma into Peripheral Vein, Percutaneous Approach (ICD-10-PCS; 2020-06-11)
PROC: 30233K1 Transfusion of Nonautologous Frozen Plasma into Peripheral Vein, Percutaneous Approach (ICD-10-PCS; 2020-06-11)
DX: K63.1 Perforation of intestine (nontraumatic) (principal); E16.2 Hypoglycemia, unspecified; R18.8 Other ascites; K63.89 Other specified diseases of intestine; E87.2 Acidosis; D62 Acute posthemorrhagic anemia; Z51.5 Encounter for palliative care; C61 Malignant neoplasm of prostate; M62.50 Muscle wasting and atrophy, not elsewhere classified, unspecified site; A41.9 Sepsis, unspecified organism; B20 Human immunodeficiency virus [HIV] disease; R64 Cachexia; E43 Unspecified severe protein-calorie malnutrition; C79.51 Secondary malignant neoplasm of bone; K72.00 Acute and subacute hepatic failure without coma; K55.059 Acute (reversible) ischemia of intestine, part and extent unspecified; Z91.14 Patient's other noncompliance with medication regimen; R62.7 Adult failure to thrive; C78.00 Secondary malignant neoplasm of unspecified lung; R74.0 Nonspecific elevation of levels of transaminase and lactic acid dehydrogenase [LDH]; E83.51 Hypocalcemia; E88.09 Other disorders of plasma-protein metabolism, not elsewhere classified; K92.2 Gastrointestinal hemorrhage, unspecified; K66.8 Other specified disorders of peritoneum
CPT/HCPCS: 36415; 36430; 36511; 71045-TC-FY; 74176-TC; 74177-TC; 76705-TC; 80053; 81003; 82272; 82330; 82550; 82553; 82728; 82803; 82962; 83516; 83605; 83615; 83735; 84100; 84478; 84484; 85025; 85027; 85045; 85379; 85610; 85651; 85730; 86038; 86140; 86704; 86705; 86706; 86707; 86708; 86769; 86850; 86900; 86901; 86922; 87040; 87045; 87046; 87086; 87186; 87324; 87328; 87329; 87449; 87522; 93005; 93010; 99285-25; P9017; P9038; P9058; U0003

== ENCOUNTER 2020-06-21 12:31 | Inpatient (IN) | payer OTHER ==
--- NOTE | 2020-06-21 12:44 | PDOC ---
History of Present Illness - General Chief Complaint: Blood Sugar Problem Stated Complaint: UNRESPONSIVE Time Seen by Provider: 06/21/20 12:44 Past History - Medical History Allergies/Adverse Reactions: Allergies Allergy/AdvReac Type Severity Reaction Status Date / Time ciprofloxacin [From Cipro] Allergy Verified 01/09/20 13:32 lactose AdvReac Verified 05/16/20 15:32 Home Medications: Ambulatory Orders Doxepin HCl 200 mg PO HS 01/10/20 Emtricitab/Rilpiviri/Tenof Ala [Odefsey Tablet] 1 each PO DAILY 01/10/20 Bicalutamide [Casodex -] 50 mg PO DAILY #30 tablet 05/17/20 Collagenase Clostridium Hist. [Santyl -] 1 applic TP DAILY #1 tube 05/17/20 Folic Acid - 1 mg PO DAILY #30 tablet 05/17/20 Morphine Sulfate 10 mg PO Q4H PRN #300 ml MDD 4 teaspoons 06/19/20 Anemia: Yes Cancer: (Yes; Prostate CA) Cardiac Disorders: No CVA: No COPD: No CHF: No Dementia: No Diabetes: No GI Disorders: No Disorders: Yes (retension - Syed cath) HTN: No Hypercholesterolemia: No Liver Disease: No Seizures: No - Surgical History Abdominal Surgery: No Appendectomy: No Cardiac Surgery: No Cholecystectomy: No Lung Surgery: No Neurologic Surgery: No Orthopedic Surgery: No - Immunization History Immunization Up to Date: No - Psycho-Social/Smoking History Smoking History: Former smoker Have you smoked in the past 12 months: No If you are a former smoker, when did you quit?: 1989 'Breaking Loose' booklet given: 10/29/19
[2020-06-21] MEDS ORDERED: VANCOMYCIN 1 GM in D5W (PRE-DOCKED) 1,000 MG/250 ML IVPB ONE (12:50)
[2020-06-21] MEDS ORDERED: PIPERACILLIN/TAZOB 3.375 GM 3.375 GM in DEXTROSE 5%-WATER - 50 ML IVPB ONE (12:50)
[2020-06-21 12:58] VITALS: BMI 16.7
[2020-06-21] MEDS ORDERED: VANCOMYCIN 1 GRAM (PRE-DOCKED) 1,000 MG/250 ML BAG IVPB ONE (13:10)
[2020-06-21] MEDS ORDERED: PIPERACILLIN/TAZOB 3.375 GM 3.375 GM/50 ML BAG IVPB ONE ×2 (13:11→18:49)
--- NOTE | 2020-06-21 13:24 | PDOC ---
History of Present Illness - General Chief Complaint: Blood Sugar Problem Stated Complaint: UNRESPONSIVE Time Seen by Provider: 06/21/20 12:44 - History of Present Illness Initial Comments: 06/21/20 13:16 59yo M DNR/DNI w/ h/o recent AMA discharge for hematochezia and h/o prostate CA BIBEMS reportedly found unresponsive and gurgling by home health aide this morning. Per EMS: he had a BG of 30 on their arrival. He was given 2 amps of D10 which increased BG to 60, and then to >200. En route he had about a minute of VT w/ coincident desat on monitor. On arrival he is unresponsive to verbal stimuli, breathing spontaneously on 15L NRB w/ SpO2 varying bettween , gurgling, Past History - Medical History Allergies/Adverse Reactions: Allergies Allergy/AdvReac Type Severity Reaction Status Date / Time ciprofloxacin [From Cipro] Allergy Verified 06/21/20 12:48 lactose AdvReac Verified 06/21/20 12:48 Home Medications: Ambulatory Orders Doxepin HCl 200 mg PO HS 01/10/20 Emtricitab/Rilpiviri/Tenof Ala [Odefsey Tablet] 1 each PO DAILY 01/10/20 Bicalutamide [Casodex -] 50 mg PO DAILY #30 tablet 05/17/20 Collagenase Clostridium Hist. [Santyl -] 1 applic TP DAILY #1 tube 05/17/20 Morphine Sulfate 10 mg PO Q4H PRN #300 ml MDD 4 teaspoons 06/19/20 Anemia: Yes Cancer: (Yes; Prostate CA) Cardiac Disorders: No CVA: No COPD: No CHF: No Dementia: No Diabetes: No GI Disorders: No Disorders: Yes (retension - Syed cath) HTN: No Hypercholesterolemia: No Liver Disease: No Seizures: No - Surgical History Abdominal Surgery: No Appendectomy: No Cardiac Surgery: No Cholecystectomy: No Lung Surgery: No Neurologic Surgery: No Orthopedic Surgery: No - Immunization History Immunization Up to Date: No - Psycho-Social/Smoking History Smoking History: Former smoker Have you smoked in the past 12 months: No If you are a former smoker, when did you quit?: 1989 Information on smoking cessation initiated: No 'Breaking Loose' booklet given: 10/29/19 - Substance Abuse Hx (Audit-C & DAST Scrn) How often the patient has a drink containing alcohol: Never Score: In Men: 4 or > Positive; In Women: 3 or > Positive: 0 Screen Result (Pos requires Nsg. Audit-10AR): Negative Review of Systems - Review of Systems Able to Perform ROS?: No (nonverbal) Comments:: 06/22/20 10:17 patient is awake but not responsive to questions. Is the patient limited Japanese proficient: No *Physical Exam - Vital Signs Last Vital Signs Temp Pulse Resp BP Pulse Ox 92 F L 81 11 91/66 100 06/21/20 12:32 06/21/20 12:32 06/21/20 12:32 06/21/20 12:32 06/21/20 12:32 - Physical Exam General Appearance: Yes: Apparent Distress, Cachetic. No: Nourished HEENT: positive: Nasal Congestion, Rhinorrhea, Other Neck: positive: Trachea midline Respiratory/Chest: positive: Labored Respiration, Crackles. negative: Lungs Clear, Normal Breath Sounds Cardiovascular: positive: Regular Rhythm, Regular Rate, S1, S2 Gastrointestinal/Abdominal: positive: Decreased BS Musculoskeletal: positive: Other (thin, atrophied LEs, pedal edema ) Extremity: positive: Pedal Edema, Swelling, Inflammation Integumentary: positive: Dry, Clammy Neurologic: positive: Respond to painful stimul, Disoriented, Other (eyelids are fluttering rapidly. Pupils are nonreactive, about 5mm b/l). negative: Fully Oriented, Alert, Normal Mood/Affect, Normal Response ED Treatment Course - LABORATORY CBC & Chemistry Diagram: 06/21/20 14:15 06/21/20 14:15 - RADIOLOGY Radiology Studies Ordered: Category Date Time Status HEAD CT WITHOUT CONTRAST [CT] Stat CT Scan 06/21/20 12:44 Ordered Medical Decision Making - Medical Decision Making 06/21/20 15:05 1. abrupt and acute deterioration of LOC w/ gurgling and jerking movements of hands and fluttering of eyelids -> HEAD CT to look for acute bleed/stroke 2. DNR/DNI, awake but oriented x0 w/ SpO2 decreasing to 80% on 15LNRB - Admit for end-of-life care and hypothermia and presumed UTI. 06/22/20 10:19 Discharge - Discharge Information Problems reviewed: Yes Clinical Impression/Diagnosis: Hypoglycemia, Hypoxemia, Neurologic abnormality Failure to thrive Qualifiers: Failure to thrive age range: in adult Qualified Code(s): R62.7 - Adult failure to thrive Altered mental status Qualifiers: Altered mental status type: stupor Qualified Code(s): R40.1 - Stupor Cancer, metastatic Qualifiers: Area of secondary neoplastic involvement: bone Qualified Code(s): C79.51 - Secondary malignant neoplasm of bone Condition: Disposition: - Admission Yes - Follow up/Referral - Patient Discharge Instructions - Post Discharge Activity
--- NOTE | 2020-06-21 14:23 | PDOC ---
Documentation entered by Ochoa Salas SCRIBE, acting as scribe for Sherrill Malcolm MD. Sherrill Malcolm MD: This documentation has been prepared by the idniae, Ochoa Salas SCRIBE, under my direction and personally reviewed by me in its entirety. I confirm that the documentation accurately reflects all work, treatment, procedures, and medical decision making performed by me. Attending Attestation - Resident Resident Name: Jaime Carson - ED Attending Attestation I have performed the following: I have examined & evaluated the patient, The case was reviewed & discussed with the resident, I agree w/resident's findings & plan, Exceptions are as noted - HPI HPI: 06/21/20 12:50 The patient is a 59 year old male with a significant past medical history of metastatic Prostate CA, HIV (last CD4 211, non-compliant with HIV medications), anemia who presents to the emergency department, [facility], for unresponsiveness. Pt is a poor historian so history was contributed by EMS, Aide over the phone and previous records. Pt was recently admitted for dehydration and failure to thrive and left AMA yesterday (06/20),hoping to set up home hospice. Pt was found unresponsive by home health aide who then called EMS. Per Aide, the pt was gurgling and difficult to arouse compared to yesterday where he was awake, alert and talking. Per EMS, the pt's BS was 30 when they arrived at the scene, which EMS treated. Per EMS, the pt's BP was 70's systolic and pt was minimally responsive. Allergies: ciprofloxacin, lactose PCP: Dr. Tsai (at [facility]) - Physicial Exam PE: 06/21/20 14:14 Patient is eyes open extremely cachectic emaciated unresponsive and nonverbal not moving any extremities lungs show rhonchorous breath sounds bilateral bases worse on the right heart rate is regular bradycardia no murmurs rubs or gallops abdomen is scaphoid nontender extremities are emaciated there is bilateral pedal edema he has wounds on his left trochanter is left lateral ankle neurologically he is unresponsive not responsive. - Medical Decision Making 06/21/20 14:15 59 yo male h/o hiv, prostate ca with mets, here after having been hospitalized , just left ama yesterday wanted to be home health hospice, . pt unresponsive here , history per aid, and ems. pt was heard gurling today, found to be unresponsive, and hypoglycemic by ems, given dextrose. yesterday per aid he was very talkative, requested big meal. this am was altered. differential hypoglycemic seizure, braine ich, mets, renal failure, sepsis. plan ct head. labs ivf and abx. pt molst reviewed in addition to his prior chart. pt is DNR DNI. agreeable to ivf, and abx. does not want all medical treatment. given 1 l ns, obvious cloudy urine in indwelling aggarwal, pt hypothermic . will place in carine hug[place]. ct head obtained with skull and spine mets. cxr questionable upper lobe infiltrate, crackels on clinical exam. given iv abx. unable to obtaine labs, will admit pt. for abx, palliative care. Discharge - Discharge Information Problems reviewed: Yes Clinical Impression/Diagnosis: Failure to thrive, Hypoglycemia, Altered mental status - Admission Yes - Follow up/Referral - Patient Discharge Instructions - Post Discharge Activity
[2020-06-21 14:32] LABS: VENOUS O2 SATURATION 85.2 % (70-80); VENOUS PCO2 38.6 mmHg (38-52); VENOUS PH 7.25 (7.310-7.410)
[2020-06-21 14:43] LABS: HEMATOCRIT 34.8 % (35.4-49); HEMOGLOBIN 11.4 GM/dL (11.7-16.9); LYMPH % 10.2 % (8-40); MCH 30.3 pg (25.7-33.7); MCHC 32.7 g/dl (32.0-35.9); MEAN CELL VOLUME 92.7 fl (80-96); MEAN PLT VOLUME 9.7 fl (7.5-11.1); MONO % 1.8 % (3.8-10.2); PLATELET COUNT 112 K/MM3 (134-434); RBC 3.76 M/mm3 (4.00-5.60); RDW 17.3 % (11.9-15.9); WHITE BLOOD COUNT 13.9 K/mm3 (4.0-10.0)
--- NOTE | 2020-06-21 14:47 | HP ---
CHIEF COMPLAINT: Unresponsive PCP: Dr Tsai HISTORY OF PRESENT ILLNESS: The patient is a 59 year old cachectic male with past medical history of metastatic Prostate CA, HIV (last CD4 211, non-compliant with HIV medications), anemia who presents to the emergency department, [facility], for unresponsiveness. Patient was discharged from this hospital just yesterday after he left against medical advice, after he was admitted for . Apparently was admitted for dehydration and failure to thrive, and at that time was worked up and found to have intestinal perforation and a severe infection. He chose to leave yesterday AMA despite unstable status although with intact mentation. He was brought back today after he was found gurgling and unresponsive by home health aide. He was found to be hypoglycemic at the field with BS=30. Received D10 with improvement in blood sugar levels. At the ED, he was found to be hypothermic with temp= 92, barely responsive. DNR and DNI Recent Travel: none PAST MEDICAL HISTORY: as above PAST SURGICAL HISTORY: as above Social History: Smoking: none recent Alcohol: none Drugs: none Family history: unable to obtain (somnolent/unable to cooperate) Allergies ciprofloxacin [From Cipro] Allergy (Verified 06/21/20 12:48) lactose Adverse Reaction (Verified 06/21/20 12:48) HOME MEDICATIONS: Home Medications Medication Instructions Recorded Doxepin HCl 200 mg PO HS 01/10/20 Emtricitab/Rilpiviri/Tenof Ala 1 each PO DAILY 01/10/20 [Odefsey Tablet] Bicalutamide [Casodex -] 50 mg PO DAILY #30 tablet 05/17/20 Collagenase Clostridium Hist. 1 applic TP DAILY #1 tube 05/17/20 [Santyl -] Morphine Sulfate 10 mg PO Q4H PRN #300 ml MDD 4 06/19/20 teaspoons REVIEW OF SYSTEMS unable to obtain PHYSICAL EXAMINATION Vital Signs - 24 hr 06/21/20 12:32 Temperature 92 F L Pulse Rate 81 Respiratory 11 Rate Blood Pressure 91/66 O2 Sat by Pulse 100 Oximetry (%) GENERAL: Cachectic, appears frail, moribund, not responding to name calling nor light touch (medicated) HEAD: Normal with no signs of trauma. EYES: Pupils equal, round and reactive to light, extraocular movements intact, sclera anicteric, conjunctiva clear. No lid lag. NOSE, THROAT: Ears normal, nares patent, oropharynx clear without exudates. Moist mucous membranes. NECK: supple, no JVD elevation LUNGS: Poor air movement bilaterally HEART: Regular rate and rhythm, normal S1 and S2 without murmur, rub or gallop. ABDOMEN: Soft, nontender, not distended, normoactive bowel sounds, no guarding, no rebound, no masses. No hepatomegaly or splenomegaly. MUSCULOSKELETAL: deferred (unable to participate) UPPER EXTREMITIES: 2+ pulses, warm, well-perfused. No cyanosis. grade II pitting edema bilaterally; atrophic muscles noted of lower extremities. No peripheral edema. LOWER EXTREMITIES: 2+ pulses, warm, well-perfused. No calf tenderness. grade II pitting peripheral edema. NEUROLOGICAL: unable to participate PSYCHIATRIC: unable to participate SKIN: Warm, dry, normal turgor, no rashes or lesions noted Laboratory Results - last 24 hr 06/21/20 06/21/20 14:15 14:21 WBC 13.9 H RBC 3.76 L Hgb 11.4 L Hct 34.8 L MCV 92.7 MCH 30.3 MCHC 32.7 RDW 17.3 H Plt Count 112 L D MPV 9.7 D Absolute Neuts (auto) 12.1 H Neutrophils % 87.0 H Lymphocytes % 10.2 D Monocytes % 1.8 L Eosinophils % 0.0 D Basophils % 1.0 D Nucleated RBC % 0 VBG pH 7.250 L POC VBG pCO2 38.6 POC VBG pO2 56.9 H VBG HCO3 16.5 L VBG O2 Sat (Franca) 85.2 H VBG Base Excess -10.0 L ASSESSMENT/PLAN: 1. Unresponsiveness likely secondary to severe sepsis, (leukocytosis, hypothermia and hypoglycemia) in a patient with metastatic prostate cancer - Suspect aspiration pneumonia. - cont with empiric antibiotics - panculture (sputum, urine, blood) - carine yee - to consider ID consultation in am - palliative care consultation as well as likely close to end of life - likely reaching end of life - pain meds prn for cancer associated pain - cautious fluid hydration 2. widely metastatic prostate cancer - Palliative care consult - pain meds for cancer associated pain prn - DNR/DNI 3. DVT prophylaxis - SCD 4. Patient is approaching end of life. - DNR/DNI 5. Pseudo-Hypocalcemia - albumin 1.2 - corrected calcium= 9.2 6. Cancer induced cachexia - palliative care consultation Family Medical History Family History: Unable to Obtain Problem List - Problem (1) Sepsis Code(s): A41.9 - SEPSIS, UNSPECIFIED ORGANISM Visit type - Emergency Visit Emergency Visit: Yes ED Registration Date: 06/21/20 Care time: The patient presented to the Emergency Department on the above date and was hospitalized for further evaluation of their emergent condition. - New Patient This patient is new to me today: Yes Date on this admission: 06/21/20 - Critical Care Critical Care patient: No
[2020-06-21 15:25] LABS: ALBUMIN 1.2 g/dl (3.4-5.0); BILIRUBIN,TOTAL 0.4 mg/dL (0.2-1); BLOOD UREA NITROGEN 26.8 mg/dL (7-18); CREATININE 0.3 mg/dL (0.55-1.3); POTASSIUM 5.5 mmol/L (3.5-5.1); TOT PROT 4.1 g/dl (6.4-8.2)
[2020-06-21 15:30] LABS: CALCIUM 6.8 mg/dL (8.5-10.1)
[2020-06-21 15:41] LABS: EPI CELLS >36 /uL (0-25.1); HYALINE CASTS 22 /uL (0-3.1); PH,URINE 5.5 (5.0-8.0); URINE APPEARANCE CLEAR; URINE BACTERIA 20 /uL (0-1359); URINE BILIRUBIN NEGATIVE (NEGATIVE); URINE COLOR DK YELLOW; URINE GLUCOSE (UA) 2+ (NEGATIVE); URINE KETONE NEGATIVE (NEGATIVE); URINE LEUK ESTERASE TRACE (NEGATIVE); URINE NITRITE NEGATIVE (NEGATIVE); URINE PROTEIN 1+ (NEGATIVE); URINE RBC 18 /uL (0-23.9); URINE WBC 63 /uL (0-25.8)
[2020-06-21 17:30] VITALS: BP 79/65; TEMP 97
[2020-06-21] MEDS ORDERED: PIPERACILLIN/TAZOB 3.375 GM 3.375 GM in DEXTROSE 5%-WATER - 50 ML IVPB SCH (18:30)
[2020-06-22] MEDS ORDERED: PIPERACILLIN/TAZOB 3.375 GM 3.375 GM in DEXTROSE 5%-WATER - 50 ML IVPB SCH (02:00)
--- NOTE | 2020-06-22 02:06 | PN ---
Progress Note (short form) - Note Progress Note: Called to examine patient in ED. Unresponsive, even to painful stimuli. Pupils fixed & dilated, nonreactive. Pt has no spontaneous breathing, no heart sounds or breath sounds. No carotid or femoral pulses present. Time of pronounced at 12:10PM. To contact [facility] No family member information present to contact. Will attempt to further obtain family info. Signed DNR/DNI MOLST form signed by patient in physical chart.
[2020-06-22 04:52] VITALS: PULSE 82
--- NOTE | 2020-06-22 12:45 | EKG ---
Test Reason : Blood Pressure : / mmHG Vent. Rate : 107 BPM Atrial Rate : 088 BPM P-R Int : 000 ms QRS Dur : 084 ms QT Int : 372 ms P-R-T Axes : 000 -21 083 degrees QTc Int : 496 ms NORMAL SINUS RHYTHM LOW VOLTAGE QRS NONSPECIFIC T WAVE ABNORMALITY ABNORMAL ECG WHEN COMPARED WITH ECG OF 10-JUN-2020 13:08, QUESTIONABLE CHANGE IN QRS AXIS NONSPECIFIC T WAVE ABNORMALITY NO LONGER EVIDENT IN INFERIOR LEADS QT HAS LENGTHENED Confirmed by Miguelangel Devlin ([id number]) on 06/22/2020 12:45:10 PM Referred By: Confirmed By:Miguelangel Devlin
== END 2020-06-22 00:10 | disposition expired | DRG 720 ==
LOC: JER 12:31 → JERBED 14:22
PROVIDERS: ADMIT Internal Medicine; ATTEND Internal Medicine
DX: A41.9 Sepsis, unspecified organism (principal); R65.20 Severe sepsis without septic shock; C61 Malignant neoplasm of prostate; E83.51 Hypocalcemia; R64 Cachexia; Z68.1 Body mass index [BMI] 19.9 or less, adult; R62.7 Adult failure to thrive; Z21 Asymptomatic human immunodeficiency virus [HIV] infection status; Z91.14 Patient's other noncompliance with medication regimen; E86.0 Dehydration; D72.829 Elevated white blood cell count, unspecified; C79.51 Secondary malignant neoplasm of bone; J69.0 Pneumonitis due to inhalation of food and vomit; K63.1 Perforation of intestine (nontraumatic); E16.2 Hypoglycemia, unspecified; R09.02 Hypoxemia
CPT/HCPCS: 36415; 70450-TC; 71045-TC-FY; 80053; 81003; 82550; 82803; 83605; 84484; 85025; 87040; 87086; 93005; 93010; 99285-25; U0003